=== PATIENT | female | born 1935 | race Caucasian/White ===

== ENCOUNTER 2018-04-02 11:07 | Inpatient (IN) | payer MEDICARE, BC ==
[~2018-04-02] VITALS: Ht 152.4 cm; Wt 45.8 kg
--- OUTSIDE RECORDS SUMMARY | 2018-04-02 11:10 | XMS REPORT | Clinical Summary ---
Author Author [employer] Organization [employer] Address Unknown Phone Unavailable Care Team Providers [facility] Name Role Phone Vipul Dunn MD PCP Allergies Comments Active Allergy Reactions Severity Noted Date Penicillin G Hives, Rash Low 03/23/2016 Sulfa (Sulfonamide Rash Low 03/24/2016 Antibiotics) Medications End Date Status Medication Sig Dispensed Refills Start Date Active clopidogrel (PLAVIX) 75 Take 1 tablet 0 mg tablet by mouth 7 daily. Active COMBIVENT RESPIMAT 20-100 Inhale 1-2 11 mcg/actuation mist puffs every 4 6 inhaler (four) hours as needed for shortness of breath. Active DULERA 200-5 Inhale 2 11 mcg/actuation inhaler puffs 2 (two) 6 times a day. Active fluticasone-vilanterol Inhale 1 0 (BREO ELLIPTA) 100-25 inhalations mcg/dose blister with once daily. device powder for inhalation Active lisinopril Take 20 mg by 0 (PRINIVIL,ZESTRIL) 20 mg mouth daily. tablet Active levothyroxine (SYNTHROID, Take 75 mcg 0 LEVOXYL) 75 mcg tablet by mouth every morning. Active vitamin E 400 UNIT Take 400 0 capsule Units by mouth daily. Active umeclidinium (INCRUSE Inhale 62.5 0 ELLIPTA) 62.5 mcg daily. mcg/actuation blister with device 07/28/2017 Discontinued SPIRIVA WITH HANDIHALER Place 1 puff 3 18 mcg per inhalation into inhaler 6 capsule and inhale daily. Active Problems Problem Noted Date Hematoma of arm, left, initial encounter 07/28/2017 Contusion of arm 07/28/2017 Balance problem 03/24/2016 Encounters Care Team Description Date Type Specialty Jonathan Armstrong RN 07/30/2017 Nurse Only General Internal Medicine Otilio Grace MD Satish, Shiva, MD Joglekar, Swati, MD Cherian, MD Rubin Hematoma of arm, left, initial encounter (Primary Dx); Fall at home, initial encounter; Acute bilateral thoracic back pain 07/28/2017 [facility] General Internal Medicine - Encounter 07/30/2017 after 04/01/2017 Social History Date Tobacco Use Types Packs/Day Years Used Current Every Day Smoker Cigarettes 2 50 Tobacco Cessation: Ready to Quit: No; Counseling Given: No Alcohol Use Drinks/Week oz/Week Comments Yes occassional drinker of liquor Sex Assigned at Date Recorded Not on file Industry Job Start Date Occupation Not on file Not on file Not on file Travel End Travel History Travel Start No recent travel history available. Last Filed Vital Signs Time Taken Vital Sign Reading 07/29/2017 8:24 PM CDT Blood Pressure 110/55 07/29/2017 8:24 PM CDT Pulse 94 07/29/2017 8:24 PM CDT Temperature 35.9 C (96.6 F) 07/29/2017 8:24 PM CDT Respiratory Rate 22 07/29/2017 8:24 PM CDT Oxygen Saturation 96% - Inhaled Oxygen - Concentration - Weight - 07/28/2017 2:47 AM CDT Height 167.6 cm (5' 6") - Body Mass Index - Plan of Treatment Health Maintenance Due Date Last Done Comments SHINGLES VACCINES (1 of 10/05/1983 2) PNEUMOCOCCAL 1998 POLYSACCHARIDE VACCINE AGE 65 AND OVER PNEUMOCOCCAL-13 1998 INFLUENZA VACCINE 09/20/2017 Procedures Comments Procedure Name Priority Date/Time Associated Diagnosis XR HIPS BILATERAL AP Routine 07/29/2017 LATERAL W AP PELVIS 2:48 PM CDT RESPIRATORY PATHOGEN Routine 07/29/2017 PANEL 11:58 AM CDT HC COMPLETE BLD COUNT Routine 07/29/2017 W/AUTO DIFF 4:10 AM CDT SODIUM LEVEL, URINE, Timed 07/29/2017 RANDOM 4:01 AM CDT URINALYSIS SCREEN AND Timed 07/29/2017 MICROSCOPY, WITH REFLEX 4:01 AM CDT TO CULTURE ZZESTIMATED GFR Routine 07/29/2017 4:00 AM CDT COMPREHENSIVE METABOLIC Routine 07/29/2017 PANEL 4:00 AM CDT URINE CULTURE Timed 07/29/2017 4:00 AM CDT TROPONIN Routine 07/28/2017 9:20 PM CDT BLOOD CULTURE, AEROBIC & Routine 07/28/2017 ANAEROBIC 9:20 PM CDT BLOOD CULTURE, AEROBIC & Routine 07/28/2017 ANAEROBIC 9:20 PM CDT B NATRIURETIC PEPTIDE Timed 07/28/2017 2:27 PM CDT HEMOGLOBIN A1C Timed 07/28/2017 2:27 PM CDT VITAMIN B12 LEVEL Timed 07/28/2017 9:03 AM CDT FERRITIN LEVEL Timed 07/28/2017 9:03 AM CDT TOTAL IRON BINDING Timed 07/28/2017 CAPACITY 9:03 AM CDT TROPONIN Timed 07/28/2017 9:03 AM CDT LACTIC ACID LEVEL Timed 07/28/2017 9:03 AM CDT THYROID STIMULATING Timed 07/28/2017 HORMONE 9:03 AM CDT MAGNESIUM LEVEL Timed 07/28/2017 9:03 AM CDT XR CHEST 1 VW STAT 07/28/2017 5:32 AM CDT POTASSIUM LEVEL STAT 07/28/2017 4:01 AM CDT ZZESTIMATED GFR STAT 07/28/2017 3:05 AM CDT BASIC METABOLIC PANEL STAT 07/28/2017 3:05 AM CDT PARTIAL THROMBOPLASTIN STAT 07/28/2017 TIME (PTT) 3:05 AM CDT PROTHROMBIN TIME WITH INR STAT 07/28/2017 3:05 AM CDT HC COMPLETE BLD COUNT STAT 07/28/2017 W/AUTO DIFF 3:[address] HEAD WO CONTRAST STAT 07/28/2017 3:[address] CERVICAL SPINE WO STAT 07/28/2017 CONTRAST 3:03 AM CDT after 04/01/2017 Results * XR Hips Bilateral Ap Lateral W Ap Pelvis (07/29/2017 2:48 PM CDT) Narrative Performed At EXAMINATION:XR HIPS BILATERAL [facility]: [facility] COMPARISON:March 31, 2004 FINDINGS: Bones are demineralized. No acute osseous abnormalities identified. There are pronounced degenerative changes in the lower lumbar spine. There has been endovascular repair of an abdominal aortic aneurysm. IMPRESSION: As above [facility]-[id number] Procedure Note Interface, Radiology Results Incoming - 07/29/2017 3:12 PM CDT EXAMINATION: XR HIPS BILATERAL AP LATERAL W AP PELVIS CLINICAL HISTORY: JOINT PAIN HIP COMPARISON: March 31, 2004 FINDINGS: Bones are demineralized. No acute osseous abnormalities identified. There are pronounced degenerative changes in the lower lumbar spine. There has been endovascular repair of an abdominal aortic aneurysm. IMPRESSION: As above [facility]-[id number] Performing Organization Address City/State/Zipcode Phone Number [facility] [address] [place] [address] * Respiratory pathogen panel (07/29/2017 11:58 AM CDT) Respiratory pathogen Negative for all pathogens [facility] DEPARTMENT OF panel tested: PATHOLOGY AND Negative for Adenovirus GENOMIC MEDICINE Negative for Coronavirus HKU1 Negative for Coronavirus NL63 Negative for Coronavirus 229E Negative for Coronavirus OC43 Negative for Human Metapneumovirus Negative for Rhinovirus/Enterovirus Negative for Influenza A Negative for Influenza A/H1 Negative for Influenza A/H3 Negative for Influenza A/H1-2009 Negative for Influenza B Negative for Parainfluenza Virus 1 Negative for Parainfluenza Virus 2 Negative for Parainfluenza Virus 3 Negative for Parainfluenza Virus 4 Negative for Respiratory Syncytial Virus Negative for Bordetella pertussis Negative for Chlamydophila pneumoniae Negative for Mycoplasma pneumoniae This real-time PCR assay detects the presence of nucleic acids (RNA or DNA) for the respiratory pathogens listed. A result of "Not-detected" does not exclude the possibility of the presence of one or more pathogens at concentrations less than the detectable limits of the assay. Comment: Specimen Information Specimen Source: Nares Specimen Site: Other Specimen Nares - Other- Detailed Description Required Performing Organization Address City/State/Zipcode Phone Number [facility] DEPARTMENT OF [address] [place] [address] PATHOLOGY AND GENOMIC MEDICINE * CBC with platelet and differential (07/29/2017 4:10 AM CDT) Only the most recent of 2 results within the time period is included. WBC 13.53 (H) 4.50 - 11.00 k/uL [facility] DEPARTMENT OF PATHOLOGY AND GENOMIC MEDICINE RBC 3.55 (L) 4.20 - 5.50 m/uL [facility] DEPARTMENT OF PATHOLOGY AND GENOMIC MEDICINE HGB 7.4 (L) 12.0 - 16.0 g/dL [facility] DEPARTMENT OF PATHOLOGY AND GENOMIC MEDICINE HCT 24.7 (L) 37.0 - 47.0 % [facility] DEPARTMENT OF PATHOLOGY AND GENOMIC MEDICINE MCV 69.6 (L) 82.0 - 100.0 fL [facility] DEPARTMENT OF PATHOLOGY AND GENOMIC MEDICINE MCH 20.8 (L) 27.0 - 34.0 pg [facility] DEPARTMENT OF PATHOLOGY AND GENOMIC MEDICINE MCHC 30.0 (L) 31.0 - 37.0 g/dL [facility] DEPARTMENT OF PATHOLOGY AND GENOMIC MEDICINE RDW - SD 45.3 37.0 - 55.0 fL [facility] DEPARTMENT OF PATHOLOGY AND GENOMIC MEDICINE MPV 9.1 8.8 - 13.2 fL [facility] DEPARTMENT OF PATHOLOGY AND GENOMIC MEDICINE Platelet count 308 150 - 400 k/uL [facility] DEPARTMENT OF PATHOLOGY AND GENOMIC MEDICINE Nucleated RBC 0.00 /100 WBC [facility] DEPARTMENT OF PATHOLOGY AND GENOMIC MEDICINE Neutrophils 82.0 (H) 39.0 - 69.0 % [facility] DEPARTMENT OF PATHOLOGY AND GENOMIC MEDICINE Lymphocytes 9.7 (L) 25.0 - 45.0 % [facility] DEPARTMENT OF PATHOLOGY AND GENOMIC MEDICINE Monocytes 6.3 0.0 - 10.0 % [facility] DEPARTMENT OF PATHOLOGY AND GENOMIC MEDICINE Eosinophils 1.1 0.0 - 5.0 % [facility] DEPARTMENT OF PATHOLOGY AND GENOMIC MEDICINE Basophils 0.3 0.0 - 1.0 % [facility] DEPARTMENT OF PATHOLOGY AND GENOMIC MEDICINE Immature granulocytes 0.6Comment: "Immature 0.0 - 1.0 % [facility] DEPARTMENT OF granulocytes" (promyelocytes, PATHOLOGY AND myelocytes, metamyelocytes) GENOMIC MEDICINE Specimen Blood Performing Organization Address [facility] Phone Number [place] [phone] PATHOLOGY AND [facility] * Urinalysis screen and microscopy, with reflex to culture (07/29/2017 4:01 AM CDT) Specimen site Clean catch [facility] DEPARTMENT OF PATHOLOGY AND GENOMIC MEDICINE Color, UA Yellow [facility] DEPARTMENT OF PATHOLOGY AND GENOMIC MEDICINE Appearance, UA Clear [facility] DEPARTMENT OF PATHOLOGY AND GENOMIC MEDICINE Specific gravity, UA 1.014 1.001 - 1.035 [facility] DEPARTMENT OF PATHOLOGY AND GENOMIC MEDICINE pH, UA 5.0 5.0 - 8.5 [facility] DEPARTMENT OF PATHOLOGY AND GENOMIC MEDICINE Protein, UA Negative Negative [facility] DEPARTMENT OF PATHOLOGY AND GENOMIC MEDICINE Glucose, UA Negative Negative [facility] DEPARTMENT OF PATHOLOGY AND GENOMIC MEDICINE Ketones, UA Negative Negative [facility] DEPARTMENT OF PATHOLOGY AND GENOMIC MEDICINE Bilirubin, UA Negative Negative [facility] DEPARTMENT OF PATHOLOGY AND GENOMIC MEDICINE Blood, UA Negative Negative [facility] DEPARTMENT OF PATHOLOGY AND GENOMIC MEDICINE Nitrite, UA Negative Negative [facility] DEPARTMENT OF PATHOLOGY AND GENOMIC MEDICINE Urobilinogen, UA 2.0 (A) <2.0 [facility] DEPARTMENT OF PATHOLOGY AND GENOMIC MEDICINE Leukocyte esterase, UA Negative Negative [facility] DEPARTMENT OF PATHOLOGY AND GENOMIC MEDICINE Epithelial cells, UA 1 /HPF [facility] DEPARTMENT OF PATHOLOGY AND GENOMIC MEDICINE WBC, UA 1 0 - 4 /HPF [facility] DEPARTMENT OF PATHOLOGY AND GENOMIC MEDICINE RBC, UA <1 0 - 5 /HPF [facility] DEPARTMENT OF PATHOLOGY AND GENOMIC MEDICINE Bacteria, UA None seen None seen [facility] DEPARTMENT OF PATHOLOGY AND GENOMIC MEDICINE Yeast, UA None seen [facility] DEPARTMENT OF PATHOLOGY AND GENOMIC MEDICINE Yeast with pseudohyphae, None seen [facility] DEPARTMENT OF UA PATHOLOGY AND GENOMIC MEDICINE Hyaline casts, UA 1 /LPF [facility] DEPARTMENT OF PATHOLOGY AND GENOMIC MEDICINE Specimen Urine Performing Organization Address City/[facility] Phone Number [address] [address] PATHOLOGY AND GENOMIC MEDICINE * Sodium level, urine, random (07/29/2017 4:01 AM CDT) Sodium, urine, random 128 mEq/L [facility] DEPARTMENT OF PATHOLOGY AND GENOMIC MEDICINE Specimen Urine Performing Organization Address City/[facility] [place] [address] PATHOLOGY AND GENOMIC MEDICINE * Estimated GFR (07/29/2017 4:00 AM CDT) Only the most recent of 2 results within the time period is included. GFR Non Af Amer 80 mL/min/1.73 m2 [facility] DEPARTMENT OF PATHOLOGY AND GENOMIC MEDICINE GFR Af Amer >90 mL/min/1.73 m2 [facility] DEPARTMENT OF Comment: PATHOLOGY AND Chronic kidney disease: <60 GENOMIC MEDICINE mL/min/1.73m2 Kidney failure: <15 mL/min/1.73m2 The estimated GFR is calculated from the IDMS-traceable Modification of Diet in Renal Disease Equation. The accuracy of the calculation is poor when the creatinine is normal. Calculated values >90 mL/min/1.73m2 are not reported. This equation has not been validated in children (<18 years), women, the elderly (>70 years), or ethnic groups other than Caucasians and Americans. Specimen Plasma specimen Performing Organization Address City/[facility]/[place]code [place] [address] PATHOLOGY AND [employer] MEDICINE * Urine culture (07/29/2017 4:00 AM CDT) Urine culture SEE COMMENTComment: [facility] DEPARTMENT OF Bacteriuria screen negative. PATHOLOGY AND GENOMIC MEDICINE Performing Organization Address City/[facility]/[place]code [place] [address] PATHOLOGY AND GENOMIC MEDICINE * Comprehensive metabolic panel (07/29/2017 4:00 AM CDT) Sodium 135 135 - 148 mEq/L [facility] DEPARTMENT OF PATHOLOGY AND GENOMIC MEDICINE Potassium 3.9 3.5 - 5.0 mEq/L [facility] DEPARTMENT OF PATHOLOGY AND GENOMIC MEDICINE Chloride 99 98 - 112 mEq/L [facility] DEPARTMENT OF PATHOLOGY AND GENOMIC MEDICINE CO2 22 (L) 24 - 31 mEq/L [facility] DEPARTMENT OF PATHOLOGY AND GENOMIC MEDICINE Anion gap 14@ANIO 7 - 15 mEq/L [facility] DEPARTMENT OF PATHOLOGY AND GENOMIC MEDICINE BUN 14 8 - 23 mg/dL [facility] DEPARTMENT OF PATHOLOGY AND GENOMIC MEDICINE Creatinine 0.7 0.5 - 0.9 mg/dL [facility] DEPARTMENT OF PATHOLOGY AND GENOMIC MEDICINE Glucose 88 65 - 99 mg/dL [facility] DEPARTMENT OF PATHOLOGY AND GENOMIC MEDICINE Calcium 8.6 (L) 8.8 - 10.2 mg/dL [facility] DEPARTMENT OF PATHOLOGY AND GENOMIC MEDICINE Protein 6.4 6.3 - 8.3 g/dL [facility] DEPARTMENT OF Comment: PATHOLOGY AND [place] GENOMIC MEDICINE 4.6-7.0 g/dL 1 week 4.4-7.6 g/dL 7 months-1year 5.1-7.3 g/dL 1-2 years5.6-7 .5 g/dL >3 years6.0-8 .0 g/dL 18-150 6.3-8.3 g/dL Albumin 2.9 (L) 3.5 - 5.0 g/dL [facility] DEPARTMENT OF PATHOLOGY AND GENOMIC MEDICINE A/G ratio 0.8 0.7 - 3.8 [facility] DEPARTMENT OF PATHOLOGY AND GENOMIC MEDICINE Alkaline phosphatase 104 35 - 104 U/L [facility] DEPARTMENT OF PATHOLOGY AND GENOMIC MEDICINE AST 14 10 - 35 U/L [facility] DEPARTMENT OF PATHOLOGY AND GENOMIC MEDICINE ALT 11 5 - 50 U/L [facility] DEPARTMENT OF PATHOLOGY AND GENOMIC MEDICINE Total bilirubin 0.4 0.0 - 1.2 mg/dL [facility] DEPARTMENT OF PATHOLOGY AND GENOMIC MEDICINE Specimen Plasma specimen Performing Organization Address City/State/[facility] Phone Number [place] [phone] PATHOLOGY AND GENOMIC MEDICINE * Troponin (07/28/2017 9:20 PM CDT) Only the most recent of 2 results within the time period is included. Troponin <0.30 0.00 - 0.30 ng/mL [facility] DEPARTMENT OF Comment: PATHOLOGY AND 0.30 - 1.49 GENOMIC MEDICINE ng/mlMay indicate increased risk of acute coronary syndrome. >=1.5 ng/ml Consistent with acute myocardial infarction. The diagnostic value of a single normal or non-diagnostic result is questionable.Serial samples at 2-6 hour intervals are required to rule out acute myocardial injury. Specimen Plasma specimen Performing Organization Address City/[facility] [place] [address] PATHOLOGY AND GENOMIC MEDICINE * Blood culture, aerobic & anaerobic (07/28/2017 9:20 PM CDT) Only the most recent of 2 results within the time period is included. Blood culture isolate No growth after 5 days of [facility] DEPARTMENT OF incubation. PATHOLOGY AND Comment: GENOMIC MEDICINE Specimen Information Specimen Source: Blood Specimen Site: Unspecified Specimen Blood - Wrist, right Performing Organization Address City/[facility] Phone Number [facility] [place] [address] PATHOLOGY AND GENOMIC MEDICINE * B natriuretic peptide (07/28/2017 2:27 PM CDT) BNP 193 (H) 0 - 100 pg/mL [facility] DEPARTMENT OF PATHOLOGY AND GENOMIC MEDICINE Specimen Blood Performing Organization Address [facility] Phone Number [facility] [place] [address] PATHOLOGY AND GENOMIC MEDICINE * Hemoglobin A1c (07/28/2017 2:27 PM CDT) Hemoglobin A1C 5.4 4.0 - 5.6 % [facility] DEPARTMENT OF Comment: PATHOLOGY AND HbA1c cutoffs for diagnosing GENOMIC MEDICINE diabetes: 4.0% - 5.6%=normal 5.7% - 6.4%=increased risk for diabetes (prediabetes) >=6.5%=diabetes Goals for glycemic control (ADA 2016) < 7.0%Target for non adults with diabetes. More or less stringent targets may be appropriate for individual patients. <7.5% Target for Children and adolescents with type 1 diabetes. Specimen Blood Performing Organization Address [facility] Phone Number [facility] [place] [address] PATHOLOGY AND GENOMIC MEDICINE * Total iron binding capacity (07/28/2017 9:03 AM CDT) Iron level 36 (L) 37 - 145 ug/dL [facility] DEPARTMENT OF PATHOLOGY AND GENOMIC MEDICINE Iron binding capacity 315 200 - 400 ug/dL [facility] DEPARTMENT OF PATHOLOGY AND GENOMIC MEDICINE % Saturation 11.4 (L) 15.0 - 38.0 % [facility] DEPARTMENT OF PATHOLOGY AND GENOMIC MEDICINE Specimen Plasma specimen Performing Organization Address City/[facility] Phone Number [facility] [place] [address] PATHOLOGY AND GENOMIC MEDICINE * Thyroid stimulating hormone (07/28/2017 9:03 AM CDT) TSH 1.29 0.27 - 4.20 uIU/mL [facility] DEPARTMENT OF PATHOLOGY AND GENOMIC MEDICINE Specimen Plasma specimen Performing Organization Address City/[facility] Phone Number [facility] [place] [address] PATHOLOGY AND GENOMIC MEDICINE * Magnesium level (07/28/2017 9:03 AM CDT) Magnesium 1.9 1.6 - 2.4 mg/dL [facility] DEPARTMENT OF PATHOLOGY AND GENOMIC MEDICINE Specimen Plasma specimen Performing Organization Address [facility] Phone Number [facility] [place] [address] PATHOLOGY AND GENOMIC MEDICINE * Lactic acid level (07/28/2017 9:03 AM CDT) Lactic acid 1.5 0.5 - 2.2 mmol/L [facility] DEPARTMENT OF PATHOLOGY AND GENOMIC MEDICINE Specimen Plasma specimen Performing Organization Address [facility] [place] [address] PATHOLOGY AND [facility] * Ferritin level (07/28/2017 9:03 AM CDT) Ferritin level 15 13 - 150 ng/mL [facility] DEPARTMENT OF PATHOLOGY AND GENOMIC MEDICINE Specimen Plasma specimen Performing Organization Address [facility] Phone Number [facility] [place] [address] PATHOLOGY AND [facility] MEDICINE * Vitamin B12 level (07/28/2017 9:03 AM CDT) Vitamin B12 526 211 - 946 pg/mL [facility] DEPARTMENT OF Comment: PATHOLOGY AND Significant overlap exists GENOMIC MEDICINE between normal and deficiency states. However, most patients with deficiencies will have Serum B12 <200 pg/mL. Specimen Serum Performing Organization Address [facility] Phone Number [facility] [place] [address] PATHOLOGY AND GENOMIC MEDICINE * XR Chest 1 Vw (07/28/2017 5:32 AM CDT) Narrative Performed At Examination:XR CHEST 1 VW RADIANT Clinical History:Rib pain s p fall Comparison: None. Technique: Single frontal view of the chest is obtained. Findings: The lungs are free of infiltrate. The heart size is in the upper limits of normal. Right apical calcified granuloma and left midlung calcified granuloma are stable. No pleural effusion is seen. Impression: No active cardiopulmonary disease identified. [facility]-[id number] Procedure Note Interface, Radiology Results Incoming - 07/28/2017 5:42 AM CDT Examination: XR CHEST 1 VW Clinical History: Rib pain s p fall Comparison: None. Technique: Single frontal view of the chest is obtained. Findings: The lungs are free of infiltrate. The heart size is in the upper limits of normal. Right apical calcified granuloma and left midlung calcified granuloma are stable. No pleural effusion is seen. Impression: No active cardiopulmonary disease identified. [facility]-[id number] Performing Organization Address [facility] [place] [address] * Potassium level (07/28/2017 4:01 AM CDT) Potassium 4.0 3.5 - 5.0 mEq/L [facility] DEPARTMENT OF PATHOLOGY AND [employer] MEDICINE Specimen Plasma specimen Performing Organization Address [facility] [place] [address] PATHOLOGY AND [employer] MEDICINE * Partial thromboplastin time, activated (07/28/2017 3:05 AM CDT) PTT 25.9 23.0 - 36.0 sec [facility] DEPARTMENT OF Comment: PATHOLOGY AND PTT therapeutic range for [facility] unfractionated heparin is 61.0-112.0 seconds which corresponds to Anti-Xa 0.3-0.7 U/ml. Specimen Blood Performing Organization Address [facility] [place] [address] PATHOLOGY AND [employer] MEDICINE * Prothrombin time with INR (07/28/2017 3:05 AM CDT) Prothrombin time 12.3 12.0 - 15.0 sec [facility] DEPARTMENT OF PATHOLOGY AND GENOMIC MEDICINE INR 0.9 [facility] DEPARTMENT OF Comment: PATHOLOGY AND The International Normalized GENOMIC MEDICINE Ratio (INR) is a therapeutic monitoring tool for patients who are stable on oral anticoagulant therapy. An INR of 2.0-3.0 is suggested for deep vein thrombosis/pulmonary embolism. Specimen Blood Performing Organization Address [facility] [place] [address] PATHOLOGY AND GENOMIC MEDICINE * Basic metabolic panel (07/28/2017 3:05 AM CDT) Sodium 125 (L) 135 - 148 mEq/L [facility] DEPARTMENT OF PATHOLOGY AND GENOMIC MEDICINE Potassium SEE COMMENTComment: 3.5 - 5.0 mEq/L [facility] DEPARTMENT OF Footnote--------- PATHOLOGY AND GENOMIC MEDICINE Chloride 91 (L) 98 - 112 mEq/L [facility] DEPARTMENT OF PATHOLOGY AND GENOMIC MEDICINE CO2 23 (L) 24 - 31 mEq/L [facility] DEPARTMENT OF PATHOLOGY AND GENOMIC MEDICINE Anion gap 11@ANIO 7 - 15 mEq/L [facility] DEPARTMENT OF PATHOLOGY AND GENOMIC MEDICINE BUN 14 8 - 23 mg/dL [facility] DEPARTMENT OF PATHOLOGY AND GENOMIC MEDICINE Creatinine 0.6 0.5 - 0.9 mg/dL [facility] DEPARTMENT OF PATHOLOGY AND GENOMIC MEDICINE Glucose 90 65 - 99 mg/dL [facility] DEPARTMENT OF PATHOLOGY AND GENOMIC MEDICINE Calcium 8.3 (L) 8.8 - 10.2 mg/dL [facility] DEPARTMENT OF PATHOLOGY AND GENOMIC MEDICINE Specimen Plasma specimen Performing Organization Address City/State/Zipcode Phone Number [facility] DEPARTMENT OF [address] [place] [address] PATHOLOGY AND GENOMIC MEDICINE * CT Head Wo Contrast (07/28/2017 3:03 AM CDT) Narrative Performed At CT HEAD WO CONTRAST [facility] CLINICAL INDICATION:fall TECHNIQUE: Routine unenhanced multidetector CT examination of the brain. CT imaging was performed with iterative reconstruction technique and/or automated exposure control to reduce radiation dose. COMPARISON:08/27/2016 FINDINGS: There is generalized volume loss. There is no mass, mass effect or midline shift. There is periventricular white matter hypoattenuation, compatible with chronic microangiopathic changes. There is no acute intracranial hemorrhage or extra-axial fluid collection. Basal cisterns are patent. Aside from cataract surgery, the visualized orbits are unremarkable. The paranasal sinuses and mastoid air cells are clear. The calvarium is intact without depressed fracture. IMPRESSION: No acute intracranial abnormality. [facility]-[id number] Procedure Note Interface, Radiology Results Incoming - 07/28/2017 3:[address] HEAD WO CONTRAST CLINICAL INDICATION: fall TECHNIQUE: Routine unenhanced multidetector CT examination of the brain. CT imaging was performed with iterative reconstruction technique and/or automated exposure control to reduce radiation dose. COMPARISON: 08/27/2016 FINDINGS: There is generalized volume loss. There is no mass, mass effect or midline shift. There is periventricular white matter hypoattenuation, compatible with chronic microangiopathic changes. There is no acute intracranial hemorrhage or extra-axial fluid collection. Basal cisterns are patent. Aside from cataract surgery, the visualized orbits are unremarkable. The paranasal sinuses and mastoid air cells are clear. The calvarium is intact without depressed fracture. IMPRESSION: No acute intracranial abnormality. [facility]-[id number] Performing Organization Address City/[facility]/Zipcode Phone Number [facility] [address] [place] [address] * CT Cervical Spine Wo Contrast (07/28/2017 3:03 AM CDT) Narrative Performed At EXAMINATION: CT CERVICAL SPINE WO CONTRAST [facility] CLINICAL HISTORY: fall COMPARISON:None TECHNIQUE: Noncontrast enhanced imaging through the cervical spine was performed with coronal and sagittal reconstructed images. CT imaging was performed with iterative reconstruction technique and/or automated exposure control to reduce radiation dose. FINDINGS: Vertebral body heights are maintained and no acute fracture is identified. There is no prevertebral soft tissue swelling. No significant listhesis is identified. There is multilevel degenerative disc disease, worst at the C5-C6 and C6-C7 levels where there is resultant moderate spinal canal narrowing. There is severe centrilobular emphysema of the lung apices. IMPRESSION: No acute osseous abnormality of the cervical spine. [facility]-[id number] Procedure Note Hm Interface, Radiology Results Incoming - 07/28/2017 3:14 AM CDT EXAMINATION: CT CERVICAL SPINE WO CONTRAST CLINICAL HISTORY: fall COMPARISON: None TECHNIQUE: Noncontrast enhanced imaging through the cervical spine was performed with coronal and sagittal reconstructed images. CT imaging was performed with iterative reconstruction technique and/or automated exposure control to reduce radiation dose. FINDINGS: Vertebral body heights are maintained and no acute fracture is identified. There is no prevertebral soft tissue swelling. No significant listhesis is identified. There is multilevel degenerative disc disease, worst at the C5-C6 and C6-C7 levels where there is resultant moderate spinal canal narrowing. There is severe centrilobular emphysema of the lung apices. IMPRESSION: No acute osseous abnormality of the cervical spine. [facility]-[id number] Performing Organization Address City/State/Zipcode Phone Number [facility] [address] [place] [address] after 04/01/2017 Insurance Payer Benefit Subscriber ID Type Phone Address Plan / Group MEDICARE MEDICARE xxxxxxxxxx Medicare [place] PART A [place] B BCBS BCBS xxxxxxxxxxxx Indemnity PAR/TRAD PLAN Advance Directives Patient has advance care planning documents on file. For more information, maldonado e contact: Juan Edwards [address] [place] [address]
[2018-04-02] MEDS ORDERED: PLAVIX75 MG PO (11:37)
[2018-04-02] MEDS ORDERED: BREO INHALER IH (11:37)
[2018-04-02] MEDS ORDERED: INCRUSE INHALER IH (11:37)
[2018-04-02] MEDS ORDERED: FERROUS SULFAT325 MG PO (11:37)
[2018-04-02] MEDS ORDERED: LISINOPRIL10 MG PO (11:37)
[2018-04-02 11:53] LABS: BASOPHILS % 0.3 % (0.0-1.0); EOSINOPHILS # (AUTO) 0.1 (0.0-0.4); EOSINOPHILS % 0.8 % (0.0-6.0); HEMATOCRIT 35.1 % (34.2-44.1); HEMOGLOBIN 10.8 g/dL (12.0-16.0); LYMPHOCYTES # (AUTO) 0.7 (1.0-3.2); LYMPHOCYTES % 7.4 % (18.0-39.1); MEAN CORPUSCULAR HEMOGLOBIN 25.7 pg (28-32); MEAN CORPUSCULAR HGB CONC 30.8 g/dL (31-35); MEAN CORPUSCULAR VOLUME 83.4 fL (81-99); MONOCYTES # (AUTO) 0.9 (0.2-0.8); MONOCYTES % 9.5 % (4.4-11.3); NEUTROPHILS # (AUTO) 7.8 (2.1-6.9); NEUTROPHILS % 81.6 % (38.7-80.0); PLATELET COUNT 268 x10e3/uL (140-360); RED BLOOD COUNT 4.21 x10e6/uL (3.6-5.1); RED CELL DISTRIBUTION WIDTH 23.6 % (11.7-14.4)
[2018-04-02 11:58] LABS: INR 0.9
[2018-04-02 12:07] LABS: ALANINE AMINOTRANSFERASE 13 IU/L (0-55); ALBUMIN 2.7 g/dL (3.5-5.0); ALBUMIN/GLOBULIN RATIO 0.8 (0.8-2.0); ALKALINE PHOSPHATASE 93 IU/L (40-150); ANION GAP 14.5 mmol/L (8-16); BLOOD UREA NITROGEN 24 mg/dL (7-26); BUN/CREATININE RATIO 29 (6-25); CARBON DIOXIDE 22 mmol/L (22-29); CHLORIDE 99 mmol/L (98-107); CREATINE KINASE 23 IU/L (29-168); CREATININE, SERUM 0.83 mg/dL (0.57-1.11); EST GLOMERULAR FILTRATION RATE > 60 ML/MIN (60-); GLUCOSE 114 mg/dL (74-118); POTASSIUM 3.5 mmol/L (3.5-5.1); SODIUM 132 mmol/L (136-145)
--- NOTE | 2018-04-02 12:15 | NUR ---
X-RAY AT BEDSIDE FOR CXR AT THIS TIME.
[2018-04-02] MEDS ORDERED: SODIUM CHLORIDE 0.9% 1000ML 1,000 ML IV SCH (12:30)
--- NOTE | 2018-04-02 12:40 | NUR ---
DR. MIDDLETON AT BEDSIDE FOR PATIENT EVAL AT THIS TIME.
--- NOTE | 2018-04-02 12:45 | Diagnostic Imaging Report ---
EXAMINATION: CHEST SINGLE (PORTABLE) INDICATION: Shortness of breath. COMPARISON: None FINDINGS: TUBES and LINES: None. LUNGS: Mild patchy opacities at the right lung base. Central vascular congestion without evidence of pulmonary edema. There is nodular opacity projecting over the right upper lung. Calcified left sided lung nodules. PLEURA: No pleural effusion or pneumothorax. HEART AND MEDIASTINUM: Ovoid opacity projects over the right lower mediastinum. Atherosclerotic calcifications of the aortic arch. No evidence of cardiomegaly. BONES AND SOFT TISSUES: No acute radiographic abnormality. UPPER ABDOMEN: No free air under the diaphragm. IMPRESSION: Ovoid opacity projecting over the right lower mediastinum and right upper lung nodular opacity. Chest CT is recommended for further evaluation. Patchy opacities of the right lung base could reflect atelectasis or pneumonia in the appropriate clinical setting. Signed by: Dr. Isabel Foreman MD on 04/02/2018 12:41 PM
[2018-04-02] MEDS: CEFEPIME 1GM/NS 0.9% 50 ML 50 ML IV SCH ×2 (13:50→22:00)
[2018-04-02] MEDS ORDERED: CEFEPIME HCL 1 GM VIAL IV SCH (14:00)
[2018-04-02] MEDS: AZITHROMYCIN 500MG/NS 250 ML 250 ML IV SCH (14:20)
[2018-04-02] MEDS: ALBUTEROL SULF 0.083% NEB SOLN 3 ML NEB NEB SCH ×2 (14:30→20:10)
--- OUTSIDE RECORDS SUMMARY | 2018-04-02 14:41 | XMS REPORT | Clinical Summary ---
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 No acute osseous abnormalities identified. There are pronounced degenerative changes in the lower lumbar spine. There has been endovascular repair of an abdominal aortic aneurysm. IMPRESSION: As above [facility]-[id number] Procedure Note Interface, Radiology Results Incoming - 07/29/2017 3:12 PM CDT EXAMINATION: XR HIPS BILATERAL AP LATERAL W AP PELVIS CLINICAL HISTORY: JOINT PAIN HIP COMPARISON: March 31, 2004 FINDINGS: Bones are demineralized. No acute osseous abnormalities identified. There are pronounced degenerative changes in the lower lumbar spine. There has been endovascular repair of an abdominal aortic aneurysm. IMPRESSION: As above [facility]-[id number] Performing Organization Address City/State/Zipcode Phone Number [facility] [address] [place] [address] * Respiratory pathogen panel (07/29/2017 11:58 AM CDT) Respiratory pathogen Negative for all pathogens [facility] DEPARTMENT OF panel tested: PATHOLOGY [...] Required Performing Organization Address City/State/Zipcode Phone Number [facility] DEPARTMENT OF [address] [place] [address] PATHOLOGY AND GENOMIC MEDICINE * CBC with platelet and differential (07/29/2017 4:10 AM CDT) Only the most recent of 2 results within the time period is included. WBC 13.53 (H) 4.50 - 11.00 k/uL [facility] DEPARTMENT OF PATHOLOGY AND GENOMIC MEDICINE RBC 3.55 (L) 4.20 - 5.50 m/uL [facility] DEPARTMENT OF PATHOLOGY AND GENOMIC MEDICINE HGB 7.4 (L) 12.0 - 16.0 g/dL [facility] DEPARTMENT OF PATHOLOGY AND GENOMIC MEDICINE HCT 24.7 (L) 37.0 - 47.0 % [facility] DEPARTMENT OF PATHOLOGY AND GENOMIC MEDICINE MCV 69.6 (L) 82.0 - 100.0 fL [facility] DEPARTMENT OF PATHOLOGY AND GENOMIC MEDICINE MCH 20.8 (L) 27.0 - 34.0 pg [facility] DEPARTMENT OF PATHOLOGY AND GENOMIC MEDICINE MCHC 30.0 (L) 31.0 - 37.0 g/dL [facility] DEPARTMENT OF PATHOLOGY AND GENOMIC MEDICINE RDW - SD 45.3 37.0 - 55.0 fL [facility] DEPARTMENT OF PATHOLOGY AND GENOMIC MEDICINE MPV 9.1 8.8 - 13.2 fL [facility] DEPARTMENT OF PATHOLOGY AND GENOMIC MEDICINE Platelet count 308 150 - 400 k/uL [facility] DEPARTMENT OF PATHOLOGY AND GENOMIC MEDICINE Nucleated RBC 0.00 /100 WBC [facility] DEPARTMENT OF PATHOLOGY AND GENOMIC MEDICINE Neutrophils 82.0 (H) 39.0 - 69.0 % [facility] DEPARTMENT OF PATHOLOGY AND GENOMIC MEDICINE Lymphocytes 9.7 (L) 25.0 - 45.0 % [facility] DEPARTMENT OF PATHOLOGY AND GENOMIC MEDICINE Monocytes 6.3 0.0 - 10.0 % [facility] DEPARTMENT OF PATHOLOGY AND GENOMIC MEDICINE Eosinophils 1.1 0.0 - 5.0 % [facility] DEPARTMENT OF PATHOLOGY AND GENOMIC MEDICINE Basophils 0.3 0.0 - 1.0 % [facility] DEPARTMENT OF PATHOLOGY AND GENOMIC MEDICINE Immature granulocytes 0.6Comment: "Immature 0.0 - 1.0 % [facility] DEPARTMENT OF granulocytes" (promyelocytes, PATHOLOGY AND myelocytes, metamyelocytes) GENOMIC MEDICINE Specimen Blood Performing Organization Address [facility] Phone Number [place] [phone] PATHOLOGY AND [facility] * Urinalysis screen and microscopy, with reflex to culture (07/29/2017 4:01 AM CDT) Specimen site Clean catch [facility] DEPARTMENT OF PATHOLOGY AND GENOMIC MEDICINE Color, UA Yellow [facility] DEPARTMENT OF PATHOLOGY AND GENOMIC MEDICINE Appearance, UA Clear [facility] DEPARTMENT OF PATHOLOGY AND GENOMIC MEDICINE Specific gravity, UA 1.014 1.001 - 1.035 [facility] DEPARTMENT OF PATHOLOGY AND GENOMIC MEDICINE pH, UA 5.0 5.0 - 8.5 [facility] DEPARTMENT OF PATHOLOGY AND GENOMIC MEDICINE Protein, UA Negative Negative [facility] DEPARTMENT OF PATHOLOGY AND GENOMIC MEDICINE Glucose, UA Negative Negative [facility] DEPARTMENT OF PATHOLOGY AND GENOMIC MEDICINE Ketones, UA Negative Negative [facility] DEPARTMENT OF PATHOLOGY AND GENOMIC MEDICINE Bilirubin, UA Negative Negative [facility] DEPARTMENT OF PATHOLOGY AND GENOMIC MEDICINE Blood, UA Negative Negative [facility] DEPARTMENT OF PATHOLOGY AND GENOMIC MEDICINE Nitrite, UA Negative Negative [facility] DEPARTMENT OF PATHOLOGY AND GENOMIC MEDICINE Urobilinogen, UA 2.0 (A) <2.0 [facility] DEPARTMENT OF PATHOLOGY AND GENOMIC MEDICINE Leukocyte esterase, UA Negative Negative [facility] DEPARTMENT OF PATHOLOGY AND GENOMIC MEDICINE Epithelial cells, UA 1 /HPF [facility] DEPARTMENT OF PATHOLOGY AND GENOMIC MEDICINE WBC, UA 1 0 - 4 /HPF [facility] DEPARTMENT OF PATHOLOGY AND GENOMIC MEDICINE RBC, UA <1 0 - 5 /HPF [facility] DEPARTMENT OF PATHOLOGY AND GENOMIC MEDICINE Bacteria, UA None seen None seen [facility] DEPARTMENT OF PATHOLOGY AND GENOMIC MEDICINE Yeast, UA None seen [facility] DEPARTMENT OF PATHOLOGY AND GENOMIC MEDICINE Yeast with pseudohyphae, None seen [facility] DEPARTMENT OF UA PATHOLOGY AND GENOMIC MEDICINE Hyaline casts, UA 1 /LPF [facility] DEPARTMENT OF PATHOLOGY AND GENOMIC MEDICINE Specimen Urine Performing Organization Address City/[facility] Phone Number [address] [address] PATHOLOGY AND GENOMIC MEDICINE * Sodium level, urine, random (07/29/2017 4:01 AM CDT) Sodium, urine, random 128 mEq/L [facility] DEPARTMENT OF PATHOLOGY AND GENOMIC MEDICINE Specimen Urine Performing Organization Address City/[facility] [place] [address] PATHOLOGY AND GENOMIC MEDICINE * Estimated GFR (07/29/2017 4:00 AM CDT) Only the most recent of 2 results within the time period is included. GFR Non Af Amer 80 mL/min/1.73 m2 [facility] DEPARTMENT OF PATHOLOGY AND GENOMIC MEDICINE GFR Af Amer >90 mL/min/1.73 m2 [facility] DEPARTMENT OF Comment: PATHOLOGY AND [...] Americans. Specimen Plasma specimen Performing Organization Address City/[facility]/[place] [address] PATHOLOGY AND [place] [facility]IC[facility] * Urine culture (07/29/2017 4:00 AM CDT) Urine culture SEE COMMENTComment: [facility] DEPARTMENT OF Bacteriuria screen negative. PATHOLOGY AND GENOMIC MEDICINE Performing Organization Address City/[facility]/[place] [address] PATHOLOGY AND GENOMIC MEDICINE * Comprehensive metabolic panel (07/29/2017 4:00 AM CDT) Sodium 135 135 - 148 mEq/L [facility] DEPARTMENT OF PATHOLOGY AND GENOMIC MEDICINE Potassium 3.9 3.5 - 5.0 mEq/L [facility] DEPARTMENT OF PATHOLOGY AND GENOMIC MEDICINE Chloride 99 98 - 112 mEq/L [facility] DEPARTMENT OF PATHOLOGY AND GENOMIC MEDICINE CO2 22 (L) 24 - 31 mEq/L [facility] DEPARTMENT OF PATHOLOGY AND GENOMIC MEDICINE Anion gap 14@ANIO 7 - 15 mEq/L [facility] DEPARTMENT OF PATHOLOGY AND GENOMIC MEDICINE BUN 14 8 - 23 mg/dL [facility] DEPARTMENT OF PATHOLOGY AND GENOMIC MEDICINE Creatinine 0.7 0.5 - 0.9 mg/dL [facility] DEPARTMENT OF PATHOLOGY AND GENOMIC MEDICINE Glucose 88 65 - 99 mg/dL [facility] DEPARTMENT OF PATHOLOGY AND GENOMIC MEDICINE Calcium 8.6 (L) 8.8 - 10.2 mg/dL [facility] DEPARTMENT OF PATHOLOGY AND GENOMIC MEDICINE Protein 6.4 6.3 - 8.3 g/dL [facility] DEPARTMENT OF Comment: PATHOLOGY AND [place] GENOMIC MEDICINE 4.6-7.0 g/dL 1 week 4.4-7.6 g/dL 7 months-1year 5.1-7.3 g/dL 1-2 years5.6-7 .5 g/dL >3 years6.0-8 .0 g/dL 18-150 6.3-8.3 g/dL Albumin 2.9 (L) 3.5 - 5.0 g/dL [facility] DEPARTMENT OF PATHOLOGY AND GENOMIC MEDICINE A/G ratio 0.8 0.7 - 3.8 [facility] DEPARTMENT OF PATHOLOGY AND GENOMIC MEDICINE Alkaline phosphatase 104 35 - 104 U/L [facility] DEPARTMENT OF PATHOLOGY AND GENOMIC MEDICINE AST 14 10 - 35 U/L [facility] DEPARTMENT OF PATHOLOGY AND GENOMIC MEDICINE ALT 11 5 - 50 U/L [facility] DEPARTMENT OF PATHOLOGY AND GENOMIC MEDICINE Total bilirubin 0.4 0.0 - 1.2 mg/dL [facility] DEPARTMENT OF PATHOLOGY AND GENOMIC MEDICINE Specimen Plasma specimen Performing Organization Address City/State/[facility] Cent[facility]ode Phone Number [place] [phone] PATHOLOGY AND GENOMIC MEDICINE * Troponin (07/28/2017 9:20 PM CDT) Only the most recent of 2 results within the time period is included. Troponin <0.30 0.00 - 0.30 ng/mL [facility] DEPARTMENT OF Comment: PATHOLOGY AND 0.30 - 1.49 GENOMIC MEDICINE ng/mlMay indicate increased risk of acute coronary syndrome. >=1.5 ng/ml Consistent with acute myocardial infarction. The diagnostic value of a single normal or non-diagnostic result is questionable.Serial samples at 2-6 hour intervals are required to rule out acute myocardial injury. Specimen Plasma specimen Performing Organization Address City/[facility] [place] [address] PATHOLOGY AND GENOMIC MEDICINE * Blood culture, aerobic & anaerobic (07/28/2017 9:20 PM CDT) Only the most recent of 2 results within the time period is included. Blood culture isolate No growth after 5 days of [facility] DEPARTMENT OF incubation. PATHOLOGY AND Comment: GENOMIC MEDICINE Specimen Information Specimen Source: Blood Specimen Site: Unspecified Specimen Blood - Wrist, right Performing Organization Address City/[facility] Cent[facility]ode Phone Number [facility] [place] [address] PATHOLOGY AND GENOMIC MEDICINE * B natriuretic peptide (07/28/2017 2:27 PM CDT) BNP 193 (H) 0 - 100 pg/mL [facility] DEPARTMENT OF PATHOLOGY AND GENOMIC MEDICINE Specimen Blood Performing Organization Address [facility]ode Phone Number [facility] [place] [address] PATHOLOGY AND GENOMIC MEDICINE * Hemoglobin A1c (07/28/2017 2:27 PM CDT) Hemoglobin A1C 5.4 4.0 - 5.6 % [facility] DEPARTMENT OF Comment: PATHOLOGY AND [...] 1 diabetes. Specimen Blood Performing Organization Address [facility] Phone Number [facility] [place] [address] PATHOLOGY AND GENOMIC MEDICINE * Total iron binding capacity (07/28/2017 9:03 AM CDT) Iron level 36 (L) 37 - 145 ug/dL [facility] DEPARTMENT OF PATHOLOGY AND GENOMIC MEDICINE Iron binding capacity 315 200 - 400 ug/dL [facility] DEPARTMENT OF PATHOLOGY AND GENOMIC MEDICINE % Saturation 11.4 (L) 15.0 - 38.0 % [facility] DEPARTMENT OF PATHOLOGY AND GENOMIC MEDICINE Specimen Plasma specimen Performing Organization Address City/[facility]ode Phone Number [facility] [place] [address] PATHOLOGY AND GENOMIC MEDICINE * Thyroid stimulating hormone (07/28/2017 9:03 AM CDT) TSH 1.29 0.27 - 4.20 uIU/mL [facility] DEPARTMENT OF PATHOLOGY AND GENOMIC MEDICINE Specimen Plasma specimen Performing Organization Address City/[facility]ode Phone Number [facility] [place] [address] PATHOLOGY AND GENOMIC MEDICINE * Magnesium level (07/28/2017 9:03 AM CDT) Magnesium 1.9 1.6 - 2.4 mg/dL [facility] DEPARTMENT OF PATHOLOGY AND GENOMIC MEDICINE Specimen Plasma specimen Performing Organization Address [facility]ode Phone Number [facility] [place] [address] PATHOLOGY AND GENOMIC MEDICINE * Lactic acid level (07/28/2017 9:03 AM CDT) Lactic acid 1.5 0.5 - 2.2 mmol/L [facility] DEPARTMENT OF PATHOLOGY AND GENOMIC MEDICINE Specimen Plasma specimen Performing Organization Address [facility] [place] [address] PATHOLOGY AND [facility] * Ferritin level (07/28/2017 9:03 AM CDT) Ferritin level 15 13 - 150 ng/mL [facility] DEPARTMENT OF PATHOLOGY AND GENOMIC MEDICINE Specimen Plasma specimen Performing Organization Address [facility] Centercode Phone Number [facility] [place] [address] PATHOLOGY AND [facility] MEDICINE * Vitamin B12 level (07/28/2017 9:03 AM CDT) Vitamin B12 526 211 - 946 pg/mL [facility] DEPARTMENT OF Comment: PATHOLOGY AND Significant overlap exists GENOMIC MEDICINE between normal and deficiency states. However, most patients with deficiencies will have Serum B12 <200 pg/mL. Specimen Serum Performing Organization Address [facility]ode Phone Number [facility] [place] [address] PATHOLOGY AND GENOMIC MEDICINE * XR Chest [...] seen. Impression: No active cardiopulmonary disease identified. [facility]-[id number] Procedure Note Interface, Radiology Results Incoming - [...] seen. Impression: No active cardiopulmonary disease identified. [facility]-[id number] Performing Organization Address [facility] [place] [address] * Potassium level (07/28/2017 4:01 AM CDT) Potassium 4.0 3.5 - 5.0 mEq/L [facility] DEPARTMENT OF PATHOLOGY AND [place] MEDICINE Specimen Plasma specimen Performing Organization Address [facility] [place] [address] PATHOLOGY AND [place] MEDICINE * Partial thromboplastin time, activated (07/28/2017 3:05 AM CDT) PTT 25.9 23.0 - 36.0 sec [facility] DEPARTMENT OF Comment: PATHOLOGY AND PTT therapeutic range for [facility] unfractionated heparin is 61.0-112.0 seconds which corresponds to Anti-Xa 0.3-0.7 U/ml. Specimen Blood Performing Organization Address [facility] [place] [address] PATHOLOGY AND [place] MEDICINE * Prothrombin time with INR (07/28/2017 3:05 AM CDT) Prothrombin time 12.3 12.0 - 15.0 sec [facility] DEPARTMENT OF PATHOLOGY AND GENOMIC MEDICINE INR 0.9 [facility] DEPARTMENT OF Comment: PATHOLOGY AND The International Normalized GENOMIC MEDICINE Ratio (INR) is a therapeutic monitoring tool for patients who are stable on oral anticoagulant therapy. An INR of 2.0-3.0 is suggested for deep vein thrombosis/pulmonary embolism. Specimen Blood Performing Organization Address [facility] [place] [address] PATHOLOGY AND GENOMIC MEDICINE * Basic metabolic panel (07/28/2017 3:05 AM CDT) Sodium 125 (L) 135 - 148 mEq/L [facility] DEPARTMENT OF PATHOLOGY AND GENOMIC MEDICINE Potassium SEE COMMENTComment: 3.5 - 5.0 mEq/L [facility] DEPARTMENT OF [employer]--------- PATHOLOGY AND GENOMIC MEDICINE Chloride 91 (L) 98 - 112 mEq/L [facility] DEPARTMENT OF PATHOLOGY AND GENOMIC MEDICINE CO2 23 (L) 24 - 31 mEq/L [facility] DEPARTMENT OF PATHOLOGY AND GENOMIC MEDICINE Anion gap 11@ANIO 7 - 15 mEq/L [facility] DEPARTMENT OF PATHOLOGY AND GENOMIC MEDICINE BUN 14 8 - 23 mg/dL [facility] DEPARTMENT OF PATHOLOGY AND GENOMIC MEDICINE Creatinine 0.6 0.5 - 0.9 mg/dL [facility] DEPARTMENT OF PATHOLOGY AND GENOMIC MEDICINE Glucose 90 65 - 99 mg/dL [facility] DEPARTMENT OF PATHOLOGY AND GENOMIC MEDICINE Calcium 8.3 (L) 8.8 - 10.2 mg/dL [facility] DEPARTMENT OF PATHOLOGY AND GENOMIC MEDICINE Specimen Plasma specimen Performing Organization Address City/State/Zipcode Phone Number [facility] DEPARTMENT OF [address] [place] [address] PATHOLOGY AND GENOMIC MEDICINE * CT Head [...] depressed fracture. IMPRESSION: No acute intracranial abnormality. [facility]-[id number] Procedure Note Interface, Radiology Results Incoming - [...] depressed fracture. IMPRESSION: No acute intracranial abnormality. [facility]-[id number] Performing Organization Address City/[facility]/Zipcode Phone Number [facility] [address] [place] [address] * CT Cervical Spine Wo Contrast (07/28/2017 [...] acute osseous abnormality of the cervical spine. [facility]-[id number] Procedure Note Hm Interface, Radiology Results Incoming [...] acute osseous abnormality of the cervical spine. [facility]-[id number] Performing Organization Address City/State/Zipcode Phone Number [facility] [address] [place] [address] after 04/01/2017 Insurance Payer Benefit Subscriber ID Type Phone Address Plan / Group MEDICARE MEDICARE xxxxxxxxxx Medicare [place] PART A [place] B BCBS BCBS xxxxxxxxxxxx Indemnity PAR/TRAD PLAN Advance Directives Patient has advance care planning documents on file. For more information, maldonado e contact: Juan Edwards [address] [place] [address]
[2018-04-02] MEDS: IPRATROPIUM BROMIDE 0.02% 2.5 ML NEB NEB SCH (15:57)
--- NOTE | 2018-04-02 16:02 | Diagnostic Imaging Report ---
EXAM: CT Chest WITH contrast INDICATION: Cough, smoker, pneumonia x1 week. Possible lung mass on chest radiograph. COMPARISON: Chest radiograph 04/02/2018. TECHNIQUE: Chest was scanned utilizing a multidetector helical scanner from the lung apex through the level of the adrenal glands without administration of IV contrast. Coronal and sagittal reformations were obtained. Routine protocol was performed. Dose modulation, iterative reconstruction, and/or weight based adjustment of the mA/kV was utilized to reduce the radiation dose to as low as reasonably achievable. IV CONTRAST: 100 mL of Isovue 370. RADIATION DOSE: Total DLP: 306.5 mGy*cm COMPLICATIONS: None FINDINGS: LINES/ TUBES: None. LUNGS AND AIRWAYS: There is mucoid impaction in the right greater than left lower lobe bronchi as well as middle lobe bronchi. There is diffuse bronchial wall thickening. There are severe centrilobular emphysematous changes of the lungs. There are multifocal consolidative and tree in bud opacities, most confluent in the right lower lobe, but also present within the left lower lobe, middle lobe, lingula, and right upper lobe. There are multiple bilateral calcified lung nodules, for example in the right upper lobe on image 13 and left upper lobe on image 15. There is biapical pleural-parenchymal opacity. There is an 8 mm solid pulmonary nodule in the right upper lobe on series 3, image 20 and an 8 mm right upper lobe pulmonary nodule on image 26. There is a 4 mm solid-appearing nodule in the left upper lobe on image 22. PLEURA: The pleural spaces are clear. HEART AND MEDIASTINUM: Multiple bilateral thyroid nodules. A 1 cm right peritracheal lymph node is nonspecific, but could be reactive. Mild left atrial enlargement. There is no pericardial effusion. The main pulmonary artery is enlarged, measuring up to 3.4 cm. No evidence of central pulmonary embolism. Extensive mitral annular calcifications. Scattered coronary atherosclerosis. Extensive atherosclerotic changes of the thoracic aorta and branch vessels. There is noncalcified mural thrombus within the descending thoracic aorta. No evidence of mass corresponding to the opacity noted in the right lower mediastinum on same day chest radiograph, which likely represented central pulmonary vascular structures. UPPER ABDOMEN: Limited views of the upper abdomen. No definite abnormality within the partially visualized liver, spleen, or left adrenal gland. Subcentimeter hypodensity within the right upper pole kidney likely represents a cyst. Mild thickening of the right adrenal gland without discrete nodule. BONES/SOFT TISSUES: Mild age indeterminant loss of vertebral body height at the T10-T12 levels. No suspicious lytic or blastic lesions. IMPRESSION: Severe emphysematous changes of the lungs with multifocal pneumonia, most confluent within the right lower lobe. Follow-up chest CT is recommended in 3 months to assess for resolution of pneumonia. Bilateral solid pulmonary nodules, measuring up to 8 mm. Differential includes noncalcified granulomas as well as malignancy. Follow-up chest CT in 3 months is recommended. No mass corresponding to the opacity noted in the right lower mediastinum on same day chest radiograph, which likely represented central pulmonary vascular structures. Enlarged main pulmonary artery, suggestive of pulmonary arterial hypertension. Age indeterminate loss of vertebral body height at the T10-T12 levels. Multiple bilateral thyroid nodules which could be further assessed with thyroid ultrasound if clinically indicated. Signed by: Dr. Isabel Foreman MD on 04/02/2018 3:59 PM
[2018-04-02] MEDS: SODIUM CHLORIDE 0.9% 1000ML 1,000 ML IV SCH ×2 (16:18→22:22)
[2018-04-02] MEDS: NICOTINE 21 MG/EA PATCH TOP SCH (16:20)
[2018-04-02] MEDS: METHYLPREDNISOLONE SOD SUCC 40 MG/ML VIAL 1ML IV SCH ×2 (16:22→22:00)
--- NOTE | 2018-04-02 16:58 | NUR ---
ASSISTED PT WITH MEAL TRAY, TOLERATING WELL AT THIS TIME.
--- NOTE | 2018-04-02 18:48 | NUR ---
The pt. arrived to the unit from ER via stretcher and was placed in bed with iv fluids connected to pump. The pt. was made comfortable with call light in reach, side rails up.
--- NOTE | 2018-04-02 19:10 | NUR ---
Bedside rounds completed with morning nurse. Pt lying in bed HOB 30 degrees. Alert to name, place, time, and situation. Denies pain at this time. O2 @3L via NC. No acute distress noted. Call quintero within reach. Bed low and locked. Will continue to monitor.
[2018-04-02 19:30] VITALS: BP_SYST 102; BP_SYST 126; BP_DIAS 53; BP_DIAS 59
--- NOTE | 2018-04-02 19:30 | NUR ---
Admitted to room 209 via stretcher. Alert to name, place, time, and situation. Skin warm and dry, healed and bruises scabs to LE. Denies pain at this time. Coughing, white phlegm. Diminished lung sounds LLL. 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 Ambulatory with walker. Cap refill <3 secs. O2 @2L via NC, denies SOB. No edema noted. No acute distress noted. Oriented to room. Call quintero within reach. Bed low and locked. Will continue to monitor.
[2018-04-02 20:34] LABS: CREATINE KINASE MB 1.3 ng/mL (0-5.0)
[2018-04-02 21:12] VITALS: BP 126/59
[2018-04-02] MEDS ORDERED: METHYLPREDNISOLONE SOD SUCC 40 MG/ML VIAL 1ML IV SCH (22:00)
[2018-04-02] MEDS ORDERED: GUAIFENESIN/DEXTROMETHORPHAN LIQD 5 ML UDC PO PRN (22:30)
[2018-04-03] VITALS (7 sets, daily range): BP systolic 108–155; BP diastolic 54–62
[2018-04-03] MEDS: GUAIFENESIN/DEXTROMETHORPHAN LIQD 5 ML UDC PO PRN (00:15)
[2018-04-03] MEDS: IPRATROPIUM BROMIDE 0.02% 2.5 ML NEB NEB SCH ×6 (00:35→23:30)
[2018-04-03] MEDS: ALBUTEROL SULF 0.083% NEB SOLN 3 ML NEB NEB SCH ×7 (00:35→23:30)
--- NOTE | 2018-04-03 04:50 | History and Physical ---
REASON FOR ADMISSION: Multifocal pneumonia, community-acquired. The patient comes in with . She presented to my office with a 3-day complaint of increasing cough and shortness of breath, low-grade fever and chills. On exam, she sounded like she was having pneumonia. She was then sent over to the emergency room to be further evaluated. , she was then admitted. PAST MEDICAL HISTORY: Significant for COPD, hypertension. SOCIAL HISTORY: Occasional cigarettes. Continues to smoke. Nondrinker. ALLERGIES: SULFA AND PENICILLIN. FAMILY HISTORY: Hypertension. PHYSICAL EXAMINATION VITALS: 96.3, pulse 89, blood pressure 108/54, and sats 93% on nasal cannula at 2 L. GENERAL: She is in no apparent distress. NECK: Supple. No lymphadenopathy. CARDIOVASCULAR: Regular rate and rhythm. LUNGS: Bilateral rhonchi and wheezing noted on the right side. ABDOMEN: Good bowel sounds. Soft and nontender. EXTREMITIES: No clubbing or cyanosis. NEUROLOGICAL: Nonfocal. ASSESSMENT AND PLAN 1. Multifocal pneumonia: Continue with cefepime and azithromycin. 2. Chronic obstructive pulmonary disease: Will continue with the nebulizer treatments. 3. Hypertension: Continue with her home medications. 4. Hyponatremia: Will continue to monitor. 5. Anemia: Will continue to monitor. 6. Pulmonary nodules on computerized tomography scan: Still small to characterize, but will go ahead and consult Dr. Dubois of pulmonary to help assess with these. Please see hospital chart for full details. Job#: [id number] MALIK
[2018-04-03 05:57] LABS: BASOPHILS % 0.1 % (0.0-1.0); HEMATOCRIT 34.8 % (34.2-44.1); HEMOGLOBIN 10.7 g/dL (12.0-16.0); LYMPHOCYTES # (AUTO) 0.3 (1.0-3.2); LYMPHOCYTES % 4.4 % (18.0-39.1); MEAN CORPUSCULAR HGB CONC 30.7 g/dL (31-35); MEAN CORPUSCULAR VOLUME 84.5 fL (81-99); MONOCYTES # (AUTO) 0.1 (0.2-0.8); MONOCYTES % 1.8 % (4.4-11.3); NEUTROPHILS # (AUTO) 6.6 (2.1-6.9); NEUTROPHILS % 93.3 % (38.7-80.0); PLATELET COUNT 265 x10e3/uL (140-360); RED BLOOD COUNT 4.12 x10e6/uL (3.6-5.1); RED CELL DISTRIBUTION WIDTH 23.9 % (11.7-14.4)
[2018-04-03 06:28] LABS: ANION GAP 12.6 mmol/L (8-16); BLOOD UREA NITROGEN 31 mg/dL (7-26); BUN/CREATININE RATIO 38 (6-25); CALCIUM 8.7 mg/dL (8.4-10.2); CARBON DIOXIDE 21 mmol/L (22-29); CHLORIDE 103 mmol/L (98-107); CREATININE, SERUM 0.82 mg/dL (0.57-1.11); EST GLOMERULAR FILTRATION RATE > 60 ML/MIN (60-); GLUCOSE 192 mg/dL (74-118); POTASSIUM 3.6 mmol/L (3.5-5.1); SODIUM 133 mmol/L (136-145)
[2018-04-03] MEDS: METHYLPREDNISOLONE SOD SUCC 40 MG/ML VIAL 1ML IV SCH ×3 (06:36→22:00)
[2018-04-03] MEDS: CEFEPIME 1GM/NS 0.9% 50 ML 50 ML IV SCH ×3 (06:36→22:00)
[2018-04-03] MEDS: SODIUM CHLORIDE 0.9% 1000ML 1,000 ML IV SCH ×2 (06:37→17:27)
[2018-04-03 06:55] LABS: CREATINE KINASE MB 1.4 ng/mL (0-5.0)
--- NOTE | 2018-04-03 07:25 | NUR ---
The pt. is awake,alert and oriented times 3 and is eating a sandwich at this time. She smells of smoke and is in need of a bath. She appears under nourished. O2 is intact and a non productive. cough is noted.
[2018-04-03 07:49] LABS: LYMPHOCYTES % (MANUAL) 3 % (19-48); MONOCYTES % (MANUAL) 1 % (3.4-9.0); NEUTROPHILS % (MANUAL) 96 % (40-74)
[2018-04-03 07:50] LABS: ANISOCYTOSIS MODERATE; BURR CELLS SLIGHT; HYPOCHROMASIA SLIGHT; PLATELET ESTIMATE ADEQUATE; PLATELET MORPHOLOGY COMMENT NORMAL; RBC MORPHOLOGY COMMENT ABNORMAL
[2018-04-03 07:51] LABS: SMUDGE CELLS FEW
[2018-04-03] MEDS ORDERED: LISINOPRIL 10 MG TAB PO SCH (09:00)
[2018-04-03] MEDS: HEPARIN SOD (PORCINE) 5,000 UNIT/ML VIAL SC SCH ×2 (09:00→20:52)
[2018-04-03] MEDS ORDERED: FERROUS SULFATE 325 MG TAB PO SCH (09:00)
[2018-04-03] MEDS: AZITHROMYCIN 500MG/NS 250 ML 250 ML IV SCH (09:13)
[2018-04-03] MEDS: CLOPIDOGREL BISULFATE 75 MG TAB PO SCH (09:14)
[2018-04-03 09:36] LABS: % IRON SATURATION 5 % (15-50); IRON 9 ug/dL (50-170); TOTAL IRON BINDING CAPACITY 179 ug/dL (261-478); TRANSFERRIN 128 mg/dL (180-382)
[2018-04-03] MEDS: FERROUS SULFATE 325 MG TAB PO SCH (09:45)
--- NOTE | 2018-04-03 10:07 | Consultation ---
DATE OF CONSULTATION: PULMONARY CONSULTATION Patient of Dr. Dunn and Dr. Borrero. A charming but unfortunate 82-year-old woman admitted with cough productive of white sputum, progressive shortness of breath. She has not required home oxygen. Does not want it because she wishes to continue smoking. Denies hypertension. Denies coronary disease, but admits to peripheral vascular disease. She denies dysphagia. HOME MEDICATIONS: Have included Plavix, lisinopril, iron, Breo, Incruse. She objects to iron as it upsets her stomach. She has had a hysterectomy in the past, presumably aortic stent placement in the past. Continues to smoke as she has done for 65 years up to 2 packs a day. 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 Born in [place] and grew upon [place], [place]. FAMILY HISTORY: Positive for brain cancer in her brother and dementia in mother. PHYSICAL EXAMINATION GENERAL: She is edentulous. She is in no acute distress. A thin white female in no acute distress. VITALS: Temperature 96.7, pulse 94, respirations 20, blood pressure 155/60. HEENT: Head is normocephalic and atraumatic. LUNGS: Bilateral rhonchi. Rales at right base. HEART: Regular rhythm. ABDOMEN: Nontender. EXTREMITIES: Nonedematous. IMPRESSION 1. Right lower lobe pneumonia. 2. Emphysema. 3. Atherosclerotic cardiovascular disease. 4. Multiple pulmonary nodules. 5. Pulmonary scars. 6. 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 7. Tiny pulmonary nodules bilaterally. Follow up CT is recommended in 3-6 months. Nonspecific subcentimeter thyroid nodules described. Recommend cigarette smoking cessation. Empiric antibiotic therapy. Careful followup. Continue bronchodilators. Antismoking help. Patient agrees to trial of nicotine patch. Patient refuses iron. Consider intravenous iron. Subcutaneous heparin and prophylactic Protonix. Thank you for this kind referral. Job#: [id number] [place]
[2018-04-03] MEDS: NICOTINE 21 MG/EA PATCH TOP SCH (14:30)
--- NOTE | 2018-04-03 14:55 | NUR ---
Visit made by the Spiritual Care Department Pastoral Visitor, Monisha Hall. PV provided pastoral presence, prayer, hospitality, and supportive listening. Pastoral Visitor informed pt/family of the scope of Screening Nurse Services and availability. RODOLFO IBRAHIM Mcat Tutor Spiritual Care Department O: [phone] Pager: [phone] ([phone] calling from)
--- NOTE | 2018-04-03 15:29 | NUR ---
Nutrition Intervention Note RD Recommendation(s) for Physician: -Liberalize diet to regular to promote PO intake -Rec Ensure Clear BID to increase protein-calorie intake -Encourage hydration and PO intake -The patient meets criteria for unspecified SEVERE protein-calorie malnutrition. Plan of Care: RD following, monitoring for tolerance and adequacy, ONS rec Nutrition reason for involvement: Nutrition Risk Trigger MST RD Assessment 04/03 Chart reviewed. 82yo F, who was admitted for SOB. Visited pt in the room. Pt reported good appetite with ~75% recorded meal intake. Pt denied any nausea or vomiting. LBM 04/02. Pt had no teeth and liked her foods to be chopped. Entered texture modification in [facility]. No swallowing difficulty reported. Pt appeared frail with dry/ loose skin. Upon NFPA, pt had severe muscle and fat loss. Pt also reported ~60lbs weight loss within 1 year period due to sickness. Pt didnt like any type of milk based ONS. Offered Ensure Clear; pt was willing to try. Communicated RD rec with Dr. Dunn on the phone; he was agreeable with plan. Will continue to monitor and follow. Principal Problems/Diagnoses: 1. Right lower lobe pneumonia. 2. Emphysema. 3. Atherosclerotic cardiovascular disease. 4. Multiple pulmonary nodules. 5. Pulmonary scars. 6. 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 7. Tiny pulmonary nodules bilaterally. PMH: COPD, hypertension. GI: abdomen soft, non-tender, LBM 04/02 Skin: dry and loose Labs: (04/03) Na 133 L, BUN 31 H, Glucose 192 H Meds: feosol, plavix, abx, heparin, NaCl, abx Ht: 60in Wt: 101lb BMI: 19.7kg/m2 IBW: 100lbs Malnutrition Evaluation (04/03) The patient meets criteria for unspecified SEVERE protein-calorie malnutrition. Energy intake: <50% of estimated energy requirements for >1 month Weight loss: >20% in 1 year (Chronic) Fat loss: Severe orbital with dark ho-chunk, protrusion of clavicle, apparent ribs Muscle loss: Severe protrusion of acromion process and temporal depression Supporting Evidence: Fluid accumulation: unable to evaluate Functional Status: measurably reduced Nutrition Prescription (Diet Order): cardiac diet Estimated Nutritional Needs: Calories: 1138 1590kcal (25-35kcal/kg/d) Weight used: current BW Protein: 46 68g (1-1.5g/kg/d) Weight used: current BW Diet Adequacy: N/A Diet Education Needs Assessment: Diet education not indicated Nutrition Care Level: mod Nutrition Diagnosis: Malnutrition related to chronic illnesses as evidenced by weight loss and loss of fat/ muscle. Goal: Patient will meet 75-100% of estimated needs by follow up Progress: Progressing Interventions: General healthful diet, Commercial beverage Monitoring/Evaluation: Total energy intake, Total protein intake, diet, Liquid supplement, Weight change Signed: Lizabeth De La Torre MS, RD, LD
--- NOTE | 2018-04-03 19:41 | NUR ---
Received change of shift report from AM nurse. Bedside report received.
--- NOTE | 2018-04-03 22:36 | NUR ---
Patient in bed in sitting position. Coughing after receiving a breathing treatment. Coughing up clear sputum. IV to right FA 22G patent. Tele #[id number] Sr 99. Patient asst to BR to void with walker. o2 at 2L n/c. Continue monitor.
[2018-04-04] VITALS (9 sets, daily range): BP systolic 113–176; BP diastolic 65–83
[2018-04-04] MEDS: IPRATROPIUM BROMIDE 0.02% 2.5 ML NEB NEB SCH ×6 (00:15→19:25)
[2018-04-04] MEDS: ALBUTEROL SULF 0.083% NEB SOLN 3 ML NEB NEB SCH ×6 (00:15→19:25)
--- NOTE | 2018-04-04 00:23 | NUR ---
Patient states she need to go outside to smoke. Informed patient and son of policy and procedure. Informed house sup. and charge nurse. called and waiting for return call. Patient s/w V. Glenn and informed patient of rights and wrong. Patient starts crying and talked about dying at 82yrs old. Patient states she do not what to be d/c ed just going out to smoke. Son and patient left floor to go out to car to smoke. Tele informed and patient left with no o2.
--- NOTE | 2018-04-04 00:44 | NUR ---
Patient and son return to floor via wheelchair. Informed tele.
--- NOTE | 2018-04-04 01:57 | NUR ---
Patient in bed resting comfortably at this time. No noted distress or discomfort.
[2018-04-04] MEDS: CEFEPIME 1GM/NS 0.9% 50 ML 50 ML IV SCH ×3 (05:07→21:05)
[2018-04-04] MEDS: METHYLPREDNISOLONE SOD SUCC 40 MG/ML VIAL 1ML IV SCH ×2 (05:07→16:50)
[2018-04-04] MEDS: SODIUM CHLORIDE 0.9% 1000ML 1,000 ML IV SCH ×2 (05:07→20:36)
--- NOTE | 2018-04-04 07:10 | NUR ---
Change of shift report given to incoming nurse.
--- NOTE | 2018-04-04 07:10 | NUR ---
RCD PT AT BED PT IS ALERT AND ORIENTED PT RESTING ON BED NO SIGNS OF ANY DISTRESS NOTED IV PATENT GETTING O2 2L BY NC BED LOW AND LOCKED CALL LIGHT IN REACH
[2018-04-04] MEDS: PANTOPRAZOLE SOD 40 MG TABEC PO SCH (07:30)
[2018-04-04] MEDS: AZITHROMYCIN 500MG/NS 250 ML 250 ML IV SCH (09:00)
[2018-04-04] MEDS: HEPARIN SOD (PORCINE) 5,000 UNIT/ML VIAL SC SCH ×2 (09:00→21:05)
[2018-04-04] MEDS: CLOPIDOGREL BISULFATE 75 MG TAB PO SCH (09:00)
[2018-04-04] MEDS: FERROUS SULFATE 325 MG TAB PO SCH (09:00)
[2018-04-04] MEDS: LISINOPRIL 20 MG TAB PO SCH (09:00)
--- NOTE | 2018-04-04 09:33 | NUR ---
CASE MANAGEMENT ASSESSMENT Gate Clerk to bedside to discuss plan of care with patient/family. CM/SW role and care transitions discussed. Anticipated discharge plan discussed along with duration of care. CM/SW discussed patients right to make decisions in care. CM/SW work hours given. Patient lives: son and [id number] lives with pt Admit/Transfer: thru ED Hospital/ER visits since last admit: pt states last hospitalization was at [facility] last year. 1 ED visit to this facility in February POA/Emergency contact: marylu Vargas [phone] (home), (cell) Current/Previous Home Health: none; states no need for it at this time PCP/Follow-up Care: Dr. Dunn - PCP, Dr. Eric Borrero - pulmonary Current/Previous DME: rollator, bedside commode, nebulizer Medications (referring to index hospitalization or the first time you were in the hospital) a. Were changes made in your medications when you were in the hospital on [date of index hospitalization]? no b. Did you understand the changes? n/a c. Were you able to obtain your new medications right away? n/a d. Were you able to take your medications like the doctor wanted you to? yes e. Did the hospital give you an accurate, easy to understand list of medications when you left? yes Scale of 1-10 how comfortable does patient feel with disease management in outpatient settin Other Services: none Employment Status: retired Areas of Concerns: PNA, COPD Referral Needs: may need home health for close monitoring Education Needs: medical management IMM/CUEVAS given and signed (if applicable): IMM letter delivered and explained. She verbalized understanding. Signed copy placed in chart. Copy to pt. Goal for discharge: home CM/SW left business card at the bedside with contact information. Name and number was also written on the patients whiteboard. Patient verbalized understanding of discussion. CM will follow-up with ongoing discharge and transition of care needs.
[2018-04-04] MEDS: NICOTINE 21 MG/EA PATCH TOP SCH (14:30)
--- NOTE | 2018-04-04 18:54 | NUR ---
PT RESTING ON BED BED SIDE REPORT GIVEN TO ONCOMING NURSE
[2018-04-04] MEDS ORDERED: ACETAMINOPHEN 325 MG TAB PO PRN (20:30)
[2018-04-04] MEDS: GUAIFENESIN/DEXTROMETHORPHAN LIQD 5 ML UDC PO PRN (20:36)
[2018-04-05] VITALS (7 sets, daily range): BP systolic 127–180; BP diastolic 58–83
[2018-04-05] MEDS: ALBUTEROL SULF 0.083% NEB SOLN 3 ML NEB NEB SCH ×6 (03:32→23:10)
[2018-04-05] MEDS: IPRATROPIUM BROMIDE 0.02% 2.5 ML NEB NEB SCH ×6 (03:32→23:10)
[2018-04-05] MEDS: CEFEPIME 1GM/NS 0.9% 50 ML 50 ML IV SCH ×3 (05:33→22:00)
[2018-04-05] MEDS: PANTOPRAZOLE SOD 40 MG TABEC PO SCH (07:30)
[2018-04-05] MEDS: METHYLPREDNISOLONE SOD SUCC 40 MG/ML VIAL 1ML IV SCH ×2 (08:55→17:00)
[2018-04-05] MEDS: AZITHROMYCIN 500MG/NS 250 ML 250 ML IV SCH (08:55)
[2018-04-05] MEDS: FERROUS SULFATE 325 MG TAB PO SCH (08:55)
[2018-04-05] MEDS: CLOPIDOGREL BISULFATE 75 MG TAB PO SCH (08:56)
[2018-04-05] MEDS: LISINOPRIL 20 MG TAB PO SCH (08:56)
[2018-04-05] MEDS: HEPARIN SOD (PORCINE) 5,000 UNIT/ML VIAL SC SCH ×2 (09:00→21:00)
[2018-04-05] MEDS: SODIUM CHLORIDE 0.9% 1000ML 1,000 ML IV SCH ×2 (09:59→23:19)
--- NOTE | 2018-04-05 11:15 | NUR ---
ST NOTE: pt is 82 year old with RLL pneumonia, recommend BSE to assess swallow function, spoke with MELISSA Plummer to request order from
[2018-04-05] MEDS: NICOTINE 21 MG/EA PATCH TOP SCH (14:30)
[2018-04-05] MEDS: GUAIFENESIN/DEXTROMETHORPHAN LIQD 5 ML UDC PO PRN (14:48)
--- NOTE | 2018-04-05 18:58 | NUR ---
PT RESTING ON BED BED SIDE REPORT GIVEN TO ONCOMING NURSE
[2018-04-06] VITALS: BP 167/93
[2018-04-06] MEDS: IPRATROPIUM BROMIDE 0.02% 2.5 ML NEB NEB SCH (03:00)
[2018-04-06] MEDS: ALBUTEROL SULF 0.083% NEB SOLN 3 ML NEB NEB SCH (03:00)
[2018-04-06 04:15] VITALS: BP 170/93
--- NOTE | 2018-04-06 05:52 | Discharge Summary ---
DISCHARGE DIAGNOSIS: Multifocal pneumonia. HISTORY OF PRESENT ILLNESS: Patient is a severe tobacco abuser with a history of COPD and hypertension, who presented with cough, congestion and was found to have multifocal pneumonia with some pulmonary nodules that was subcentimeter. Review of an old CT scan showed the subcentimeter nodules to be present multiple years ago. She was placed on IV antibiotics and O2 and nebulizer therapy where she made significant daily improvements. At the time of discharge, her lung exam was clear. She was really wanting to go home. She was able to ambulate on her own. She was eating well. So, she is being discharged home with p.o. Levaquin for 14 more days. Follow up in 2 weeks with me. She was told to return back to the hospital if she feels any worse. She was also seen by Dr. Dubois from pulmonary. Please see their notes for full details. YOU CUELLO MD Job#: [id number] [place]
[2018-04-06] MEDS: CEFEPIME 1GM/NS 0.9% 50 ML 50 ML IV SCH (06:05)
[2018-04-06] MEDS ORDERED: LEVAQUIN500 MG PO (06:15)
--- NOTE | 2018-04-06 07:55 | NUR ---
Pt received resting in bed. Alert and oriented x4. Pt for discharge home this morning. Discharge instructions given by previous nurse. Emotional support given. Pt taken to son's car in wheelchair with all belongings
== END 2018-04-06 07:52 | disposition home or self-care (01) | DRG 190 ==
LOC: ER 11:07 → ERHOLD 14:22 → MED/SURG2 18:59
PROVIDERS: ADMIT Internal Medicine; ATTEND Internal Medicine
DX: J44.0 Chronic obstructive pulmonary disease with (acute) lower respiratory infection (principal); J18.9 Pneumonia, unspecified organism; M80.88XA Other osteoporosis with current pathological fracture, vertebra(e), initial encounter for fracture; E87.1 Hypo-osmolality and hyponatremia; J44.1 Chronic obstructive pulmonary disease with (acute) exacerbation; I10 Essential (primary) hypertension; I25.10 Atherosclerotic heart disease of native coronary artery without angina pectoris; R91.8 Other nonspecific abnormal finding of lung field; F17.210 Nicotine dependence, cigarettes, uncomplicated; D64.9 Anemia, unspecified; Z88.0 Allergy status to penicillin; Z88.2 Allergy status to sulfonamides; I73.9 Peripheral vascular disease, unspecified
CPT/HCPCS: 36415; 71045; 71260; 80048; 80053; 82550; 82553; 83540; 83880; 84466; 84484; 85025; 85610; 85730; 87040; 87070; 87205; 87400; 93005; 94640; 97139; 99285; J0456; J0692; J1644; J2920; J7030

== ENCOUNTER 2018-04-06 21:46 | Inpatient (IN) | payer MEDICARE, BC ==
[~2018-04-06] VITALS: Ht 154.9 cm; Wt 56.2 kg
[~2018-04-06 21:46] MED LIST: BREO INHALER IH; FERROUS SULFAT325 MG PO; INCRUSE INHALER IH; LEVAQUIN500 MG PO; LISINOPRIL10 MG PO; PLAVIX75 MG PO
--- OUTSIDE RECORDS SUMMARY | 2018-04-06 21:49 | XMS REPORT | Clinical Summary ---
Author Author [facility] Address Unknown Phone Unavailable Care Team Providers Care Irrigation Equipment Remover Name Role Phone Vipul Dunn MD PCP [...] encounter; Acute bilateral thoracic back pain 07/28/2017 [facility] General Internal Medicine - Encounter 07/30/2017 after 04/05/2017 Social History Date Tobacco Use Types Packs/Day [...] STAT 07/28/2017 CONTRAST 3:03 AM CDT after 04/05/2017 Results * XR Hips Bilateral Ap Lateral W Ap Pelvis (07/29/2017 2:48 PM CDT) Narrative Performed At EXAMINATION:XR HIPS BILATERAL [facility]AL [facility]: JOINT PAINHIP COMPARISON:March 31, 2004 FINDINGS: Bones are demineralized. No acute osseous abnormalities identified. There are pronounced degenerative changes in the lower lumbar spine. There has been endovascular repair of an abdominal aortic aneurysm. IMPRESSION: As above [facility]-[id number] Procedure Note Interface, Radiology Results Incoming - 07/29/2017 3:12 PM CDT EXAMINATION: XR HIPS BILATERAL AP LATERAL W AP PELVIS CLINICAL HISTORY: JOINT PAIN HIP COMPARISON: March 31, 2004 FINDINGS: Bones are demineralized. No acute osseous abnormalities identified. There are pronounced degenerative changes in the lower lumbar spine. There has been endovascular repair of an abdominal aortic aneurysm. IMPRESSION: As above [facility]-[id number] Performing Organization Address City/State/Zipcode Phone Number [facility] [address] [place] [address] * Respiratory pathogen panel (07/29/2017 11:58 AM CDT) Respiratory pathogen Negative for all pathogens [facility] DEPARTMENT OF panel tested: PATHOLOGY AND Negative [...] Required Performing Organization Address City/State/Zipcode Phone Number [facility] DEPARTMENT OF [address] [place] [address] PATHOLOGY AND GENOMIC MEDICINE * CBC with platelet and differential (07/29/2017 4:10 AM CDT) Only the most recent of 2 results within the time period is included. WBC 13.53 (H) 4.50 - 11.00 k/uL [facility] DEPARTMENT OF PATHOLOGY AND GENOMIC MEDICINE RBC 3.55 (L) 4.20 - 5.50 m/uL [facility] DEPARTMENT OF PATHOLOGY AND GENOMIC MEDICINE HGB 7.4 (L) 12.0 - 16.0 g/dL [facility] DEPARTMENT OF PATHOLOGY AND GENOMIC MEDICINE HCT 24.7 (L) 37.0 - 47.0 % [facility] DEPARTMENT OF PATHOLOGY AND GENOMIC MEDICINE MCV 69.6 (L) 82.0 - 100.0 fL [facility] DEPARTMENT OF PATHOLOGY AND GENOMIC MEDICINE MCH 20.8 (L) 27.0 - 34.0 pg [facility] DEPARTMENT OF PATHOLOGY AND GENOMIC MEDICINE MCHC 30.0 (L) 31.0 - 37.0 g/dL [facility] DEPARTMENT OF PATHOLOGY AND GENOMIC MEDICINE RDW - SD 45.3 37.0 - 55.0 fL [facility] DEPARTMENT OF PATHOLOGY AND GENOMIC MEDICINE MPV 9.1 8.8 - 13.2 fL [facility] DEPARTMENT OF PATHOLOGY AND GENOMIC MEDICINE Platelet count 308 150 - 400 k/uL [facility] DEPARTMENT OF PATHOLOGY AND GENOMIC MEDICINE Nucleated RBC 0.00 /100 WBC [facility] DEPARTMENT OF PATHOLOGY AND GENOMIC MEDICINE Neutrophils 82.0 (H) 39.0 - 69.0 % [facility] DEPARTMENT OF PATHOLOGY AND GENOMIC MEDICINE Lymphocytes 9.7 (L) 25.0 - 45.0 % [facility] DEPARTMENT OF PATHOLOGY AND GENOMIC MEDICINE Monocytes 6.3 0.0 - 10.0 % [facility] DEPARTMENT OF PATHOLOGY AND GENOMIC MEDICINE Eosinophils 1.1 0.0 - 5.0 % [facility] DEPARTMENT OF PATHOLOGY AND GENOMIC MEDICINE Basophils 0.3 0.0 - 1.0 % [facility] DEPARTMENT OF PATHOLOGY AND GENOMIC MEDICINE Immature granulocytes 0.6Comment: "Immature 0.0 - 1.0 % [facility] DEPARTMENT OF granulocytes" (promyelocytes, PATHOLOGY AND myelocytes, metamyelocytes) GENOMIC MEDICINE Specimen Blood Performing Organization Address [facility] Phone Number [place] [phone] PATHOLOGY AND [facility] * Urinalysis screen and microscopy, with reflex to culture (07/29/2017 4:01 AM CDT) Specimen site Clean catch [facility] DEPARTMENT OF PATHOLOGY AND GENOMIC MEDICINE Color, UA Yellow [facility] DEPARTMENT OF PATHOLOGY AND GENOMIC MEDICINE Appearance, UA Clear [facility] DEPARTMENT OF PATHOLOGY AND GENOMIC MEDICINE Specific gravity, UA 1.014 1.001 - 1.035 [facility] DEPARTMENT OF PATHOLOGY AND GENOMIC MEDICINE pH, UA 5.0 5.0 - 8.5 [facility] DEPARTMENT OF PATHOLOGY AND GENOMIC MEDICINE Protein, UA Negative Negative [facility] DEPARTMENT OF PATHOLOGY AND GENOMIC MEDICINE Glucose, UA Negative Negative [facility] DEPARTMENT OF PATHOLOGY AND GENOMIC MEDICINE Ketones, UA Negative Negative [facility] DEPARTMENT OF PATHOLOGY AND GENOMIC MEDICINE Bilirubin, UA Negative Negative [facility] DEPARTMENT OF PATHOLOGY AND GENOMIC MEDICINE Blood, UA Negative Negative [facility] DEPARTMENT OF PATHOLOGY AND GENOMIC MEDICINE Nitrite, UA Negative Negative [facility] DEPARTMENT OF PATHOLOGY AND GENOMIC MEDICINE Urobilinogen, UA 2.0 (A) <2.0 [facility] DEPARTMENT OF PATHOLOGY AND GENOMIC MEDICINE Leukocyte esterase, UA Negative Negative [facility] DEPARTMENT OF PATHOLOGY AND GENOMIC MEDICINE Epithelial cells, UA 1 /HPF [facility] DEPARTMENT OF PATHOLOGY AND GENOMIC MEDICINE WBC, UA 1 0 - 4 /HPF [facility] DEPARTMENT OF PATHOLOGY AND GENOMIC MEDICINE RBC, UA <1 0 - 5 /HPF [facility] DEPARTMENT OF PATHOLOGY AND GENOMIC MEDICINE Bacteria, UA None seen None seen [facility] DEPARTMENT OF PATHOLOGY AND GENOMIC MEDICINE Yeast, UA None seen [facility] DEPARTMENT OF PATHOLOGY AND GENOMIC MEDICINE Yeast with pseudohyphae, None seen [facility] DEPARTMENT OF UA PATHOLOGY AND GENOMIC MEDICINE Hyaline casts, UA 1 /LPF [facility] DEPARTMENT OF PATHOLOGY AND GENOMIC MEDICINE Specimen Urine Performing Organization Address City/[facility] Phone Number [address] [address] PATHOLOGY AND GENOMIC MEDICINE * Sodium level, urine, random (07/29/2017 4:01 AM CDT) Sodium, urine, random 128 mEq/L [facility] DEPARTMENT OF PATHOLOGY AND GENOMIC MEDICINE Specimen Urine Performing Organization Address City/[facility] [place] [address] PATHOLOGY AND GENOMIC MEDICINE * Estimated GFR (07/29/2017 4:00 AM CDT) Only the most recent of 2 results within the time period is included. GFR Non Af Amer 80 mL/min/1.73 m2 [facility] DEPARTMENT OF PATHOLOGY AND GENOMIC MEDICINE GFR Af Amer >90 mL/min/1.73 m2 [facility] DEPARTMENT OF Comment: PATHOLOGY AND Chronic kidney [...] Americans. Specimen Plasma specimen Performing Organization Address City/[facility]/[place] [address] PATHOLOGY AND [facility] * Urine culture (07/29/2017 4:00 AM CDT) Urine culture SEE COMMENTComment: [facility] DEPARTMENT OF Bacteriuria screen negative. PATHOLOGY AND GENOMIC MEDICINE Performing Organization Address City/[facility]/[place] [address] PATHOLOGY AND GENOMIC MEDICINE * Comprehensive metabolic panel (07/29/2017 4:00 AM CDT) Sodium 135 135 - 148 mEq/L [facility] DEPARTMENT OF PATHOLOGY AND GENOMIC MEDICINE Potassium 3.9 3.5 - 5.0 mEq/L [facility] DEPARTMENT OF PATHOLOGY AND GENOMIC MEDICINE Chloride 99 98 - 112 mEq/L [facility] DEPARTMENT OF PATHOLOGY AND GENOMIC MEDICINE CO2 22 (L) 24 - 31 mEq/L [facility] DEPARTMENT OF PATHOLOGY AND GENOMIC MEDICINE Anion gap 14@ANIO 7 - 15 mEq/L [facility] DEPARTMENT OF PATHOLOGY AND GENOMIC MEDICINE BUN 14 8 - 23 mg/dL [facility] DEPARTMENT OF PATHOLOGY AND GENOMIC MEDICINE Creatinine 0.7 0.5 - 0.9 mg/dL [facility] DEPARTMENT OF PATHOLOGY AND GENOMIC MEDICINE Glucose 88 65 - 99 mg/dL [facility] DEPARTMENT OF PATHOLOGY AND GENOMIC MEDICINE Calcium 8.6 (L) 8.8 - 10.2 mg/dL [facility] DEPARTMENT OF PATHOLOGY AND GENOMIC MEDICINE Protein 6.4 6.3 - 8.3 g/dL [facility] DEPARTMENT OF Comment: PATHOLOGY AND [place] GENOMIC MEDICINE 4.6-7.0 g/dL 1 week 4.4-7.6 g/dL 7 months-1year 5.1-7.3 g/dL 1-2 years5.6-7 .5 g/dL >3 years6.0-8 .0 g/dL 18-150 6.3-8.3 g/dL Albumin 2.9 (L) 3.5 - 5.0 g/dL [facility] DEPARTMENT OF PATHOLOGY AND GENOMIC MEDICINE A/G ratio 0.8 0.7 - 3.8 [facility] DEPARTMENT OF PATHOLOGY AND GENOMIC MEDICINE Alkaline phosphatase 104 35 - 104 U/L [facility] DEPARTMENT OF PATHOLOGY AND GENOMIC MEDICINE AST 14 10 - 35 U/L [facility] DEPARTMENT OF PATHOLOGY AND GENOMIC MEDICINE ALT 11 5 - 50 U/L [facility] DEPARTMENT OF PATHOLOGY AND GENOMIC MEDICINE Total bilirubin 0.4 0.0 - 1.2 mg/dL [facility] DEPARTMENT OF PATHOLOGY AND GENOMIC MEDICINE Specimen Plasma specimen Performing Organization Address City/State/[facility] Phone Number [place] [phone] PATHOLOGY AND GENOMIC MEDICINE * Troponin (07/28/2017 9:20 PM CDT) Only the most recent of 2 results within the time period is included. Troponin <0.30 0.00 - 0.30 ng/mL [facility] DEPARTMENT OF Comment: PATHOLOGY AND 0.30 - 1.49 GENOMIC MEDICINE ng/mlMay indicate increased risk of acute coronary syndrome. >=1.5 ng/ml Consistent with acute myocardial infarction. The diagnostic value of a single normal or non-diagnostic result is questionable.Serial samples at 2-6 hour intervals are required to rule out acute myocardial injury. Specimen Plasma specimen Performing Organization Address City/[facility] [place] [address] PATHOLOGY AND GENOMIC MEDICINE * Blood culture, aerobic & anaerobic (07/28/2017 9:20 PM CDT) Only the most recent of 2 results within the time period is included. Blood culture isolate No growth after 5 days of [facility] DEPARTMENT OF incubation. PATHOLOGY AND Comment: GENOMIC MEDICINE Specimen Information Specimen Source: Blood Specimen Site: Unspecified Specimen Blood - Wrist, right Performing Organization Address City/[facility] Phone Number [facility] [place] [address] PATHOLOGY AND GENOMIC MEDICINE * B natriuretic peptide (07/28/2017 2:27 PM CDT) BNP 193 (H) 0 - 100 pg/mL [facility] DEPARTMENT OF PATHOLOGY AND GENOMIC MEDICINE Specimen Blood Performing Organization Address [facility] Phone Number [facility] [place] [address] PATHOLOGY AND GENOMIC MEDICINE * Hemoglobin A1c (07/28/2017 2:27 PM CDT) Hemoglobin A1C 5.4 4.0 - 5.6 % [facility] DEPARTMENT OF Comment: PATHOLOGY AND HbA1c cutoffs for diagnosing GENOMIC MEDICINE diabetes: 4.0% - 5.6%=normal 5.7% - 6.4%=increased risk for diabetes (prediabetes) >=6.5%=diabetes Goals for glycemic control (ADA 2016) < 7.0%Target for non adults with diabetes. More or less stringent targets may be appropriate for individual patients. <7.5% Target for Children and adolescents with type 1 diabetes. Specimen Blood Performing Organization Address [facility] Phone Number [facility] [place] [address] PATHOLOGY AND GENOMIC MEDICINE * Total iron binding capacity (07/28/2017 9:03 AM CDT) Iron level 36 (L) 37 - 145 ug/dL [facility] DEPARTMENT OF PATHOLOGY AND GENOMIC MEDICINE Iron binding capacity 315 200 - 400 ug/dL [facility] DEPARTMENT OF PATHOLOGY AND GENOMIC MEDICINE % Saturation 11.4 (L) 15.0 - 38.0 % [facility] DEPARTMENT OF PATHOLOGY AND GENOMIC MEDICINE Specimen Plasma specimen Performing Organization Address City/[facility] Phone Number [facility] [place] [address] PATHOLOGY AND GENOMIC MEDICINE * Thyroid stimulating hormone (07/28/2017 9:03 AM CDT) TSH 1.29 0.27 - 4.20 uIU/mL [facility] DEPARTMENT OF PATHOLOGY AND GENOMIC MEDICINE Specimen Plasma specimen Performing Organization Address City/[facility] Phone Number [facility] [place] [address] PATHOLOGY AND GENOMIC MEDICINE * Magnesium level (07/28/2017 9:03 AM CDT) Magnesium 1.9 1.6 - 2.4 mg/dL [facility] DEPARTMENT OF PATHOLOGY AND GENOMIC MEDICINE Specimen Plasma specimen Performing Organization Address [facility] Phone Number [facility] [place] [address] PATHOLOGY AND GENOMIC MEDICINE * Lactic acid level (07/28/2017 9:03 AM CDT) Lactic acid 1.5 0.5 - 2.2 mmol/L [facility] DEPARTMENT OF PATHOLOGY AND GENOMIC MEDICINE Specimen Plasma specimen Performing Organization Address [facility] [place] [place] [address] PATHOLOGY AND [facility] * Ferritin level (07/28/2017 9:03 AM CDT) Ferritin level 15 13 - 150 ng/mL [facility] DEPARTMENT OF PATHOLOGY AND GENOMIC MEDICINE Specimen Plasma specimen Performing Organization Address [facility] Phone [facility] [place] [address] PATHOLOGY AND [facility] MEDICINE * Vitamin B12 level (07/28/2017 9:03 AM CDT) Vitamin B12 526 211 - 946 pg/mL [facility] DEPARTMENT OF Comment: PATHOLOGY AND Significant overlap exists GENOMIC MEDICINE between normal and deficiency states. However, most patients with deficiencies will have Serum B12 <200 pg/mL. Specimen Serum Performing Organization Address [facility] Phone Number [facility] [place] [address] PATHOLOGY AND GENOMIC MEDICINE * XR Chest [...] seen. Impression: No active cardiopulmonary disease identified. [id number] Procedure Note Interface, Radiology Results Incoming - [...] seen. Impression: No active cardiopulmonary disease identified. [id number] Performing Organization Address [facility] [place] [address] * Potassium level (07/28/2017 4:01 AM CDT) Potassium 4.0 3.5 - 5.0 mEq/L [facility] DEPARTMENT OF PATHOLOGY AND [facility] Specimen Plasma specimen Performing Organization Address [facility] [place] [address] PATHOLOGY AND [facility] * Partial thromboplastin time, activated (07/28/2017 3:05 AM CDT) PTT 25.9 23.0 - 36.0 sec [facility] DEPARTMENT OF Comment: PATHOLOGY AND PTT therapeutic range for [facility] unfractionated heparin is 61.0-112.0 seconds which corresponds to Anti-Xa 0.3-0.7 U/ml. Specimen Blood Performing Organization Address [facility] [place] [address] PATHOLOGY AND [facility] * Prothrombin time with INR (07/28/2017 3:05 AM CDT) Prothrombin time 12.3 12.0 - 15.0 sec [facility] DEPARTMENT OF PATHOLOGY AND GENOMIC MEDICINE INR 0.9 [facility] DEPARTMENT OF Comment: PATHOLOGY AND The International Normalized GENOMIC MEDICINE Ratio (INR) is a therapeutic monitoring tool for patients who are stable on oral anticoagulant therapy. An INR of 2.0-3.0 is suggested for deep vein thrombosis/pulmonary embolism. Specimen Blood Performing Organization Address [facility] [place] [address] PATHOLOGY AND GENOMIC MEDICINE * Basic metabolic panel (07/28/2017 3:05 AM CDT) Sodium 125 (L) 135 - 148 mEq/L [facility] DEPARTMENT OF PATHOLOGY AND GENOMIC MEDICINE Potassium SEE COMMENTComment: 3.5 - 5.0 mEq/L [facility] DEPARTMENT OF [place]--------- PATHOLOGY AND GENOMIC MEDICINE Chloride 91 (L) 98 - 112 mEq/L [facility] DEPARTMENT OF PATHOLOGY AND GENOMIC MEDICINE CO2 23 (L) 24 - 31 mEq/L [facility] DEPARTMENT OF PATHOLOGY AND GENOMIC MEDICINE Anion gap 11@ANIO 7 - 15 mEq/L [facility] DEPARTMENT OF PATHOLOGY AND GENOMIC MEDICINE BUN 14 8 - 23 mg/dL [facility] DEPARTMENT OF PATHOLOGY AND GENOMIC MEDICINE Creatinine 0.6 0.5 - 0.9 mg/dL [facility] DEPARTMENT OF PATHOLOGY AND GENOMIC MEDICINE Glucose 90 65 - 99 mg/dL [facility] DEPARTMENT OF PATHOLOGY AND GENOMIC MEDICINE Calcium 8.3 (L) 8.8 - 10.2 mg/dL [facility] DEPARTMENT OF PATHOLOGY AND GENOMIC MEDICINE Specimen Plasma specimen Performing Organization Address City/State/Zipcode Phone Number [facility] DEPARTMENT OF [address] [place] [address] PATHOLOGY AND GENOMIC MEDICINE * CT Head [...] depressed fracture. IMPRESSION: No acute intracranial abnormality. [id number] Procedure Note Interface, Radiology Results Incoming - [...] depressed fracture. IMPRESSION: No acute intracranial abnormality. [facility]-[id number] Performing Organization Address City/[facility]/Zipcode Phone Number [facility] [address] [place] [address] * CT Cervical Spine Wo Contrast (07/28/2017 [...] acute osseous abnormality of the cervical spine. [id number] Procedure Note Hm Interface, Radiology Results Incoming [...] acute osseous abnormality of the cervical spine. [id number] Performing Organization Address City/State/Zipcode Phone Number [facility] [address] [place] [address] after 04/05/2017 Insurance Payer Benefit Subscriber ID Type Phone Address Plan / Group MEDICARE MEDICARE xxxxxxxxxx Medicare [place] PART A [place] B BCBS BCBS xxxxxxxxxxxx Indemnity PAR/TRAD PLAN Advance Directives Patient has advance care planning documents on file. For more information, maldonado e contact: Juan Edwards [address] [place] [address]
--- OUTSIDE RECORDS SUMMARY | 2018-04-06 21:49 | XMS REPORT ---
[facility] Address Unknown Phone Unavailable Care Team Providers Care Mva Still Operator Name Role Phone YOU CUELLO Unavailable Unavailable Problems This patient has no known problems. Allergies, Adverse Reactions, Alerts This patient has no known allergies or adverse reactions. Medications This patient has no known medications. Results Test Description Test Time Test Comments Text Results Atomic Results Result Comments CT CHEST W 2018-04-02 15:42:00 [place] [address] Patient Name: SHELBY PEÑA MR #: [id number] : 1935 Age/Sex: 82/F Req #: [id number] Adm Physician: YOU CUELLO MD Ordered by: JOLENE MIDDLETON MD Report #: [id number] Location: [facility] Room/Bed: [place] [address] Procedure: [id number] CT/CT CHEST W Exam Date: 04/02/18 Exam Time: 1535 REPORT STATUS: Signed EXAM: CT Chest WITH contrast INDICATION: Cough, smoker, pneum onia x1 week. Possible lung mass on chest radiograph. COMPARISON: Chest radiograph 04/02/2018. TECHNIQUE: Chest was scanned utilizing a multidetector helical scanner from the lung apex through the level of the adrenal glands without administration of IV contrast. Coronal and sagittal reformations were obtained. Routine protocol was performed. Dose modulation, iterative reconstruction, and/or weight based adjustment of the mA/kV was utilized to reduce the radiation dose to as low as reasonably achievable. IV CONTRAST: 100 mL of Isovue 370. RADIATION DOSE: Total DLP: 306.5 mGy*cm COMPLICATIONS: None FINDINGS: LINES/ TUBES: None. LUNGS AND AIRWAYS: There is mucoid impaction in the right greater than left lower lobe bronchi as well as middle lobe bronchi. There is diffuse bronchial wall thickening. There are severe centrilobular emphysematous changes of the lungs. There are multifocal consolidative and tree in bud opacities, most confluent in the right lower lobe, but also present within the left lower lobe, middle lobe, lingula, and right upper lobe. There are multiple bilateral calcified lung nodules, for example in the right upper lobe on image 13 and left upper lobe on image 15. There is biapical pleural-parenchymal opacity. There is an 8 mm solid pulmonary nodule in the right upper lobe on series 3, image 20 and an 8 mm right upper lobe pulmonary nodule on image 26. There is a 4 mm solid-appearing nodule in the left upper lobe on image 22. PLEURA: The pleural spaces are clear. HEART AND MEDIASTINUM: Multiple bilateral thyroid nodules. A 1 cm right peritracheal lymph node is nonspecific, but could be reactive. Mild left atrial enlargement. There is no pericardial effusion. The main pulmonary artery is enlarged, measuring up to 3.4 cm. No evidence of central pulmonary embolism. Extensive mitral annular calcifications. Scattered coronary atherosclerosis. Extensive atherosclerotic changes of the thoracic aorta and branch vessels. There is noncalcified mural thrombus within the descending thoracic aorta. No evidence of mass corresponding to the opacity noted in the right lower mediastinum on same day chest radiograph, which likely represented central pulmonary vascular structures. UPPER ABDOMEN: Limited views of the upper abdomen. No definite abnormality within the partially visualized liver, spleen, or left adrenal gland. Subcentimeter hypodensity within the right upper pole kidney likely represents a cyst. Mild thickening of the right a drenal gland without discrete nodule. BONES/SOFT TISSUES: Mild age indeterminant loss of vertebral body height at the T10-T12 levels. No suspicious lytic or blastic lesions. IMPRESSION: Severe emphysematous changes of the lungs with multifocal pneumonia, most confluent within the right lower lobe. Follow-up chest CT is recommended in 3 months to assess for resolution of pneumonia. Bilateral solid pulmonary nodules, measuring up to 8 mm. Differential includes noncalcified granulomas as well as malignancy. Follow-up chest CT in 3 months is recommended. No mass corresponding to the opacity noted in the right lower mediastinum on same day chest radiograph, which likely represented central pulmonary vascular structures. Enlarged main pulmonary artery, suggestive of pulmonary arterial hypertension. Age indeterminate loss of vertebral body height at the T10-T12 levels. Multiple bilateral thyroid nodules which could be further assessed with thyroid ultrasound if clinically indicated. Signed by: Dr. Jacob Rizzo MD on 04/02/2018 3:59 PM Dictated By: JACOB RIZZO MD 58 Transcribed By: BILL on 04/02/181558 COPY TO: JOLENE MIDDLETON MD CHEST SINGLE (PORTABLE) 2018-04-02 12:38:00 [place] [address] Patient Name: SHELBY PEÑA MR #: [id number] : 1935 Age/Sex: 82/F Req #: [id number] Adm Physician: Ordered by: JOLENE MIDDLETON MD Report #: [id number] Location: ER Room/Bed: Procedure: [id number] DX/CHEST SINGLE (PORTABLE) Exam Date: 04/02/18 Exam Time: 1219 REPORT STATUS: Signed EXAMINATION: CHEST SINGLE (PORTABLE) INDICAT ION: Shortness of breath. COMPARISON: None FINDINGS: TUBES and LINES: None. LUNGS: Mild patchy opacities at the right lung base. Central vascular congestion without evidence of pulmonary edema. There is nodular opacity projecting over the right upper lung. Calcified left sided lung nodules. PLEURA: No pleural effusion or pneumothorax. HEART AND MEDIASTINUM: Ovoid opacity projects over the right lower mediastinum. Atherosclerotic calcifications of the aortic arch. No evidence of cardiomegaly. BONES AND SOFT TISSUES: No acute radiographic abnormality. UPPER ABDOMEN: No free air under the diaphragm. IMPRESSION: Ovoid opacity projecting over the right lower mediastinum and right upper lung nodular opacity. Chest CT is recommended for further evaluation. Patchy opacities of the right lung base could reflect atelectasis or pneumonia in the appropriate clinical setting. Signed by: Dr. Jacob Rizzo MD on 04/02/2018 12:41 PM Dictated By: JACOB RIZZO MD 1241 Transcribed By: BILL on 04/02/18 1241 COPY TO: JOLENE MIDDLETON MD
--- NOTE | 2018-04-06 23:29 | Diagnostic Imaging Report ---
EXAMINATION: CHEST SINGLE (PORTABLE) INDICATION: COPD, cough COMPARISON: Chest CT and x-ray 04/02/2018 FINDINGS: AP view TUBES and LINES: None. LUNGS: Emphysema. Increased confluence appearance of the bibasilar opacities representing pneumonia. Rounded opacities in the right upper lung corresponding to nodules on CT. Left upper lobe calcified granuloma. PLEURA: Small bilateral pleural effusions. No pleural effusion or pneumothorax. HEART AND MEDIASTINUM: The cardiomediastinal silhouette is unremarkable. BONES AND SOFT TISSUES: No acute osseous lesion. Soft tissues are unremarkable. UPPER ABDOMEN: No free air under the diaphragm. IMPRESSION: Interval worsening of bilateral lower lobe pneumonia. Signed by: DR. Elmer Koch MD on 04/06/2018 11:25 PM
[2018-04-07] VITALS (7 sets, daily range): BP systolic 145–156; BP diastolic 68–91
[2018-04-07] MEDS ORDERED: ASPIRIN 81 MG CHEW TAB PO ONE
[2018-04-07] MEDS ORDERED: VANCOMYCIN HCL 1GM/NS 250 ML BAG IV SCH
[2018-04-07] MEDS ORDERED: NICOTINE 7 MG PATCH TOP SCH
[2018-04-07] MEDS ORDERED: LEVOFLOXACIN 750MG/D5W 150ML IV SCH
[2018-04-07] MEDS: IPRATROPIUM BROMIDE 0.02% 2.5 ML NEB NEB SCH ×5 (00:45→19:20)
[2018-04-07] MEDS: ALBUTEROL SULF 0.083% NEB SOLN 3 ML NEB NEB SCH ×7 (00:45→23:10)
[2018-04-07] MEDS: CEFTRIAXONE SOD 1 GRAM/0.9% SOD CHL 50ML BAG IV SCH ×2 (01:20→23:56)
[2018-04-07] MEDS: AZITHROMYCIN 500MG/SOD CHL 0.9% 250ML BAG IV SCH (01:38)
[2018-04-07 01:57] LABS: BASOPHILS % 0.1 % (0.0-1.0); EOSINOPHILS % 0.4 % (0.0-6.0); HEMATOCRIT 33.8 % (34.2-44.1); HEMOGLOBIN 10.8 g/dL (12.0-16.0); LYMPHOCYTES # (AUTO) 1.2 (1.0-3.2); LYMPHOCYTES % 11.2 % (18.0-39.1); MEAN CORPUSCULAR HEMOGLOBIN 26.1 pg (28-32); MEAN CORPUSCULAR VOLUME 81.6 fL (81-99); MONOCYTES # (AUTO) 0.8 (0.2-0.8); MONOCYTES % 7.2 % (4.4-11.3); NEUTROPHILS # (AUTO) 8.3 (2.1-6.9); NEUTROPHILS % 78.8 % (38.7-80.0); PLATELET COUNT 319 x10e3/uL (140-360); RED BLOOD COUNT 4.14 x10e6/uL (3.6-5.1)
[2018-04-07 02:00] LABS: CREATINE KINASE MB 2.5 ng/mL (0-5.0)
[2018-04-07 02:11] LABS: ALANINE AMINOTRANSFERASE 17 IU/L (0-55); ALBUMIN 2.6 g/dL (3.5-5.0); ALBUMIN/GLOBULIN RATIO 0.9 (0.8-2.0); ALKALINE PHOSPHATASE 72 IU/L (40-150); ANION GAP 13.9 mmol/L (8-16); BLOOD UREA NITROGEN 17 mg/dL (7-26); BUN/CREATININE RATIO 30 (6-25); CALCIUM 8.9 mg/dL (8.4-10.2); CARBON DIOXIDE 22 mmol/L (22-29); CHLORIDE 107 mmol/L (98-107); CREATININE, SERUM 0.56 mg/dL (0.57-1.11); EST GLOMERULAR FILTRATION RATE > 60 ML/MIN (60-); GLUCOSE 78 mg/dL (74-118); POTASSIUM 3.9 mmol/L (3.5-5.1); SODIUM 139 mmol/L (136-145)
--- OUTSIDE RECORDS SUMMARY | 2018-04-07 02:48 | XMS REPORT | Clinical Summary ---
Author Author [facility] Organization [facility] Address Unknown Phone Unavailable Care Team Providers Care Buyer Assistant Name Role Phone Vipul Dunn MD PCP [...] encounter; Acute bilateral thoracic back pain 07/28/2017 [facility] General Internal Medicine - Encounter 07/30/2017 after 04/06/2017 Social History Date Tobacco Use Types Packs/Day [...] STAT 07/28/2017 CONTRAST 3:03 AM CDT after 04/06/2017 Results * XR Hips Bilateral Ap Lateral W Ap Pelvis (07/29/2017 2:48 PM CDT) Narrative Performed At EXAMINATION:XR HIPS BILATERAL [facility]AL [facility]: JOINT PAINHIP COMPARISON:March 31, 2004 FINDINGS: Bones are demineralized. No acute osseous abnormalities identified. There are pronounced degenerative changes in the lower lumbar spine. There has been endovascular repair of an abdominal aortic aneurysm. IMPRESSION: As above [facility]-[id number] Procedure Note Interface, Radiology Results Incoming - 07/29/2017 3:12 PM CDT EXAMINATION: XR HIPS BILATERAL AP LATERAL W AP PELVIS CLINICAL HISTORY: JOINT PAIN HIP COMPARISON: March 31, 2004 FINDINGS: Bones are demineralized. No acute osseous abnormalities identified. There are pronounced degenerative changes in the lower lumbar spine. There has been endovascular repair of an abdominal aortic aneurysm. IMPRESSION: As above [facility]-[id number] Performing Organization Address City/State/Zipcode Phone Number [facility] [address] [place] [address] * Respiratory pathogen panel (07/29/2017 11:58 AM CDT) Respiratory pathogen Negative for all pathogens [facility] DEPARTMENT OF panel tested: PATHOLOGY [...] Organization Address City/State/Zipcode Phone Number [facility] DEPARTMENT OF [address] [place] [address] PATHOLOGY AND GENOMIC MEDICINE * CBC with platelet and differential (07/29/2017 4:10 AM CDT) Only the most recent of 2 results within the time period is included. WBC 13.53 (H) 4.50 - 11.00 k/uL [facility] DEPARTMENT OF PATHOLOGY AND GENOMIC MEDICINE RBC 3.55 (L) 4.20 - 5.50 m/uL [facility] DEPARTMENT OF PATHOLOGY AND GENOMIC MEDICINE HGB 7.4 (L) 12.0 - 16.0 g/dL [facility] DEPARTMENT OF PATHOLOGY AND GENOMIC MEDICINE HCT 24.7 (L) 37.0 - 47.0 % [facility] DEPARTMENT OF PATHOLOGY AND GENOMIC MEDICINE MCV 69.6 (L) 82.0 - 100.0 fL [facility] DEPARTMENT OF PATHOLOGY AND GENOMIC MEDICINE MCH 20.8 (L) 27.0 - 34.0 pg [facility] DEPARTMENT OF PATHOLOGY AND GENOMIC MEDICINE MCHC 30.0 (L) 31.0 - 37.0 g/dL [facility] DEPARTMENT OF PATHOLOGY AND GENOMIC MEDICINE RDW - SD 45.3 37.0 - 55.0 fL [facility] DEPARTMENT OF PATHOLOGY AND GENOMIC MEDICINE MPV 9.1 8.8 - 13.2 fL [facility] DEPARTMENT OF PATHOLOGY AND GENOMIC MEDICINE Platelet count 308 150 - 400 k/uL [facility] DEPARTMENT OF PATHOLOGY AND GENOMIC MEDICINE Nucleated RBC 0.00 /100 WBC [facility] DEPARTMENT OF PATHOLOGY AND GENOMIC MEDICINE Neutrophils 82.0 (H) 39.0 - 69.0 % [facility] DEPARTMENT OF PATHOLOGY AND GENOMIC MEDICINE Lymphocytes 9.7 (L) 25.0 - 45.0 % [facility] DEPARTMENT OF PATHOLOGY AND GENOMIC MEDICINE Monocytes 6.3 0.0 - 10.0 % [facility] DEPARTMENT OF PATHOLOGY AND GENOMIC MEDICINE Eosinophils 1.1 0.0 - 5.0 % [facility] DEPARTMENT OF PATHOLOGY AND GENOMIC MEDICINE Basophils 0.3 0.0 - 1.0 % [facility] DEPARTMENT OF PATHOLOGY AND GENOMIC MEDICINE Immature granulocytes 0.6Comment: "Immature 0.0 - 1.0 % [facility] DEPARTMENT OF granulocytes" (promyelocytes, PATHOLOGY AND myelocytes, metamyelocytes) GENOMIC MEDICINE Specimen Blood Performing Organization Address [facility] Phone Number [place] [phone] PATHOLOGY AND [facility] * Urinalysis screen and microscopy, with reflex to culture (07/29/2017 4:01 AM CDT) Specimen site Clean catch [facility] DEPARTMENT OF PATHOLOGY AND GENOMIC MEDICINE Color, UA Yellow [facility] DEPARTMENT OF PATHOLOGY AND GENOMIC MEDICINE Appearance, UA Clear [facility] DEPARTMENT OF PATHOLOGY AND GENOMIC MEDICINE Specific gravity, UA 1.014 1.001 - 1.035 [facility] DEPARTMENT OF PATHOLOGY AND GENOMIC MEDICINE pH, UA 5.0 5.0 - 8.5 [facility] DEPARTMENT OF PATHOLOGY AND GENOMIC MEDICINE Protein, UA Negative Negative [facility] DEPARTMENT OF PATHOLOGY AND GENOMIC MEDICINE Glucose, UA Negative Negative [facility] DEPARTMENT OF PATHOLOGY AND GENOMIC MEDICINE Ketones, UA Negative Negative [facility] DEPARTMENT OF PATHOLOGY AND GENOMIC MEDICINE Bilirubin, UA Negative Negative [facility] DEPARTMENT OF PATHOLOGY AND GENOMIC MEDICINE Blood, UA Negative Negative [facility] DEPARTMENT OF PATHOLOGY AND GENOMIC MEDICINE Nitrite, UA Negative Negative [facility] DEPARTMENT OF PATHOLOGY AND GENOMIC MEDICINE Urobilinogen, UA 2.0 (A) <2.0 [facility] DEPARTMENT OF PATHOLOGY AND GENOMIC MEDICINE Leukocyte esterase, UA Negative Negative [facility] DEPARTMENT OF PATHOLOGY AND GENOMIC MEDICINE Epithelial cells, UA 1 /HPF [facility] DEPARTMENT OF PATHOLOGY AND GENOMIC MEDICINE WBC, UA 1 0 - 4 /HPF [facility] DEPARTMENT OF PATHOLOGY AND GENOMIC MEDICINE RBC, UA <1 0 - 5 /HPF [facility] DEPARTMENT OF PATHOLOGY AND GENOMIC MEDICINE Bacteria, UA None seen None seen [facility] DEPARTMENT OF PATHOLOGY AND GENOMIC MEDICINE Yeast, UA None seen [facility] DEPARTMENT OF PATHOLOGY AND GENOMIC MEDICINE Yeast with pseudohyphae, None seen [facility] DEPARTMENT OF UA PATHOLOGY AND GENOMIC MEDICINE Hyaline casts, UA 1 /LPF [facility] DEPARTMENT OF PATHOLOGY AND GENOMIC MEDICINE Specimen Urine Performing Organization Address City/[facility] Phone Number [address] [address] PATHOLOGY AND GENOMIC MEDICINE * Sodium level, urine, random (07/29/2017 4:01 AM CDT) Sodium, urine, random 128 mEq/L [facility] DEPARTMENT OF PATHOLOGY AND GENOMIC MEDICINE Specimen Urine Performing Organization Address City/[facility] [place] [address] PATHOLOGY AND GENOMIC MEDICINE * Estimated GFR (07/29/2017 4:00 AM CDT) Only the most recent of 2 results within the time period is included. GFR Non Af Amer 80 mL/min/1.73 m2 [facility] DEPARTMENT OF PATHOLOGY AND GENOMIC MEDICINE GFR Af Amer >90 mL/min/1.73 m2 [facility] DEPARTMENT OF Comment: PATHOLOGY AND [...] Americans. Specimen Plasma specimen Performing Organization Address City/[facility]/[place] [address] PATHOLOGY AND [employer] MEDICINE * Urine culture (07/29/2017 4:00 AM CDT) Urine culture SEE COMMENTComment: [facility] DEPARTMENT OF Bacteriuria screen negative. PATHOLOGY AND GENOMIC MEDICINE Performing Organization Address City/[facility]/[place] [address] PATHOLOGY AND GENOMIC MEDICINE * Comprehensive metabolic panel (07/29/2017 4:00 AM CDT) Sodium 135 135 - 148 mEq/L [facility] DEPARTMENT OF PATHOLOGY AND GENOMIC MEDICINE Potassium 3.9 3.5 - 5.0 mEq/L [facility] DEPARTMENT OF PATHOLOGY AND GENOMIC MEDICINE Chloride 99 98 - 112 mEq/L [facility] DEPARTMENT OF PATHOLOGY AND GENOMIC MEDICINE CO2 22 (L) 24 - 31 mEq/L [facility] DEPARTMENT OF PATHOLOGY AND GENOMIC MEDICINE Anion gap 14@ANIO 7 - 15 mEq/L [facility] DEPARTMENT OF PATHOLOGY AND GENOMIC MEDICINE BUN 14 8 - 23 mg/dL [facility] DEPARTMENT OF PATHOLOGY AND GENOMIC MEDICINE Creatinine 0.7 0.5 - 0.9 mg/dL [facility] DEPARTMENT OF PATHOLOGY AND GENOMIC MEDICINE Glucose 88 65 - 99 mg/dL [facility] DEPARTMENT OF PATHOLOGY AND GENOMIC MEDICINE Calcium 8.6 (L) 8.8 - 10.2 mg/dL [facility] DEPARTMENT OF PATHOLOGY AND GENOMIC MEDICINE Protein 6.4 6.3 - 8.3 g/dL [facility] DEPARTMENT OF Comment: PATHOLOGY AND [place] GENOMIC MEDICINE 4.6-7.0 g/dL 1 week 4.4-7.6 g/dL 7 months-1year 5.1-7.3 g/dL 1-2 years5.6-7 .5 g/dL >3 years6.0-8 .0 g/dL 18-150 6.3-8.3 g/dL Albumin 2.9 (L) 3.5 - 5.0 g/dL [facility] DEPARTMENT OF PATHOLOGY AND GENOMIC MEDICINE A/G ratio 0.8 0.7 - 3.8 [facility] DEPARTMENT OF PATHOLOGY AND GENOMIC MEDICINE Alkaline phosphatase 104 35 - 104 U/L [facility] DEPARTMENT OF PATHOLOGY AND GENOMIC MEDICINE AST 14 10 - 35 U/L [facility] DEPARTMENT OF PATHOLOGY AND GENOMIC MEDICINE ALT 11 5 - 50 U/L [facility] DEPARTMENT OF PATHOLOGY AND GENOMIC MEDICINE Total bilirubin 0.4 0.0 - 1.2 mg/dL [facility] DEPARTMENT OF PATHOLOGY AND GENOMIC MEDICINE Specimen Plasma specimen Performing Organization Address City/State/[facility] Phone Number [place] [phone] PATHOLOGY AND GENOMIC MEDICINE * Troponin (07/28/2017 9:20 PM CDT) Only the most recent of 2 results within the time period is included. Troponin <0.30 0.00 - 0.30 ng/mL [facility] DEPARTMENT OF Comment: PATHOLOGY AND 0.30 - 1.49 GENOMIC MEDICINE ng/mlMay indicate increased risk of acute coronary syndrome. >=1.5 ng/ml Consistent with acute myocardial infarction. The diagnostic value of a single normal or non-diagnostic result is questionable.Serial samples at 2-6 hour intervals are required to rule out acute myocardial injury. Specimen Plasma specimen Performing Organization Address City/[facility] [place] [address] PATHOLOGY AND GENOMIC MEDICINE * Blood culture, aerobic & anaerobic (07/28/2017 9:20 PM CDT) Only the most recent of 2 results within the time period is included. Blood culture isolate No growth after 5 days of [facility] DEPARTMENT OF incubation. PATHOLOGY AND Comment: GENOMIC MEDICINE Specimen Information Specimen Source: Blood Specimen Site: Unspecified Specimen Blood - Wrist, right Performing Organization Address City/[facility] Phone Number [facility] [place] [address] PATHOLOGY AND GENOMIC MEDICINE * B natriuretic peptide (07/28/2017 2:27 PM CDT) BNP 193 (H) 0 - 100 pg/mL [facility] DEPARTMENT OF PATHOLOGY AND GENOMIC MEDICINE Specimen Blood Performing Organization Address [facility] Phone Number [facility] [place] [address] PATHOLOGY AND GENOMIC MEDICINE * Hemoglobin A1c (07/28/2017 2:27 PM CDT) Hemoglobin A1C 5.4 4.0 - 5.6 % [facility] DEPARTMENT OF Comment: PATHOLOGY AND [...] 1 diabetes. Specimen Blood Performing Organization Address [facility] Phone Number [facility] [place] [address] PATHOLOGY AND GENOMIC MEDICINE * Total iron binding capacity (07/28/2017 9:03 AM CDT) Iron level 36 (L) 37 - 145 ug/dL [facility] DEPARTMENT OF PATHOLOGY AND GENOMIC MEDICINE Iron binding capacity 315 200 - 400 ug/dL [facility] DEPARTMENT OF PATHOLOGY AND GENOMIC MEDICINE % Saturation 11.4 (L) 15.0 - 38.0 % [facility] DEPARTMENT OF PATHOLOGY AND GENOMIC MEDICINE Specimen Plasma specimen Performing Organization Address City/[facility] Phone Number [facility] [place] [address] PATHOLOGY AND GENOMIC MEDICINE * Thyroid stimulating hormone (07/28/2017 9:03 AM CDT) TSH 1.29 0.27 - 4.20 uIU/mL [facility] DEPARTMENT OF PATHOLOGY AND GENOMIC MEDICINE Specimen Plasma specimen Performing Organization Address City/[facility] Phone Number [facility] [place] [address] PATHOLOGY AND GENOMIC MEDICINE * Magnesium level (07/28/2017 9:03 AM CDT) Magnesium 1.9 1.6 - 2.4 mg/dL [facility] DEPARTMENT OF PATHOLOGY AND GENOMIC MEDICINE Specimen Plasma specimen Performing Organization Address [facility] Phone Number [facility] [place] [address] PATHOLOGY AND GENOMIC MEDICINE * Lactic acid level (07/28/2017 9:03 AM CDT) Lactic acid 1.5 0.5 - 2.2 mmol/L [facility] DEPARTMENT OF PATHOLOGY AND GENOMIC MEDICINE Specimen Plasma specimen Performing Organization Address [facility] [place] [address] PATHOLOGY AND [facility] * Ferritin level (07/28/2017 9:03 AM CDT) Ferritin level 15 13 - 150 ng/mL [facility] DEPARTMENT OF PATHOLOGY AND GENOMIC MEDICINE Specimen Plasma specimen Performing Organization Address [facility] Phone Number [facility] [place] [address] PATHOLOGY AND [facility] MEDICINE * Vitamin B12 level (07/28/2017 9:03 AM CDT) Vitamin B12 526 211 - 946 pg/mL [facility] DEPARTMENT OF Comment: PATHOLOGY AND Significant overlap exists GENOMIC MEDICINE between normal and deficiency states. However, most patients with deficiencies will have Serum B12 <200 pg/mL. Specimen Serum Performing Organization Address [facility] Phone Number [facility] [place] [address] PATHOLOGY AND GENOMIC MEDICINE * XR Chest [...] No active cardiopulmonary disease identified. [facility]-[id number] Procedure Note Interface, Radiology Results Incoming - [...] No active cardiopulmonary disease identified. [facility]-[id number] Performing Organization Address [facility] [place] [address] * Potassium level (07/28/2017 4:01 AM CDT) Potassium 4.0 3.5 - 5.0 mEq/L [facility] DEPARTMENT OF PATHOLOGY AND [employer] MEDICINE Specimen Plasma specimen Performing Organization Address [facility] [place] [address] PATHOLOGY AND [employer] MEDICINE * Partial thromboplastin time, activated (07/28/2017 3:05 AM CDT) PTT 25.9 23.0 - 36.0 sec [facility] DEPARTMENT OF Comment: PATHOLOGY AND PTT therapeutic range for [facility] unfractionated heparin is 61.0-112.0 seconds which corresponds to Anti-Xa 0.3-0.7 U/ml. Specimen Blood Performing Organization Address [facility] [place] [address] PATHOLOGY AND [employer] MEDICINE * Prothrombin time with INR (07/28/2017 3:05 AM CDT) Prothrombin time 12.3 12.0 - 15.0 sec [facility] DEPARTMENT OF PATHOLOGY AND GENOMIC MEDICINE INR 0.9 [facility] DEPARTMENT OF Comment: PATHOLOGY AND The International Normalized GENOMIC MEDICINE Ratio (INR) is a therapeutic monitoring tool for patients who are stable on oral anticoagulant therapy. An INR of 2.0-3.0 is suggested for deep vein thrombosis/pulmonary embolism. Specimen Blood Performing Organization Address [facility] [place] [address] PATHOLOGY AND GENOMIC MEDICINE * Basic metabolic panel (07/28/2017 3:05 AM CDT) Sodium 125 (L) 135 - 148 mEq/L [facility] DEPARTMENT OF PATHOLOGY AND GENOMIC MEDICINE Potassium SEE COMMENTComment: 3.5 - 5.0 mEq/L [facility] DEPARTMENT OF Footnote--------- PATHOLOGY AND GENOMIC MEDICINE Chloride 91 (L) 98 - 112 mEq/L [facility] DEPARTMENT OF PATHOLOGY AND GENOMIC MEDICINE CO2 23 (L) 24 - 31 mEq/L [facility] DEPARTMENT OF PATHOLOGY AND GENOMIC MEDICINE Anion gap 11@ANIO 7 - 15 mEq/L [facility] DEPARTMENT OF PATHOLOGY AND GENOMIC MEDICINE BUN 14 8 - 23 mg/dL [facility] DEPARTMENT OF PATHOLOGY AND GENOMIC MEDICINE Creatinine 0.6 0.5 - 0.9 mg/dL [facility] DEPARTMENT OF PATHOLOGY AND GENOMIC MEDICINE Glucose 90 65 - 99 mg/dL [facility] DEPARTMENT OF PATHOLOGY AND GENOMIC MEDICINE Calcium 8.3 (L) 8.8 - 10.2 mg/dL [facility] DEPARTMENT OF PATHOLOGY AND GENOMIC MEDICINE Specimen Plasma specimen Performing Organization Address City/State/Zipcode Phone Number [facility] DEPARTMENT OF [address] [place] [address] PATHOLOGY AND GENOMIC MEDICINE * CT Head [...] IMPRESSION: No acute intracranial abnormality. [facility]-[id number] Procedure Note Interface, Radiology Results Incoming - [...] IMPRESSION: No acute intracranial abnormality. [facility]-[id number] Performing Organization Address City/[facility]/Zipcode Phone Number [facility] [address] [place] [address] * CT Cervical Spine Wo Contrast (07/28/2017 [...] abnormality of the cervical spine. [facility]-[id number] Procedure Note Hm Interface, Radiology Results Incoming [...] abnormality of the cervical spine. [facility]-[id number] Performing Organization Address City/State/Zipcode Phone Number [facility] [address] [place] [address] after 04/06/2017 Insurance Payer Benefit Subscriber ID Type Phone Address Plan / Group MEDICARE MEDICARE xxxxxxxxxx Medicare [place] PART A [place] B BCBS BCBS xxxxxxxxxxxx Indemnity PAR/TRAD PLAN Advance Directives Patient has advance care planning documents on file. For more information, maldonado e contact: Juan Edwards [address] [place] [address]
[2018-04-07 02:54] LABS: ANISOCYTOSIS MODERATE; RBC MORPHOLOGY COMMENT ABNORMAL
[2018-04-07 02:55] LABS: BURR CELLS SLIGHT; ELLIPTOCYTE, RBC SLIGHT; PLATELET ESTIMATE ADEQUATE; PLATELET MORPHOLOGY COMMENT NORMAL
--- NOTE | 2018-04-07 03:00 | NUR ---
patient recieved to room 296 via stretcher from the er. vss. patient sob on /. no c/o pain noted. patients skin thin with bruised areas to upper and lower extremities. scabbed areas noted to bilateral lower extremities. patient states, " My dogs jump on me playfully and this is what happens. " admit assessment and history complete. Telemetry #10 noted and shows NSR 90'S. Small reddened area under right eye. patient states, " The mask with my oxygen treatments causes that. " patient incontinent of urine with diaper noted. bed low, sr up x 3 and call quintero placed within reach. patient instructed to call for assistance when needed.
[2018-04-07] MEDS ORDERED: SODIUM CHLORIDE 0.9% 250ML 250 ML ONE (04:09)
[2018-04-07] MEDS: VANCOMYCIN HCL 1GM/NS 250 ML BAG IV SCH (06:00)
--- NOTE | 2018-04-07 06:30 | NUR ---
Dr. Carcamo here to see patient. new orders noted.
--- NOTE | 2018-04-07 07:30 | NUR ---
PT UP IN BED SOB NOTED ON EXERTION,O2 [address],C/O COUGH
--- NOTE | 2018-04-07 08:24 | History and Physical ---
CHIEF COMPLAINT: The patient comes in with cough, congestion, and unable to breathe. HISTORY OF PRESENTING ILLNESS: This is Ms. Emiliana Vargas who was recently discharged yesterday in fact from the hospital with Levaquin, was in usual state of health until the patient went home, had a couple of cigarettes and the patient noticed that she was desaturating and could not breathe. EMS was activated. The patient went to the ER, was found to have worsening of her pneumonia, and admitted for pneumonia and acute exacerbation of COPD. PAST MEDICAL HISTORY: History of COPD, history of lung nodules, history of hypertension, history of hyperlipidemia. MEDICINES: She takes at home are clopidogrel 75 mg for PAD, ferrous sulfate 325 mg for iron deficiency anemia, was on Levaquin for 14 days, lisinopril 10 mg, Breo inhaler and Incruse inhaler also for COPD. PAST SURGICAL HISTORY: Look into chart. REVIEW OF SYSTEMS: Negative for chest pain. Positive for shortness of breath. No nausea, vomiting, or diarrhea. No constipation, no rectal bleeding, no hematochezia. Positive for wheezing. PHYSICAL EXAMINATION VITAL SIGNS: Temperature is 96.3, pulse of 98, blood pressure is 148/75, pulse oximetry of 93% on 2 liters of oxygen. HEENT: Normocephalic, atraumatic. Pupils are reactive to light and accommodation. CVS: S1, S2. Regular rate and rhythm. LUNGS: Positive for rhonchi on the right side. ABDOMEN: Nontender and nondistended. EXTREMITIES: No clubbing. Positive for cyanosis. No edema. LABORATORY VALUES: Initial white count was 10.55, hemoglobin of 10.8, hematocrit of 33.8, lymphocytes 11.2, and there is a left shift with neutrophil count of 8.3. Chemistries: Sodium 139, potassium of 3.9, BUN 17, creatinine 0.56. CK and CK-MB within normal limits. MICROBIOLOGY: Blood cultures are pending. ASSESSMENT 1. Pneumonia exacerbation. 2. Chronic obstructive pulmonary disease exacerbation. 3. Hypertension. 4. Peripheral artery disease. 5. History of chronic smoking. PLAN: Plan is to put the patient on nicotine patches. Patient has been started on antibiotics, vancomycin, azithromycin, and Rocephin have been given. We will restart her home medications for PAD, iron-deficiency anemia, and also for hypertension. Further recommendations per clinical course. The patient has been advised on smoking situation and also importance of quitting smoking. Discussed with the son the need of stopping smoking in the house and we will continue the patient on albuterol and Atrovent treatments and oxygen support. A consult with Dr. Dubois has been done too. We will continue to monitor the patient along with systems security consultant. Job#: [id number] YENNIFER
[2018-04-07] MEDS: GUAIFENESIN 200 MG/10 ML UDC PO PRN (08:30)
[2018-04-07 08:37] LABS: CREATINE KINASE MB 2.5 ng/mL (0-5.0)
[2018-04-07] MEDS: FERROUS SULFATE 325 MG TAB PO SCH (08:53)
[2018-04-07] MEDS: CLOPIDOGREL BISULFATE 75 MG TAB PO SCH (08:53)
[2018-04-07] MEDS: LISINOPRIL 10 MG TAB PO SCH (08:53)
[2018-04-07] MEDS: NICOTINE 14 MG/EA PATCH TOP SCH (08:54)
--- NOTE | 2018-04-07 11:45 | NUR ---
PT RESP 24-26 ,NEBS GIVEN,REQUESTING TO GET UP TO BSC,SPOKE WITH DR SUAREZ RE INSERTING MESA.MESA CATH INSERTED As REQUESTED
--- NOTE | 2018-04-07 11:55 | NUR ---
Nutrition Intervention Note RD Recommendation(s) for Physician: Continue diet as ordered Plan of Care: RD following, monitoring for tolerance and adequacy Nutrition reason for involvement: Nutrition Risk Trigger- MST RD Assessment Initial encounter with patient. Pt. states that she has lost so much weight that her dentures do not fit well. Pt denies any difficulty chewing or swallowing. Offered texture modification, but pt politely refused a texture modification. Pt confirmed that she has been losing weight, but was unable to remember how much. Offered a commercial beverage and Pt politely refused stating that they taste nasty. Pt with loss of lean body mass, loss of subcutaneous fat, loss of functional mobility, with prominent clavicle and acromion process, hollow orbitals and temporal wasting. Encouraged Po intake. Principal Problems/Diagnoses: Pneumonia PMH: COPD, iron deficiency anemia, tobacco use, HTN, PAD IVF: none GI:NO N,V,D Skin: intact Labs: (04/07/18) lab results reviewed Meds: (04/07/2018) MAR reviewed Malnutrition Evaluation (04/07/2018) The patient meets criteria for unspecified SEVERE protein-calorie malnutrition. Energy intake: <50% of estimated energy requirements for >1 month Weight loss: >20% in 1 year (Chronic) Fat loss: Severe Muscle loss: Severe Supporting Evidence: Fluid accumulation: None Functional Status: measurably reduced Diet Education Needs Assessment: Diet education not indicated; patient on regular diet. Ht:61 Wt:101lbs BMI:19.1kg/m2 IBW:105lbs Estimated Nutritional Needs: 1147 - 1606 kcals at 25-35 kcals/kg/bw 46-92g of protein at 1-2 g of protein/kg/bw Nutrition Prescription (Diet Order):Regular diet Food Allergies: No known food allergies Diet Adequacy: Not meeting calorie needs, Not meeting protein needs Tolerance: Tolerating PO Nutrition Care Level:Low Nutrition Diagnosis: Malnutrition related to chronic illness as evidenced by loss of lean body mass and subcutaneous fat Goal:Patient will meet 75-100% of estimated needs by follow up Progress: Progressing Interventions: General healthful diet Monitoring/Evaluation: Total energy intake, Total protein intake,Weight change. Moose Carlton RD, LD, CNSC
--- NOTE | 2018-04-07 13:12 | Consultation ---
DATE OF CONSULTATION: PULMONARY CONSULTATION REASON FOR THE CONSULT: COPD exacerbation. HPI: Ms. Vargas is an 82-year-old female. She was in the hospital up until 04/06/2017 and went home. She presented with COPD exacerbation. She is a heavy smoker for last 70 plus years. She went home and started smoking cigarette and started having trouble breathing, coughing, wheezing, so she decided to come back to the hospital. She is denying any complaints of chest pain, nausea, vomiting. Chest x-ray showed bilateral lower lobe infiltrate, worse on the right. REVIEW OF SYSTEMS GENERAL: Denies any fever or chills. HEAD: Denies any head trauma. ENT: Denies any earache. CVS: Denies any chest pain. RESPIRATORY: Patient has shortness of breath. GI: Denies any nausea, vomiting. Rest of the review of systems is negative except as in HPI. PAST MEDICAL HISTORY: COPD, hypertension, hyperlipidemia. FAMILY AND SOCIAL HISTORY: She has been a smoker for 70 plus years. She is retired. PHYSICAL EXAMINATION VITAL SIGNS: Temperature 96.7, pulse of 94, blood pressure 156/83, respiratory rate of 18, O2 sat 96%. HEENT: Head atraumatic, normocephalic. NECK: Supple. CHEST: Wheezing and crackles bilaterally. HEART: S1, S2 audible. ABDOMEN: Soft, nontender. EXTREMITIES: No pedal edema. She is awake alert, following commands. LABS: White count of 10,000, hemoglobin 10.8, platelets 319. CT chest which was done on 04/02/2017, I have reviewed the images. Multiple nodules, pneumonia, severe emphysema. There is a recent chest x-ray showing lower lobe infiltrates. ASSESSMENT: Ms. Vargas is an 82-year-old female, presented with worsening shortness of breath, cough, wheezing. Recently was in the hospital for COPD exacerbation, likely has new pneumonia along with COPD exacerbation. PLAN 1. Continue the patient on IV antibiotics. 2. Nebulizer treatment as ordered. I will add IV Solu-Medrol as well. 3. We will continue the patient on Rocephin and Levaquin. Patient is allergic to penicillin. Oxygen as needed. Counseled her against smoking as well. Job#: [id number] LPA
[2018-04-07] MEDS ORDERED: METHYLPREDNISOLONE SOD SUCC 40 MG/ML VIAL 1ML IV SCH (14:00)
[2018-04-07] MEDS: METHYLPREDNISOLONE SOD SUCC 40 MG/ML VIAL 1ML IV SCH ×2 (15:40→21:11)
--- NOTE | 2018-04-07 17:49 | NUR ---
PT UP IN BED RESTING NO DISTRESS NTOED,DENIES PAIN.
--- NOTE | 2018-04-07 19:00 | NUR ---
patient recieved awake, alert, lying quietly in bed. hob elevated 40 degrees. patient sob with labored respirations. 02/2l/nc in use. grajeda catheter patent, draining clear yellow urine to bsd. pm assessment complete. son noted at the bedside. bed low, side rails up x 3, call quintero placed within reach. pt instructed to call for assistance when needed.
--- NOTE | 2018-04-07 21:25 | NUR ---
patient lying quietly in bed. respirations less labored. 02/2l/nc in use. no complaints noted at this time.
[2018-04-08] VITALS: BP 143/71
[2018-04-08] MEDS: AZITHROMYCIN 500MG/SOD CHL 0.9% 250ML BAG IV SCH (00:40)
[2018-04-08] MEDS: GUAIFENESIN 200 MG/10 ML UDC PO PRN (02:00)
--- NOTE | 2018-04-08 02:00 | NUR ---
patient medicated with robitussin 400mg po for c/o cough. will continue to monitor.
[2018-04-08] MEDS: LEVOFLOXACIN 750MG/D5W 150ML IV SCH (03:15)
[2018-04-08] MEDS: ALBUTEROL SULF 0.083% NEB SOLN 3 ML NEB NEB SCH ×4 (04:00→19:42)
[2018-04-08] MEDS: IPRATROPIUM BROMIDE 0.02% 2.5 ML NEB NEB SCH ×4 (04:00→19:42)
[2018-04-08] MEDS: VANCOMYCIN HCL 1GM/NS 250 ML BAG IV SCH (05:00)
[2018-04-08] MEDS ORDERED: VANCOMYCIN HCL 1GM/NS 250 ML BAG IV SCH (05:00)
[2018-04-08] MEDS: METHYLPREDNISOLONE SOD SUCC 40 MG/ML VIAL 1ML IV SCH ×2 (05:15→18:20)
[2018-04-08 06:00] LABS: BASOPHILS % 0.2 % (0.0-1.0); HEMATOCRIT 32.7 % (34.2-44.1); HEMOGLOBIN 10.7 g/dL (12.0-16.0); LYMPHOCYTES # (AUTO) 0.5 (1.0-3.2); LYMPHOCYTES % 8.4 % (18.0-39.1); MEAN CORPUSCULAR HEMOGLOBIN 26.6 pg (28-32); MEAN CORPUSCULAR HGB CONC 32.7 g/dL (31-35); MEAN CORPUSCULAR VOLUME 81.1 fL (81-99); MONOCYTES # (AUTO) 0.2 (0.2-0.8); NEUTROPHILS # (AUTO) 4.5 (2.1-6.9); NEUTROPHILS % 84.7 % (38.7-80.0); PLATELET COUNT 245 x10e3/uL (140-360); RED BLOOD COUNT 4.03 x10e6/uL (3.6-5.1); RED CELL DISTRIBUTION WIDTH 23.5 % (11.7-14.4)
[2018-04-08] MEDS: BREO INH SCH (06:00)
[2018-04-08 06:27] LABS: ALANINE AMINOTRANSFERASE 14 IU/L (0-55); ALBUMIN 2.3 g/dL (3.5-5.0); ALKALINE PHOSPHATASE 61 IU/L (40-150); ANION GAP 13.1 mmol/L (8-16); BLOOD UREA NITROGEN 18 mg/dL (7-26); BUN/CREATININE RATIO 30 (6-25); CALCIUM 8.5 mg/dL (8.4-10.2); CARBON DIOXIDE 24 mmol/L (22-29); CHLORIDE 105 mmol/L (98-107); CREATININE, SERUM 0.61 mg/dL (0.57-1.11); EST GLOMERULAR FILTRATION RATE > 60 ML/MIN (60-); GLUCOSE 152 mg/dL (74-118); MAGNESIUM 1.2 MG/DL (1.3-2.1); POTASSIUM 4.1 mmol/L (3.5-5.1); SODIUM 138 mmol/L (136-145)
--- NOTE | 2018-04-08 07:20 | Progress Note ---
DATE: SUBJECTIVE: Patient came in with acute exacerbation of COPD and recurrence of pneumonia. Currently, the patient is asymptomatic, had a good bath, feels better, and is in good spirits. MEDICATIONS: Azithromycin, Rocephin, Plavix, ferrous sulfate, guaifenesin, ipratropium bromide, Levaquin, lisinopril, methylprednisolone, and nicotine. Patient is also on vancomycin 1 gram. OBJECTIVE VITAL SIGNS: Temperature is 96, pulse of 100, respirations of 20, pulse oximetry of 95-100% on 2 liters of nasal cannula. HEENT: Normocephalic, atraumatic. Pupils are reactive to light and accommodation. CVS: S1 and S2, regular. CHEST: Positive for minimal inspiratory wheezes. EXTREMITIES: No clubbing, no cyanosis, and no edema. Patient's white count today is 5.36, hemoglobin of 10.7, and hematocrit of 32.7. Left shift is absent today. Chemistries are pending. Yesterday's creatinine was 0.56. Troponins have been trended to be negative. ASSESSMENT 1. An 82-year-old lady with acute exacerbation of chronic obstructive pulmonary disease. 2. Worsening pneumonia. 3. Shortness of breath and hypoxia. 4. History of chronic smoking. 5. History of hypertension. PLAN 1. Continue the patient on Rocephin and Zithromax. Patient has an additional vancomycin order done. We will continue with this. Probably, we will take off the Rocephin and Zithromax and continue with the Levaquin. 2. For her O2 status and hypoxia, we will continue with oxygen supplementation. 3. Smoking status. The patient has been counseled on smoking. There are 2 nicotine patches on the patient at this time. 4. History of peripheral artery disease. Continue with the Plavix and continue with albuterol and Atrovent treatments. Further recommendations per clinical course. We will continue to monitor the patient along with the eligibility consultant. Job#: [id number]
[2018-04-08 07:30] VITALS: BP 167/84
--- NOTE | 2018-04-08 07:30 | NUR ---
PT UP IN BED NO SOB NOTED,DENIES PAIN,O2 OFF ,MESA TO BSD CLEAR YELLOW URINE
[2018-04-08 08:00] VITALS: BP 167/84
[2018-04-08 08:08] LABS: BAND NEUTROPHILS % (MANUAL) 1 %; LYMPHOCYTES % (MANUAL) 8 % (19-48); MONOCYTES % (MANUAL) 3 % (3.4-9.0); NEUTROPHILS % (MANUAL) 88 % (40-74)
[2018-04-08 08:09] LABS: PLATELET ESTIMATE ADEQUATE; PLATELET MORPHOLOGY COMMENT NORMAL; RBC MORPHOLOGY COMMENT NORMAL
[2018-04-08] MEDS: FERROUS SULFATE 325 MG TAB PO SCH (08:19)
[2018-04-08] MEDS: CLOPIDOGREL BISULFATE 75 MG TAB PO SCH (08:19)
[2018-04-08] MEDS: NICOTINE 14 MG/EA PATCH TOP SCH (08:20)
[2018-04-08] MEDS: LISINOPRIL 10 MG TAB PO SCH (08:20)
[2018-04-08 12:07] VITALS: BP 123/60
[2018-04-08] MEDS ORDERED: ALBUTEROL SULF 0.083% NEB SOLN 3 ML NEB NEB SCH (15:00)
[2018-04-08 16:00] VITALS: BP 140/61
--- NOTE | 2018-04-08 18:06 | NUR ---
PT UP IN BED ,NO SOB NOTED,DENIES PAIN,O2 2L NC IN PLACE,MESA TO BSD CLEAR YELLOW URINE
--- NOTE | 2018-04-08 19:00 | NUR ---
patient recieved awake, alert, sitting up in bed. no c/o pain or acute distress noted. /nc in use. grajeda catheter draining clear yellow urine to bsd. pm assessment complete. patient instructed to call for assistance when needed.
[2018-04-08 20:00] VITALS: BP 154/70
--- NOTE | 2018-04-08 21:20 | NUR ---
patient oob to bsc with assistance. moderate brown stool noted at this time. skin care provided.
[2018-04-09] VITALS (8 sets, daily range): BP systolic 136–165; BP diastolic 70–85
[2018-04-09] MEDS: IPRATROPIUM BROMIDE 0.02% 2.5 ML NEB NEB SCH ×4 (00:05→19:27)
[2018-04-09] MEDS: ALBUTEROL SULF 0.083% NEB SOLN 3 ML NEB NEB SCH ×7 (00:05→23:11)
[2018-04-09] MEDS: LEVOFLOXACIN 750MG/D5W 150ML IV SCH (04:00)
[2018-04-09] MEDS: VANCOMYCIN HCL 1GM/NS 250 ML BAG IV SCH (05:00)
--- NOTE | 2018-04-09 05:25 | NUR ---
Vancomycin trough level 10.4. am vancomycin given.
[2018-04-09] MEDS: BREO INH SCH (06:00)
--- NOTE | 2018-04-09 07:30 | Progress Note ---
DATE: SUBJECTIVE: Patient is 82-year-old female who comes in with COPD exacerbation and also acute pneumonia. Patient is currently afebrile, asymptomatic, breathing better. No chest pains. Positive for some shortness of breath, and no nausea, vomiting, or diarrhea. PHYSICAL EXAMINATION: VITAL SIGNS: Temperature is 97.3, has been afebrile for the last 48 hours. Pulse of 92, respiration of 18, blood pressure is 140/70, pulse oximetry 95% on 2 liters of oxygen. HEENT: Normocephalic, atraumatic. Pupils are reactive to light and accommodation. CVS: S1 and S2 distant. ABDOMEN: Nontender, nondistended. EXTREMITIES: No clubbing, no cyanosis, and no edema. LUNGS: Positive for few rhonchi on the right side, otherwise normal. Much better air entry today. LABORATORY VALUES: Hemoglobin is 10.7, hematocrit is 32.7 from yesterday. Chemistries, yesterday creatinine was trending at 0.60. Toxicology, vancomycin trough was 10.4. ASSESSMENT: 1. Pneumonia, community-acquired. 2. Acute exacerbation of chronic obstructive pulmonary disease. 3. Hypoxia. 4. History of chronic smoking. 5. History of hypertension. PLAN: 1. To continue the patient on vancomycin and Levaquin. Patient's cultures are pending, has been negative so far. 2. Hypoxia, continue with O2. 3. Smoking status. Continue on nicotine patches. 4. History of peripheral arterial disease. Continue with anticoagulation. 5. Albuterol and Atrovent treatments also given and also patient is on SCD for DVT prophylaxis, and will start on Pepcid for GI prophylaxis. Patient's Corrae catheter will be discontinued today and this has been informed to the patient and she is in agreement with it. Further recommendations per clinical course. Job#: [id number]
--- NOTE | 2018-04-09 07:32 | NUR ---
PATIENT IN BED WITH HEAD OF BED ELEVATED, O2 IN PLACE VIA N/C, NO RESPIRATORY DISTRESS OBSERVED. ALL PERSONAL ITEMS CLOSE TO PATIENT. BED IN LOWER POSITION, CALL LIGHT AT REACH.
--- NOTE | 2018-04-09 07:47 | Diagnostic Imaging Report ---
Examination: Limited thoracic ultrasound. Clinical indication: Right pleural effusion. Comparison examination: Chest radiograph 04/06/2018 Findings: Small bilateral pleural effusions. Impression: Small bilateral pleural effusions. Signed by: Dr. Carlos Elena M.D. on 04/09/2018 7:44 AM
[2018-04-09] MEDS: METHYLPREDNISOLONE SOD SUCC 40 MG/ML VIAL 1ML IV SCH ×2 (08:00→20:44)
[2018-04-09] MEDS: CLOPIDOGREL BISULFATE 75 MG TAB PO SCH (09:46)
[2018-04-09] MEDS: FERROUS SULFATE 325 MG TAB PO SCH (09:46)
[2018-04-09] MEDS: LISINOPRIL 10 MG TAB PO SCH (09:46)
[2018-04-09] MEDS: NICOTINE 14 MG/EA PATCH TOP SCH (09:46)
--- NOTE | 2018-04-09 09:57 | NUR ---
MESA CATHETER DISCONTINUED ORDERED. PATIENT IS DUE TO VOID, PO FLUID ENCOURAGED. REPOSITIONED IN BED. BED IN LOWER POSITION, CALL LIGHT AT REACH.
[2018-04-09] MEDS: GUAIFENESIN 200 MG/10 ML UDC PO PRN (10:48)
--- NOTE | 2018-04-09 11:42 | NUR ---
PATIENT NOTED WITH COUGHING, PRN COUGH MEDICATION ADMINISTERED ORDERED. PATIENT IN BED RESTING WITH HEAD OF BED ELEVATED, NO COUGHING NOTED AT THIS TIME. BED IN LOWER POSITION AND LOCKED. CALL LIGHT AT REACH.
--- NOTE | 2018-04-09 15:15 | NUR ---
WOUND CARE CONSULTATION - INITIAL EVALUATION Patient admitted to ER with SOB, Cough with Congestion and was diagnosed with Pneumonia. - Currently on IV abx. HX: COPD, Lung Nodules, HTN, Hyperlipidemia, PAD, HTN, PNA. Urbano Score 17 Moderate PUP Active. LABS: WBC5.36 HGB10.7 HCT32.7 NEUT%84.7 YNL169 ALB2.3 Wound Care consulted for multiple eschar areas to BLE. Patient Visit: - Patient is a pleasant 82 year old female. - States breathing improving but she becomes short of breath on exertion - States lesions on legs are from her dogs at home that like to jump on her when they get excited to see her. - Skin tears and abrasions noted with multiple bruising to BLE at various healing stages. - Mild edema to BLE noted, Non contributory to skin tears. (HX: PVD) - - BLE feet warm to touch, non-tender, Capillary refill less than 3 seconds. - Top elastic band on socks cut ( Marking/ Indenting Skin) - No Pressure Ulcers Identified. IMPRESSION: BLE Abrasions and Skin Tears at Various Healing Stages. ( Stable) RECOMMENDATION: 1. Bilateral Lower Extremities - Multiple Skin Tears- POA - Cleanse Sites with NS and 4x4 gauze - Apply Bactroban Ointment and Leave Open To Air Daily. 2. Shear Friction Precautions 3. Encourage Patient to Turn and Reposition q2h 4. Alternating Pressure Air Mattress 5. Continue Moderate PUP. Thank you for consulting with Wound Care. Addendum: 04/09/18 at 1526 by Elliott Bourgeois RN Amended: Links added.
--- NOTE | 2018-04-09 15:30 | NUR ---
Patient voided large amount of clear yellow urine to bed side commode. Ambulating in hallway with physical therapy, no respiratory distress observed. will continue to monitor.
--- NOTE | 2018-04-09 19:47 | NUR ---
PT IS RESTING IN BED. NO RESPIRATORY DISTRESS NOTED. BED IN THE LOWEST POSITION, LOCKED, AND CALL LIGHT WITHIN REACH. WILL CONTINUE TO MONITOR.
[2018-04-10] VITALS (8 sets, daily range): BP systolic 127–148; BP diastolic 63–79
[2018-04-10] MEDS: IPRATROPIUM BROMIDE 0.02% 2.5 ML NEB NEB SCH ×4 (00:01→19:00)
[2018-04-10] MEDS: ALBUTEROL SULF 0.083% NEB SOLN 3 ML NEB NEB SCH ×6 (03:39→22:35)
[2018-04-10] MEDS: LEVOFLOXACIN 750MG/D5W 150ML IV SCH (03:52)
[2018-04-10] MEDS: BREO INH SCH (05:25)
[2018-04-10] MEDS: VANCOMYCIN HCL 1GM/NS 250 ML BAG IV SCH (05:25)
--- NOTE | 2018-04-10 06:52 | Progress Note ---
DATE: This is an 82-year-old female that comes in with COPD exacerbation and also for pneumonia. Currently, the patient is better. Shortness of breath is better. She did walk yesterday with physical therapy. Did need oxygen. Continues to improve. Continues to do fairly well. PHYSICAL EXAMINATION VITAL SIGNS: Temperature is 96.5. The patient has been afebrile. Respirations of 19, blood pressure is 148/74, pulse oximetry 94%. HEENT: Normocephalic and atraumatic. Pupils reactive to light and accommodation. Edentulous. CV: S1 and S2 normal. Regular rate and rhythm. ABDOMEN: Nontender and nondistended. LUNGS: Positive for rhonchi on the right side. Otherwise, decreased air entry. EXTREMITIES: No clubbing. No cyanosis. No edema. LABORATORY VALUES: None done today. Chemistry from April 08, 2018, with creatinine of 0.6. Toxicology: Vancomycin from April 09, 2018, was 10.41 and due for today. MEDICATIONS: The patient is takin. Vancomycin. 2. Levaquin. 3. Methylprednisolone 20 mg twice a day and has been decreased. 4. Nicotine patches. 5. Lisinopril 20 mg daily. 6. Ferrous sulfate. ASSESSMENT 1. Pneumonia. 2. Acute chronic obstructive pulmonary disease exacerbation. 3. Hypertension. 4. Hyperlipidemia. Further recommendations per clinical course. The patient will continue on antibiotics as described above. Possible discharge in 1-2 days. The patient has been briefed on SNF, and the patient does not want to go to a nursing facility at this time. Wants to go home with physical therapy and home health. Job#: [id number] NM
[2018-04-10 06:53] LABS: BASOPHILS % 0.1 % (0.0-1.0); HEMATOCRIT 33.9 % (34.2-44.1); HEMOGLOBIN 10.4 g/dL (12.0-16.0); LYMPHOCYTES # (AUTO) 0.9 (1.0-3.2); LYMPHOCYTES % 9.6 % (18.0-39.1); MEAN CORPUSCULAR HEMOGLOBIN 25.6 pg (28-32); MEAN CORPUSCULAR HGB CONC 30.7 g/dL (31-35); MEAN CORPUSCULAR VOLUME 83.3 fL (81-99); MONOCYTES # (AUTO) 0.6 (0.2-0.8); MONOCYTES % 6.4 % (4.4-11.3); NEUTROPHILS # (AUTO) 7.8 (2.1-6.9); PLATELET COUNT 278 x10e3/uL (140-360); RED BLOOD COUNT 4.07 x10e6/uL (3.6-5.1); RED CELL DISTRIBUTION WIDTH 23.9 % (11.7-14.4)
[2018-04-10 07:37] LABS: ANION GAP 13.1 mmol/L (8-16); BLOOD UREA NITROGEN 22 mg/dL (7-26); BUN/CREATININE RATIO 36 (6-25); CALCIUM 8.3 mg/dL (8.4-10.2); CARBON DIOXIDE 25 mmol/L (22-29); CHLORIDE 103 mmol/L (98-107); CREATININE, SERUM 0.61 mg/dL (0.57-1.11); EST GLOMERULAR FILTRATION RATE > 60 ML/MIN (60-); GLUCOSE 154 mg/dL (74-118); POTASSIUM 4.1 mmol/L (3.5-5.1); SODIUM 137 mmol/L (136-145)
[2018-04-10] MEDS: LISINOPRIL 10 MG TAB PO SCH (08:40)
[2018-04-10] MEDS: FERROUS SULFATE 325 MG TAB PO SCH (08:40)
[2018-04-10] MEDS: CLOPIDOGREL BISULFATE 75 MG TAB PO SCH (08:40)
[2018-04-10] MEDS ORDERED: NICOTINE 7 MG PATCH TOP SCH (10:00)
[2018-04-10] MEDS: MUPIROCIN 2% OINT 22 GM TUBE TOP SCH (12:46)
--- NOTE | 2018-04-10 13:00 | NUR ---
ST NOTE: Pt readmitted for RLL pneumonia. Requested BSE upon last admission, pt d/c with no BSE ordered. Re-requesting BSE with MELISSA Hahn.
--- NOTE | 2018-04-10 15:27 | NUR ---
CASE MANAGEMENT INITIAL ASSESSMENT Die Cast Patternmaker to bedside to discuss plan of care with patient/family. CM/SW role and care transitions discussed. Anticipated discharge plan discussed along with duration of care. CM/SW discussed patients right to make decisions in care. CM/SW work hours given. Patient lives: HOME Admit/Transfer: PT SMOKED CIGARETTES ON THE WAY HOME AND BECAME SOB. STATES SHE WAS HOME 1 HOUR AND SAID SHE FELT LIKE SHE WAS TAKING HER LAST BREATH. PT WAS TRANSPORTED VIA AMBULANCE TO THE ER. Hospital/ER visits since last admit: SAME DAY POA/Emergency contact: AVRIL PEÑA / SON @ [phone] Current/Previous Home Health: NONE PCP/Follow-up Care: DR. CUELLO Current/Previous DME: NEBULIZER 4X/DAY, INH, ROLLATOR, ELEVATED TOILET SEAT, RECLINER LIFT CHAIR Medications (referring to index hospitalization or the first time you were in the hospital) a. Were changes made in your medications when you were in the hospital on [date of index hospitalization]? Yes Explain: PT WAS RESTARTED ON PLAVIX AND A STRONG ANTIBIOTIC b. Did you understand the changes? Yes c. Were you able to obtain your new medications right away? Yes d. Were you able to take your medications like the doctor wanted you to? No Explain: RETURNED TO THE HOSPITAL BEFORE MEDS WERE SCHEDULED TO BE TAKEN. e. Did the hospital give you an accurate, easy to understand list of medications when you left? Yes Scale of 1-10 how comfortable does patient feel with disease management in outpatient setting: Other Services: STATES HER SON'S GF HELPS HER OUT W COOKING, CLEANING AND SHOPPING. Employment Status: RETIRED Areas of Concerns: HAS A WATER BED AND IS MORE DIFFICULT TO GET OUT OF. Referral Needs: MAY NEED HOSPITAL BED AND ROLLING WALKER Education Needs: SMOKING CESSATION; 1-800-QUIT NOW AND NICODERM PATCHES X2 NOW IMM/CUEVAS given and signed (if applicable): N/A Goal for discharge: HOME W POSSIBLE DME CM/SW left business card at the bedside with contact information. Name and number was also written on the patients whiteboard. Patient verbalized understanding of discussion. CM will follow-up with ongoing discharge and transition of care needs. Addendum: 04/10/18 at 1537 by Nancy Stanford CM THE ABOVE NOTE WAS A LATE ENTRY: 04/09/2018
--- NOTE | 2018-04-10 18:40 | NUR ---
patient resting in bed, no resp distress, call light in reach, tolerated with dinner
--- NOTE | 2018-04-10 20:21 | NUR ---
PT IS RESTING IN BED. NO RESPIRATORY DISTRESS NOTED. BED IN THE LOWEST POSITION, LOCKED, BED ALARM ON, AND CALL LIGHT WITHIN REACH. WILL CONTINUE TO MONITOR.
[2018-04-11] VITALS: BP 172/78
[2018-04-11] MEDS: IPRATROPIUM BROMIDE 0.02% 2.5 ML NEB NEB SCH ×3 (02:50→11:30)
[2018-04-11] MEDS: ALBUTEROL SULF 0.083% NEB SOLN 3 ML NEB NEB SCH ×4 (02:50→15:10)
[2018-04-11] MEDS: LEVOFLOXACIN 750MG/D5W 150ML IV SCH (03:42)
[2018-04-11] MEDS: VANCOMYCIN HCL 1GM/NS 250 ML BAG IV SCH (05:25)
[2018-04-11] MEDS: BREO INH SCH (05:53)
[2018-04-11 06:13] VITALS: BP 137/66
[2018-04-11] MEDS ORDERED: METHYLPREDNISOLONE SOD SUCC 40 MG/ML VIAL 1ML IV SCH (07:30)
[2018-04-11 07:56] LABS: BASOPHILS % 0.2 % (0.0-1.0); EOSINOPHILS % 0.2 % (0.0-6.0); HEMOGLOBIN 10.3 g/dL (12.0-16.0); LYMPHOCYTES % 10.5 % (18.0-39.1); MEAN CORPUSCULAR HEMOGLOBIN 25.9 pg (28-32); MEAN CORPUSCULAR HGB CONC 30.3 g/dL (31-35); MEAN CORPUSCULAR VOLUME 85.6 fL (81-99); MONOCYTES # (AUTO) 0.7 (0.2-0.8); MONOCYTES % 7.6 % (4.4-11.3); NEUTROPHILS # (AUTO) 7.3 (2.1-6.9); NEUTROPHILS % 80.1 % (38.7-80.0); PLATELET COUNT 237 x10e3/uL (140-360); RED BLOOD COUNT 3.97 x10e6/uL (3.6-5.1); RED CELL DISTRIBUTION WIDTH 23.8 % (11.7-14.4)
[2018-04-11 08:00] VITALS: BP 156/70
[2018-04-11 08:05] LABS: ANION GAP 12.1 mmol/L (8-16); BLOOD UREA NITROGEN 21 mg/dL (7-26); BUN/CREATININE RATIO 35 (6-25); CALCIUM 8.3 mg/dL (8.4-10.2); CARBON DIOXIDE 24 mmol/L (22-29); CHLORIDE 102 mmol/L (98-107); EST GLOMERULAR FILTRATION RATE > 60 ML/MIN (60-); GLUCOSE 106 mg/dL (74-118); POTASSIUM 4.1 mmol/L (3.5-5.1); SODIUM 134 mmol/L (136-145)
[2018-04-11] MEDS: CLOPIDOGREL BISULFATE 75 MG TAB PO SCH (08:54)
[2018-04-11] MEDS: LISINOPRIL 10 MG TAB PO SCH (08:54)
[2018-04-11] MEDS: MUPIROCIN 2% OINT 22 GM TUBE TOP SCH (08:54)
[2018-04-11] MEDS: FERROUS SULFATE 325 MG TAB PO SCH (08:54)
--- NOTE | 2018-04-11 08:55 | NUR ---
Pt received resting in bed. Alert and oriented x4, pt for discharge today pending home oxygen status. Oriented to staff and surroundings, encouraged to press call quintero if help needed. All meds given as ordered. Emotional support given. Fall precautions maintained. Will monitor
[2018-04-11 09:00] VITALS: BP 156/70
[2018-04-11] MEDS ORDERED: NICOTINE 14 MG/EA PATCH TOP SCH (09:00)
[2018-04-11 12:00] VITALS: BP 153/68
[2018-04-11] MEDS: GUAIFENESIN 200 MG/10 ML UDC PO PRN (12:58)
--- NOTE | 2018-04-11 14:33 | Progress Note ---
DATE: SUBJECTIVE: The patient comes in with COPD exacerbation with pneumonia. The patient is afebrile, feeling well. No shortness of breath. No chest pain. Slept well. OBJECTIVE: VITAL SIGNS: Temperature is 97.3, pulse of 88, respirations of 18, blood pressure 133/66, and pulse oximetry is 96%. HEENT: Normocephalic and atraumatic. Pupils are reactive to light and accommodation. CVS: S1 and S2 normal. Regular rate and rhythm. ABDOMEN: Nontender and nondistended. LUNGS: Decreased air entry into all lung pereyra. Positive for some rhonchi and inspiratory wheezes. ABDOMEN: Nontender and nondistended. EXTREMITIES: No clubbing, no cyanosis, and no edema. LABORATORY VALUES: White count is 9.52, hemoglobin is 10.4, and hematocrit 33.9. Neutrophil count slightly elevated at 82, has come down. Toxicology, vancomycin was 10.4. Chemistries; sodium 137, potassium 4.1, BUN of 22, and creatinine of 0.61. ASSESSMENT: 1. Chronic obstructive pulmonary disease exacerbation. 2. Pneumonia. 3. Hypoxia. 4. Hypertension. 5. History of smoking. PLAN: Do an O2 evaluation today. The patient can be discharged with O2. Smoking cessation advice has been given to the patient. The patient will be discharged on a nicotine. Further recommendations on a clinical course, but also depending on Dr. Dubois and Dr. Nathan's approval. We will continue on to the patient until O2 evaluation has been done and the patient needs oxygen at home. MD CANDACE Russ/NIKI /[id number]
--- NOTE | 2018-04-11 15:24 | NUR ---
RECEIVED ORDER FOR HOME O2. MET W THE PT AND SON AT THE BEDSIDE. CHOICE LETTER AND IMM LETTER WERE SIGNED. COPIES TO THE PT AND COPIES TO THE CHART. PT CHOSE [facility]. PT STATES SHE IS READY TO GO HOME NOW. EXPLAINED THE PROCESS. PT VERY ANXIOUS TO LEAVE, BUT IS AGREEABLE TO WAIT. REFERRAL WAS FAXED TO [facility] @ FAX: [phone] [facility] Address: [address], [place] [address] Addendum: 04/11/18 at 1412 by Nancy Stanford CM SPOKE W JW KING. STATES HE WILL NEED A PRESCRIPTION SIGNED BY THE DOCTOR. STATES HE WILL ALSO NEED A PROGRESS NOTE STATING HER PNEUMONIA OR COPD IS RESOLVING OR BETTER. PT AND SON NOTIFIED.
--- NOTE | 2018-04-11 15:24 | NUR ---
[facility] REP ON CAMPUS AND MET W THE PT AT THE BEDSIDE. PT ALLOWED HER SON TO LEAVE AND SHE WILL CALL HIM ONCE THE O2 IS READY.
[2018-04-11 16:00] VITALS: BP 131/60
--- NOTE | 2018-04-11 17:23 | NUR ---
Oxygen tank delivered. Pt & son given discharge instructions regarding meds, diet, activities, smoking cessation, and follow up with PCP. Pt verbalized understanding of teaching. Awaiting Dr. Carcamo for prescription for Nicotine patch
--- NOTE | 2018-04-11 18:10 | NUR ---
Pt left unit in wheelchair
[2018-04-12] MEDS ORDERED: PREDNISONE 10 MG TAB PO SCH (09:00)
== END 2018-04-11 18:10 | disposition home or self-care (01) | DRG 193 ==
LOC: ER 21:46 → ERHOLD 04-07 02:44 → MED/SURG3 04-07 02:56
PROVIDERS: ADMIT Family Medicine; ATTEND Family Medicine
DX: J18.9 Pneumonia, unspecified organism (principal); E43 Unspecified severe protein-calorie malnutrition; J44.0 Chronic obstructive pulmonary disease with (acute) lower respiratory infection; J44.1 Chronic obstructive pulmonary disease with (acute) exacerbation; F17.210 Nicotine dependence, cigarettes, uncomplicated; Z99.81 Dependence on supplemental oxygen; I10 Essential (primary) hypertension; E78.5 Hyperlipidemia, unspecified; D50.9 Iron deficiency anemia, unspecified; R09.02 Hypoxemia; I73.9 Peripheral vascular disease, unspecified
CPT/HCPCS: 36415; 71045; 76604; 80048; 80053; 80202; 82550; 82553; 83735; 84484; 85025; 87040; 87070; 87205; 94640; 99284; J0456; J0696; J2920; J3370; J7050

== ENCOUNTER 2018-05-07 00:02 | Emergency (ER) | payer MEDICARE, BC ==
[~2018-05-07] VITALS: Ht 165.1 cm; Wt 50.8 kg
--- OUTSIDE RECORDS SUMMARY | 2018-05-07 00:05 | XMS REPORT | Clinical Summary ---
Author Author [facility] Address Unknown Phone Unavailable Care Team Providers Care Agriculture Instructor Name Role Phone Vipul Dunn MD PCP [...] Encounters Care Team Description Date Type Specialty Jair Borrero MD Obstructive chronic bronchitis without exacerbation (HCC) 04/25/2018 Hospital Radiology Encounter Jair Borrero MD Obstructive chronic bronchitis without exacerbation (HCC) (Primary Dx) 04/25/2018 Transcribe Access Orders Jonathan Armstrong RN 07/30/2017 Nurse Only General Internal Medicine Otilio Grace MD Satish, Shiva, MD Joglekar, Swati, MD Cherian, MD Rubin Hematoma of arm, left, initial encounter (Primary Dx); Fall at home, initial encounter; Acute bilateral thoracic back pain 07/28/2017 Hospital General Internal Medicine - Encounter 07/30/2017 after 05/06/2017 Social History Date Tobacco Use Types Packs/Day [...] Due Date Last Done Comments SHINGLES VACCINES (#1) 10/05/1983 65+ PNEUMOCOCCAL VACCINE 1998 (1 of 2 - PCV13) PNEUMOCOCCAL 1998 POLYSACCHARIDE VACCINE AGE 65 AND OVER INFLUENZA VACCINE 09/20/2017 Procedures Comments Procedure Name Priority Date/Time Associated Diagnosis XR CHEST 2 VW Routine 04/25/2018 Obstructive chronic 12:40 PM [facility] bronchitis without exacerbation (HCC) XR HIPS BILATERAL AP Routine 07/29/2017 LATERAL [...] STAT 07/28/2017 CONTRAST 3:03 AM CDT after 05/06/2017 Results * XR Chest 2 Vw (04/25/2018 12:40 PM [facility]) Narrative Performed At EXAMINATION:XR CHEST 2 VW [facility] CLINICAL HISTORY:J44.9 Chronic obstructive pulmonary diseaseunspecified, j44.9 IMPRESSION: Aorta is atherosclerotic and tortuous. Heart size is normal. There is some calcified granulomas in both lungs. There are small bilateral effusions and mild bibasilar atelectatic changes. There is no segmental infiltrate. Bones are osteopenic. There is a fracture deformity of the left clavicle. [facility]-[id number] Procedure Note Hm Interface, Radiology Results Incoming - 04/25/2018 12:49 PM [facility] EXAMINATION: XR CHEST 2 VW CLINICAL HISTORY: J44.9 Chronic obstructive pulmonary disease unspecified, j44.9 IMPRESSION: Aorta is atherosclerotic and tortuous. Heart size is normal. There is some calcified granulomas in both lungs. There are small bilateral effusions and mild bibasilar atelectatic changes. There is no segmental infiltrate. Bones are osteopenic. There is a fracture deformity of the left clavicle. [facility]-[id number] Performing Organization Address City/State/Zipcode Phone Number [facility] [address] [place] [address] * XR Hips Bilateral Ap Lateral W Ap Pelvis (07/29/2017 2:48 PM CDT) Narrative Performed At EXAMINATION:XR HIPS BILATERAL AP LATERAL W AP PELVIS [facility] CLINICAL HISTORY: JOINT PAINHIP COMPARISON:March 31, 2004 FINDINGS: Bones are demineralized. No acute osseous abnormalities identified. There are pronounced degenerative changes in the lower lumbar spine. There has been endovascular repair of an abdominal aortic aneurysm. IMPRESSION: As above [facility]-[id number] Procedure Note Interface, Radiology Results Incoming - 07/29/2017 3:12 PM CDT EXAMINATION: XR HIPS BILATERAL AP LATERAL W AP PELVIS CLINICAL HISTORY: JOINT PAIN HIP COMPARISON: March 31, 2004 FINDINGS: Bones are demineralized. No acute osseous abnormalities identified. There are pronounced degenerative changes in the lower lumbar spine. There has been endovascular repair of an abdominal aortic aneurysm. IMPRESSION: As above [facility]-[id number] Performing Organization Address [facility] Phone Number [facility] [address] [place] [address] * Respiratory pathogen panel (07/29/2017 11:58 AM CDT) Respiratory pathogen Negative for all pathogens [facility] DEPARTMENT OF panel tested: PATHOLOGY AND [...] Other- Detailed Description Required Performing Organization Address [facility] Phone Number [facility] DEPARTMENT [address] [address] PATHOLOGY AND GENOMIC MEDICINE * CBC with platelet and differential (07/29/2017 4:10 AM CDT) Only the most recent of 2 results within the time period is included. WBC 13.53 (H) 4.50 - 11.00 k/uL [facility] DEPARTMENT OF PATHOLOGY AND GENOMIC MEDICINE RBC 3.55 (L) 4.20 - 5.50 m/uL [facility] DEPARTMENT OF PATHOLOGY AND GENOMIC MEDICINE HGB 7.4 (L) 12.0 - 16.0 g/dL [facility] DEPARTMENT OF PATHOLOGY AND GENOMIC MEDICINE HCT 24.7 (L) 37.0 - 47.0 % [facility] DEPARTMENT OF PATHOLOGY AND GENOMIC MEDICINE MCV 69.6 (L) 82.0 - 100.0 fL [facility] DEPARTMENT OF PATHOLOGY AND GENOMIC MEDICINE MCH 20.8 (L) 27.0 - 34.0 pg [facility] DEPARTMENT OF PATHOLOGY AND GENOMIC MEDICINE MCHC 30.0 (L) 31.0 - 37.0 g/dL [facility] DEPARTMENT OF PATHOLOGY AND GENOMIC MEDICINE RDW - SD 45.3 37.0 - 55.0 fL [facility] DEPARTMENT OF PATHOLOGY AND GENOMIC MEDICINE MPV 9.1 8.8 - 13.2 fL [facility] DEPARTMENT OF PATHOLOGY AND GENOMIC MEDICINE Platelet count 308 150 - 400 k/uL [facility] DEPARTMENT OF PATHOLOGY AND GENOMIC MEDICINE Nucleated RBC 0.00 /100 WBC [facility] DEPARTMENT OF PATHOLOGY AND GENOMIC MEDICINE Neutrophils 82.0 (H) 39.0 - 69.0 % [facility] DEPARTMENT OF PATHOLOGY AND GENOMIC MEDICINE Lymphocytes 9.7 (L) 25.0 - 45.0 % [facility] DEPARTMENT OF PATHOLOGY AND GENOMIC MEDICINE Monocytes 6.3 0.0 - 10.0 % [facility] DEPARTMENT OF PATHOLOGY AND GENOMIC MEDICINE Eosinophils 1.1 0.0 - 5.0 % [facility] DEPARTMENT OF PATHOLOGY AND GENOMIC MEDICINE Basophils 0.3 0.0 - 1.0 % [facility] DEPARTMENT OF PATHOLOGY AND GENOMIC MEDICINE Immature granulocytes 0.6Comment: "Immature 0.0 - 1.0 % [facility] DEPARTMENT OF granulocytes" (promyelocytes, PATHOLOGY AND myelocytes, metamyelocytes) [facility] MEDICINE Specimen Blood Performing Organization Address City/State/Zipcode Phone Number [facility] DEPARTMENT [address] [address] PATHOLOGY AND GENOMIC MEDICINE * Urinalysis screen and microscopy, with reflex to culture (07/29/2017 4:01 AM CDT) Specimen site Clean catch [facility] DEPARTMENT OF PATHOLOGY AND GENOMIC MEDICINE Color, UA Yellow [facility] DEPARTMENT OF PATHOLOGY AND GENOMIC MEDICINE Appearance, UA Clear [facility] DEPARTMENT OF PATHOLOGY AND GENOMIC MEDICINE Specific gravity, UA 1.014 1.001 - 1.035 [facility] DEPARTMENT OF PATHOLOGY AND GENOMIC MEDICINE pH, UA 5.0 5.0 - 8.5 [facility] DEPARTMENT OF PATHOLOGY AND GENOMIC MEDICINE Protein, UA Negative Negative [facility] DEPARTMENT OF PATHOLOGY AND GENOMIC MEDICINE Glucose, UA Negative Negative [facility] DEPARTMENT OF PATHOLOGY AND GENOMIC MEDICINE Ketones, UA Negative Negative [facility] DEPARTMENT OF PATHOLOGY AND GENOMIC MEDICINE Bilirubin, UA Negative Negative [facility] DEPARTMENT OF PATHOLOGY AND GENOMIC MEDICINE Blood, UA Negative Negative [facility] DEPARTMENT OF PATHOLOGY AND GENOMIC MEDICINE Nitrite, UA Negative Negative [facility] DEPARTMENT OF PATHOLOGY AND GENOMIC MEDICINE Urobilinogen, UA 2.0 (A) <2.0 [facility] DEPARTMENT OF PATHOLOGY AND GENOMIC MEDICINE Leukocyte esterase, UA Negative Negative [facility] DEPARTMENT OF PATHOLOGY AND GENOMIC MEDICINE Epithelial cells, UA 1 /HPF [facility] DEPARTMENT OF PATHOLOGY AND GENOMIC MEDICINE WBC, UA 1 0 - 4 /HPF [facility] DEPARTMENT OF PATHOLOGY AND GENOMIC MEDICINE RBC, UA <1 0 - 5 /HPF [facility] DEPARTMENT OF PATHOLOGY AND GENOMIC MEDICINE Bacteria, UA None seen None seen [facility] DEPARTMENT OF PATHOLOGY AND GENOMIC MEDICINE Yeast, UA None seen [facility] DEPARTMENT OF PATHOLOGY AND GENOMIC MEDICINE Yeast with pseudohyphae, None seen [facility] DEPARTMENT OF UA PATHOLOGY AND GENOMIC MEDICINE Hyaline casts, UA 1 /LPF [facility] DEPARTMENT OF PATHOLOGY AND GENOMIC MEDICINE Specimen Urine Performing Organization Address City/[facility] Hospital[place] [address] PATHOLOGY AND GENOMIC [facility] * Sodium level, urine, random (07/29/2017 4:01 AM CDT) Sodium, urine, random 128 mEq/L [facility] DEPARTMENT OF PATHOLOGY AND GENOMIC MEDICINE Specimen Urine Performing Organization Address City/[facility] [place] [address] PATHOLOGY [facility] GENOMIC MEDICINE * Estimated GFR (07/29/2017 4:00 AM CDT) Only the most recent of 2 results within the time period is included. GFR Non Af Amer 80 mL/min/1.73 m2 [facility] DEPARTMENT OF PATHOLOGY AND GENOMIC MEDICINE GFR Af Amer >90 mL/min/1.73 m2 [facility] DEPARTMENT OF Comment: PATHOLOGY AND Chronic kidney disease: <60 GENOMIC MEDICINE mL/min/1.73m2 Kidney failure: <15 mL/min/1.73m2 The estimated GFR is calculated from the [employer]-traceable Modification of Diet in Renal Disease Equation. The accuracy of the calculation is poor when the creatinine is normal. Calculated values >90 mL/min/1.73m2 are not reported. This equation has not been validated in children (<18 years), women, the elderly (>70 years), or ethnic groups other than Caucasians and Americans. Specimen Plasma specimen Performing Organization Address City/State/Zipcode Phone Number [address] [address] PATHOLOGY AND GENOMIC MEDICINE * Urine culture (07/29/2017 4:00 AM CDT) Urine culture SEE COMMENTComment: [facility] DEPARTMENT OF Bacteriuria screen negative. PATHOLOGY AND GENOMIC MEDICINE Performing Organization Address City/[facility] Phone Number [address] [address] PATHOLOGY AND GENOMIC MEDICINE * Comprehensive metabolic panel (07/29/2017 4:00 AM CDT) Sodium 135 135 - 148 mEq/L [facility] DEPARTMENT OF PATHOLOGY AND GENOMIC MEDICINE Potassium 3.9 3.5 - 5.0 mEq/L [facility] DEPARTMENT OF PATHOLOGY AND GENOMIC MEDICINE Chloride 99 98 - 112 mEq/L [facility] DEPARTMENT OF PATHOLOGY AND GENOMIC MEDICINE CO2 22 (L) 24 - 31 mEq/L [facility] DEPARTMENT OF PATHOLOGY AND GENOMIC MEDICINE Anion gap 14@ANIO 7 - 15 mEq/L [facility] DEPARTMENT OF PATHOLOGY AND GENOMIC MEDICINE BUN 14 8 - 23 mg/dL [facility] DEPARTMENT OF PATHOLOGY AND GENOMIC MEDICINE Creatinine 0.7 0.5 - 0.9 mg/dL [facility] DEPARTMENT OF PATHOLOGY AND GENOMIC MEDICINE Glucose 88 65 - 99 mg/dL [facility] DEPARTMENT OF PATHOLOGY AND GENOMIC MEDICINE Calcium 8.6 (L) 8.8 - 10.2 mg/dL [facility] DEPARTMENT OF PATHOLOGY AND GENOMIC MEDICINE Protein 6.4 6.3 - 8.3 g/dL [facility] DEPARTMENT OF Comment: PATHOLOGY AND GENOMIC MEDICINE 4.6-7.0 g/dL 1 week 4.4-7.6 g/dL 7 months-1year 5.1-7.3 g/dL 1-2 years5.6-7 .5 g/dL >3 years6.0-8 .0 g/dL 18-150 6.3-8.3 g/dL Albumin 2.9 (L) 3.5 - 5.0 g/dL [facility] DEPARTMENT OF PATHOLOGY AND GENOMIC MEDICINE A/G ratio 0.8 0.7 - 3.8 [facility] DEPARTMENT OF PATHOLOGY AND GENOMIC MEDICINE Alkaline phosphatase 104 35 - 104 U/L [facility] DEPARTMENT OF PATHOLOGY AND GENOMIC MEDICINE AST 14 10 - 35 U/L [facility] DEPARTMENT OF PATHOLOGY AND GENOMIC MEDICINE ALT 11 5 - 50 U/L [facility] DEPARTMENT OF PATHOLOGY AND GENOMIC MEDICINE Total bilirubin 0.4 0.0 - 1.2 mg/dL [facility] DEPARTMENT OF PATHOLOGY AND GENOMIC MEDICINE Specimen Plasma specimen Performing Organization Address [facility] Hospital[place] [address] PATHOLOGY AND GENOMIC MEDICINE * Troponin (07/28/2017 9:20 PM CDT) Only the most recent of 2 results within the time period is included. Troponin <0.30 0.00 - 0.30 ng/mL [facility] DEPARTMENT OF Comment: PATHOLOGY AND 0.30 - 1.49 GENOMIC MEDICINE ng/mlMay indicate increased risk of acute coronary syndrome. >=1.5 ng/ml Consistent with acute myocardial infarction. The diagnostic value of a single normal or non-diagnostic result is questionable.Serial samples at 2-6 hour intervals are required to rule out acute myocardial injury. Specimen Plasma specimen Performing Organization Address [facility] [place] [address] PATHOLOGY AND GENOMIC MEDICINE * Blood culture, aerobic & anaerobic (07/28/2017 9:20 PM CDT) Only the most recent of 2 results within the time period is included. Blood culture isolate No growth after 5 days of [facility] DEPARTMENT OF incubation. PATHOLOGY AND Comment: GENOMIC MEDICINE Specimen Information Specimen Source: Blood Specimen Site: Unspecified Specimen Blood - Wrist, right Performing Organization Address [facility] Phone Number [facility] [place] [address] PATHOLOGY AND GENOMIC MEDICINE * B natriuretic peptide (07/28/2017 2:27 PM CDT) BNP 193 (H) 0 - 100 pg/mL [facility] DEPARTMENT OF PATHOLOGY AND GENOMIC MEDICINE Specimen Blood Performing Organization Address [facility] [address] PATHOLOGY AND GENOMIC MEDICINE * Hemoglobin A1c (07/28/2017 2:27 PM CDT) Hemoglobin A1C 5.4 4.0 - 5.6 % [facility] DEPARTMENT OF Comment: PATHOLOGY AND HbA1c cutoffs for diagnosing GENOMIC MEDICINE diabetes: 4.0% - 5.6%=normal 5.7% - 6.4%=increased risk for diabetes (prediabetes) >=6.5%=diabetes Goals for glycemic control (ADA 2016) < 7.0%Target for non adults with diabetes. More or less stringent targets may be appropriate for individual patients. <7.5% Target for Children and adolescents with type 1 diabetes. Specimen Blood Performing Organization Address [facility] [place] [address] PATHOLOGY AND GENOMIC MEDICINE * Total iron binding capacity (07/28/2017 9:03 AM CDT) Iron level 36 (L) 37 - 145 ug/dL [facility] DEPARTMENT OF PATHOLOGY AND GENOMIC MEDICINE Iron binding capacity 315 200 - 400 ug/dL [facility] DEPARTMENT OF PATHOLOGY AND GENOMIC MEDICINE % Saturation 11.4 (L) 15.0 - 38.0 % [facility] DEPARTMENT OF PATHOLOGY AND GENOMIC MEDICINE Specimen Plasma specimen Performing Organization Address [facility] [place] [address] PATHOLOGY AND GENOMIC MEDICINE * Thyroid stimulating hormone (07/28/2017 9:03 AM CDT) TSH 1.29 0.27 - 4.20 uIU/mL [facility] DEPARTMENT OF PATHOLOGY AND GENOMIC MEDICINE Specimen Plasma specimen Performing Organization Address City/[facility] [address] PATHOLOGY AND GENOMIC MEDICINE * Magnesium level (07/28/2017 9:03 AM CDT) Magnesium 1.9 1.6 - 2.4 mg/dL [facility] DEPARTMENT OF PATHOLOGY AND GENOMIC MEDICINE Specimen Plasma specimen Performing Organization Address [facility] [address] PATHOLOGY AND GENOMIC MEDICINE * Lactic acid level (07/28/2017 9:03 AM CDT) Lactic acid 1.5 0.5 - 2.2 mmol/L [facility] DEPARTMENT OF PATHOLOGY AND GENOMIC MEDICINE Specimen Plasma specimen Performing Organization Address City/[facility] Phone Number [facility] [place] [address] PATHOLOGY AND GENOMIC MEDICINE * Ferritin level (07/28/2017 9:03 AM CDT) Ferritin level 15 13 - 150 ng/mL [facility] DEPARTMENT OF PATHOLOGY AND GENOMIC MEDICINE Specimen Plasma specimen Performing Organization Address [facility] Hospital[place] [address] PATHOLOGY AND GENOMIC MEDICINE * Vitamin B12 level (07/28/2017 9:03 AM CDT) Vitamin B12 526 211 - 946 pg/mL [facility] DEPARTMENT OF Comment: PATHOLOGY AND Significant overlap exists GENOMIC MEDICINE between normal and deficiency states. However, most patients with deficiencies will have Serum B12 <200 pg/mL. Specimen Serum Performing Organization Address [facility] Phone Number [facility] [place] [address] PATHOLOGY AND GENOMIC MEDICINE * XR Chest [...] seen. Impression: No active cardiopulmonary disease identified. [facility]-[id number] Procedure Note Interface, Radiology Results Incoming - [...] seen. Impression: No active cardiopulmonary disease identified. [facility]-[id number] Performing Organization Address [facility]/[place] [address] * Potassium level (07/28/2017 4:01 AM CDT) Potassium 4.0 3.5 - 5.0 mEq/L [facility] DEPARTMENT OF PATHOLOGY AND [employer] MEDICINE Specimen Plasma specimen Performing Organization Address [facility] [place] [address] PATHOLOGY AND [employer] MEDICINE * Partial thromboplastin time, activated (07/28/2017 3:05 AM CDT) PTT 25.9 23.0 - 36.0 sec [facility] DEPARTMENT OF Comment: PATHOLOGY AND PTT therapeutic range for GENOMIC MEDICINE unfractionated heparin is 61.0-112.0 seconds which corresponds to Anti-Xa 0.3-0.7 U/ml. Specimen Blood Performing Organization Address [facility] [place] [address] PATHOLOGY AND [employer] MEDICINE * Prothrombin time with INR (07/28/2017 3:05 AM CDT) Prothrombin time 12.3 12.0 - 15.0 sec [facility] DEPARTMENT OF PATHOLOGY AND [employer] MEDICINE INR 0.9 [facility] DEPARTMENT OF Comment: PATHOLOGY AND The International Normalized GENOMIC MEDICINE Ratio (INR) is a therapeutic monitoring tool for patients who are stable on oral anticoagulant therapy. An INR of 2.0-3.0 is suggested for deep vein thrombosis/pulmonary embolism. Specimen Blood Performing Organization Address [facility] [place] [address] PATHOLOGY AND [employer] MEDICINE * Basic metabolic panel (07/28/2017 3:05 AM CDT) Sodium 125 (L) 135 - 148 mEq/L [facility] DEPARTMENT OF PATHOLOGY AND GENOMIC MEDICINE Potassium SEE COMMENTComment: 3.5 - 5.0 mEq/L [facility] DEPARTMENT OF Footnote--------- PATHOLOGY AND GENOMIC MEDICINE Chloride 91 (L) 98 - 112 mEq/L [facility] DEPARTMENT OF PATHOLOGY AND GENOMIC MEDICINE CO2 23 (L) 24 - 31 mEq/L [facility] DEPARTMENT OF PATHOLOGY AND GENOMIC MEDICINE Anion gap 11@ANIO 7 - 15 mEq/L [facility] DEPARTMENT OF PATHOLOGY AND GENOMIC MEDICINE BUN 14 8 - 23 mg/dL [facility] DEPARTMENT OF PATHOLOGY AND GENOMIC MEDICINE Creatinine 0.6 0.5 - 0.9 mg/dL [facility] DEPARTMENT OF PATHOLOGY AND GENOMIC MEDICINE Glucose 90 65 - 99 mg/dL [facility] DEPARTMENT OF PATHOLOGY AND GENOMIC MEDICINE Calcium 8.3 (L) 8.8 - 10.2 mg/dL [facility] DEPARTMENT OF PATHOLOGY AND GENOMIC MEDICINE Specimen Plasma specimen Performing Organization Address City/[facility] Phone Number [facility] DEPARTMENT OF [address] [place] [address] PATHOLOGY AND GENOMIC MEDICINE * CT Head [...] depressed fracture. IMPRESSION: No acute intracranial abnormality. [facility]-[id number] Procedure Note Hm Interface, Radiology Results Incoming - 07/28/2017 3:10 [...] depressed fracture. IMPRESSION: No acute intracranial abnormality. [facility]-[id number] Performing Organization Address [facility] Phone Number [facility] [address] [place] [address] * CT Cervical Spine Wo Contrast (07/28/2017 [...] acute osseous abnormality of the cervical spine. [id number] Procedure Note [facility], Radiology Results Incoming - 07/28/2017 3:14 AM [...] acute osseous abnormality of the cervical spine. [id number] Performing Organization Address City/State/Zipcode Phone Number [facility] [address] [place] [address] after 05/06/2017 Insurance Payer Benefit Subscriber ID Type Phone Address Plan / Group MEDICARE MEDICARE xxxxxxxxxx Medicare [place], [place] PART A AND B BCBS BCBS xxxxxxxxxxxx Indemnity PAR/TRAD PLAN Advance Directives Patient has advance care planning documents on file. For more information, maldonado de guzman contact: Juan Edwards [address] [place] [address]
[2018-05-07] MEDS ORDERED: BACITRACIN ZINC 0.9GM TP ONE (00:25)
[2018-05-07] MEDS ORDERED: HYDROCODONE/APAP 5MG-325MG TAB PO ONE (00:30)
--- NOTE | 2018-05-07 01:03 | Diagnostic Imaging Report ---
WRIST COMPLETE LEFT - 3 views HISTORY: Pain. Fall. COMPARISON: None available. FINDINGS: Bones: No acute displaced fracture. Tiny well corticated ossicles projected adjacent to the ulnar and radial styloid. Generalized osteopenia Mild deformity of the distal radial epiphysis on the lateral view may be related to prior traumatic injury. Joints: The joint spaces are well-maintained. Soft tissues: The soft tissues appear unremarkable. IMPRESSION: No acute displaced fracture. Signed by: Dr. Jerry Post M.D. on 05/07/2018 12:59 AM
[2018-05-07] MEDS ORDERED: ULTRAM50 MG PO (01:26)
[2018-05-07 01:30] VITALS: BP 143/74
== END 2018-05-07 01:30 | disposition home or self-care (01) ==
LOC: ER 00:02
DX: S63.522A Sprain of radiocarpal joint of left wrist, initial encounter (principal); W18.30XA Fall on same level, unspecified, initial encounter; Y92.008 Other place in unspecified non-institutional (private) residence as the place of occurrence of the external cause
CPT/HCPCS: 99283

== ENCOUNTER 2018-12-11 05:29 | Observation (INO) | payer MEDICARE, BC ==
[~2018-12-11] VITALS: Ht 165.1 cm; Wt 49.0 kg
[~2018-12-11 05:29] MED LIST changes: +ULTRAM50 MG PO
[2018-12-11] MEDS ORDERED: ONDANSETRON HCL INJ 2MG/ML 2ML 2 MG/ML VIAL IV STA (05:54)
[2018-12-11] MEDS ORDERED: SODIUM CHLORIDE 0.9% 1000ML 1,000 ML IV ONE ×2 (06:00→10:15)
[2018-12-11 06:53] LABS: BASOPHILS % 0.3 % (0.0-1.0); EOSINOPHILS # (AUTO) 0.1 (0.0-0.4); EOSINOPHILS % 0.7 % (0.0-6.0); HEMATOCRIT 42.1 % (34.2-44.1); HEMOGLOBIN 13.1 g/dL (12.0-16.0); LYMPHOCYTES # (AUTO) 0.4 (1.0-3.2); LYMPHOCYTES % 2.9 % (18.0-39.1); MEAN CORPUSCULAR HEMOGLOBIN 29.1 pg (28-32); MEAN CORPUSCULAR HGB CONC 31.1 g/dL (31-35); MEAN CORPUSCULAR VOLUME 93.6 fL (81-99); MONOCYTES # (AUTO) 0.4 (0.2-0.8); MONOCYTES % 2.6 % (4.4-11.3); NEUTROPHILS # (AUTO) 12.6 (2.1-6.9); NEUTROPHILS % 93.1 % (38.7-80.0); PLATELET COUNT 235 x10e3/uL (140-360); RED CELL DISTRIBUTION WIDTH 14.4 % (11.7-14.4)
[2018-12-11 07:21] LABS: ALANINE AMINOTRANSFERASE 18 IU/L (0-55); ALBUMIN 3.4 g/dL (3.5-5.0); ALBUMIN/GLOBULIN RATIO 1.1 (0.8-2.0); ALKALINE PHOSPHATASE 112 IU/L (40-150); ANION GAP 17.9 mmol/L (8-16); BLOOD UREA NITROGEN 27 mg/dL (7-26); BUN/CREATININE RATIO 36 (6-25); CALCIUM 9.6 mg/dL (8.4-10.2); CARBON DIOXIDE 21 mmol/L (22-29); CHLORIDE 106 mmol/L (98-107); CREATINE KINASE 25 IU/L (29-168); CREATININE, SERUM 0.76 mg/dL (0.57-1.11); EST GLOMERULAR FILTRATION RATE > 60 ML/MIN (60-); GLUCOSE 147 mg/dL (74-118); POTASSIUM 3.9 mmol/L (3.5-5.1); SODIUM 141 mmol/L (136-145)
[2018-12-11 07:22] LABS: AMYLASE 48 U/L (25-125); LIPASE 39 U/L (8-78)
[2018-12-11 07:32] LABS: BILIRUBIN,URINE NEGATIVE (NEGATIVE); CLARITY,URINE CLEAR (CLEAR); COLOR,URINE YELLOW (YELLOW); KETONES,URINE NEGATIVE (NEGATIVE); LEUKOCYTE ESTERASE ,URINE NEGATIVE (NEGATIVE); NITRITE,URINE NEGATIVE (NEGATIVE); PROTEIN,URINE DIPSTICK NEGATIVE (NEGATIVE); URINE UROBILINOGEN 0.2 mg/dL (0.2 - 1)
[2018-12-11 07:43] LABS: BACTERIA,URINE RARE /HPF; EPITHELIAL CELLS,URINE FEW /LPF; RBC,URINE 0-5 /HPF (0-5); WBC,URINE (MAN) 0-5 /HPF (0-5)
--- NOTE | 2018-12-11 09:41 | Diagnostic Imaging Report ---
EXAM: CT Abdomen and Pelvis WITH intravenous contrast INDICATION: Nausea, vomiting, diarrhea COMPARISON: None. TECHNIQUE: Abdomen and pelvis were scanned utilizing a multidetector helical scanner from the lung base to the pubic symphysis after administration of IV contrast. Coronal and sagittal reformations were obtained. Routine protocol was performed. Scan was performed during portal venous phase. IV CONTRAST: 100mL of Isovue 370 ORAL CONTRAST: Water RADIATION DOSE: Total DLP: 196.2 mGy*cm Dose modulation, iterative reconstruction, and/or weight based adjustment of the mA/kV was utilized to reduce the radiation dose to as low as reasonably achievable. FINDINGS: LOWER THORAX: Mild subsegmental atelectasis. Coronary artery atherosclerotic calcifications. HEPATOBILIARY: Diffuse hepatic steatosis. No focal liver lesion. No biliary ductal dilation. Status post cholecystectomy. SPLEEN: No splenomegaly. PANCREAS: No focal masses or ductal dilatation. ADRENALS: No adrenal nodules. KIDNEYS/URETERS: No renal calculi or hydronephrosis. Bilateral subcentimeter renal cysts. PELVIC ORGANS/BLADDER: Status post hysterectomy. PERITONEUM / RETROPERITONEUM: No free air or fluid. LYMPH NODES: No lymphadenopathy. VESSELS: Status post infrarenal abdominal aortic endograft repair. Diffuse atherosclerotic calcifications of the visualized aorta and major branches. GI TRACT: Diverticulosis without CT evidence of diverticulitis. No abnormal bowel wall thickening. No bowel obstruction. BONES AND SOFT TISSUES: No acute osseous injury. Multilevel degenerative changes of the visualized spine. No suspicious lytic or blastic lesions. IMPRESSION: Diverticulosis with no CT evidence of diverticulitis. Diffuse hepatic steatosis. Status post infrarenal abdominal aortic endograft repair. Scattered atherosclerotic calcification including of the coronary arteries. Signed by: Trey Hdz MD on 12/11/2018 9:38 AM
[2018-12-11] MEDS ORDERED: ONDANSETRON HCL INJ 2MG/ML 2ML 2 MG/ML VIAL IV PRN (10:15)
[2018-12-11] MEDS ORDERED: DICYCLOMINE HCL 20 MG/2 ML VIAL IM ONE (10:15)
[2018-12-11] MEDS: D5.45%NS/KCL 20MEQ 1,000 ML IV SCH ×2 (10:35→22:12)
[2018-12-11] MEDS: FAMOTIDINE 20 MG/2 ML VIAL IV SCH ×2 (11:16→22:12)
[2018-12-11 14:30] VITALS: BP 125/53
[2018-12-11 15:20] VITALS: BP 106/58
[2018-12-11] MEDS ORDERED: SODIUM CHLORIDE 0.9% 50ML 50 ML ONE (15:53)
[2018-12-11] MEDS ORDERED: IOPAMIDOL 370 MG/ML 200 ML INFUS..BTL INJ ONE (15:54)
--- NOTE | 2018-12-11 19:48 | NUR ---
Called and talked to Dr. Dunn about patient's son brought in home medication and patient taking all the home medication. Also, if we can resume all her home medication. Day shift nurse told the patient we would resume the medication and to not take the blood pressure medication because her blood pressure was 106/59. patient's son said she takes the medication not for blood pressure. Dr. Dunn said to resume all home medication.
[2018-12-11 20:00] VITALS: BP 118/90
[2018-12-11 20:42] VITALS: BP 118/90
[2018-12-12] VITALS (8 sets, daily range): BP systolic 115–141; BP diastolic 45–72
--- NOTE | 2018-12-12 01:17 | NUR ---
Received report from previous nurse. Call light within reach. Patient in bed. Son at bedside Addendum: 12/12/18 at 0125 by Ira Craven RN Date was suppose to be 12/11/18 and time 190
[2018-12-12 05:22] LABS: BASOPHILS % 0.2 % (0.0-1.0); EOSINOPHILS # (AUTO) 0.1 (0.0-0.4); EOSINOPHILS % 1.4 % (0.0-6.0); HEMATOCRIT 33.7 % (34.2-44.1); HEMOGLOBIN 10.2 g/dL (12.0-16.0); LYMPHOCYTES # (AUTO) 0.6 (1.0-3.2); LYMPHOCYTES % 11.1 % (18.0-39.1); MEAN CORPUSCULAR HEMOGLOBIN 28.9 pg (28-32); MEAN CORPUSCULAR HGB CONC 30.3 g/dL (31-35); MEAN CORPUSCULAR VOLUME 95.5 fL (81-99); MONOCYTES # (AUTO) 0.4 (0.2-0.8); MONOCYTES % 6.8 % (4.4-11.3); NEUTROPHILS # (AUTO) 4.5 (2.1-6.9); NEUTROPHILS % 79.8 % (38.7-80.0); PLATELET COUNT 170 x10e3/uL (140-360); RED BLOOD COUNT 3.53 x10e6/uL (3.6-5.1); RED CELL DISTRIBUTION WIDTH 14.6 % (11.7-14.4)
[2018-12-12 06:03] LABS: ALANINE AMINOTRANSFERASE 13 IU/L (0-55); ALBUMIN 2.5 g/dL (3.5-5.0); ALBUMIN/GLOBULIN RATIO 1.1 (0.8-2.0); ALKALINE PHOSPHATASE 74 IU/L (40-150); BLOOD UREA NITROGEN 15 mg/dL (7-26); BUN/CREATININE RATIO 25 (6-25); CALCIUM 8.5 mg/dL (8.4-10.2); CARBON DIOXIDE 19 mmol/L (22-29); CHLORIDE 106 mmol/L (98-107); CREATININE, SERUM 0.61 mg/dL (0.57-1.11); EST GLOMERULAR FILTRATION RATE > 60 ML/MIN (60-); GLUCOSE 113 mg/dL (74-118); LIPASE 10 U/L (8-78); SODIUM 132 mmol/L (136-145)
[2018-12-12 06:33] LABS: HYPOCHROMASIA SLIGHT; PLATELET ESTIMATE MODERATELY DECREASED; PLATELET MORPHOLOGY COMMENT FEW LARGE; RBC MORPHOLOGY COMMENT ABNORMAL
[2018-12-12] MEDS: D5.45%NS/KCL 20MEQ 1,000 ML IV SCH ×4 (07:03→20:39)
--- NOTE | 2018-12-12 07:51 | NUR ---
Gave report to oncoming nurse. Call light within reach. Patient in bed.
[2018-12-12] MEDS ORDERED: PANTOPRAZOLE 40 MG 10ML VIAL IV SCH (09:00)
[2018-12-12] MEDS: FERROUS SULFATE 325 MG TAB PO SCH (09:19)
[2018-12-12] MEDS: FAMOTIDINE 20 MG/2 ML VIAL IV SCH (09:19)
[2018-12-12] MEDS: CLOPIDOGREL BISULFATE 75 MG TAB PO SCH (09:19)
[2018-12-12] MEDS: LISINOPRIL 20 MG TAB PO SCH (09:19)
[2018-12-12] MEDS: LACTOBACILLUS ACIDOPHILUS CAPSULE PO SCH (09:20)
[2018-12-12] MEDS ORDERED: FAMOTIDINE 20 MG TAB PO SCH (09:30)
[2018-12-12] MEDS ORDERED: ONDANSETRON HCL 4 MG ORAL DISINTEGRATING TAB PO PRN (10:15)
[2018-12-12 11:44] LABS: INR 0.86; PROTHROMBIN TIME 12.2 seconds (11.9-14.5)
[2018-12-12] MEDS: FAMOTIDINE 20 MG TAB PO SCH (20:38)
[2018-12-13] VITALS: BP 134/68
[2018-12-13 04:00] VITALS: BP 148/69
--- NOTE | 2018-12-13 07:10 | NUR ---
Received patient lying in bed with eyes open. Respiration even and unlabored without SOB. PIV to right FA with D5 half NS with KCL 20 Meq at 125 ml/hr. Call light in reach.
[2018-12-13] MEDS ORDERED: PANTOPRAZOLE SOD 40 MG TABEC PO SCH (07:30)
[2018-12-13] MEDS: CLOPIDOGREL BISULFATE 75 MG TAB PO SCH (08:46)
[2018-12-13] MEDS: LACTOBACILLUS ACIDOPHILUS CAPSULE PO SCH (08:46)
[2018-12-13] MEDS: LISINOPRIL 20 MG TAB PO SCH (08:46)
[2018-12-13] MEDS: FERROUS SULFATE 325 MG TAB PO SCH (08:46)
[2018-12-13] MEDS: FAMOTIDINE 20 MG TAB PO SCH (08:46)
[2018-12-13 08:53] VITALS: BP 154/82
[2018-12-13 09:13] VITALS: BP 154/82
[2018-12-13] MEDS: D5.45%NS/KCL 20MEQ 1,000 ML IV SCH (10:08)
[2018-12-13] MEDS ORDERED: PANTOPRAZOLE SO40 MG PO (13:16)
--- NOTE | 2018-12-13 13:17 | Discharge Summary ---
DISCHARGE DIAGNOSES: 1. Gastroenteritis. 2. Dehydration. 3. Hypertension. 4. Peripheral arterial disease. 5. Gastritis. HISTORY OF PRESENT ILLNESS AND HOSPITAL COURSE: See hospital chart for full details. The patient is an 83-year-old lady, who presented with a 2-hour history of nausea, vomiting, where she was unable to keep anything down. She was noticed to have some dehydration and gastroenteritis. CT scan was unremarkable. White count was unremarkable. She was brought in and placed on IV fluids, and home medications as well as antiemetics. The patient's symptoms improved dramatically within hours. She was observed for one more night, continued IV fluids, but at the time of discharge, the patient was back to her baseline. She was ambulating well. She felt great. She wanted to go home. She was eating well without any pain or nausea, vomiting, or diarrhea. She will follow up with me in a couple of weeks. Please see hospital chart for full details. MD FUAD Martinez/NIKI /[id number]
[2018-12-13 13:30] VITALS: BP 151/67
--- NOTE | 2018-12-13 13:35 | NUR ---
PIV to right FA discontinued. Catheter tip intact,no bleeding noted. Patient to be D/C to home today. 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 Luca light in reach.
--- NOTE | 2018-12-13 15:33 | NUR ---
patient is transported via wheelchair with all personal belongings taken by family member. Respiration even and unlabored without SOB.
== END 2018-12-13 15:03 | disposition home or self-care (01) ==
LOC: ER 05:29 → ERHOLD 10:08 → IMCU 14:30
PROVIDERS: ADMIT Internal Medicine; ATTEND Internal Medicine
DX: K52.9 Noninfective gastroenteritis and colitis, unspecified (principal); K57.90 Diverticulosis of intestine, part unspecified, without perforation or abscess without bleeding; E86.0 Dehydration; Z88.0 Allergy status to penicillin; Z88.2 Allergy status to sulfonamides; I10 Essential (primary) hypertension; J44.9 Chronic obstructive pulmonary disease, unspecified; D64.9 Anemia, unspecified; F17.210 Nicotine dependence, cigarettes, uncomplicated; I73.9 Peripheral vascular disease, unspecified; Z95.820 Peripheral vascular angioplasty status with implants and grafts; Z82.49 Family history of ischemic heart disease and other diseases of the circulatory system; Z83.3 Family history of diabetes mellitus; D72.829 Elevated white blood cell count, unspecified; E44.0 Moderate protein-calorie malnutrition; Z68.1 Body mass index [BMI] 19.9 or less, adult; K21.9 Gastro-esophageal reflux disease without esophagitis; K29.70 Gastritis, unspecified, without bleeding
CPT/HCPCS: 36415 ×2; 74177; 80053 ×2; 81001; 82150; 82550; 82553; 83605; 83690 ×2; 83735; 84484; 85025 ×2; 85610; 93005; 96361; 97116 ×2; 97161; 99284; C9113; G0378 ×3; J0500; J2405; J7030; Q9967; S0164; 96360

== ENCOUNTER 2019-02-02 17:59 | Emergency (ER) | payer MEDICARE, BC ==
[~2019-02-02 17:59] MED LIST changes: +PANTOPRAZOLE SO40 MG PO
== END 2019-02-02 18:34 | disposition left against medical advice (07) ==
LOC: ER 17:59
DX: M79.605 Pain in left leg (principal)

== ENCOUNTER 2019-02-04 12:47 | Emergency (ER) | payer MEDICARE, BC ==
[~2019-02-04] VITALS: Ht 165.1 cm; Wt 49.0 kg
[2019-02-04] MEDS ORDERED: KETOROLAC TROMETHAMINE 30 MG/ML VIAL IM STA (13:11)
[2019-02-04] MEDS ORDERED: DEXAMETHASONE SOD PHOS 10 MG/1 ML VIAL IM ONE (13:15)
--- NOTE | 2019-02-04 15:13 | Diagnostic Imaging Report ---
EXAM: Lumbar spine radiographs-4 views; pelvic radiograph-1 view; sacrum/coccyx radiographs-5 views INDICATION: Pain. COMPARISON: CT abdomen/pelvis 12/11/2018. FINDINGS: BONES: Bowel gas partially obscures visualization of the sacrum and bilateral iliac bones, which limits evaluation. Diffuse osteopenia. Mild anterolisthesis of L3 on L4. No evidence of acute fracture or dislocation. There is mild loss of vertebral body height at at L1 and L2, unchanged from CT on 12/11/2018. Limited evaluation of the thoracic spine. There is moderate loss of vertebral body height in the lower thoracic spine; moderate compression deformities at T10 and T11 were present on prior CT from 12/11/2018. DISCS: There are moderate degenerative disc changes, most pronounced at L4-L5. JOINTS: Moderate facet degenerative changes, most pronounced at L4-L5 and L5-S1. SOFT TISSUES: There is a aorto bi-iliac arterial endograft. Status post cholecystectomy. IMPRESSION: No evidence of acute fracture. Unchanged loss of vertebral body heights at T10-T11 and L1-L2. Signed by: Dr. Isabel Foreman MD on 02/04/2019 3:10 PM
[2019-02-14] MEDS ORDERED: MELOXICAM7.5 MG PO (15:45)
== END 2019-02-04 16:40 | disposition home or self-care (01) ==
LOC: ER 12:47
DX: M54.16 Radiculopathy, lumbar region (principal); I10 Essential (primary) hypertension; I73.9 Peripheral vascular disease, unspecified
CPT/HCPCS: 72100; 72170; 72220; 99283; J1100; J1885

== ENCOUNTER 2019-05-05 21:38 | Emergency (ER) | payer MEDICARE, BC ==
[~2019-05-05] VITALS: Ht 165.1 cm; Wt 49.0 kg
[~2019-05-05 21:38] MED LIST changes: +MELOXICAM7.5 MG PO
[2019-05-05] MEDS ORDERED: PANTOPRAZOLE 40 MG 10ML VIAL IV STA (21:50)
--- NOTE | 2019-05-05 22:15 | NUR ---
Patient c/o pain radiaitng to back at this time. MD notified.
[2019-05-05 22:22] LABS: BASOPHILS # (AUTO) 0.1 (0.0-0.1); BASOPHILS % 0.5 % (0.0-1.0); EOSINOPHILS # (AUTO) 0.1 (0.0-0.4); EOSINOPHILS % 0.6 % (0.0-6.0); HEMATOCRIT 39.1 % (34.2-44.1); HEMOGLOBIN 12.3 g/dL (12.0-16.0); LYMPHOCYTES # (AUTO) 1.2 (1.0-3.2); LYMPHOCYTES % 11.9 % (18.0-39.1); MEAN CORPUSCULAR HEMOGLOBIN 28.5 pg (28-32); MEAN CORPUSCULAR HGB CONC 31.5 g/dL (31-35); MEAN CORPUSCULAR VOLUME 90.7 fL (81-99); MONOCYTES # (AUTO) 0.7 (0.2-0.8); MONOCYTES % 6.9 % (4.4-11.3); NEUTROPHILS % 78.8 % (38.7-80.0); PLATELET COUNT 289 x10e3/uL (140-360); RED BLOOD COUNT 4.31 x10e6/uL (3.6-5.1); RED CELL DISTRIBUTION WIDTH 15.7 % (11.7-14.4)
[2019-05-05 22:30] LABS: INR 0.77; PROTHROMBIN TIME 11.2 seconds (11.9-14.5)
[2019-05-05 22:31] LABS: CLARITY,URINE HAZY (CLEAR); COLOR,URINE YELLOW (YELLOW)
[2019-05-05 22:32] LABS: BILIRUBIN,URINE SMALL (NEGATIVE); KETONES,URINE 1+ (NEGATIVE); LEUKOCYTE ESTERASE ,URINE SMALL (NEGATIVE); NITRITE,URINE NEGATIVE (NEGATIVE); PROTEIN,URINE DIPSTICK TRACE (NEGATIVE); URINE UROBILINOGEN 0.2 mg/dL (0.2 - 1)
[2019-05-05 22:39] LABS: ALANINE AMINOTRANSFERASE 14 IU/L (0-55); ALBUMIN 3.7 g/dL (3.5-5.0); ALBUMIN/GLOBULIN RATIO 1.1 (0.8-2.0); ALKALINE PHOSPHATASE 137 IU/L (40-150); AMYLASE 39 U/L (25-125); ANION GAP 11.9 mmol/L (8-16); BLOOD UREA NITROGEN 22 mg/dL (7-26); BUN/CREATININE RATIO 29 (6-25); CALCIUM 9.4 mg/dL (8.4-10.2); CARBON DIOXIDE 23 mmol/L (22-29); CHLORIDE 107 mmol/L (98-107); CREATINE KINASE 29 IU/L (29-168); CREATININE, SERUM 0.76 mg/dL (0.57-1.11); EST GLOMERULAR FILTRATION RATE > 60 ML/MIN (60-); GLUCOSE 153 mg/dL (74-118); LIPASE 44 U/L (8-78); POTASSIUM 3.9 mmol/L (3.5-5.1); SODIUM 138 mmol/L (136-145)
--- NOTE | 2019-05-05 22:39 | Diagnostic Imaging Report ---
EXAMINATION: CHEST SINGLE (PORTABLE) INDICATION: Shortness of breath. COMPARISON: Chest radiograph 02/18/[address] chest 02/19/2019. FINDINGS: TUBES and LINES: None. LUNGS: Emphysematous changes of the lungs. Bilateral pulmonary nodules are better characterized on prior CT from 02/19/2019. Mild patchy bibasilar opacities. No new consolidation. No evidence of pulmonary edema. PLEURA: No pleural effusion or pneumothorax. HEART AND MEDIASTINUM: The cardiomediastinal silhouette is unremarkable. There are atherosclerotic calcifications within the aorta. BONES AND SOFT TISSUES: No acute osseous lesion. Soft tissues are unremarkable. UPPER ABDOMEN: No free air under the diaphragm. IMPRESSION: Emphysematous lungs with mild patchy bibasilar opacities, more likely atelectasis than pneumonia. No new consolidation. Bilateral pulmonary nodules are better characterized on prior CT from 02/19/2019. Signed by: Dr. Isabel Foreman MD on 05/05/2019 10:36 PM
[2019-05-05 22:45] LABS: WBC,URINE (MAN) 21-50 /HPF (0-5)
[2019-05-05 22:46] LABS: BACTERIA,URINE FEW /HPF; EPITHELIAL CELLS,URINE FEW /LPF; RBC,URINE 0-5 /HPF (0-5)
--- NOTE | 2019-05-06 00:30 | Diagnostic Imaging Report ---
TECHNIQUE: CTA of the chest, abdomen and pelvis without and with intravenous contrast INDICATION: Abdominal pain radiating to the back. COMPARISON: CT chest 02/19/[address] abdomen/pelvis 12/11/2018. TECHNIQUE: Chest, Abdomen and pelvis were scanned utilizing a multidetector helical scanner from the thoracic inlet to the pubic symphysis before and after administration of IV contrast. No oral contrast was administered. CT angiogram aortic protocol was performed. 3-D images were reviewed. Coronal and sagittal reformations were obtained. Dose modulation, iterative reconstruction, and/or weight based adjustment of the mA/kV was utilized to reduce the radiation dose to as low as reasonably achievable. COMPLICATIONS: None FINDINGS: VASCULAR FINDINGS: No evidence of intramural hematoma on noncontrast images. No evidence of aortic dissection or aneurysm. There are extensive atherosclerotic changes of the the thoracic and abdominal aorta, and branch vessels. Extensive calcified and noncalcified plaque within the descending thoracic aorta. Status post infrarenal abdominal aortic endograft repair extending into the bilateral common iliac arteries. No evidence of endoleak. Aortic root measures up to approximately 1.5 cm, the sinuses of Valsalva measure up to 3.2 cm, the ascending thoracic aorta measures up to 3.6 cm, the aortic arch measures up to 3.0 cm, the descending thoracic aorta measures up to 3.0 cm proximally and distally, the suprarenal abdominal aorta measures up to 2.0 cm and the infrarenal abdominal aorta measures up to 2.3 cm, the left common iliac artery measures up to 1.6 cm in the right common iliac artery measures up to 1.1 cm. The celiac artery and SMA appear patent. The LOUIE is not visualized. Single bilateral renal arteries which appear patent. NON-VASCULAR FINDINGS: LINES/ TUBES: None. LUNGS AND AIRWAYS: Severe upper lobe predominant centrilobular and paraseptal emphysematous changes. Biapical pleural parenchymal scarring. Mild bibasilar subsegmental atelectasis. Scattered subcentimeter calcified granulomas. There is a new 8 mm groundglass nodule within the dependent right upper lobe on series 4, image 32 and a new 5 mm solid nodule in the right upper lobe on image 42. Mild patchy tree-in-bud nodules in the dependent right middle lobe on series 4, image 72. Mild dependent groundglass nodules in the left lower lobe. Multiple other pulmonary nodules are unchanged, including a 1.2 cm spiculated nodule in the left upper lobe on series 4, image 48 and an 8 mm spiculated left upper lobe nodule on series 4, image 21. PLEURA: No pleural effusion. No pneumothorax. HEART AND MEDIASTINUM: Multiple subcentimeter hypodense thyroid nodules. No evidence of lymphadenopathy. The heart is not enlarged. No pericardial effusion. Coronary atherosclerosis. Mitral annular calcifications. Enlarged main pulmonary artery, measuring up to 3.1 cm, suggestive of pulmonary arterial hypertension. HEPATOBILIARY: Diffuse hepatic steatosis. No focal liver lesion. No biliary ductal dilation. Status post cholecystectomy. SPLEEN: No splenomegaly. PANCREAS: No focal masses or ductal dilatation. ADRENALS: No adrenal nodules. KIDNEYS/URETERS: No renal calculi or hydronephrosis. Bilateral subcentimeter renal cysts. Right renal cortical atrophy. PELVIC ORGANS/BLADDER: Status post hysterectomy. PERITONEUM / RETROPERITONEUM: No free air or fluid. LYMPH NODES: No lymphadenopathy. GI TRACT: Colonic diverticulosis without CT evidence of diverticulitis. No abnormal bowel wall thickening. No bowel obstruction. BONES AND SOFT TISSUES: Diffuse anasarca. Muscular atrophy. Diffuse osteopenia. Multilevel degenerative changes of the visualized spine. Dextroconvex scoliosis, centered in the lower thoracic/upper lumbar spine. No acute osseous abnormality. No suspicious lytic or blastic lesions. Mild loss of vertebral body height at T10, T11, L1, and L2 is unchanged. IMPRESSION: No evidence of acute aortic pathology. Extensive atherosclerotic changes of the thoracic and abdominal aorta. Status post infrarenal aortoiliac endograft placement without evidence of endoleak. Ectatic ascending thoracic aorta measuring 3.6 cm, and infrarenal abdominal aorta, measuring up to 2.3 cm. No evidence of aneurysm. Emphysematous lungs with bilateral pulmonary nodules. New groundglass and solid nodules likely are infectious or inflammatory. Additional pulmonary nodules are unchanged, the most suspicious of which are spiculated 1.2 and 0.8 cm left upper lobe nodules. A follow-up PET/CT, chest CT in 3 months, and/or biopsy may be considered. Signed by: Dr. Isabel Foreman MD on 05/06/2019 12:27 AM
--- NOTE | 2019-05-06 01:35 | NUR ---
Repeat cardiac markers sent to lab at this time.
[2019-05-06 02:34] LABS: CREATINE KINASE MB 2.2 ng/mL (0-5.0)
== END 2019-05-06 02:55 | disposition home or self-care (01) ==
LOC: ER 21:38
DX: R10.13 Epigastric pain (principal); K21.9 Gastro-esophageal reflux disease without esophagitis; R11.0 Nausea; I10 Essential (primary) hypertension; J44.9 Chronic obstructive pulmonary disease, unspecified; J45.909 Unspecified asthma, uncomplicated; F17.210 Nicotine dependence, cigarettes, uncomplicated
CPT/HCPCS: 36415; 71045; 71275; 74174; 80053; 81001; 82150; 82550; 82553; 83690; 84484; 85025; 85610; 85730; 93005; 99284; C9113

== ENCOUNTER 2019-06-30 19:32 | Inpatient (IN) | payer MEDICARE, BC, SELFPAY ==
[~2019-06-30] VITALS: Ht 167.6 cm; Wt 47.6 kg
--- OUTSIDE RECORDS SUMMARY | 2019-06-30 19:36 | XMS REPORT | Clinical Summary ---
Author Author [facility] Address Unknown Phone Unavailable Care Team Providers Care Document Control Associate Name Role Phone Vipul Dunn MD PCP Allergies Comments Active Allergy Reactions Severity Noted Date Penicillin G Hives, Rash Low 03/23/2016 Sulfa (Sulfonamide Rash Low 03/24/2016 Antibiotics) Medications End Date Status Medication Sig Dispensed Refills Start Date Active clopidogrel (PLAVIX) 75 Take 1 tablet 0 02/22/ 201 mg tablet by mouth 7 daily. Active COMBIVENT RESPIMAT 20-100 Inhale 1-2 11 3/201 mcg/actuation mist puffs every 4 6 inhaler (four) hours as needed for shortness of breath. Active DULERA 200-5 Inhale 2 11 01/05/201 mcg/actuation inhaler puffs 2 (two) 6 times [...] 62.5 mcg daily. mcg/actuation blister with device Active traMADoL (ULTRAM) 50 mg Take 50 mg by 0 tabletIndications: acute mouth every 6 pain (six) hours as needed for moderate pain .acute pain. Active pantoprazole (PROTONIX) Take 40 mg by 0 40 MG EC tablet mouth daily. Active Problems Problem Noted Date Hematoma of arm, left, initial encounter 07/28/2017 Contusion of arm 07/28/2017 Balance problem 03/24/2016 Encounters Care Team Description Date Type Specialty Sofía Salmon MD 06/17/2019 Telephone Gastroenterology Sofía Salmon MD Esophageal dysphagia (Primary Dx); Gastroesophageal reflux disease, esophagitis presence not specified 05/16/2019 Telemedicine Gastroenterology 05/14/2019 Travel after 06/29/2018 Social History Date Tobacco Use Types Packs/Day Years Used Never Smoker Cigarettes 2 50 Smokeless Tobacco: Never Used Tobacco Cessation: Ready to Quit: No; Co unseling Given: No Drinks/Week oz/Week Comments Alcohol Use occassional drinker of liquor Yes Sex Assigned at Date Recorded Not on file Industry Job Start Date Occupation Not on file Not on file Not on file Travel End Travel History Travel Start No recent travel history available. Last Filed Vital Signs Reading Time Taken Comments Vital Sign - - Blood Pressure - - Pulse - - Temperature - - Respiratory Rate - - Oxygen Saturation - - Inhaled Oxygen Concentration 65.8 kg (145 lb) 05/16/2019 9:24 AM CDT Weight 167.6 cm (5' 6") 05/16/2019 9:24 AM CDT Height 23.4 05/16/2019 9:24 AM CDT Body Mass Index Plan of Treatment Health Maintenance Due Date Last Done Comments SHINGLES VACCINES (#1) 10/05/1983 65+ PNEUMOCOCCAL VACCINE 1998 (1 of 2 - PCV13) INFLUENZA VACCINE 09/21/2019 Results Not on fileafter 06/29/2018 Insurance Type Payer Benefit Subscriber ID Effective Phone Address Plan / Dates Group Medicare MEDICARE MEDICARE xxxxxxxxxxx 1998-P [place], PART A [place] B Indemnity BCBS BCBS xxxxxxxxxxxx 1999- PAR/TRAD Present PLAN [id number] Advance Directives For more information, please contact: [phone] Patient Privacy Manager Explanation Type Date Recorded Advance Directives, 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
[2019-06-30] MEDS ORDERED: ONDANSETRON HCL INJ 2MG/ML 2ML 2 MG/ML VIAL IV STA ×2 (19:49→22:10)
[2019-06-30] MEDS ORDERED: SODIUM CHLORIDE 0.9% 1000ML 1,000 ML IV STA ×2 (19:49→23:03)
[2019-06-30] MEDS ORDERED: MORPHINE SULFATE INJ 4 MG/ML INJ 1ML IV STA (19:49)
[2019-06-30] MEDS ORDERED: LEVOFLOXACIN 750MG/D5W 150ML 150 ML IV STA (19:58)
[2019-06-30] MEDS ORDERED: FAMOTIDINE 20 MG/2 ML VIAL IV STA (20:00)
[2019-06-30] MEDS ORDERED: FAMOTIDINE 20 MG/2 ML VIAL IV ONE (20:11)
[2019-06-30] MEDS ORDERED: LEVOFLOXACIN 750MG/D5W 150ML 150 ML IV ONE (20:11)
[2019-06-30 20:51] LABS: BASOPHILS # (AUTO) 0.1 (0.0-0.1); BASOPHILS % 0.4 % (0.0-1.0); EOSINOPHILS # (AUTO) 0.1 (0.0-0.4); EOSINOPHILS % 0.9 % (0.0-6.0); HEMATOCRIT 42.3 % (34.2-44.1); LYMPHOCYTES % 7.5 % (18.0-39.1); MEAN CORPUSCULAR HEMOGLOBIN 27.4 pg (28-32); MEAN CORPUSCULAR HGB CONC 30.7 g/dL (31-35); MEAN CORPUSCULAR VOLUME 89.2 fL (81-99); MONOCYTES # (AUTO) 0.9 (0.2-0.8); MONOCYTES % 6.7 % (4.4-11.3); NEUTROPHILS # (AUTO) 11.6 (2.1-6.9); NEUTROPHILS % 83.7 % (38.7-80.0); PLATELET COUNT 272 x10e3/uL (140-360); RED BLOOD COUNT 4.74 x10e6/uL (3.6-5.1); RED CELL DISTRIBUTION WIDTH 15.7 % (11.7-14.4)
[2019-06-30 21:09] LABS: ALANINE AMINOTRANSFERASE 10 IU/L (0-55); ALBUMIN 3.6 g/dL (3.5-5.0); ALBUMIN/GLOBULIN RATIO 1.1 (0.8-2.0); ALKALINE PHOSPHATASE 146 IU/L (40-150); ANION GAP 16.6 mmol/L (8-16); BLOOD UREA NITROGEN 11 mg/dL (7-26); BUN/CREATININE RATIO 14 (6-25); CALCIUM 9.5 mg/dL (8.4-10.2); CARBON DIOXIDE 25 mmol/L (22-29); CHLORIDE 98 mmol/L (98-107); CREATINE KINASE 26 IU/L (29-168); CREATININE, SERUM 0.78 mg/dL (0.57-1.11); EST GLOMERULAR FILTRATION RATE > 60 ML/MIN (60-); GLUCOSE 79 mg/dL (74-118); LIPASE 13 U/L (8-78); POTASSIUM 4.6 mmol/L (3.5-5.1); SODIUM 135 mmol/L (136-145)
[2019-06-30 21:19] LABS: B-TYPE NATRIURETIC PEPTIDE2 298.1 pg/mL (0-100)
--- NOTE | 2019-06-30 21:19 | NUR ---
Note julee in EDM - 06/30/19 at 2326 by DARA ER AND PRIMARY RN NOTIFIED AND AWARE OF CRITICAL LAB VALUE, LACTIC ACID 2.3.
--- NOTE | 2019-06-30 21:19 | NUR ---
ER MD AND PRIMARY RN NOTIFIED AND AWARE OF CRITICAL LAB VALUE, LACTIC ACID 2.6.
[2019-06-30 21:21] LABS: INFLUENZAE A&B ANTIGEN (RAPID) NEGATIVE (NEGATIVE); STREPTOCOCCUS GRP A ANTIGEN NEGATIVE (NEGATIVE)
[2019-06-30] MEDS ORDERED: IOPAMIDOL 370 MG/ML 200 ML INFUS..BTL INJ ONE (21:28)
[2019-06-30] MEDS ORDERED: SODIUM CHLORIDE 0.9% 50ML 50 ML ONE (21:28)
[2019-06-30 22:07] LABS: CLARITY,URINE CLOUDY (CLEAR); COLOR,URINE YELLOW (YELLOW); LEUKOCYTE ESTERASE ,URINE SMALL (NEGATIVE); NITRITE,URINE POSITIVE (NEGATIVE)
[2019-06-30 22:08] LABS: BILIRUBIN,URINE NEGATIVE (NEGATIVE); KETONES,URINE 1+ (NEGATIVE); PROTEIN,URINE DIPSTICK 2+ (NEGATIVE); URINE UROBILINOGEN 0.2 mg/dL (0.2 - 1)
[2019-06-30 22:12] LABS: BACTERIA,URINE MANY /HPF; EPITHELIAL CELLS,URINE FEW /LPF; WBC,URINE (MAN) >50 /HPF (0-5)
[2019-06-30] MEDS ORDERED: ONDANSETRON HCL INJ 2MG/ML 2ML 2 MG/ML VIAL ONE (22:17)
--- NOTE | 2019-06-30 23:01 | Diagnostic Imaging Report ---
EXAM: CT Abdomen chest, and Pelvis WITH contrast INDICATION: Epigastric pain, cough, short of breath, abdominal pain ^epigastric pain ^[id number] ^1951 COMPARISON: Chest abdomen pelvis CT 05/05/2019, chest CT 02/19/2019. TECHNIQUE: Chest, abdomen and pelvis were scanned utilizing a multidetector helical scanner from the neck base to the pubic symphysis after administration of IV contrast. Coronal and sagittal reformations were obtained. Routine protocol was performed. Scan was performed when during portal venous phase. IV CONTRAST: 100 mL of Isovue 370 ORAL CONTRAST: None COMPLICATIONS: None RADIATION DOSE: Total DLP: 486 mGy*cm Estimated effective dose: (DLP x 0.015 x size factor) mSv CTDIvol has been reviewed. It is below the limits set by the Radiation Protocol Committee (RPC). Dose modulation, iterative reconstruction, and/or weight based adjustment of the mA/kV was utilized to reduce the radiation dose to as low as reasonably achievable. FINDINGS: LINES and TUBES: None. LUNGS/AIRWAYS/PLEURA:: Severe emphysema. A 1.2 cm spiculated nodule in the left upper lobe, slightly more prominent compared to 05/05/2019 extensive aortic calcifications.Small bilateral pleural effusions. No pneumothorax. CARDIOMEDIASTINUM: Triple vessel coronary artery calcific atherosclerosis. Mild cardio may, predominant right-sided. Mitral annulus and aortic valve calcifications. Mild main pulmonary artery dilation, measures 3.4 cm in diameter. The ascending thoracic aorta measures 3.1 cm in diameter. Subtle tree-in-bud nodularity and reticulation in the basal lateral right lower lobe HEPATOBILIARY: No focal hepatic lesions. There is intra- and extra- hepatic biliary dilation likely post cholecystectomy reservoir effect. GALLBLADDER: Cholecystectomy clips. SPLEEN: No splenomegaly. PANCREAS: No focal masses or ductal dilatation. ADRENALS: No adrenal nodules KIDNEYS/URETERS: Kidneys enhance symmetrically. No hydronephrosis. Small hypodensity in the left kidney is likely benign. No stones. Mild right renal atrophy. GI TRACT: No abnormal distention, wall thickening, or evidence of bowel obstruction. Small sliding gastric hiatal hernia. Appendix is normal. PELVIC ORGANS/BLADDER: Hysterectomy. No neck masses. Low bone mineral density. Unremarkable. LYMPH NODES: No lymphadenopathy. VESSELS: Patent aortobifemoral stent. 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 PERITONEUM / RETROPERITONEUM: No free air or fluid. BONES: Mild compression deformities of T10, 11, and L1. Moderate compression fracture of T6 vertebral body, new compared to 05/05/2019. Healed left upper rib fractures. Healing nondisplaced right pubic body fracture. Sclerosis within the bilateral sacral ala. SOFT TISSUES: Unremarkable. IMPRESSION: 1. New severe compression fracture of T6 vertebral body, new compared to 05/05/2019. Stable compression deformities of T10, 11, and L1. Osteoporosis. Suspect mild bilateral sacral insufficiency fractures. 2. Basolateral right lower lobe opacities are concerning for pneumonia. 3. Advanced triple vessel coronary artery calcific atherosclerosis, calcific aortic valve and mitral annular disease. Mild cardiopulmonary and pulmonary hypertension. Small pericardial effusions. 4. 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 Patent aortobifemoral stent 5. Severe pulmonary emphysema. A stable 1.2 cm spiculated nodule in the left upper lobe, similar compared to 02/19/2019. Recommend follow-up CT in 6 months. Signed by: Jose A Wong DO on 06/30/2019 10:57 PM
--- NOTE | 2019-06-30 23:50 | NUR ---
Right AC noted to hav infiltrated. IV dc'd with tip intact. New IV started to left forearm. Only 100 ml of second bolus given. MD ordered to stop bolus at this time. Patient recieved 1100 ml's through IV.
[2019-07-01] VITALS (11 sets, daily range): BP systolic 90–149; BP diastolic 49–64
--- NOTE | 2019-07-01 00:20 | NUR ---
Received patient from ER via stretcher. Patient awake and resting in bed, no s/s of distress at this time. 3L O2 NC in place. Bed locked and in low position, side rails up x3, HOB elevated, call light placed within reach. Patient instructed to call for assistance if needed, verbalized understanding. Will continue to monitor.
[2019-07-01] MEDS ORDERED: LISINOPRIL20 MG PO (00:25)
[2019-07-01] MEDS ORDERED: BREO ELLIPTA 11 EACH INH (00:27)
[2019-07-01] MEDS ORDERED: INCRUSE ELLI62.5 MCG INH (00:27)
[2019-07-01] MEDS ORDERED: COMBIVENT RESPIM4 GM INH (00:27)
[2019-07-01] MEDS ORDERED: ULTRAM 50MG50 MG PO (00:28)
[2019-07-01] MEDS: METHYLPREDNISOLONE SOD SUCC 40 MG/ML VIAL 1ML IV SCH ×2 (00:41→05:47)
[2019-07-01] MEDS: SODIUM CHLORIDE 0.9% 1000ML 1,000 ML IV SCH ×4 (00:41→21:45)
[2019-07-01 01:38] LABS: CREATINE KINASE MB 2.6 ng/mL (0-5.0)
[2019-07-01] MEDS ORDERED: TRAMADOL HCL 50 MG TAB PO PRN (05:00)
--- NOTE | 2019-07-01 05:14 | NUR ---
Informed Dr. Dunn that patient is having severe abdominal and back pain unrelieved by tramadol. Received orders for 4 mg morphine IV Q4H PRN and 4 mg Zofran IV Q4H PRN.
[2019-07-01 05:25] LABS: BASOPHILS % 0.3 % (0.0-1.0); HEMATOCRIT 37.8 % (34.2-44.1); HEMOGLOBIN 11.5 g/dL (12.0-16.0); LYMPHOCYTES # (AUTO) 0.3 (1.0-3.2); LYMPHOCYTES % 3.1 % (18.0-39.1); MEAN CORPUSCULAR HEMOGLOBIN 27.5 pg (28-32); MEAN CORPUSCULAR HGB CONC 30.4 g/dL (31-35); MEAN CORPUSCULAR VOLUME 90.4 fL (81-99); MONOCYTES # (AUTO) 0.1 (0.2-0.8); MONOCYTES % 1.5 % (4.4-11.3); NEUTROPHILS # (AUTO) 8.9 (2.1-6.9); NEUTROPHILS % 94.3 % (38.7-80.0); PLATELET COUNT 219 x10e3/uL (140-360); RED BLOOD COUNT 4.18 x10e6/uL (3.6-5.1); RED CELL DISTRIBUTION WIDTH 15.7 % (11.7-14.4)
[2019-07-01 05:38] LABS: CREATINE KINASE MB 3.6 ng/mL (0-5.0)
[2019-07-01] MEDS: ONDANSETRON HCL INJ 2MG/ML 2ML 2 MG/ML VIAL IV PRN (05:47)
[2019-07-01] MEDS: MORPHINE SULFATE INJ 4 MG/ML INJ 1ML IV PRN ×3 (05:48→23:10)
[2019-07-01 06:08] LABS: ALANINE AMINOTRANSFERASE 10 IU/L (0-55); ALBUMIN 3.2 g/dL (3.5-5.0); ALBUMIN/GLOBULIN RATIO 1.1 (0.8-2.0); ALKALINE PHOSPHATASE 122 IU/L (40-150); ANION GAP 16.4 mmol/L (8-16); BLOOD UREA NITROGEN 12 mg/dL (7-26); BUN/CREATININE RATIO 17 (6-25); CALCIUM 8.6 mg/dL (8.4-10.2); CARBON DIOXIDE 19 mmol/L (22-29); CHLORIDE 102 mmol/L (98-107); CREATININE, SERUM 0.71 mg/dL (0.57-1.11); EST GLOMERULAR FILTRATION RATE > 60 ML/MIN (60-); GLUCOSE 86 mg/dL (74-118); POTASSIUM 4.4 mmol/L (3.5-5.1); SODIUM 133 mmol/L (136-145)
--- NOTE | 2019-07-01 06:41 | NUR ---
Placed call to Dr. Dubois's office regarding consult. Left message and details with Eric (answering service).
[2019-07-01] MEDS: CLOPIDOGREL BISULFATE 75 MG TAB PO SCH (08:49)
[2019-07-01] MEDS: PANTOPRAZOLE SOD 40 MG TABEC PO SCH (08:49)
[2019-07-01] MEDS: LISINOPRIL 20 MG TAB PO SCH (08:49)
[2019-07-01] MEDS ORDERED: ALBUTEROL SULFATE HFA 8GM INHALATION AEROSOL INH PRN (09:00)
--- NOTE | 2019-07-01 10:08 | Consultation ---
DATE OF CONSULTATION: Pulmonary Consultation HISTORY OF PRESENT ILLNESS: Patient of Dr. Dunn. The patient is well known to Pulmonary service. A charming, but unfortunate 83-year-old woman, admitted with a history of asthma and emphysema, ex-smoker, quit in September of 2018, continues to use vape, admitted with cough, congestion, cough was productive of thick sputum. She was also complaining of pain in the upper abdomen radiating from the back bilaterally. History of osteoporosis and compression fractures. ALLERGIES: HISTORY OF ALLERGY TO PENICILLIN AND SULFA. MEDICATIONS: 1. Iron. 2. Breo Incruse. 3. Plavix. 4. Lisinopril. 5. Protonix. 6. Tramadol. 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 PAST MEDICAL HISTORY: She has a history of peripheral vascular disease and emphysema. She has peripheral artery stents. FAMILY HISTORY: Positive for cancer and dementia. PHYSICAL EXAMINATION: GENERAL: She is a frail, jovial white female, in no acute distress. Looks her stated age. Minimal complaints. VITAL SIGNS: Temperature 96.6, pulse 94, respirations 18, blood pressure 132/60, O2 saturation 91% on room air. She is not using her oxygen. HEAD: Normocephalic, atraumatic. Some temporal wasting. LUNGS: Diminished breath sounds bilaterally. HEART: Regular rhythm. ABDOMEN: Nontender. EXTREMITIES: Not examined. IMPRESSION AND PLAN: 1. Acute exacerbation of chronic obstructive pulmonary disease. 2. COVID-19 seems somewhat unlikely. 3. We will check sputum studies. 4. Continue oral antibiotic therapy. 5. The patient declines invasive evaluation of the left upper lobe lesion and declines surgery for this. 6. Consider PET scan as an outpatient. 7. We will follow up CT in 3-6 months. 8. Bronchodilators, empiric antibiotic therapy. Thank you for this kind referral. MD FRANCI Simmons/NIKI /[id number]
[2019-07-01] MEDS: AZITHROMYCIN 250 MG TAB PO SCH (10:28)
[2019-07-01] MEDS: NON-FORMULARY MEDICATION (Fluticasone/Vilanterol (Breo Ellipta 100-25 Mcg INH) 1 INH) INH SCH (10:30)
[2019-07-01] MEDS: UMECLIDINIUM BROMIDE INH SCH (11:06)
--- NOTE | 2019-07-01 15:55 | Consultation ---
DATE OF CONSULTATION: 07/01/2019 Cardiology Consultation REASON FOR CONSULTATION: Chest discomfort and shortness of breath. HISTORY OF PRESENT ILLNESS: Pleasant 83-year-old woman with history of tobacco abuse and COPD, presents with complaints of cough, increasing in intensity and frequency associated with slight worsening shortness of breath. She also elicits discomfort in the mid sternal area of lower chest radiating to upper abdomen. This is more pronounced when the patient coughs and does not seem to be affected by changes in position, inspiration, meals, or exertion. Chest discomfort is nonradiating, lasts seconds to minutes at a time. Initial workup includes serial troponins, which have been negative x3 and BNP that is elevated at 298. COVID-19 test has been ordered and is pending. REVIEW OF SYSTEMS: A 12-system review negative except for as noted above. ALLERGIES: TO SULFA AND PENICILLIN. SOCIAL HISTORY: History of tobacco abuse. No alcohol or drugs. FAMILY HISTORY: Noncontributory. PHYSICAL EXAMINATION: VITAL SIGNS: Temperature 97.2, heart rate 94, blood pressure 123/57, respiratory rate 18, and O2 saturation 95%. BMI 16.9. GENERAL: In no acute distress. Alert. NECK: No JVD. CHEST: With scattered rhonchi. CARDIOVASCULAR: Regular rate and rhythm. Normal S1 and S2. No S3 or S4. ABDOMEN: Soft. Bowel sounds positive. EXTREMITIES: No edema. CARDIOVASCULAR MEDICATIONS: Reviewed. Clopidogrel 75 mg daily. STUDIES: Reviewed. Troponin I negative x3. BNP 298, elevated. Sodium 133, potassium 4.4, chloride 102, bicarbonate 19, BUN 12, creatinine 0.7, and glucose 86. White blood cells 9.4, hemoglobin 11.5, platelets 219. AST 12, ALT 10, alkaline phosphatase 212, and total bilirubin is 0.5. ASSESSMENT AND PLAN: An 83-year-old woman presents with chronic obstructive pulmonary disease exacerbation, rule out COVID-19, [id number] diastolic heart failure, metabolic acidosis, anemia, history of peripheral arterial disease with previous remote revascularizations. RECOMMEND: 1. Await COVID-19 test. 2. Standard PT precautions have been taken to evaluate the patient's PUI. 3. Assess response to inhaler therapy and steroids as well as antibiotics. Can attempt diuretic trial if no significant improvement. 4. Continue clopidogrel. 5. We will follow with you. MD GINNA Romero/NIKI /[id number]
[2019-07-01] MEDS: CEFTRIAXONE SOD 1 GM/NS 50 ML 50 ML IV SCH (16:21)
[2019-07-01] MEDS ORDERED: METHYLPREDNISOLONE SOD SUCC 40 MG/ML VIAL 1ML IV SCH (17:00)
--- NOTE | 2019-07-01 18:40 | History and Physical ---
REASON FOR CONSULTATION: Pneumonia. HISTORY OF PRESENT ILLNESS: This patient, who is a very pleasant 83-year-old white female, history of COPD, comes in with abdominal pain, not feeling well. There is no fever, no chills. She has been having coughing. The patient, who does have history of asthma, emphysema, history of smoking, she quit in September 2018, comes in with cough productive yellowish-brown sputum and some nausea. The patient is being admitted. PAST MEDICAL HISTORY: COPD and emphysema. PAST SURGICAL HISTORY: Denies. ALLERGIES: NKA. SOCIAL HISTORY: She just quit smoking as mentioned above. No drug abuse or alcohol abuse. HOME MEDICATIONS: She is on Plavix, lisinopril, Protonix, and tramadol. REVIEW OF SYSTEMS: She is having some diffuse abdominal pain and cough productive yellow sputum and nausea. LABORATORY DATA: When she first came, white count was 13.8 and hemoglobin 13.0. Her sodium 133, potassium 4.0, and creatinine 0.72. COVID-19 is pending. Influenza A and B are negative. Chest CT was done, which showed severe compression fracture of T6 new, bilateral right lower lobe opacities, pneumonia, triple vessel disease, atherosclerosis disease, and severe emphysema. CT of abdomen and pelvis as above. PHYSICAL EXAMINATION: GENERAL: She is currently alert and oriented. Does not seem to be in acute distress. VITAL SIGNS: Stable, currently afebrile. HEENT: She is not icteric. NECK: Supple. CHEST: Few crackles. COR: S1 and S2. No S3, S4, or murmurs. ABDOMEN: Soft. IMPRESSION: 1. Community-acquired pneumonia. 2. Chronic obstructive pulmonary disease exacerbation. 3. Acute thoracic spine fracture. Recommend Rocephin and azithromycin, steroid as ordered, PT, OT. The patient in droplet isolation until we get COVID-19 test. Further recommendations to follow. MD REGIS Hendricks/NIKI /[id number]
--- NOTE | 2019-07-01 19:20 | NUR ---
per charge nurse TIA patient is negarive COVID will be transferred to room 297, patient and family informed of room change
--- NOTE | 2019-07-01 19:30 | NUR ---
report called to MELISSA Segovia, made aware of patient current lab result
--- NOTE | 2019-07-01 20:45 | NUR ---
patient transferred inhouse to room 297, patient awake alert, no pain no SOB noted, skin warm dry, VSS afebrile tachycardia noted, telemetry in place,report given prior to Lici RN
--- NOTE | 2019-07-01 21:30 | NUR ---
PT ID TRANSFERRED FROM [facility] 19 SECTION .PT IS AOX3 AMBULATE WITH ASSISTANCE DENIES PAIN BILATERAL LOWER LEGS WITH BRUISES ,PT IS 02 3N/C .TELE SHOWS SR .CALL LIGHT WITH IN REACH .CONTINUE TO MONITOR
--- NOTE | 2019-07-01 23:00 | NUR ---
REPORT GIVEN TO NEW NURSE WHO IS GOING TO TAKE CARE THE PT TO THE REST OT THE NIGHT .PT IS STABLE .CALL LIGHT WITH IN REACH ,CONTINUE TO MONITOR
[2019-07-02] VITALS (8 sets, daily range): BP systolic 124–159; BP diastolic 60–70
[2019-07-02] MEDS ORDERED: BISACODYL 5 MG TAB EC PO SCH (05:15)
[2019-07-02] MEDS: UMECLIDINIUM BROMIDE INH SCH (06:22)
--- NOTE | 2019-07-02 07:05 | Diagnostic Imaging Report ---
EXAM: Abdomen Radiograph 1 View(s) INDICATION: ^bloating ^[id number] ^[id number] COMPARISON: CT abdomen pelvis 06/30/2019 FINDINGS: Gaseous distention of the colon. Multiple air-filled loops of small bowel. No abnormal soft tissue calcification. Small bilateral pleural effusions with adjacent atelectasis. Aortoiliac stent graft. IMPRESSION: Gaseous distention of the colon is not substantially changed when compared to the previous CT scan of the abdomen and pelvis. Multiple air-filled loops of small bowel without distinct radiographic evidence of bowel obstruction. Signed by: Prakash Medley MD on 07/02/2019 7:02 AM
--- NOTE | 2019-07-02 07:30 | NUR ---
PT UP IN BED PAIN LEVEL 4 TO BACK,O2 2L NC IN PLACE.
[2019-07-02] MEDS: MORPHINE SULFATE INJ 4 MG/ML INJ 1ML IV PRN ×4 (08:15→20:06)
[2019-07-02] MEDS: AZITHROMYCIN 250 MG TAB PO SCH (09:00)
[2019-07-02] MEDS: PANTOPRAZOLE SOD 40 MG TABEC PO SCH (09:11)
[2019-07-02] MEDS: CLOPIDOGREL BISULFATE 75 MG TAB PO SCH (09:11)
[2019-07-02] MEDS: DOCUSATE SODIUM 100 MG CAP PO SCH ×2 (09:11→17:00)
[2019-07-02] MEDS: LISINOPRIL 20 MG TAB PO SCH (09:12)
[2019-07-02] MEDS: NON-FORMULARY MEDICATION (Fluticasone/Vilanterol (Breo Ellipta 100-25 Mcg INH) 1 INH) INH SCH (09:18)
--- NOTE | 2019-07-02 10:00 | NUR ---
IV BLEEDING ,RESTARTED TO LT FA 20 GAUGE,PAIN LEVEL 2
--- NOTE | 2019-07-02 10:30 | NUR ---
ASSESSMENT: Spiritual distress Pt worried about illness. Pt states she was unaware of severity of illness until recently. Pt states she does not want surgery. Pt expressed emotions thru words and tears. Pt states she would feel better if she could "walk in the halls." Intervention: Provided unhurried empathic listening. Facilitated illness review and storytelling. Provided information on how to reach retail account specialist, if needed. Outcome: Pt expressed appreciation for visit. Will follow as able. 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
--- NOTE | 2019-07-02 10:59 | Progress Note ---
DATE: SUBJECTIVE: The patient is seen and evaluated. Available labs and notes reviewed. Discussed with staff. Uneventful night. REVIEW OF SYSTEMS: Complaining of bleeding from her IV access line on the back of her left hand. No nausea, vomiting, fever, chills, headache, rash, or cough. OBJECTIVE: VITAL SIGNS: Temperature 97, pulse 95, respiration 18, and blood pressure 131/60. GENERAL: Alert and oriented. No acute distress. CV: S1 and S2. CHEST: Equal expansion. Decreased breath sounds. No acute distress. ABDOMEN: Soft and nontender. No distention. HEENT: Moist. No pallor. No JVD. EXTREMITIES: Thin, moves all. MEDICATIONS: Medication list reviewed. As far as Infectious Disease point of view, the patient is on Zithromax and Rocephin. LABORATORY STUDIES: No new CBC, BMP, however, white count improved to 9.48 from 13.8 on 07/01/2019, platelet 219 with creatinine level of 0.71. Serology, coronavirus PCR not detected on 06/30/2019. Influenza type A and B antigen and group A strep screen negative on 06/30/2019. Microbiology, blood culture on 06/30/2019 negative. Throat culture on 06/30/2019 showed usual respiratory sulma. Also, the sputum on 07/01/2019 showed gram-positive cocci on a gram stain with the usual respiratory sulma on a culture so far. ASSESSMENT AND PLAN: 1. Community-acquired pneumonia. 2. Chronic obstructive pulmonary disease. 3. with exacerbation. 4. Acute thoracic spine fracture, as it was seen on a CT showing a compression fracture at the level of T6, which is near and also chronic at T10, T11 and L1, old stable compression deformities. 5. Hypertension. 6. Continue with Rocephin and Zithromax, the patient on methylprednisone 20 mg. The patient will get methylprednisone 20 mg IV push before each breakfast, which was changed from b.i.d. Continue to monitor the patient. Clinically follow up with the labs. Clinically feels better. Discussed with Dr. Pate in details. Please refer to chart for more information. Dictated by Magnus Torres PA-C (Al) MD WILBERT Hendricks/NUNUL /[id number]
[2019-07-02] MEDS: TRIAMTERENE/HCTZ 37.5-25 MG TAB PO SCH (12:00)
--- NOTE | 2019-07-02 12:08 | Progress Note ---
DATE: 07/02/2019 Cardiology Progress Note SUBJECTIVE: Continues to complain of cough and shortness of breath. No other complaints. OBJECTIVE: VITAL SIGNS: Temperature 97 degrees, heart rate 95, blood pressure 131/60, respiratory rate 18, O2 saturation 96%. GENERAL: In no acute distress. Alert. NECK: JVD distended to angle of neck at 30-degree head of bed elevation. CHEST: With scattered rhonchi and decreased breath sounds. CARDIOVASCULAR: Regular rate and rhythm. Normal S1, S2. ABDOMEN: Soft. Bowel sounds present. EXTREMITIES: Trace edema. CARDIOVASCULAR MEDICATIONS: Reviewed. Clopidogrel 75 mg daily and methylprednisolone 20 mg. STUDIES: Reviewed. Potassium 4.4, bicarbonate 19, creatinine 0.7. White blood cells 9.4, hemoglobin 11.5, platelets 219. ASSESSMENT AND PLAN: 1. An 83-year-old woman with peripheral arterial disease, acute on chronic heart failure, unspecified. 2. Chronic obstructive pulmonary disease exacerbation. Recommend add triamterene, hydrochlorothiazide 37.5/25 mg tablets daily. 3. Monitor volume status. JVD remains distended on exam today. COVID-19 test has been negative. Proceed with echocardiogram to further delineate type of heart failure. Mega Cortez MD AFAyad/NIKI /[id number]
[2019-07-02] MEDS: SODIUM CHLORIDE 0.9% 1000ML 1,000 ML IV SCH ×2 (12:45→23:19)
[2019-07-02] MEDS: CEFTRIAXONE SOD 1 GM/NS 50 ML 50 ML IV SCH (15:55)
--- NOTE | 2019-07-02 16:00 | NUR ---
AMBULATED PT IN [facility] WITH WALKER TOLERATED WELL
--- NOTE | 2019-07-02 18:16 | NUR ---
PT UP IN BED ,PAIN LEVEL 2 TO BACK
[2019-07-02] MEDS: ONDANSETRON HCL INJ 2MG/ML 2ML 2 MG/ML VIAL IV PRN (20:06)
[2019-07-03] VITALS (8 sets, daily range): BP systolic 101–164; BP diastolic 51–70
[2019-07-03] MEDS: ONDANSETRON HCL INJ 2MG/ML 2ML 2 MG/ML VIAL IV PRN ×3 (00:05→22:46)
[2019-07-03] MEDS: MORPHINE SULFATE INJ 4 MG/ML INJ 1ML IV PRN ×5 (00:05→22:46)
[2019-07-03] MEDS: UMECLIDINIUM BROMIDE INH SCH (06:00)
--- NOTE | 2019-07-03 07:10 | NUR ---
Bedside report and walking rounds completed with on coming nurse. Patient in bed with call light within reach. No issues or concerns noted.
[2019-07-03] MEDS: NON-FORMULARY MEDICATION (Fluticasone/Vilanterol (Breo Ellipta 100-25 Mcg INH) 1 INH) INH SCH (09:00)
[2019-07-03] MEDS ORDERED: METHYLPREDNISOLONE SOD SUCC 40 MG/ML VIAL 1ML IV SCH (09:30)
[2019-07-03] MEDS: CLOPIDOGREL BISULFATE 75 MG TAB PO SCH (09:48)
[2019-07-03] MEDS: AZITHROMYCIN 250 MG TAB PO SCH (09:48)
[2019-07-03] MEDS: LISINOPRIL 20 MG TAB PO SCH (09:49)
[2019-07-03] MEDS: TRIAMTERENE/HCTZ 37.5-25 MG TAB PO SCH (09:49)
[2019-07-03] MEDS: DOCUSATE SODIUM 100 MG CAP PO SCH ×2 (09:49→18:26)
[2019-07-03] MEDS: PANTOPRAZOLE SOD 40 MG TABEC PO SCH (09:49)
[2019-07-03] MEDS: SODIUM CHLORIDE 0.9% 1000ML 1,000 ML IV SCH ×2 (09:55→22:46)
[2019-07-03] MEDS ORDERED: MAGNESIUM HYDROXIDE 30 ML UDC PO PRN (10:00)
[2019-07-03] MEDS ORDERED: CITRATE OF MAGNESIA 300ML BOTTLE PO PRN (10:30)
--- NOTE | 2019-07-03 11:03 | Progress Note ---
DATE: Infectious Disease SUBJECTIVE: The patient is seen and evaluated. Available labs and notes reviewed. Discussed with staff. REVIEW OF SYSTEMS: The patient complained of general pain mostly around the trunk, right under the diaphragm and she believes that this pain comes from this chronic cough that she has. Overall states that she does not feel any worse or any better at all. No significant change. Remains with cough and poor appetite. No nausea, vomiting, fever, chills, headache, or rash. OBJECTIVE: VITAL SIGNS: Temperature is 96.7, pulse 95, respirations 16, blood pressure 150/68. GENERAL: Alert and oriented, seems to be weak. The patient is coughing during my visit. CV: S1 and S2. CHEST: Equal expansion. Decreased breath sounds. ABDOMEN: Soft, nontender. HEENT: Moist. No pallor. No JVD. EXTREMITIES: Weak and thin. MEDICATIONS: Medication list is reviewed. As far as Infectious Disease point of view, patient is on Rocephin and Zithromax. LABORATORY STUDIES: White count of 9.48 with creatinine level of 0.71. No new CBC or BMP from today. Lipase was 13 on 06/30/2019. SEROLOGY: Coronavirus PCR 06/30/2019 and influenza type A and B antigen and group A strep screen all negative on 06/30/2019. MICROBIOLOGY: Blood culture 06/30/2019 negative. Throat culture 06/30/2019 usual respiratory sulma and sputum grew gram-negative rods with final culture showing usual respiratory sulma. RADIOLOGY STUDIES: She had a KUB done yesterday showing gaseous distention of the colon with multiple air-filled loops of small bowel without distinct radiographic evidence of bowel obstruction. ASSESSMENT AND PLAN: 1. Community-acquired pneumonia. 2. Chronic obstructive pulmonary disease with exacerbation. 3. Active thoracic spine fracture. 4. Peripheral arterial disease. 5. Continue with IV antibiotics at this point and monitor patient clinically and follow with the labs. Discussed with Dr. Pate in details. Dictated by Magnus Torres PA-C (Al) Nohemy Pate MD /MODL /[id number]
[2019-07-03] MEDS: IPRATROPIUM/ALBUTEROL SULFATE 4 GM INH INH PRN (15:30)
[2019-07-03] MEDS: CEFTRIAXONE SOD 1 GM/NS 50 ML 50 ML IV SCH (18:26)
--- NOTE | 2019-07-03 18:34 | NUR ---
Patient up in chair , not in any SOB, No distress noted
--- NOTE | 2019-07-03 19:55 | NUR ---
Received bedside report from day nurse. Patient awake and sitting up in bed, no s/s of distress at this time. Bed locked and in low position, call light placed within reach. Instructed to call for assistance if needed, verbalized understanding. All safety measures in place. Will continue to monitor.
--- NOTE | 2019-07-03 23:52 | NUR ---
Report given to oncoming nurse. Patient in stable condition, no s/s of distress at this time.
[2019-07-04] VITALS (9 sets, daily range): BP systolic 130–184; BP diastolic 62–107
--- NOTE | 2019-07-04 | NUR ---
pt received. no ss of distress noted. no co pain at time. tele and 02 nc noted. will cont to follow poc. call quintero within reach.
[2019-07-04] MEDS: MORPHINE SULFATE INJ 4 MG/ML INJ 1ML IV PRN ×3 (03:00→22:42)
--- NOTE | 2019-07-04 04:11 | NUR ---
pt resting. no ss of distress noted. call quintero within reach.
[2019-07-04] MEDS: SODIUM CHLORIDE 0.9% 1000ML 1,000 ML IV SCH (04:45)
[2019-07-04] MEDS: UMECLIDINIUM BROMIDE INH SCH (05:36)
--- NOTE | 2019-07-04 08:12 | Progress Note ---
DATE: Cardiology Progress Note SUBJECTIVE: Denies any chest pain or shortness of breath. OBJECTIVE: VITAL SIGNS: Temperature 96.7, heart rate 95, blood pressure 150/68, respiratory rate 16, and O2 saturation 99%. GENERAL: In no acute distress, alert. NECK: No JVD. CHEST: Clear to auscultation. CARDIOVASCULAR: Regular rate and rhythm. Normal S1 and S2. No S3 or S4. ABDOMEN: Soft. Bowel sounds positive. Ext: No edema Triamterene/hydrochlorothiazide, clopidogrel, prednisone, magnesium replacement. LABORATORY DATA: Studies reviewed. Potassium 4.4, bicarbonate 19, creatinine 0.7. White blood cells 9.4, hemoglobin 11.5. ASSESSMENT: An 83-year-old woman, presents with [id number] diastolic heart failure, chronic obstructive pulmonary disease exacerbation, hypertension, peripheral arterial disease. RECOMMENDATION: 1. Volume status is observed to be improving. Continue diuretic therapy as well as antiplatelet therapy for history of PAD, statin therapy advised. 2. Blood pressure at goal. Continue current antihypertensives. MD GINNA Romero/MODL /[id number] MTDD
[2019-07-04] MEDS: PANTOPRAZOLE SOD 40 MG TABEC PO SCH (10:45)
[2019-07-04] MEDS: PREDNISONE 10 MG TAB PO SCH (10:45)
[2019-07-04] MEDS: TRIAMTERENE/HCTZ 37.5-25 MG TAB PO SCH (10:45)
[2019-07-04] MEDS: NON-FORMULARY MEDICATION (Fluticasone/Vilanterol (Breo Ellipta 100-25 Mcg INH) 1 INH) INH SCH (10:45)
[2019-07-04] MEDS: CLOPIDOGREL BISULFATE 75 MG TAB PO SCH (10:45)
[2019-07-04] MEDS: DOCUSATE SODIUM 100 MG CAP PO SCH ×2 (10:45→16:17)
[2019-07-04] MEDS: LISINOPRIL 20 MG TAB PO SCH (10:46)
[2019-07-04] MEDS: AZITHROMYCIN 250 MG TAB PO SCH (10:46)
--- NOTE | 2019-07-04 10:59 | Progress Note ---
DATE: SUBJECTIVE: The patient is seen and evaluated. Available labs and notes reviewed. Discussed with the patient and discussed with Dr. Pate in details. REVIEW OF SYSTEMS: Complains of back pain, which is not new. Has poor appetite, but no nausea, vomiting, fever, chills, chest pain, or shortness of breath. PHYSICAL EXAMINATION: VITAL SIGNS: Temperature 97.8, pulse is 99, respiration 22, and blood pressure 141/71. GENERAL: Alert and oriented, no acute distress. CV: S1 and S2. CHEST: Equal expansion. Clear to auscultation. No acute distress. ABDOMEN: Soft and nontender. No distention. HEENT: Moist. No pallor. No JVD. EXTREMITIES: No acute finding. Weak, moves all. MEDICATIONS: Medication list reviewed and as far as Infectious Disease point of view, the patient is on Rocephin and Zithromax. LABORATORY STUDIES: No new CBC or BMP available. No new serology available. MICROBIOLOGY STUDIES: No new microbiology studies available. IMAGING: No new imaging. ASSESSMENT AND PLAN: 1. Community-acquired pneumonia. 2. Chronic obstructive pulmonary disease. 3. Peripheral arterial disease. 4. Acute thoracic spine fracture. 5. Pain. 6. Peripheral arterial disease. 7. Electrolyte abnormalities. 8. Continue with Rocephin and Zithromax. Continue with the pain management, currently on morphine sulfate. Continue PT/OT. Monitor the patient clinically and follow with the labs. Pending IR evaluation per Internal Medicine notes to evaluate the patient. Discussed with Dr. Pate. Dictated by Magnus Torres PA-C (Al) Nohemy Pate MD /MODL /[id number]
[2019-07-04] MEDS: IPRATROPIUM/ALBUTEROL SULFATE 4 GM INH INH PRN (15:55)
[2019-07-04] MEDS: CEFTRIAXONE SOD 1 GM/NS 50 ML 50 ML IV SCH (16:16)
--- NOTE | 2019-07-04 17:56 | NUR ---
Patient's son was in room when this underwriter discussed the kyphoplasty with patient. Patient's son stated his mother would absolutely refuse due to having to be put under general anesthesia. This underwriter discussed that with Dr. Dunn. Dr. Dunn stated that patient would have pain medication to manage her pain once she discharges. This was discussed with the patient and son. After about 30 minutes the patient's son came to the nurses station very aggressively stating that his mother had not been showered since she had been here and it was explained to him that she had been asked every time and refused. Upon him leaving this underwriter went into the patient's room to check on her and noted she was crying. This underwriter asked patient how she could help. The patient said she was "just frustrated that her son kept being loud and yelling at her" and she was "overwhelmed by all the discussions." This underwriter calmed this patient down.
--- NOTE | 2019-07-04 19:34 | NUR ---
RECEIVED REPORT FROM PREVIOUS NURSE. CALL LIGHT WITHIN REACH. PATIENT IN BED. ROUNDING DONE
--- NOTE | 2019-07-04 20:46 | Progress Note ---
DATE: 07/04/2019 Cardiology Progress Note SUBJECTIVE: Ms. Vargas denies any chest pain or shortness of breath. OBJECTIVE: VITAL SIGNS: Temperature 97.8, heart rate 99, blood pressure 130/62, respiratory rate 22, and O2 saturation 98%. GENERAL: In no acute distress, alert. NECK: No JVD. CHEST: Clear to auscultation. CARDIOVASCULAR: Regular rate and rhythm. Normal S1, S2. No S3. No S4. ABDOMEN: Soft. Bowel sounds positive. EXTREMITIES: No edema. CARDIOVASCULAR MEDICATIONS: Reviewed: 1. Clopidogrel 75 mg daily. 2. Lisinopril 20 mg. 3. Triamterene/hydrochlorothiazide, 37.5/25 mg one tablet daily. LABORATORY STUDIES: Reviewed. Potassium 4.4, bicarbonate 19, creatinine 0.71, and glucose 86. White blood cells 9.4, hemoglobin 11.5, and platelets 219. AST 12, ALT 10, and alkaline phosphatase 122. ASSESSMENT AND PLAN: An 83-year-old woman presents with: 1. Anemia. 2. Metabolic acidosis. 3. Chronic obstructive pulmonary disease exacerbation. 4. Peripheral arterial disease. 5. Ljggm-wf-cmbglhd diastolic heart failure. RECOMMENDATIONS: Volume status, now euvolemic. Blood pressure adequately controlled. Continue current cardiovascular medications. Anemia workup encouraged. Outpatient followup advised from a Cardiovascular standpoint upon discharge in 4-6 weeks. MD GINNA Romero/NUNUL /[id number]
[2019-07-04] MEDS: ONDANSETRON HCL INJ 2MG/ML 2ML 2 MG/ML VIAL IV PRN (22:42)
[2019-07-05] MEDS: MORPHINE SULFATE INJ 4 MG/ML INJ 1ML IV PRN (03:01)
[2019-07-05] MEDS: ONDANSETRON HCL INJ 2MG/ML 2ML 2 MG/ML VIAL IV PRN (03:02)
[2019-07-05 03:55] VITALS: BP 166/77
[2019-07-05] MEDS: UMECLIDINIUM BROMIDE INH SCH (05:45)
--- NOTE | 2019-07-05 07:12 | Discharge Summary ---
DISCHARGE DIAGNOSES: 1. Pneumonia. 2. Chronic obstructive pulmonary disease. 3. Compression fracture of the thoracic spine. 4. Ileus. HISTORY OF PRESENT ILLNESS AND HOSPITAL COURSE: The patient is a lady, who presented with some mid lower back pain with constipation as well as some cough, where she was noticed to have pneumonia, ileus secondary to compression fracture of her thoracic spine. She was brought into the COVID unit, where until she was ruled out. She did rule out for coronavirus, so she was then moved outside. She was placed on IV antibiotics, where she did very well from that. She was able to ultimately start having bowel movements. She did have a CT scan done showing an unchanged spiculated mass in upper lobe, where she was seen by her tracer powder blender again, where the patient once again reiterates as well as that they want no further workup regarding the pulmonary mass. Discussion with her about the compression fracture, which seem to be the predominant complaint of the patient, she was set up for kyphoplasty, but the patient's son once again refused having a kyphoplasty done for fear of anesthesia causing complications, which I tried to explain to them that it is the only way we can try to help solve her pain, which is causing her ileus, but once again the patient reiterates she does not want to do anything with regard to anesthesia. So, I told her that she would have to endure the pain for another 4 to 6 weeks before it is better and she stated that she will just endure the pain. So since the patient had resolved her other issues, she was able to be discharged home with continuation of her home pain medications as well as she was discharged with Ceftin 250 mg one p.o. b.i.d. for 7 more days for continuation of the pneumonia and she will follow up with me in 1 to 2 weeks. Please see hospital chart for full details. MD FUAD Martinez/NIKI /[id number]
--- NOTE | 2019-07-05 07:32 | NUR ---
GAVE BEDSIDE SHIFT REPORT TO ONCOMING NURSE. CALL LIGHT WITHIN REACH. PATIENT IN BED.
[2019-07-05] MEDS: PREDNISONE 10 MG TAB PO SCH (07:42)
[2019-07-05] MEDS: PANTOPRAZOLE SOD 40 MG TABEC PO SCH (07:42)
[2019-07-05] MEDS: CLOPIDOGREL BISULFATE 75 MG TAB PO SCH (07:42)
[2019-07-05] MEDS: DOCUSATE SODIUM 100 MG CAP PO SCH (07:42)
[2019-07-05] MEDS: AZITHROMYCIN 250 MG TAB PO SCH (07:42)
[2019-07-05] MEDS: NON-FORMULARY MEDICATION (Fluticasone/Vilanterol (Breo Ellipta 100-25 Mcg INH) 1 INH) INH SCH (07:42)
[2019-07-05 08:03] VITALS: BP 191/86
--- NOTE | 2019-07-05 08:36 | NUR ---
Patient received discharge order from Dr. Dunn, patient and son were given discharge instructions, prescriptions, and answered all questions. Patient's IV was removed at 0800 and covered with a clean dry dressing. Patient had no other questions at this time. Patient brought to son's car via wheelchair.
== END 2019-07-05 08:22 | disposition home or self-care (01) | DRG 193 ==
LOC: ER 19:32 → ERHOLD 23:45 → IMCU 07-01 00:30 → MED/SURG3 07-01 20:38
PROVIDERS: ADMIT Internal Medicine; ATTEND Internal Medicine
DX: J18.9 Pneumonia, unspecified organism (principal); I50.33 Acute on chronic diastolic (congestive) heart failure; E87.2 Acidosis; E44.0 Moderate protein-calorie malnutrition; Z68.1 Body mass index [BMI] 19.9 or less, adult; M80.88XA Other osteoporosis with current pathological fracture, vertebra(e), initial encounter for fracture; K56.7 Ileus, unspecified; I11.0 Hypertensive heart disease with heart failure; D64.9 Anemia, unspecified; F17.290 Nicotine dependence, other tobacco product, uncomplicated; Z03.818 Encounter for observation for suspected exposure to other biological agents ruled out; I73.9 Peripheral vascular disease, unspecified; Z53.29 Procedure and treatment not carried out because of patient's decision for other reasons; J43.9 Emphysema, unspecified; R91.8 Other nonspecific abnormal finding of lung field
CPT/HCPCS: 36415; 71260; 74018; 74177; 80053; 81001; 82306; 82378; 82550; 82553; 83518; 83605; 83690; 83880; 84484; 85025; 87040; 87070; 87205; 87400; 87635; 93005; 93306; 94664; 96360; 96361; 96376; 97139; 99285; J0696; J2270; J2405; J2920; J7030; J7512; Q9967

== ENCOUNTER 2019-07-19 20:08 | Inpatient (IN) | payer MEDICARE, BC, OTHER ==
[~2019-07-19] VITALS: Ht 167.6 cm; Wt 47.6 kg
[~2019-07-19 20:08] MED LIST changes: +BREO ELLIPTA 11 EACH INH; +COMBIVENT RESPIM4 GM INH; +INCRUSE ELLI62.5 MCG INH; +LISINOPRIL20 MG PO; +ULTRAM 50MG50 MG PO
--- NOTE | 2019-07-19 20:56 | Emergency Department Note ---
History of Present Illnes History of Present Illness History of Present Illness This is a 83 year old female arrived to the ED with complaints of generalized malaise and weakness. Patient spoke to PCP Dr. Dunn who recommended evaluation ED for further workup and management. Patient states she was recently admitted to the hospital and discharged last week for left sided rib fractures. Historian: Patient Onset (how long ago): day(s) Radiation: non-radiation Severity: moderate Progression: worsening Context: recent illness Relieving factors: none Exacerbating factors: movement Past Medical/Family History Physician Review I have reviewed the patient's past medical and family history. Any updates have been documented here. Past Medical History Past Medical History: Hypertension, COPD, Asthma, CAD, GERD, Chronic Back Pain Other Medical History: PAD, former smoker Past Surgical History: Hysterectomy Other Surgery: Stents in legs Other Last Tetanus: <10 YRS Review of Systems Review of Systems Constitutional: weakness EENTM: no symptoms Cardiovascular: chest pain Respiratory: no symptoms Gastrointestinal: no symptoms Genitourinary: no symptoms Musculoskeletal: no symptoms Neurological: no symptoms Psychological: no symptoms Endocrine: no symptoms Hematological/Lymphatic: no symptoms Review of other systems All other systems reviewed and negative. Physical Exam Related Data Allergies: Coded Allergies: Sulfa (Sulfonamide Antibiotics) (Verified Allergy, Intermediate, "MAKES ME SICK", 02/04/19) Penicillins (Verified Allergy, Unknown, 02/04/19) Vital signs reviewed: Yes Physical Exam CONSTITUTIONAL Constitutional: well-developed, cachectic, ill appearing HENT HENT: normocephalic, atraumatic, oropharynx clear/moist, mucosae dry, nose normal HENT L/R: left ext ear normal, right ext ear normal EYES Eyes: PERRL, conjunctivae normal NECK Neck: ROM normal PULMONARY Pulmonary: effort normal, breath sounds normal CARDIOVASCULAR Cardiovascular: regular rhythm, heart sounds normal, capillary refill normal, normal rate GASTROINTESTINAL Abdominal: soft, nontender, bowel sounds normal GENITOURINARY Genitourinary: exam deferred SKIN Skin: warm, dry MUSCULOSKELETAL Musculoskeletal: ROM normal NEUROLOGICAL Neurological: alert, oriented x 3, no gross motor or sensory deficits PSYCHOLOGICAL Psychological: mood/affect normal, judgement normal Results Laboratory Lab results reviewed: Yes Laboratory comments Laboratory Tests Test 07/19/19 21:30 White Blood Count 13.08 x10e3/uL (4.8-10.8) Red Blood Count 5.01 x10e6/uL (3.6-5.1) Hemoglobin 13.9 g/dL (12.0-16.0) Hematocrit 44.4 % (34.2-44.1) Mean Corpuscular Volume 88.6 fL (81-99) Mean Corpuscular Hemoglobin 27.7 pg (28-32) Mean Corpuscular Hemoglobin Concent 31.3 g/dL (31-35) Red Cell Distribution Width 15.6 % (11.7-14.4) Platelet Count 257 x10e3/uL (140-360) Neutrophils (%) (Auto) 78.9 % (38.7-80.0) Lymphocytes (%) (Auto) 12.0 % (18.0-39.1) Monocytes (%) (Auto) 6.8 % (4.4-11.3) Eosinophils (%) (Auto) 1.4 % (0.0-6.0) Basophils (%) (Auto) 0.4 % (0.0-1.0) Neutrophils # (Auto) 10.3 (2.1-6.9) Lymphocytes # (Auto) 1.6 (1.0-3.2) Monocytes # (Auto) 0.9 (0.2-0.8) Eosinophils # (Auto) 0.2 (0.0-0.4) Basophils # (Auto) 0.1 (0.0-0.1) Absolute Immature Granulocyte (auto 0.07 x10e3/uL (0-0.1) Sodium Level 131 mmol/L (136-145) Potassium Level 5.0 mmol/L (3.5-5.1) Chloride Level 94 mmol/L (98-107) Carbon Dioxide Level 21 mmol/L (22-29) Anion Gap 21.0 mmol/L (8-16) Blood Urea Nitrogen 36 mg/dL (7-26) Creatinine 1.59 mg/dL (0.57-1.11) Estimat Glomerular Filtration Rate 31 ML/MIN (60-) BUN/Creatinine Ratio 23 (6-25) Glucose Level 83 mg/dL (74-118) Calcium Level 9.6 mg/dL (8.4-10.2) Total Bilirubin 0.7 mg/dL (0.2-1.2) Aspartate Amino Transf (AST/SGOT) 33 IU/L (5-34) Alanine Aminotransferase (ALT/SGPT) 20 IU/L (0-55) Alkaline Phosphatase 166 IU/L (40-150) Creatine Kinase 17 IU/L (29-168) Creatine Kinase MB 2.60 ng/mL (0-5.0) Troponin I < 0.001 ng/mL (0-0.300) Total Protein 7.4 g/dL (6.5-8.1) Albumin 3.6 g/dL (3.5-5.0) Globulin 3.8 g/dL (2.3-3.5) Albumin/Globulin Ratio 0.9 (0.8-2.0) Imaging Imaging results reviewed: Yes Impressions IMPRESSION: New mild widening of the mediastinum compared to chest x-ray on could be due to acute aortic pathology, patient had ulcerative atherosclerotic plaque in the thoracic aorta seen on chest CT 06/30/2019. Recommend CTA chest. Stable 1.2 cm left upper lobe nodule. Findings of pulmonary emphysema and bronchitis. Subtle bibasilar/infrahilar haziness can be due to atelectasis or pneumonia. Mild cardiomegaly and pulmonary vascular congestion. Stable 1.2 cm left upper lobe nodule. A follow-up chest CT in December 2019 is recommended. Imaging Comments IMPRESSION: 1. No acute intrathoracic CT abnormality. 2. Advanced triple vessel coronary artery and aortic calcific atherosclerosis, calcific aortic valve and mitral annular disease. Mild cardiomegaly and pulmonary hypertension. Small pericardial effusions. 3. Pulmonary emphysema. 4. Stable compression deformities of T6, T10, 11, and L1. Osteoporosis. 5. A stable 1.2 cm spiculated nodule in the left upper lobe. A follow-up chest CT in December 2019 is recommended. Signed by: Jose A Wong DO on 07/20/2019 2:52 AM Critical Care Time Subsequent provider I assumed direction of critical care for this patient from another provider of my specialty. Assessment & Plan Assessment & Plan Final Impression: (1) Weakness (2) Dehydration Assessment & Plan 83-year-old female ARRIVED to the ED with complaints generalized malaise and weakness. Patient states she was recently diagnosed with left-sided rib fractures felt okay when she was discharged a few days ago, however, pain is now worse. Patient complaining of reduced oral intake, denies any abdominal pain, states she feels nauseous since this morning is unable to eat. Patient denies any fever or chills. Patient noted to have mild leukocytosis in the emergency department, however, otherwise admitted in stable with no fever. Case discussed with Dr. Dunn admitted for observation and further monitoring. No source of infection present at time of admission Depart Disposition: ADMITTED Home Meds Reported Medications Tramadol Hcl* (ULTRAM 50MG*) 50 Mg Tab, 50 MG PO Q6H PRN for MODERATE PAIN (4- 6), TAB 07/01/19 Ipratropium/Albuterol Sulfate (COMBIVENT RESPIMAT INHAL SPRAY) 4 Gm Aer.w.adap, 1 INH INH Q4HR PRN for WHEEZING 07/01/19 Umeclidinium [place] (Incruse Ellipta) 62.5 Mcg Blst.w.dev, 1 INH INH DAILY 07/01/19 Fluticasone/Vilanterol (Breo Ellipta 100-25 Mcg INH) 1 Each Blst.w.dev, 1 INH INH DAILY 07/01/19 Lisinopril (PRINAVIL / ZESTRIL) 20 Mg Tablet, 20 MG PO DAILY, #30 TAB 07/01/19 Pantoprazole Sodium* (PROTONIX) 40 Mg Tablet.dr, 40 MG PO DAILY, TAB 12/13/18 Ferrous Sulfate (FERROUS SULFATE) 325 Mg Tablet, 0.5 TAB PO DAILY 04/02/18 Clopidogrel Bisulfate* (PLAVIX) 75 Mg Tablet, 75 MG PO DAILY, #30 TAB 04/02/18 SARAH SHEETS, July 19, 2019 20:40
[2019-07-19] MEDS ORDERED: ONDANSETRON HCL INJ 2MG/ML 2ML 2 MG/ML VIAL IV STA (21:34)
[2019-07-19] MEDS ORDERED: LIDOCAINE 4% PATCH TP SCH (21:45)
[2019-07-19] MEDS ORDERED: MORPHINE SULFATE INJ 4 MG/ML INJ 1ML IV PRN (21:45)
[2019-07-19 22:43] LABS: BASOPHILS # (AUTO) 0.1 (0.0-0.1); BASOPHILS % 0.4 % (0.0-1.0); EOSINOPHILS # (AUTO) 0.2 (0.0-0.4); EOSINOPHILS % 1.4 % (0.0-6.0); HEMATOCRIT 44.4 % (34.2-44.1); HEMOGLOBIN 13.9 g/dL (12.0-16.0); LYMPHOCYTES # (AUTO) 1.6 (1.0-3.2); MEAN CORPUSCULAR HEMOGLOBIN 27.7 pg (28-32); MEAN CORPUSCULAR HGB CONC 31.3 g/dL (31-35); MEAN CORPUSCULAR VOLUME 88.6 fL (81-99); MONOCYTES # (AUTO) 0.9 (0.2-0.8); MONOCYTES % 6.8 % (4.4-11.3); NEUTROPHILS # (AUTO) 10.3 (2.1-6.9); NEUTROPHILS % 78.9 % (38.7-80.0); PLATELET COUNT 257 x10e3/uL (140-360); RED BLOOD COUNT 5.01 x10e6/uL (3.6-5.1); RED CELL DISTRIBUTION WIDTH 15.6 % (11.7-14.4)
[2019-07-19 22:58] LABS: ALANINE AMINOTRANSFERASE 20 IU/L (0-55); ALBUMIN 3.6 g/dL (3.5-5.0); ALBUMIN/GLOBULIN RATIO 0.9 (0.8-2.0); ALKALINE PHOSPHATASE 166 IU/L (40-150); CALCIUM 9.6 mg/dL (8.4-10.2); CARBON DIOXIDE 21 mmol/L (22-29); CHLORIDE 94 mmol/L (98-107); CREATINE KINASE 17 IU/L (29-168); CREATININE, SERUM 1.59 mg/dL (0.57-1.11); EST GLOMERULAR FILTRATION RATE 31 ML/MIN (60-); GLUCOSE 83 mg/dL (74-118); SODIUM 131 mmol/L (136-145)
[2019-07-19 23:16] LABS: BLOOD UREA NITROGEN 36 mg/dL (7-26)
[2019-07-19 23:20] LABS: BUN/CREATININE RATIO 23 (6-25)
[2019-07-20] VITALS (8 sets, daily range): BP systolic 89–113; BP diastolic 43–57
[2019-07-20] MEDS ORDERED: SODIUM CHLORIDE 0.9% 1000ML 1,000 ML IV SCH
--- NOTE | 2019-07-20 00:27 | Diagnostic Imaging Report ---
ADDENDUM #1 Given acute kidney injury, recommend a chest CT noncontrast for further evaluation. This was discussed with ER provider Dr. Springer at 2:10 AM on 07/20/2019. Signed by: Jose A Wong DO on 07/20/2019 2:17 AM ORIGINAL REPORT EXAMINATION: CHEST SINGLE (PORTABLE) INDICATION: Chest pain COMPARISON: Chest CT 06/30/2019, chest x-ray 05/05/2019 FINDINGS: TUBES and LINES: Partially visualized abdominal aortic stent.. LUNGS: Hyperinflated lungs. Subtle bibasilar/infrahilar haziness No consolidations. Scattered calcified granulomas. Stable 1.2 cm left upper lobe nodule. PLEURA: No pleural effusion or pneumothorax. HEART AND MEDIASTINUM: Mild widening of the mid/upper mediastinum possibly due to the aorta. Cardiac size is mildly enlarged. Tortuous ectatic atherosclerotic thoracic aorta. BONES AND SOFT TISSUES: Degenerative changes. No acute osseous lesion. Soft tissues are unremarkable. UPPER ABDOMEN: No free air under the diaphragm. Cholecystectomy clips. IMPRESSION: New mild widening of the mediastinum compared to chest x-ray on could be due to acute aortic pathology, patient had ulcerative atherosclerotic plaque in the thoracic aorta seen on chest CT 06/30/2019. Recommend CTA chest. Stable 1.2 cm left upper lobe nodule. Findings of pulmonary emphysema and bronchitis. Subtle bibasilar/infrahilar haziness can be due to atelectasis or pneumonia. Mild cardiomegaly and pulmonary vascular congestion. Stable 1.2 cm left upper lobe nodule. A follow-up chest CT in December 2019 is recommended. Signed by: Jose A Wong DO on 07/20/2019 12:24 AM
--- OUTSIDE RECORDS SUMMARY | 2019-07-20 00:28 | XMS REPORT | Clinical Summary ---
Author Author [facility] Organization [facility] Address Unknown Phone Unavailable Care Team Providers Care Shop Manager Name Role Phone Vipul Dunn MD PCP Allergies Comments Active Allergy Reactions Severity Noted Date 07/07/19: patient cannot recall reaction Penicillin G Hives, Rash, Low 03/23/2016 Unknown Reaction Sulfa (Sulfonamide GI Low 03/24/2016 Antibiotics) Intolerance Medications End Date Status Medication Sig Dispensed Refills Start Date Active clopidogrel (PLAVIX) 75 Take 1 tablet 0 201 mg tablet by mouth 7 daily. Active fluticasone-vilanterol Inhale 1 0 (BREO ELLIPTA) 100-25 inhalations mcg/dose blister with once daily. device powder for inhalation Active lisinopril Take 20 mg by 0 (PRINIVIL,ZESTRIL) 20 mg mouth daily. tablet Active umeclidinium (INCRUSE Inhale 62.5 0 ELLIPTA) 62.5 mcg daily. mcg/actuation blister with device Active traMADoL (ULTRAM) 50 mg Take 50 mg by 0 tabletIndications: acute mouth every 6 pain (six) hours as needed for moderate pain .acute pain. Active pantoprazole (PROTONIX) Take 40 mg by 0 40 MG EC tablet mouth daily. Active calcium carbonate/vitamin Take 1 tablet 0 D3 (CALCIUM 600 + D,3, by mouth ORAL) daily. Active ferrous sulfate 325 (65 Take 325 mg 0 FE) MG tablet by mouth daily with breakfast. Active therapeutic multivitamin Take 1 tablet 0 (THERAGRAN) tablet by mouth daily. 08/13/2019 Active Combivent Respimat 20-100 Inhale 1-2 4 g 11 mcg/actuation mist puffs every 4 0 inhaler (four) hours as needed for shortness of breath for up to 30 days. 08/14/2019 Active levothyroxine (SYNTHROID) Take 1 tablet 30 tablet 0 50 mcg tablet (50 mcg 0 total) by mouth every morning for 30 days. 08/14/2019 Active furosemide (LASIX) 20 mg Take 0.5 15 tablet 0 0 tablet tablets (10 0 mg total) by mouth daily for 30 days. 08/14/2019 Active lidocaine (LIDODERM) 5 % Place 1 patch 30 patch 0 on the skin 0 daily for 30 days. Remove & Discard patch within 12 hours or as directed by 08/13/2019 Active metoprolol succinate XL Take 1 tablet 30 tablet 0 (TOPROL-XL) 25 mg 24 hr (25 mg total) 0 tablet by mouth daily for 30 days. 08/14/2019 Active polyethylene glycol Take 17 g by 30 packet 0 07/14 (MIRALAX) 17 gram packet mouth daily 0 for 30 days. 07/07/2019 Discontinued (Med List Clean up) COMBIVENT RESPIMAT 20-100 Inhale 1-2 11 3/201 mcg/actuation mist puffs every 4 6 inhaler (four) hours as needed for shortness of breath. 07/07/2019 Discontinued (Med List Clean up) DULERA 200-5 Inhale 2 11 16/201 mcg/actuation inhaler puffs 2 (two) 6 times a day. 07/08/2019 Discontinued (Error) levothyroxine (SYNTHROID, Take 75 mcg 0 LEVOXYL) 75 mcg tablet by mouth every morning. 07/07/2019 Discontinued (Med List Clean up) vitamin E 400 UNIT Take 400 0 capsule Units by mouth daily. 07/14/2019 Discontinued (Stop Taking at Discharge) cefuroxime (CEFTIN) 250 Take 250 mg 0 MG tablet by mouth 2 (two) times a day. X 7 days, started on 07/05/19 07/14/2019 Discontinued (Stop Taking at Discharge) levothyroxine (SYNTHROID) Take 75 mcg 0 75 mcg tablet by mouth daily. 07/17/2019 acetaminophen-codeine Take 1 tablet 12 tablet 0 (TYLENOL WITH CODEINE #3) by mouth 0 300-30 mg per every 6 (six) tabletIndications: acute hours as pain needed for moderate pain for up to 3 days .acute pain. Active Problems Problem Noted Date Closed wedge compression fracture of T10 vertebra Hematoma of arm, left, initial encounter 07/28/2017 Contusion of arm 07/28/2017 Balance problem 03/24/2016 Encounters Care Team Description Date Type Specialty Aniket Verma MD 07/12/2019 Anesthesia Radiology Event Olivier Benitez, Gricel Corona MD Cherian, Cecil, MD Closed wedge compression fracture of ten th thoracic vertebra, initial encounter (HCC) (Primary Dx); Closed wedge compression fracture of sixth thoracic vertebra, initial encounter (HCC); Constipation, unspecified constipation type 07/07/2019 Hospital Neurosurgery - Encounter 07/14/2019 07/07/2019 Travel Sofía Salmon MD 06/17/2019 Telephone Gastroenterology Sofía Salmon MD Esophageal dysphagia (Primary Dx); Gastroesophageal reflux disease, esophagitis presence not specified 05/16/2019 Telemedicine Gastroenterology 05/14/2019 Travel after 07/19/2018 Social History Date Tobacco Use Types Packs/Day [...] Signs Reading Time Taken Comments Vital Sign 124/65 07/14/2019 7:28 AM CDT Blood Pressure 83 07/14/2019 8:25 AM CDT Pulse 36.2 C (97.1 F) 07/14/2019 7:28 AM CDT Temperature 16 07/14/2019 8:25 AM CDT Respiratory Rate 96% 07/14/2019 8:14 AM CDT Oxygen Saturation - - Inhaled Oxygen Concentration 65.8 kg (145 lb) 05/16/2019 9:24 AM CDT Weight 167.6 cm (5' 6") 05/16/2019 9:24 AM CDT Height 23.4 05/16/2019 9:24 AM CDT Body Mass Index Plan of Treatment Health Maintenance Due Date Last Done Comments SHINGLES VACCINES (#1) 10/05/1983 65+ PNEUMOCOCCAL VACCINE 1998 (1 of 2 - PCV13) INFLUENZA VACCINE 09/21/2019 Implants Device Identifier Shelf Expiration Date Model / Serial / L ot Implanted Type Area Manufactur er 12/20/2021 [id number] / / [id number] 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 [employer] Surgical N/A: N/A [employer] Hv-R - [id number] Implants; SOFAMOR Implanted: 07/12/2019 at [facility] Expanders; [facility] (Quantity not on file) Extenders; Surgical Wires Procedures Comments Procedure Name Priority Date/Time Associated Diag nosis ESTIMATED GFR Routine 07/14/2019 3:45 AM CDT BASIC METABOLIC PANEL Routine 07/14/2019 3:45 AM CDT HC COMPLETE BLD COUNT Routine 07/13/2019 W/AUTO DIFF 8:52 AM CDT SURGICAL PATHOLOGY Routine 07/12/2019 REQUEST 3:45 PM CDT IR KYPHOPLASTY FST VERT Routine 07/12/2019 BODY THORA 3:22 PM CDT HC COMPLETE BLD COUNT Routine 07/11/2019 W/AUTO DIFF 4:44 AM CDT TTE COMPLETE, WO Routine 07/10/2019 CONTRAST, W DOPPLER 2:00 PM CDT (28280) ESTIMATED GFR Routine 07/10/2019 4:13 AM CDT COMPREHENSIVE METABOLIC Routine 07/10/2019 PANEL 4:13 AM CDT CBC WITH PLATELET AND Routine 07/10/2019 DIFFERENTIAL 4:13 AM CDT CARCINOEMBRYONIC ANTIGEN Routine 07/10/2019 (CEA) 4:13 AM CDT NM BONE SCAN 3 PHASE Routine 07/09/2019 12:36 PM CDT ESTIMATED GFR Routine 07/09/2019 4:12 AM CDT T4, FREE Routine 07/09/2019 4:12 AM CDT THYROID STIMULATING Routine 07/09/2019 HORMONE 4:12 AM CDT COMPREHENSIVE METABOLIC Routine 07/09/2019 PANEL 4:12 AM CDT CBC WITH PLATELET AND Routine 07/09/2019 DIFFERENTIAL 4:12 AM CDT URINALYSIS SCREEN AND Routine 07/08/2019 MICROSCOPY, WITH REFLEX 12:03 PM CDT TO CULTURE URINE CULTURE Routine 07/08/2019 12:[address] ABDOMEN PELVIS WO STAT 07/07/2019 CONTRAST 3:[address] THORACIC SPINE WO STAT 07/07/2019 CONTRAST 3:28 AM CDT PROTHROMBIN TIME WITH INR STAT 07/07/2019 2:40 AM CDT PARTIAL THROMBOPLASTIN STAT 07/07/2019 TIME (PTT) 2:40 AM CDT B NATRIURETIC PEPTIDE STAT 07/07/2019 2:40 AM CDT TROPONIN STAT 07/07/2019 2:40 AM CDT HC COMPLETE BLD COUNT STAT 07/07/2019 W/AUTO DIFF 2:25 AM CDT ESTIMATED GFR STAT 07/07/2019 1:46 AM CDT LACTIC ACID LEVEL STAT 07/07/2019 1:46 AM CDT COMPREHENSIVE METABOLIC STAT 07/07/2019 PANEL 1:46 AM CDT ECG 12-LEAD STAT 07/07/2019 1:01 AM CDT after 07/19/2018 Results * Estimated GFR (07/14/2019 3:45 AM CDT) Only the most recent of 4 results within the time period is included. Estimated GFR 76 mL/min/1.73 m2 [place] Comment: [facility] Interpretation G1 >=90 Normal or high G2 60-89 Mildly decreased G3a 45-59 Mildly to moderately decreased G3b 30-44 Moderately to severely decreased G4 15-29 Severely decreased G5 <15 Kidney failure The eGFR was calculated using the Chronic Kidney Disease Epidemiology Collaboration (CKD-EPI) equation. Interpretation is based on recommendations of the National Kidney Foundation-Kidney Disease Outcomes Quality Initiative (NKF-KDOQI) published in 2014. Specimen Performing Organization Address City/[facility] Ph one Number [facility] DEPARTMENT OF [address] [place] [address] PATHOLOGY AND GENOMIC MEDICINE [address] * Basic metabolic panel (07/14/2019 3:45 AM CDT) [facility] Sodium 137 135 - 148 mEq/L [facility] Potassium 3.5 3.5 - 5.0 mEq/L [facility] Chloride 100 98 - 112 mEq/L [facility] CO2 25 24 - 31 mEq/L [facility] Anion gap 12@ANIO 7 - 15 mEq/L [facility] BUN 14 8 - 23 mg/dL [facility] Creatinine 0.72 0.50 - 0.90 mg/dL [facility] Glucose 125 (H) 65 - 99 mg/dL [facility] Calcium 8.7 (L) 8.8 - 10.2 mg/dL [facility] Specimen Blood Performing Organization Address City/[facility] Ph one Number [facility] DEPARTMENT OF [address] [place] [address] PATHOLOGY AND GENOMIC MEDICINE [address] * CBC with platelet and differential (07/13/2019 8:52 AM CDT) Only the most recent of 5 results within the time period is included. [facility] WBC 6.22 4.50 - 11.00 k/uL [facility] RBC 4.12 (L) 4.20 - 5.50 m/uL [facility] HGB 11.5 (L) 12.0 - 16.0 g/dL [facility] HCT 36.2 (L) 37.0 - 47.0 % [facility] MCV 87.9 82.0 - 100.0 fL [facility] MCH 27.9 27.0 - 34.0 pg [facility] MCHC 31.8 31.0 - 37.0 g/dL [facility] RDW - SD 51.0 37.0 - 55.0 fL [facility] MPV 10.0 8.8 - 13.2 fL [facility] Platelet count 232 150 - 400 k/uL [facility] Nucleated RBC 0.00 /100 WBC [facility] Neutrophils 68.0 39.0 - 69.0 % [facility] Lymphocytes 19.6 (L) 25.0 - 45.0 % [facility] Monocytes 9.6 0.0 - 10.0 % [facility] Eosinophils 1.8 0.0 - 5.0 % [facility] Basophils 0.5 0.0 - 1.0 % [facility] Immature 0.5Comment: "Immature 0.0 - 1.0 % [place] granulocytes granulocytes" (promyelocytes, METHOD IST myelocytes, metamyelocytes) HOSPITAL Specimen Performing Organization Address [facility] Ph one Number [facility] DEPARTMENT OF [address] [place] [address] PATHOLOGY AND GENOMIC MEDICINE [address] * Surgical pathology request (07/12/2019 3:45 PM CDT) [facility] DEPARTMENT OF PATHOLOGY AND GENOMIC MEDICINE Surgical See link below for PDF Lab [facility] pathology Report OF PATHOLOGY report AND GENOMIC MEDICINE Result status This is Final Report for [facility] DEPARTME NT [id number] OF PATHOLOGY AND GENOMIC MEDICINE Specimen Performing Organization Address City/[facility] Ph one Number [facility] [place] [address] PATHOLOGY AND GENOMIC MEDICINE * IR Kyphoplasty Thoracic (07/12/2019 3:22 PM CDT) Specimen Narrative Performed At EXAMINATION IR KYPHOPLASTY FST VERT BODY THORA RA [facility]ANT Fluoroscopic-guided vertebroplasty of T 7 compression fracture. COMPARISON: CT scan of the thoracic s pine CLINICAL HISTORY:83-year-old female pat ient with acute compression fracture of T7 vertebral body with at least 20% hei ght loss. 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 POSTOPERATIVE DIAGNOSIS: Same. BLOOD LOSS: Minimal COMPLICATIONS: None After discussion of the radiographic fi ndings and the compression fracture of T7 with the patient the T7 vertebral bod y, we have decided to treat T7 compression fracture with ceferinoneou s vertebroplasty with fracture reduction and internal fixation. The patient understood the risks and be nefits of the procedure. Informed consent was obtained. DESCRIPTION: The patient was brought to the Fluorosc opy Suite and placed on the fluoroscopy table in prone position. The thoracic r egion was prepped and draped in standard sterile fashion. The imaging intensifie rs were placed in both AP and lateral fluoroscopic planes. Transpedicular approach was uti lized to access the T7 vertebral compression fracture bilaterally. The p rocedure was performed under Monitored Anesthesia Care, which was conducted wi an anesthesiologist. The skin over the pedicles of T7 level were infiltrated with 2% buffered lidoc zac. Deep infiltration into the periosteum was achieved. An 13 gauge en try needle was placed into the posterior aspect of the body of T7 level bilate rally via transpedicular approach. Positioning was confirmed in both AP and lateral planes simultaneous ly. Following satisfactory placement of the needles, Under fluoroscopic imaging , following balloon inflation, internal fixation was achieved through a low-pre ssure injection of a bone void filler, namely polymethylmethacrylate (PMMA). The barbie ulas were then removed and hemostasis was achieved with adequate pressure. POST-PROCEDURE: All incisions were closed with Steri-St rips and pressure dressing. The patient was kept in the prone position for appr oximately 30 minutes. The patient was then turned supine, monitored briefly a nd returned to the post-procedure monitoring unit. The patient was awake and moving all extrem ities and at this time showed no neurologic deficit. No complications we re encountered. Blood loss was noted to be minimal. Total fluoroscopic time was 14.5 juliet john. KA R 231 mGy IMPRESSION: 1 Successful uncomplicated fluoroscop ic-guided vertebroplasty of T7 vertebral body. There was adequate cement distrib ution in the fracture body and no evidence of complications. [facility]-[id number] Procedure Note Interface, Radiology Results Incoming - 07/12/2019 4:27 PM CDT EXAMINATION IR KYPHOPLASTY FST VERT BODY THORA Fluoroscopic-guided vertebroplasty of T7 compression fracture. COMPARISON: CT scan of the thoracic spine CLINICAL HISTORY:83-year-old female patient with acute compression fracture of T7 vertebral body with at least 20% height loss. PREOPERATIVE DIAGNOSIS: Osteoporotic compression fracture of T7. POSTOPERATIVE DIAGNOSIS: Same. BLOOD LOSS: Minimal COMPLICATIONS: None After discussion of the radiographic findings and the compression fracture of T7 with the patient the T7 vertebral body, we have decided to treat T7 compression fracture with percutaneous vertebroplasty with fracture reduction and internal fixation. The patient understood the risks and benefits of the procedure. Informed consent was obtained. DESCRIPTION: The patient was brought to the Fluoroscopy Suite and placed on the fluoroscopy table in prone position. The thoracic region was prepped and draped in standard sterile fashion. The imaging intensifiers were placed in both AP and lateral fluoroscopic planes. Transpedicular approach was utilized to access the T7 vertebral compression fracture bilaterally. The procedure was performed under Monitored Anesthesia Care, which was conducted with an anesthesiologist. The skin over the pedicles of T7 level were infiltrated with 2% buffered lidocaine. Deep infiltration into the periosteum was achieved. An 13 gauge entry needle was placed into the posterior aspect of the body of T7 level bilaterally via transpedicular approach. Positioning was confirmed in both AP and lateral planes simultaneously. Following satisfactory placement of the needles, Under fluoroscopic imaging, following balloon inflation, internal fixation was achieved through a low-pressure injection of a bone void filler, namely polymethylmethacrylate (PMMA). The cannulas were then removed and hemostasis was achieved with adequate pressure. POST-PROCEDURE: All incisions were closed with Steri-Strips and pressure dressing. The patient was kept in the prone position for approximately 30 minutes. The patient was then turned supine, monitored briefly and returned to the post-procedure monitoring unit. The patient was awake and moving all extremities and at this time showed no neurologic deficit. No complications were encountered. Blood loss was noted to be minimal. Total fluoroscopic time was 14.5 minutes. KA R 231 mGy IMPRESSION: 1 Successful uncomplicated fluoroscopic -guided vertebroplasty of T7 vertebral body. There was adequate cement distribution in the fracture body and no evidence of complications. [facility]-[id number] Performing Organization Address City/State/Zipcode Ph one Number [facility] [address] [place] [address] * Transthoracic Echocardiogram Complete, (w Contrast, Strain and 3D if needed) (07/10/2019 2:00 PM CDT) Specimen Narrative Performed At [facility] Echo cardiography Report [id number] [facility], [facility] [address], [place] [address] Pat.Name: SHELBY PEÑA Pat.ID: [id number] .Date: 07/10/2019 Refer.MD: KEVIN MARQUEZ MD Exam Time: 1:32:00 PM Study Type:Routine Echo Height: 66in Weight: 144.7lb BSA: 1.74 m2 Age: 8 1935,83Y Sex: FEMALE BP: 114/57 HR: 92 bpm Sonogrphr: MYRTLE Gallego Pat. Stat.:Inpatient Room: [id number] Study Status:Final Echo Event ID:[id number] Order ID: [id number] Reason for Study:HTN, preop clearance History / Clinical:COPD, Coronary Arter y Disease, Hypertension Procedures: 2D Echo, Colorflow Doppler, Portable Race: C SUMMARY: Hyperdynamic LV function, normal RV sys tolic function is normal. Severe calcific mitral stenosis. Estimated PA systolic pressure is 36 mm Hg + RAP. FINDINGS: LV: LV size is normal. Concent lenin left ventricular remodeling. LV EF is hyperdynamic. Ov erall wall motion is hyperdynamic. Estimated EF is >70%. RV: RV size is normal. RV syst olic function is normal. LA: LA volume is moderately en larged. RA: RA size is normal. AO: Aortic root diameter is no rmal. MATTIE: Trace anterior pericardial effusion. AV: Mild thickening and calcif ication of AV leaflets. MV: Moderate thickening of hugh ral leaflets. Severe mitral annular calcification. Se joão mitral stenosis. Estimated mean mitral valve gradien t 10 mmHg at a heart rate of 98 b/min with a mitral valve area of 0.9 cm PV: Pulmonic valve not well se en. TV: No structural TV abnormali ties noted. Oquendo: Unable to assess diastolic function due to mitral valve pathology. . Other: Estimated PA systolic press ure is 36 mmHg + RAP. MEASUREMENTS: 2D Parasternal [place] Ao An 1.8 cm LVPWd 0.96 cm Ao Rtd 2.1 cm Index 1.2 cm/m2 LA Ds 4.1 cm IVSd 0.91 cm RWT 0.46 LVIDd 4.2 cm Index 2.4 cm/m2 LV Mass 125 g (87-12 9) LVIDs 2.7 cm LVM Index 72 g/m LV%fs 36 % LVOT 1.8 cm LA Sng Plane LA Area 22 cm (8.8-2 3.4) LA Vol 76 ml Index 44 ml/m2 LA LngAx 5.4 cm RA Sng Plane RA Vol 38 ml Index 22 ml/m2 RA LngAx 5.4 cm RA Area 16 cm (8.3-1 9.5) LVOT LVOT Area 2.5 cm DOPPLER LVOT Stroke Vol LVOT TVI 20 cm HR 97 bpm LVOT LVOT SV 51 ml LVOT CO 4.9 l/min SVi 29 ml/m LVOT CI 2.8 l/m/m MV Forward Flow MV pkVel 225 cm/s MV Mean G 9.8 mmHg MV pkPG 20 mmHg MV TVI 54 cm TV Pressure Gradient TV PkVel 300 cm/s TV PG 36 mmHg Signed 07/10/2019 06:36 PM Jonn Miller M.D. Procedure Note Interface, Radiology Results In - 07/10/2019 6:36 PM CDT Echocardiography Report [id number] [address] Pat.Name: SHELBY PEÑA Kaylin.ID: [id number] .Date: 07/10/2019 Refer.MD: KEVIN MARQUEZ MD Exam Time: 1:32:00 PM Study Type:Routine Echo Height: 66in Weight: 144.7lb BSA: 1.74 m2 Age: 8 1935,83Y Sex: FEMALE BP: 114/57 HR: 92 bpm Sonogrphr: MYRTLE Gallego. Stat.:Inpatient Room: [id number] Study Status:Final Echo Event ID:[id number] Order ID: [id number] Reason for Study:HTN, preop clearance History / Clinical:COPD, Coronary Artery Disease, Hypertension Procedures: 2D Echo, Colorflow Doppler, Portable Race: C SUMMARY: Hyperdynamic LV function, normal RV systolic function is normal. Severe calcific mitral stenosis. Estimated PA systolic pressure is 36 mmHg + RAP. FINDINGS: LV: LV size is normal. Concentric left ventricular remodeling. LV EF is hyperdynamic. Overall wall motion is hyperdynamic. Estimated EF is >70%. RV: RV size is normal. RV systolic function is normal. LA: LA volume is moderately enlarged. RA: RA size is normal. AO: Aortic root diameter is normal. MATTIE: Trace anterior pericardial effusion. AV: Mild thickening and calcification of AV leaflets. MV: Moderate thickening of mitral leaflets. Severe mitral annular calcification. Severe mitral stenosis. Estimated mean mitral valve gradient 10 mmHg at a heart rate of 98 b/min with a mitral valve area of 0.9 cm PV: Pulmonic valve not well seen. TV: No structural TV abnormalities noted. Oquendo: Unable to assess diastolic function due to mitral valve pathology. . Other: Estimated PA systolic pressure is 36 mmHg + RAP. MEASUREMENTS: 2D Parasternal [place] Ao An 1.8 cm LVPWd 0.96 cm Ao Rtd 2.1 cm Index 1.2 cm/m2 LA Ds 4.1 cm IVSd 0.91 cm RWT 0.46 LVIDd 4.2 cm Index 2.4 cm/m2 LV Mass 125 g (87-129) LVIDs 2.7 cm LVM Index 72 g/m LV%fs 36 % LVOT 1.8 cm LA Sng Plane LA Area 22 cm (8.8-23.4) LA Vol 76 ml Index 44 ml/m2 LA LngAx 5.4 cm RA Sng Plane RA Vol 38 ml Index 22 ml/m2 RA LngAx 5.4 cm RA Area 16 cm (8.3-19.5) LVOT LVOT Area 2.5 cm DOPPLER LVOT Stroke Vol LVOT TVI 20 cm HR 97 bpm LVOT LVOT SV 51 ml LVOT CO 4.9 l/min SVi 29 ml/m LVOT CI 2.8 l/m/m MV Forward Flow MV pkVel 225 cm/s MV Mean G 9.8 mmHg MV pkPG 20 mmHg MV TVI 54 cm TV Pressure Gradient TV PkVel 300 cm/s TV PG 36 mmHg Signed 07/10/2019 06:36 PM Jonn Miller M.D. Performing Organization Address [facility] Ph one Number [facility] [address] [place] [address] * Carcinoembryonic antigen (CEA) (07/10/2019 4:13 AM CDT) CEA 9.2 (H) 0.0 - 3.8 ng/mL [place] Comment: [facility] Reference range for heavy HOSPITAL smokers: 0.0 - 5.5 ng/mL The JOSE L Carole 8000 CEA immunoassay was used. Results obtained with different assay methods or kits should not be used interchangeably and may be different. Specimen Serum Performing Organization Address [facility] Ph one Number [facility] DEPARTMENT OF [address] [place] [address] PATHOLOGY AND GENOMIC MEDICINE [place] [facility] [address] * Comprehensive metabolic panel (07/10/2019 4:13 AM CDT) Only the most recent of 3 results within the time period is included. Sodium 138 135 - 148 mEq/L [facility] Potassium 4.4 3.5 - 5.0 mEq/L [facility] Chloride 102 98 - 112 mEq/L [facility] CO2 26 24 - 31 mEq/L [facility] Anion gap 10@ANIO 7 - 15 mEq/L [facility] BUN 12 8 - 23 mg/dL [facility] Creatinine 0.72 0.50 - 0.90 mg/dL [facility] Glucose 100 (H) 65 - 99 mg/dL [facility] Calcium 8.5 (L) 8.8 - 10.2 mg/dL [facility] Protein 5.4 (L) 6.3 - 8.3 g/dL [place] Comment: [facility] [place] 4.6-7.0 g/dL 1 week 4.4-7.6 g/dL 7 months-1year 5.1-7.3 g/dL 1-2 years 5.6-7.5 g/dL >3 years 6.0-8.0 g/dL 18-150 6.3-8.3 g/dL Albumin 2.7 (L) 3.5 - 5.0 g/dL [facility] A/G ratio 1.0 0.7 - 3.8 [facility] Alkaline 96 35 - 104 U/L [place] phosphatase [facility] AST 13 10 - 35 U/L [facility] ALT 11 5 - 50 U/L [facility] Total bilirubin <0.2 0.0 - 1.2 mg/dL [facility] Specimen Blood Performing Organization Address City/State/Zipcode Ph one Number [facility] DEPARTMENT OF [address] [place] [address] PATHOLOGY AND GENOMIC MEDICINE [address] * NM Bone Scan 3 Phase (07/09/2019 12:36 PM CDT) Specimen Narrative Performed At PROCEDURE: NM BONE SCAN 3 PHASE [facility] CLINICAL HISTORY: PLEASE EVAL FOR COM PRESSION FRACTURES THORACIC AND LUMBAR COMPARISON: Bone scan 04/12/2007; CT t horacic spine 07/07/2019, CT abdomen and pelvis 07/07/2019 TECHNIQUE: 25 millicuries of [id number] we re administered IV, followed by blood flow and blood pool imaging of the thor acolumbar spine. 3-5 hours later, delayed imaging was performed. FINDINGS: Moderately increased blood pool activit y in a linear, horizontal fashion in the mid thoracic spine. Delayed imaging dem onstrates marked uptake in similar fashion in this region in T7, with mild uptake in T6. The vertebral numbering assumes Mild degenerative uptake in the upper t horacic and lower lumbar spine. Physiological renal excretion. IMPRESSION: 1.Acute compression fracture of what I believe is T7. This is the markedly compressed, sclerotic vertebra on recen t thoracic spine CT. 2.Milder uptake just superior to this i s most likely degenerative, though a compression fracture is not excluded. [id number] Procedure Note Interface, Radiology Results Incoming - 07/09/2019 2:42 PM CDT PROCEDURE: NM BONE SCAN 3 PHASE CLINICAL HISTORY: PLEASE EVAL FOR COMPRESSION FRACTURES THORACIC AND LUMBAR COMPARISON: Bone scan 04/12/2007; CT thoracic spine 07/07/2019, CT abdomen and pelvis 07/07/2019 TECHNIQUE: 25 millicuries of [id number] wer e administered IV, followed by blood flow and blood pool imaging of the thoracolumbar spine. 3-5 hours later, delayed imaging was performed. FINDINGS: Moderately increased blood pool activity in a linear, horizontal fashion in the mid thoracic spine. Delayed imaging demonstrates marked uptake in similar fashion in this region in T7, with mild uptake in T6. The vertebral numbering assumes Mild degenerative uptake in the upper thoracic and lower lumbar spine. Physiological renal excretion. IMPRESSION: 1.Acute compression fracture of what I b elieve is T7. This is the markedly compressed, sclerotic vertebra on recent thoracic spine CT. 2.Milder uptake just superior to this is most likely degenerative, though a compression fracture is not excluded. [id number] Performing Organization Address City/State/[facility] Ph one Number [facility] [address] [place] [address] * Thyroid stimulating hormone (07/09/2019 4:12 AM CDT) TSH 1.73 0.27 - 4.20 uIU/mL [facility] Specimen Blood Performing Organization Address City/State/Zipcode Ph one Number [facility] DEPARTMENT OF [address] [place] [address] PATHOLOGY AND GENOMIC MEDICINE [address] * T4, free (07/09/2019 4:12 AM CDT) T4, free 2.0 (H) 0.9 - 1.7 ng/dL [facility] Specimen Blood Performing Organization Address City/[facility] Ph one Number [facility] DEPARTMENT OF [address] [place] [address] PATHOLOGY AND GENOMIC MEDICINE [address] * Urinalysis screen and microscopy, with reflex to culture (07/08/2019 12:03 PM CDT) Specimen site Clean catch [facility] Color, UA Yellow [facility] Appearance, UA Clear [facility] Specific 1.010 1.001 - 1.035 [place] gravity, [facility] pH, UA 7.0 5.0 - 8.5 [facility] Protein, UA Negative Negative [facility] Glucose, UA Negative Negative [facility] Ketones, UA Trace (A) Negative [facility] Bilirubin, UA Negative Negative [facility] Blood, UA Negative Negative [facility] Nitrite, UA Negative Negative [facility] Urobilinogen, <2.0 <2.0 [facility] Leukocyte Negative Negative [place] esterase, [facility] Epithelial <1 /HPF [place] cells, [facility] Round <1 0 - 1 /HPF [place] epithelial [place] cells, [facility] WBC, UA <1 0 - 4 /HPF [facility] RBC, UA <1 0 - 5 /HPF [facility] Bacteria, UA Few None seen [facility] Yeast, UA None seen [facility] Yeast with None seen [place] [facility] Hyaline casts, 6 /LPF [facility] Specimen Urine Performing Organization Address [facility] one Number [facility] DEPARTMENT OF [address] [place] [id number] PATHOLOGY AND GENOMIC MEDICINE [address] * Urine culture (07/08/2019 12:03 PM CDT) Pathologist [facility] [place] Urine culture SEE COMMENTComment: [place] Bacteriuria screen negative. [facility] Specimen Performing Organization Address City/State/Zipcode Ph one Number [facility] DEPARTMENT OF [address] [place] [address] PATHOLOGY AND GENOMIC MEDICINE [facility] [address] [place] [address] HOSPITAL * CT Abdomen Pelvis Wo Contrast (07/07/2019 3:29 AM CDT) Specimen Narrative Performed At EXAMINATION: CT ABDOMEN PELVIS WO CONTRAST HM RAD[facility] ANT CLINICAL HISTORY:83 years Female Abd pa in unspecified TECHNIQUE: Multiple axial images of t he abdomen and pelvis were obtained without intravenous administration of i odinated contrast. Sagittal and coronal computerized reformatted images were al so obtained. The lack of intravenous contrast reduces the sensitivity of detecting solid organ di sease. CT imaging was performed with iterative reconstruction techniques and /or automated exposure control to reduce radiation dose. COMPARISON: CT chest 08/28/2016, CT abd omen/pelvis 08/27/2016. FINDINGS: LUNG BASES: Small bilateral pleural effusions with adjacent passive atelectasis. Centrilobular emphysema of the lungs bilaterally. Scattered calcified granulomas. No cardiomegaly. Dense mitr al annular calcifications are noted. Multivessel coronary artery calcifications are noted. Atherosclerot ic, tortuous thoracic aorta without aneurysm. ABDOMEN: Liver: The liver is normal. No focal ma ss. Gallbladder/Biliary: The gallbladder is surgically absent. Dilation of the common bile duct is likely due to reser voir phenomenon. Spleen: The spleen is not enlarged. Pancreas: The pancreas is unremarkable. Adrenal Glands: The adrenal glands are unremarkable. Kidneys: Stable renal cortical scarring at the inferior pole the right kidney. Multiple subcentimeter hypodensities of the right kidney are too small to accurately characterize but likely repr esent benign renal cortical cysts. No hydronephrosis or nephrolithiasis. Vascular: An aortobiiliac stent graft i s seen. Intraluminal evaluation is limited given the lack of IV contrast. Scattered atherosclerotic calcifications are noted. Nodes: No enlarged retroperitoneal or m esenteric lymphadenopathy. Bowel: No bowel obstruction or inflamma tory changes. The appendix is unremarkable. Scattered colonic diverti cula without evidence of acute diverticulitis. Moderate amount of stoo l within the right colon. Ascites/fluid collections: No ascites o r fluid collections. PELVIS: No mass, fluid collection or significan t adenopathy. The uterus is absent. The urinary bladder appears normal. MUSCULOSKELETAL: No suspicious osseous lesions. Mild sof t tissue anasarca. Stable small fat-containing supraumbilical ventral h ernia. 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 The bones are demineralized. Moderate degenerative changes of the lumbar spine with mild dextrocurvature. IMPRESSION: 1.Moderate stool burden in the right co tomas, suggesting a component of constipation. No evidence of bowel obst ruction. 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 3.Small bilateral pleural effusions wit h adjacent bibasilar passive atelectasis. 4.Additional findings as described abov e. [facility]-[id number] Dictated and approved by radiology resi dent/fellow: Collins Chou M.D. I, Karan Soto M.D., personally review ed the images and resident's/fellow's findings and agree with the final repor t. Procedure Note Hm Interface, Radiology Results Incoming - 07/07/2019 4:52 AM CDT EXAMINATION: CT ABDOMEN PELVIS WO CONTRAST CLINICAL HISTORY:83 years Female Abd pain unspecified TECHNIQUE: Multiple axial images of the abdomen and pelvis were obtained without intravenous administration of iodinated contrast. Sagittal and coronal computerized reformatted images were also obtained. The lack of intravenous contrast reduces the sensitivity of detecting solid organ disease. CT imaging was performed with iterative reconstruction techniques and/or automated exposure control to reduce radiation dose. COMPARISON: CT chest 08/28/2016, CT abdomen/pelvis 08/27/2016. FINDINGS: LUNG BASES: Small bilateral pleural effusions with adjacent passive atelectasis. Centrilobular emphysema of the lungs bilaterally. Scattered calcified granulomas. No cardiomegaly. Dense mitral annular calcifications are noted. Multivessel coronary artery calcifications are noted. Atherosclerotic, tortuous thoracic aorta without aneurysm. ABDOMEN: Liver: The liver is normal. No focal mass. Gallbladder/Biliary: The gallbladder is surgically absent. Dilation of the common bile duct is likely due to reservoir phenomenon. Spleen: The spleen is not enlarged. Pancreas: The pancreas is unremarkable. Adrenal Glands: The adrenal glands are unremarkable. Kidneys: Stable renal cortical scarring at the inferior pole the right kidney. Multiple subcentimeter hypodensities of the right kidney are too small to accurately characterize but likely represent benign renal cortical cysts. No hydronephrosis or nephrolithiasis. Vascular: An aortobiiliac stent graft is seen. Intraluminal evaluation is limited given the lack of IV contrast. Scattered atherosclerotic calcifications are noted. Nodes: No enlarged retroperitoneal or mesenteric lymphadenopathy. Bowel: No bowel obstruction or inflammatory changes. The appendix is unremarkable. Scattered colonic diverticula without evidence of acute diverticulitis. Moderate amount of stool within the right colon. Ascites/fluid collections: No ascites or fluid collections. PELVIS: No mass, fluid collection or significant adenopathy. The uterus is absent. The urinary bladder appears normal. MUSCULOSKELETAL: No suspicious osseous lesions. Mild soft tissue anasarca. Stable small fat- containing supraumbilical ventral hernia. 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 The bones are demineralized. Moderate degenerative changes of the lumbar spine with mild dextrocurvature. IMPRESSION: 1.Moderate stool burden in the right col on, suggesting a component of constipation. No evidence of bowel obstruction. 2.Chronic appearing fracture of the righ t pubic tubercle with nonunion. 3.Small bilateral pleural effusions with adjacent bibasilar passive atelectasis. 4.Additional findings as described above . [id number] Dictated and approved by president + publisher/fellow: Collins Chou M.D. I, Karan Soto M.D., personally reviewed the images and resident's/fellow's findings and agree with the final report. Performing Organization Address City/State/[facility] Ph one Number [facility] [address] [place] [address] * CT Thoracic Spine Wo Contrast (07/07/2019 3:28 AM CDT) Specimen Narrative Performed At EXAMINATION: CT THORACIC SPINE WO CONTRAST HM RADIAN T CLINICAL HISTORY: Vertebral body fx ceasar pected thoracic osteoporosis suspected initial exam COMPARISON: None TECHNIQUE: Noncontrast enhanced imaging through the thoracic spine was performed with coronal and sagittal reconstructed images. CT scans are performed using radiation dose reduction techniques (iterative reconstruction and/or automated exposur e control). Technical factors are evaluated and adjusted to ensure approp riate moderation of exposure. Automated dose management technology is applied to adjust radiation exposure while achieving a diagnostic quality image. IMPRESSION: Thoracic kyphosis is maintained. Age-indeterminate compression deformity of T6 vertebral body is seen with loss of 75% height. Sclerotic appearance of the vertebral body is seen, and underlying pathologic lesion cannot be excluded. This would be better assessed with dedicated MRI of the thoracic spine, with and without contra st. Age-indeterminate compression deformity of T10 vertebral body is seen. Mild to moderate degenerative change of the thoracic spine is identified. No significant spinal canal stenosis. Ther e is severe right neural foraminal stenosis at T3-T4. There is severe bila teral neural foraminal stenosis at T7-T8. Moderate to severe bilateral neural foraminal stenosis is seen at T9-T10. There is severe left neural foraminal stenosis at T10-T11. Mild colonic diverticulosis is seen. Pa ankita is status post cholecystectomy. Small bilateral pleural effusions. Diff use emphysematous changes are seen of the pulmonary parenchyma. Some atelectasis is seen of the lower lobes. There is a spiculated nodule in the lef t upper lobe measuring 1.4 x 1.2 cm. A spiculated nodule is seen in the left u pper lobe measuring 0.9 x 0.9 cm. There is a 0.5 x 0.3 cm nodule in the right u pper lobe. Calcified granulomata are seen of the right lung. Aortic stent graft is seen of the abdom inal aorta, extending out of view caudally. Moderate atherosclerotic vasc ular calcifications. Simple cysts are seen of the left kidney. Some diverticu la are seen of the large bowel. Extensive coronary artery calcification s are identified. Thick mitral valve calcifications and some aortic valve ca lcifications are seen. Main pulmonary artery is dilated to 3.4 cm, compatible with pulmonary arterial hypertension. Some nodules are seen of the right lobe of the thyroid gland, the largest measuring 1.2 cm. These would better as sessed with dedicated thyroid ultrasound. Summary: Age-indeterminate compression deformity of T6 with loss of 75% height. Sclerotic appearance is seen, and underlying path ologic lesion cannot be excluded. Age-indeterminate compression deformity of T10 vertebral body, with loss of 25% height. Correlation for point tenderness at the areas of fracture is recommended. If indicated, further evaluation with MRI could be performed. A spiculated nodule is seen in the left upper lobe measuring 1.4 x 1.2 cm. Additional spiculated nodule is seen in the left upper lobe measuring 0.9 x 0.9 cm. Further evaluation of these finding s with PET/CT and/or tissue diagnosis would be of benefit. Additional incidental findings above. 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 CT scans are performed using radiation dose reduction techniques (iterative reconstruction and/or automated exposure control). Technical factors are evaluated and adjusted to ensure appropriate moderation of exposure. Automated dose management technology is applied to adjust radiation exposure while achieving a diagnostic quality image. IMPRESSION: Thoracic kyphosis is maintained. Age-indeterminate compression deformity of T6 vertebral body is seen with loss of 75% height. Sclerotic appearance of the vertebral body is seen, and underlying pathologic lesion cannot be excluded. This would be better assessed with dedicated MRI of the thoracic spine, with and without contrast. Age-indeterminate compression deformity of T10 vertebral body is seen. Mild to moderate degenerative change of the thoracic spine is identified. No significant spinal canal stenosis. There is severe right neural foraminal stenosis at T3-T4. There is severe bilateral neural foraminal stenosis at T7-T8. Moderate to severe bilateral neural foraminal stenosis is seen at T9-T10. There is severe left neural foraminal stenosis at T10-T11. Mild colonic diverticulosis is seen. Patient is status post cholecystectomy. Small bilateral pleural effusions. Diffuse emphysematous changes are seen of the pulmonary parenchyma. Some atelectasis is seen of the lower lobes. There is a spiculated nodule in the left upper lobe measuring 1.4 x 1.2 cm. A spiculated nodule is seen in the left upper lobe measuring 0.9 x 0.9 cm. There is a 0.5 x 0.3 cm nodule in the right upper lobe. Calcified granulomata are seen of the right lung. Aortic stent graft is seen of the abdominal aorta, extending out of view caudally. Moderate atherosclerotic vascular calcifications. Simple cysts are seen of the left kidney. Some diverticula are seen of the large bowel. Extensive coronary artery calcifications are identified. Thick mitral valve calcifications and some aortic valve calcifications are seen. Main pulmonary artery is dilated to 3.4 cm, compatible with pulmonary arterial hypertension. Some nodules are seen of the right lobe of the thyroid gland, the largest measuring 1.2 cm. These would better assessed with dedicated thyroid ultrasound. Summary: Age-indeterminate compression deformity of T6 with loss of 75% height. Sclerotic appearance is seen, and underlying pathologic lesion cannot be excluded. Age-indeterminate compression deformity of T10 vertebral body, with loss of 25% height. Correlation for point tenderness at the areas of fracture is recommended. If indicated, further evaluation with MRI could be performed. A spiculated nodule is seen in the left upper lobe measuring 1.4 x 1.2 cm. Additional spiculated nodule is seen in the left upper lobe measuring 0.9 x 0.9 cm. Further evaluation of these findings with PET/CT and/or tissue diagnosis would be of benefit. Additional incidental findings above. [facility]-[id number] Performing Organization Address City/State/Zipcode Ph one Number [facility] [address] [place] [address] * Troponin (07/07/2019 2:40 AM CDT) Troponin 0.022 0.000 - 0.040 ng/mL [place] Comment: [place] In patients suspected of HOSPITAL having a myocardial infarction, along with all other appropriate clinical measures and actions including ECG and other diagnostics as appropriate, measure Ultra TnI at 0 hrs and at 3 hrs. Myocardial infarction VERY LIKELY The 0 hr TnI level is > 0.10 ng/mL Myocardial infarction LIKELY The 0 hr TnI level is > 0.04 ng/mL and 3 hr level is increased or decreased by at least 0.020 ng/mL Myocardial infarction VERY UNLIKELY Both the 0 hr and 3 hr TnI levels <= 0.04 ng/mL(within normal limits) OR 0 hr is > 0.04 ng/mL and 3 hr is increased OR decreased by less than 0.020 ng/mL Specimen Performing Organization Address [facility] one Number [facility] DEPARTMENT OF [address] [place] [address] PATHOLOGY AND [facility] MEDICINE [address] * Partial thromboplastin time, activated (07/07/2019 2:40 AM CDT) PTT 25.5 23.0 - 36.0 sec [place] Comment: [place] PTT therapeutic range for HOSPITAL unfractionated heparin is 61.0-112.0 seconds which corresponds to Anti-Xa 0.3-0.7 U/ml. Specimen Blood Performing Organization Address [facility] one Number [facility] DEPARTMENT OF [address] [place] [address] PATHOLOGY AND [facility] MEDICINE [address] * Prothrombin time with INR (07/07/2019 2:40 AM CDT) Pathologist [facility] [place] Prothrombin 12.8 11.5 - 14.5 sec [facility] INR 1.0 [place] Comment: [place] The International Normalized HOSPITAL Ratio (INR) is a therapeutic monitoring tool for patients who are stable on oral anticoagulant therapy. An INR of 2.0-3.0 is suggested for deep vein thrombosis/pulmonary embolism. Specimen Blood Performing Organization Address [facility] one Number [facility] DEPARTMENT OF [address] [place] [address] PATHOLOGY AND GENOMIC MEDICINE [address] * B natriuretic peptide (07/07/2019 2:40 AM CDT) BNP 283 (H) 0 - 100 pg/mL [facility] Specimen Performing Organization Address [facility] one Number [facility] DEPARTMENT OF [address] [place] [address] PATHOLOGY AND GENOMIC MEDICINE [address] * Lactic acid level (07/07/2019 1:46 AM CDT) Lactic acid 1.2 0.5 - 2.2 mmol/L [facility] Specimen Blood Performing Organization Address [facility] one Number [facility] DEPARTMENT OF [address] [place] [address] PATHOLOGY AND [facility]OMIC [facility] [address] [place] [address] HOSPITAL * ECG 12 lead (07/07/2019 1:01 AM CDT) Ventricular 90 [facility] rate Atrial rate 90 [facility] NE interval 152 [facility] QRSD interval 84 [facility] QT interval 352 [facility] QTC interval 430 [facility] P axis 1 77 [facility] QRS axis 1 83 [facility] T wave axis 71 [facility] EKG impression Sinus rhythm with premature [facility] atrial complexes-Otherwise normal ECG-In automated comparison with ECG of 27-AUG-2016 02:24,-premature atrial complexes are now present-NE interval has decreased-T wave amplitude has increased in Inferior leads- Specimen Narrative Performed At This result has an attachment that is n ot available. Performing Organization Address City/State/Zipcode Ph one Number [facility] MUSE [address] [facility] [place] 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
--- OUTSIDE RECORDS SUMMARY | 2019-07-20 00:29 | XMS REPORT | Clinical Summary ---
Author Author [facility] Address Unknown Phone Unavailable Care Team Providers Care Converting Operator Name Role Phone PCP Unavailable Allergies Not on File Medications Not on file Active Problems Not on file Social History Date Tobacco Use Types Packs/Day Years Used Never Assessed Sex Assigned at Date Recorded Not on file Industry Job Start Date Occupation Not on file Not on file Not on file Travel End Travel History Travel Start No recent travel history available. Last Filed Vital Signs Not on file Plan of Treatment Not on file Results Not on fileafter 07/19/2018
--- OUTSIDE RECORDS SUMMARY | 2019-07-20 00:31 | XMS REPORT ---
Author Author [facility] t Organization [facility] t Address [address] [place] [address] Phone Unavailable Care Team Providers Care Paramedic Name Role Phone MD YOU CUELLO MD PCP YOU CUELLO Attphys Unavailable Ricardo Benitez DO Attphys Trina LARRY, Alonso Monsalve Attphys Kirsten LARRY, Kevin Attphys Luci LARRY, Evelyn Marcial Attphys Luis Antonio LARRY, Lupe Gore Attphys [phone] Abbey TAPIA Attphys Unavailable Arvin ESCALANTE Attphys Unavailable Juan R ESPINOZA Attphys Unavailable Juan R MACKENZIE Attphys Unavailable YOU CUELLO Admphys Unavailable SENDY GAGE Admphys Unavailable Juan R MACKENZIE Admphys Unavailable Payers Payer Name Policy Type Policy Number Effective Date Expiration Date Juan R aram MEDICAREMEDICARE PART A AND Bxxxxxxxxxxx1998-PresentHOUS ANNALSIE TXMedicare xxxxxxxxxxx 1998 00:00:00 Juan Edwards BCBSBCBS PAR/TRAD INMTryyiwnzdeasd59-PresentIndemnity xxxxxxxxxxxx 1999 00:00:00 Juan Edwards [facility] NA 1999 00:00:00 [facility] Medicare A & B NA 1998 00:00:00 [facility] Problems Condition Name Condition Details Condition Category Status Onset Date Resolution Date Last Treatment Date Treating Clinician Comments Source Closed wedge compression fracture of T10 vertebra Clos ed wedge compression fracture of T10 vertebra Disease Active 2019-07-07 00:00:00 Juan Edwards Contusion of arm Contusion of arm Disease Active 2017-07-28 00:00:00 Juan Edwards Balance problem Balance problem Disease Active 2016-03-24 00:00:00 Juan Edwards Pneumonia Pneumonia Problem Active [facility] Moderate dehydration Dehydration, moderate Problem Active [facility] Viral gastroenteritis Gastroenteritis and colitis, viral Problem Active [facility] Dehydration Dehydration Problem Active [facility] Skin tear of left upper arm without complication Skin tear of left upper arm without complication Problem Active [facility] Weakness Weakness Problem Active [facility] Allergies, Adverse Reactions, Alerts Allergy Name Allergy Type Status Severity Reaction(s) Onset Date Inacti ve Date Treating Clinician Comments Source No Known Allergies DA Active U 2019-05-07 00:00:00 [facility] Sulfa (Sulfonamide Antibiotics) Allergy to substance Active M oderate "MAKES ME SICK" 2019-02-04 00:00:00 [facility] Penicillin Allergy to substance Active 2019-02-04 00:00:00 [facility] Sulfa (Sulfonamide Antibiotics) Propensity to adverse reactions to drug Active GI Intolerance 2016-03-24 00:00:00 H surya Edwards Penicillin G Propensity to adverse reactions to drug Active Hives, Rash, Unknown Reaction 2016-03-23 00:00:00 07/07/19: p atient cannot recall reaction Juan Edwards Social History Social Habit Start Date Stop Date Quantity Comments Source History of tobacco use Cigarette Smoker Juan Edwards Sex Assigned At Brian joseamadou Edwards Cigarettes smoked current (pack per day) - Reported 00:00:00 2019-07-07 00:00:00 Juan Edwards Cigarette pack-years 2019-07-07 00:00:00 2019-07-07 00:00:00 Juan Edwards Alcohol intake 2019-07-07 00:00:00 2019-07-07 00:00:00 Current drinker of alcohol (finding) Juan Edwards Alcohol Comment 2016-08-27 00:00:00 2016-08-27 00:00:00 occassio nal drinker of liquor Juan Edwards Smoking Status Start Date Stop Date Source Never smoker Juan Martinez t Medications Ordered Medication Name Filled Medication Name Start Date Stop Da te Current Medication? Ordering Clinician Indication Dosage Frequency Signature (SIG) Comments Components Source levothyroxine (SYNTHROID) 50 mcg tablet 00:00:00 2019-08-14 23:59:00 Yes 50ug QD Take 1 tablet (50 mcg total) by mouth every morning for 30 days. Juan Edwards furosemide (LASIX) 20 mg tablet 2019-07-15 00:00:00 23:59:00 Yes 10mg QD Take 0.5 tablets (10 mg total) by mouth daily f or 30 days. Juan Edwards lidocaine (LIDODERM) 5 % 2019-07-15 00:00:00 2019-08-14 23:59:00 Yes 1{patch} Q24H Place 1 patch on the skin da graham for 30 days. Remove & Discard patch within 12 hours or as directed by MD Juan Edwards polyethylene glycol (MIRALAX) 17 gram packet 202 00:00:00 2019-08-14 23:59:00 Yes 17g QD Take 17 g by mouth daily for 30 days. Juan Edwards cefuroxime (CEFTIN) 250 MG tablet 2019-07-14 11:46:32 2019 00:00:00 No 250mg Q.5D Take 250 mg by m outh 2 (two) times a day. X 7 days, started on 07/05/19 Juan Edwards levothyroxine (SYNTHROID) 75 mcg tablet 11:46:32 2019-07-14 00:00:00 No 75ug QD Take 75 mcg by mouth daily. Juan Edwards fluticasone-vilanterol (BREO ELLIPTA) 10 0-25 mcg/dose blister with device powder for inhalation 2019-07-14 11:46:27 Yes QD Inhale 1 inhalations once daily. Juan Edwards lisinopril (PRINIVIL,ZESTRIL) 20 mg tablet 2019-07-14 11:46:27 Yes 20mg QD Take 20 mg by mouth daily. Roxana on [facility] umeclidinium (INCRUSE ELLIPTA) 62.5 mcg/actuation blister wi th device 2019-07-14 11:46:27 Yes 62.5ug QD Inhale 62.5 mcg da graham. Juan Edwards traMADoL (ULTRAM) 50 mg tablet 2019-07-14 11:46:27 Yes acute pain 50mg Q6H Take 50 mg by mouth every 6 (six) hours as needed for moderate pain .acute pain. Juan Edwards pantoprazole (PROTONIX) 40 MG EC tablet 2019-07-14 11:46:27 Yes 40mg QD Take 40 mg by mouth daily. Juan dorado calcium carbonate/vitamin D3 (CALCIUM 600 + D,3, ORAL) 2019-07-14 11:46:27 Yes 1{tbl} QD Take 1 tablet by mouth daily. Juan Edwards ferrous sulfate 325 (65 FE) MG tablet 2019-07-14 11:46:27 Y es 325mg QD Take 325 mg by mouth daily with breakfast. Juan Edwards therapeutic multivitamin (THERAGRAN) tablet 2019-07-14 11:46:27 Yes 1{tbl} QD Take 1 tablet by mouth daily. Juan Edwards Combivent Respimat 20-100 mcg/actuation mist inhaler 2019-07-14 00:00:00 2019-08-13 23:59:00 Yes 1{puff} Q4H Inhal e 1-2 puffs every 4 (four) hours as needed for shortness of breath for up to 30 days. Juan Edwards metoprolol succinate XL (TOPROL-XL) 25 mg 24 hr tablet 2019-07-14 00:00:00 2019-08-13 23:59:00 Yes 25mg QD Take 1 tablet (25 mg total) by mouth daily for 30 days. Juan Edwards acetaminophen-codeine (TYLENOL WITH CODEINE #3) 300-30 mg pe r tablet 2019-07-14 00:00:00 2019-07-17 23:59:00 No acute pain 1{tbl} Q6H Take 1 tablet by mouth every 6 (six) hours as needed for moderate pain for up to 3 days .acute pain. Juan Edwards levothyroxine (SYNTHROID, LEVOXYL) 75 mcg tablet 2019-07-08 09:25:18 2019-07-08 00:00:00 No 75ug QD Take 75 mcg by mouth every morning. Juan Edwards vitamin E 400 UNIT capsule 2019-07-07 17:08:31 2019-07-07 00:00: 00 No 400U QD Take 400 Units by mouth daily. Juan Edwards Meloxicam Meloxicam 2019-02-14 14:45:00 2019-07-01 00:00:00 No 7.5 Daily [facility] Tramadol Hcl (Ultram) 50 Mg TABLET Tramadol Hcl (Ultram) 50 Mg TABLET 2018-05-07 01:26:00 2018-12-11 00:00:00 No 50 Every 6 Hours as needed for Pain [facility] clopidogrel (PLAVIX) 75 mg tablet 2016-02-23 00:00:00 Yes 1{tbl} QD Take 1 tablet by mouth daily. Juan Nicholson st DULERA 200-5 mcg/actuation inhaler 2016-01-06 00:00:00 202 00:00:00 No 2{puff} Q.5D Inhale 2 puffs 2 (two) times a day. Juan Edwards COMBIVENT RESPIMAT 20-100 mcg/actuation mist inhaler 2015-12-24 00:00:00 2019-07-07 00:00:00 No 1{puff} Q4H Inhal e 1-2 puffs every 4 (four) hours as needed for shortness of breath. Anil Edwards Clopidogrel Bisulfate (Plavix) 75 Mg TABLET Clopidogre l Bisulfate (Plavix) 75 Mg TABLET Yes 75 Daily [facility] Ferrous Sulfate Ferrous Sulfate Yes .5 Daily [facility] Fluticasone/Vilanterol (Breo Ellipta 100-25 Mcg Inh) 1 Each BLST.W.DEV Fluticasone/Vilanterol (Breo Ellipta 100-25 Mcg Inh) 1 Each BLST.W.DEV Yes 1 Daily [facility] Ipratropium/Albuterol Sulfate (Combivent Respimat Inha l Thoreau) 4 Gm AER.W.ADAP Ipratropium/Albuterol Sulfate (Combivent Respimat Inhal Thoreau) 4 Gm AER.W.ADAP Yes 1 Every 4 Hours as needed for Whe ezing [facility] Lisinopril (Prinavil / Zestril) 20 Mg TABLET Lisinopri l (Prinavil / Zestril) 20 Mg TABLET Yes 20 Daily [facility] Pantoprazole Sodium (Protonix) 40 Mg TABLET. Pantopr azole Sodium (Protonix) 40 Mg TABLET. Yes 40 Daily [facility] Tramadol Hcl (Ultram 50MG*) 50 Mg TAB Tramadol Hcl (Ultram 50MG*) 5 0 Mg TAB Yes 50 Every 6 Hours as needed for Moderate Kimberly n (4-6) [facility] Umeclidinium [place] (Incruse Ellipta) 62.5 Mcg BLST.W .DEV Umeclidinium [place] (Incruse Ellipta) 62.5 Mcg BLST.W.DEV Yes 1 Daily [facility] Breo Inhaler Breo Inhaler 2019-07-01 00:00:00 No 1 Daily [facility] Incruse Inhaler Incruse Inhaler 2019-07-01 00:00:00 No 1 Daily [facility] Lisinopril Lisinopril 2019-07-01 00:00:00 No 20 Antionette ly [facility] Levofloxacin (Levaquin) 500 Mg TABLET Levofloxacin (Levaquin) 50 0 Mg TABLET 2018-12-11 00:00:00 No 500 Daily [facility] Vital Signs Vital Name Observation Time Observation Value Comments Source Heart rate 2019-07-14 08:25:00 83 /min Juan Edwards Respiratory rate 2019-07-14 08:25:00 16 /min Umair Edwards Oxygen saturation in Arterial blood by Pulse oximetry 07-13 08:14:00 96 /min Juan Edwards Systolic blood pressure 2019-07-14 07:28:00 124 mm[Hg] Juan Edwards Diastolic blood pressure 2019-07-14 07:28:00 65 mm[Hg] [facility] Body temperature 2019-07-14 07:28:00 36.17 Alyssa Hous annalise Alev[facility] Body Temperature 2019-07-05 08:03:00 96.1 [degF] [facility] Weight 2019-07-04 00:36:00 105 [lb_av] [facility] BMI (Body Mass Index) 2019-07-04 00:36:00 16.9 kg/m2 [facility] Body height 2019-05-16 09:24:00 167.6 cm [facility] Body weight 2019-05-16 09:24:00 [facility] 2019-05-16 09:24:00 23.40 kg/m2 [facility] Procedures Procedure Date / Time Performed Performing Clinician Sour e BASIC METABOLIC PANEL 2019-07-14 03:45:00 Kevin Marquez ESTIMATED GFR 2019-07-14 03:45:00 Kevin Marquez HC COMPLETE BLD COUNT W/AUTO DIFF 2019-07-13 08:52:00 Bradley Marquez SURGICAL PATHOLOGY REQUEST 2019-07-12 15:45:00 Kevin Marquez IR KYPHOPLASTY FST VERT BODY THORA 2019-07-12 15:22:01 Toña Gage HC COMPLETE BLD COUNT W/AUTO DIFF 2019-07-11 04:44:00 Bradley Marquez TTE COMPLETE, WO CONTRAST, W DOPPLER ([id number]) 2019-07-10 14:0 0:00 Shmuel Ford Alex-Annalee Juan Edwards CARCINOEMBRYONIC ANTIGEN (CEA) 2019-07-10 04:13:00 Keely Borrero CBC WITH PLATELET AND DIFFERENTIAL 2019-07-10 04:13:00 Kevin Marquez COMPREHENSIVE METABOLIC PANEL 2019-07-10 04:13:00 Kevin Marquez ESTIMATED GFR 2019-07-10 04:13:00 Kevin Marquez Meth odkathleen NM BONE SCAN 3 PHASE 2019-07-09 12:36:03 Kevin Marquez CBC WITH PLATELET AND DIFFERENTIAL 2019-07-09 04:12:00 Kevin Marquez COMPREHENSIVE METABOLIC PANEL 2019-07-09 04:12:00 Kevin Marquez THYROID STIMULATING HORMONE 2019-07-09 04:12:00 Kevin Marquez T4, FREE 2019-07-09 04:12:00 Kevin Marquez ESTIMATED GFR 2019-07-09 04:12:00 Kevin Marquez URINE CULTURE 2019-07-08 12:03:00 Kevin Marquez URINALYSIS SCREEN AND MICROSCOPY, WITH REFLEX TO CULTURE 202 12:03:[address] ABDOMEN PELVIS WO CONTRAST 2019-07-07 03:29:[address] THORACIC SPINE WO CONTRAST 2019-07-07 03:28:55 Olivier Benitez TROPONIN 2019-07-07 02:40:00 Olivier Benitez B NATRIURETIC PEPTIDE 2019-07-07 02:40:00 Olivier Benitez PARTIAL THROMBOPLASTIN TIME (PTT) 2019-07-07 02:40:00 Brando Benitez PROTHROMBIN TIME WITH INR 2019-07-07 02:40:00 Olivier Benitez HC COMPLETE BLD COUNT W/AUTO DIFF 2019-07-07 02:25:00 Brando Benitez COMPREHENSIVE METABOLIC PANEL 2019-07-07 01:46:00 Olivier Benitez LACTIC ACID LEVEL 2019-07-07 01:46:00 Olivier Benitez Me thodist ESTIMATED GFR 2019-07-07 01:46:00 Olivier Benitez ECG 12-LEAD 2019-07-07 01:01:42 Olivier Benitez Computed tomography of abdomen and pelvis with contrast 00:00:00 [facility] Computed tomography of chest with contrast 2019-06-30 00:00:[address] [facility] [address] angiography of chest 2019-05-05 00:00:00 TAPIA LEIGHA Potter [facility] Computed tomography angiography of abdom en and pelvis without then with contrast 2019-05-05 00:00:00 STARBUCKLEIGHA [facility] Computed tomography of chest without contrast 2019-02-19 00:00:0 0 CUATE [facility] Computed tomography of lumbar spine without contrast 2019-01 00:00:00 CUATEYOU [facility] Computed tomography of abdomen and pelvis with contrast 2018 00:00:00 STARBUCK LEIGHA Potter [facility] Plan of Care Planned Activity Planned Date Details Comments Source Future Scheduled Test 2019-09-21 00:00:00 INFLUENZA VACCINE [code = INFLUENZA VACCINE] [facility] Future Scheduled Test 1998 00:00:00 65+ PNEUMOCOCCAL V ACCINE (1 of 2 - PCV13) [code = 65+ PNEUMOCOCCAL VACCINE (1 of 2 - PCV13)] [facility] Future Scheduled Test 1983-10-05 00:00:00 SHINGLES VACCINES (#1) [code = SHINGLES VACCINES (#1)] [facility] Instructions Chest Pain - Noncardiac [facility] Encounters Start Date/Time End Date/Time Encounter Type Admission Type Attendi [facility] Care Department Encounter ID Source 2019-07-07 00:00:00 2019-07-14 00:00:00 Inpatient KEVIN MARQUEZ [facility] [id number] [facility] 2019-06-30 23:45:00 2019-07-05 08:22:00 Discharged Inpatient 1 YOU CUELLO [facility] [id number] [facility] 2019-05-05 21:38:00 2019-05-06 02:55:00 Departed Emergency Room 1 TAPIA [facility] [id number] [facility] 2019-02-18 17:24:00 2019-02-20 12:23:00 Discharged Inpatient (obs) 1 CUATEYOU [facility] [id number] [facility] 2019-02-14 13:45:00 2019-02-14 15:02:00 Departed Emergency Room [facility] [id number] [facility] 2019-02-04 11:47:00 2019-02-04 15:40:00 Departed Emergency Room 1 BRITTNI ESCALANTE [facility] [id number] [facility] 2019-02-02 16:59:00 2019-02-02 17:34:00 Departed Emergency Room [facility] [id number] [facility] 2018-12-11 10:08:00 2018-12-13 15:03:00 Discharged Inpatient (obs) 1 LEIGHA TAPIA [facility] [id number] [facility] 2018-05-07 00:02:00 2018-05-07 01:30:00 Departed Emergency Room 1 SARAH ESPINOZA [facility] [id number] [facility] 2018-04-07 02:44:00 2018-04-11 18:10:00 Discharged Inpatient 1 MICHELLE MACKENZIE [facility] [id number] [facility] 2018-04-02 14:22:00 2018-04-06 07:52:00 Discharged Inpatient 1 YOU CUELLO [facility] [id number] [facility] 2018-02-23 09:57:00 2018-02-23 12:55:00 Departed Emergency Room [facility] [id number] [facility] Results Test Description Test Time Test Comments Results Result Comments Source CHEST SINGLE (PORTABLE) 2019-07-20 00:17:[address] [address] Patient Name: SHELBY PEÑA MR #: [id number] : 1935 Age/Sex: 83/F Req #: [id number] Adm Physician: YOU CUELLO MD Ordered by: SARAH SHEETS DO Report #: [id number] Location: [facility] Room/Bed: [facility]-3 Procedure: [id number] DX/CHEST SINGLE (PORTABLE) Exam Date: 07/19/19 Exam Time: 2252 REPORT STATUS: Signed EXAMINATION: CHEST SINGLE (PORTABLE) INDICATION: Chest pain COMPARISON: Chest CT 06/30/2019, chest x-ray 05/05/2019 FINDINGS: TUBES and LINES: Partially visualized abdominal aortic stent.. LUNGS: Hyperinflated lungs. Subtle bibasilar/infrahilar haziness No consolidations. Scattered calcified granulomas. Stable 1.2 cm left upper lobe nodule. PLEURA: No pleural effusion or pneumothorax. HEART AND MEDIASTINUM: Mild widening of the mid/upper mediastinum possibly due to the aorta. Cardiac size is mildly enlarged. Tortuous ectatic atherosclerotic thoracic aorta. BONES AND SOFT TISSUES: Degenerative changes. No acute osseous lesion. Soft tissues are unremarkable. UPPER ABDOMEN: No free air under the diaphragm. Cholecystectomy clips. IMPRESSION: New mild widening of the medi astinum compared to chest x-ray on could be due to acute aortic pathology, patient had ulcerative atherosclerotic plaque in the thoracic aorta seen on chest CT 06/30/2019. Recommend CTA chest. Stable 1.2 cm left upper lobe nodule. Findings of pulmonary emphysema and bronchitis. Subtle bibasilar/infrahilar haziness can be due to atelectasis or pneumonia. Mild cardiomegaly and pulmonary vascular congestion. Stable 1.2 cm left upper lobe nodule. A follow-up chest CT in December 2019 is recommended. Signed by: Jose A Franks DO on 07/20/2019 12:24 AM Dictated By: JOSE A FRANKS DO Transcribed By: BILL on 07/20/1923 COPY TO: SARAH SHEETS DO Surgical pathology request 2019-07-15 16:35:43 Test Item Case number (test code = [id number]) [id number] Surgical pathology report (test code = 2255) See link below for PDF Lab Report Result status (test code = 2031866) This is Final Report for [id number] [facility] metabolic [id number] 05:53:17* Test Item Value Reference Range Interpretation Comments Sodium (test code = 2951-2) 137 135- 148 mEq/L Potassium (test code = 2823-3) 3.5 3.5- 5.0 mEq/L Chloride (test code = 5-0) 100 98- 112 mEq/L CO2 (test code = 2027-9) 25 24- 31 mEq/L Anion gap (test code = 02773-2) 12@ANIO 7- 15 mEq/L BUN (test code = 3094-0) 14 mg/dL 8-23 Creatinine (test code = 2160-0) 0.72 mg/dL 0.5-0.9 Glucose (test code = 2345-7) 125 mg/dL 65-99 H Calcium (test code = 48587-5) 8.7 mg/dL 8.8-10.2 L Lab Interpretation (test code = 98899-9) [facility]normal [facility] [id number] 05:53:17* Test Item Value Reference Range Interpretation Comments Estimated GFR (test code = 5488) 76 mL/min/1.73 m2 Catergory Units InterpretationG1 >=90 Normal or highG2 60-89 Mildly qfxmwwhyzR5c 45-59 Mildly to moderately nauvrbnxaE5j 30-44 Moderately to severely decreasedG4 15-29 Severely decreasedG5 <15 Kidney failureThe eGFR was calculated using the Chronic Kidney Disease Epidemiology Collaboration (CKD-EPI) equation. Interpretation is based on recommendations of the National Kidney Foundation-Kidney Disease Outcomes Quality Initiative (NKF-KDOQI) published in 2014. [facility] with platelet and [id number] 09:52:52* Test Item Value Reference Range Interpretation Comments WBC (test code = 80092-7) 6.22 4.50- 11.00 k/uL RBC (test code = 70114-8) 4.12 m/uL 4.2-5.5 L HGB (test code = 718-7) 11.5 g/dL 12-16 L HCT (test code = 4544-3) 36.2 % 37-47 L MCV (test code = 787-2) 87.9 fL 82-100 MCH (test code = 785-6) 27.9 pg 27-34 MCHC (test code = 786-4) 31.8 g/dL 31-37 RDW - SD (test code = 08294-1) 51.0 fL 37-55 MPV (test code = 44575-6) 10.0 fL 8.8-13.2 Platelet count (test code = 31044-1) 232 150- 400 k/uL Nucleated RBC (test code = 62951-9) 0.00 /100 WBC Neutrophils (test code = 15477-7) 68.0 % 39-69 Lymphocytes (test code = 69424-9) 19.6 % 25-45 L Monocytes (test code = 19021-5) 9.6 % 0-10 Eosinophils (test code = 31999-6) 1.8 % 0-5 Basophils (test code = 03840-3) 0.5 % 0-1 Immature granulocytes (test code = 99325-4) 0.5 % 0-1 "Immature granulocytes" (promyelocytes, myelocytes, metamyelocytes) Lab Interpretation (test code = 19750-0) Abnormal [facility] Kyphoplasty [id number] 16:24:48Hm Interface, Radiology Results 07/12/2019 4:27 PM CDTEXAMINATION IR KYPHOPLASTY FST VERT BODY THORAFluoroscopic-guided vertebroplasty of T7 compression fracture. COMPARISON: CT scan of the thoracic spineCLINICAL HISTORY:83-year-old female patient with acute compression fracture of T7 vertebral body with at least 20% height loss. PREOPERATIVE DIAGNOSIS:Osteoporotic compression fracture of T7. POSTOPERATIVE DIAGNOSIS:Same. BLOOD LOSS: MinimalCOMPLICATIONS: NoneAfter discussion of the radiographic findings and the compression fracture of T7 with the patient the T7 vertebral body, we have decided to treat T7 compression fracture with percutaneous vertebroplasty with fracture reduction and internal fixation. The patient understood the risks and benefits of the procedure. Inform ed consent was obtained.DESCRIPTION:The patient was brought to the Fluoroscopy S uite and placed on the fluoroscopy table in prone position. The thoracic region was prepped and draped in standard sterile fashion. The imaging intensifiers wer e placed in both AP and lateral fluoroscopic planes. Transpedicular approach was utilized to access the T7 vertebral compression fracture bilaterally. The proc edure was performed under Monitored Anesthesia Care, which [...] planes simultaneously. Following satisfactory placement of the need les, Under fluoroscopic imaging, following balloon inflation, internal fixation was achieved through a low-pressure injection of a bone void filler, namely poly methylmethacrylate (PMMA). The cannulas were then removed and hemostasis was ach ieved with adequate pressure. POST-PROCEDURE:All incisions were closed with Ster i-Strips and pressure dressing. The patient was kept in the prone position for a pproximately 30 minutes. The patient was then turned supine, monitored briefly and returned to the post-procedure monitoring unit. The patient was awake and mo ving all extremities and at this time showed no neurologic deficit. No complicat ions were encountered. Blood loss was noted to be minimal. Total fluoroscopic ti me was 14.5 minutes.KA R 231 mGyIMPRESSION:1 Successful uncomplicated fluorosc opic-guided vertebroplasty of T7 vertebral body. There was adequate cement distr ibution in the fracture body and no evidence of complications.[facility]-[id number] [facility], (w Contrast, Strain and 3D if needed)2019-07-10 18:36:00Interface, Radiology Results In - 07/10/2019 6:36 PM CDT Echocardiography Report [id number] [address], [place], [place] [address].Name: SHELBY PEÑA.ID: [id number] .Date: 07/10/2019 Refer.MD: KEVIN MARQUEZ MD Exam Time: 1:32:00 PM Study Type:Routine Echo Height: 66in Weight: 144.7lb BSA: 1.74 m2 Age: 8 1935,83Y Sex: FEMALE BP: 114/57 HR: 92 bpm Sonogrphr: MYRTLE Gallego Pat. Stat.:Inpatient Room: YY8736G Study Status:Final Echo Event ID:[id number] Order ID: [id number] Reason for Study:HTN, preop clearanceHistory / Clinical:COPD, Coronary Artery Disease, HypertensionProcedures: 2D Echo, Colorflow Doppler, PortableRace: C SUMM BRITTANY: Hyperdynamic LV function, normal RV syst olic function is normal.Severe calcific mitral stenosis. Estimated PA systolic p ressure is 36 mmHg + RAP. FINDINGS: LV: LV size is normal. Concentric left ventricul ar remodeling. LV EF is hyperdynamic. Overall wall motion is hyperdynam ic. Estimated EF is >70%.RV: RV size is normal. RV systolic function is normal.LA: LA volume is moderately enlarged.RA: RA size is normal.AO: Aortic root diameter is normal.MATTIE: Trace anterior pericardial effusion.AV: Mild thickening and calcification of AV leaflets.MV: Moderate thickening of mitral leaflets. Severe mitral annular calcification. Severe mitral stenosis. Estimated mean mitral valve gradient 10 mmHg at a heart rate of 98 b/min with a mitral valve area of 0.9 cmPV: Pulmonic valve not well seen.TV: No structural TV abnormalities noted.Oquendo: Unable to assess diastolic function due to mitral valve pathology. .Other: Estimated PA systolic pressure is 36 mmHg + RAP. MEASURE MENTS: 2DPa rasternal Long Stanley Ao An 1.8 cm LVPWd 0.96 cm Ao Rtd 2.1 cm Index 1.2 cm/m2 LA Ds 4.1 cm IVSd 0.91 cm RWT 0.46 LV IDd 4.2 cm Index 2.4 cm/m2 LV Mass 125 g (87-129) LVIDs 2.7 cm LVM Index 72 g /m2 LV%fs 36 % LVOT 1.8 cm LA Sng Plane LA Area 22 cm2 (8.8-23.4) LA Vol 76 ml Index 44 ml/m 2 LA LngAx 5.4 cm RA Sng Plane RA Vol 38 ml Index 22 ml/m2 RA LngAx 5.4 cm RA Area 16 cm2 (8.3-19.5)LVOT LVOT Area 2.5 cm2 DOPPLERLVOT Stroke Vol LVOT TVI 20 cm HR 97 bpm LVOT LVOT SV 51 ml LVOT CO 4.9 l/min SVi 29 ml/m2 LVOT CI 2.8 l/m/m2MV Forward Flow MV pkVel 225 cm/s MV Mean G 9.8 mmHg MV pkPG 20 mmHg MV TVI 54 cm TV Pressure Gradient TV PkVel 300 cm/s TV PG 36 mmHg Signed 07/10/2019 06:36 Quynh Miller M.D.[place] MethodistCarcinoembryonic antigen (CEA)2019-07-10 05:30:39* Test Item Value Reference Range Interpretation Comments CEA (test code = 2039-6) 9.2 ng/mL 0-3.8 H Ref erence range for heavy smokers: 0.0 - 5.5 ng/mLThe JOSE L Carole 8000 CEA immunoassay was used. Results obtained with different assay methods or kits should not be used interchangeably and may be different. Lab Interpretation (test code = 64524-4) Abnormal [place] MethodistComprehensive metabolic [id number] 05:24:43* Test Item Value Reference Range Interpretation Comments Sodium (test code = 2951-2) 138 135- 148 mEq/L Potassium (test code = 2823-3) 4.4 3.5- 5.0 mEq/L Chloride (test code = 5-0) 102 98- 112 mEq/L CO2 (test code = 2027-9) 26 24- 31 mEq/L Anion gap (test code = 54708-9) 10@ANIO 7- 15 mEq/L BUN (test code = 3094-0) 12 mg/dL 8-23 Creatinine (test code = 2160-0) 0.72 mg/dL 0.5-0.9 Glucose (test code = 2345-7) 100 mg/dL 65-99 H Calcium (test code = 50529-6) 8.5 mg/dL 8.8-10.2 L Protein (test code = 2885-2) 5.4 g/dL 6.3-8.3 L - 4.6- 7.0 g/dL1 week 4.4-7.6 g/dL7 months-1year 5.1-7.3 g/dL1-2 years 5.6-7.5 g/dL>3 years 6.0-8.0 g/eV81-684 6.3-8.3 g/dL Albumin (test code = 1751-7) 2.7 g/dL 3.5-5 L A/G ratio (test code = 1759-0) 1.0 0.7-3.8 Alkaline phosphatase (test code = 6768-6) 96 U/L 35-104 AST (test code = 1920-8) 13 U/L 10-35 ALT (test code = 1742-6) 11 U/L 5-50 Total bilirubin (test code = 1974-2) <0.2 0-1.2 Lab Interpretation (test code = 72838-1) Abnormal [facility] Bone Scan 3 [id number] 14:38:58Hm Interface, Radiology Results - 07/09/2019 2:42 PM CDTPROCEDURE: NM BONE SCAN 3 PHASECLINICAL HISTORY: PLEASE EVAL FOR COMPRESSION FRACTURES THORACIC AND LUMBARCOMPARISON: Bone scan 04/12/2007; CT thoracic spine 07/07/2019, CT abdomen and pelvis 07/07/2019TECHNIQUE: 25 millicuries of bcevwunrdi-79c-MGL were administered IV, followed by blood flow and blood pool imaging of the thoracolu mbar spine. 3-5 hours later, delayed imaging was performed.FINDINGS:Moderately i ncreased blood pool activity in a linear, horizontal fashion in the mid thoracic spine. Delayed imaging demonstrates marked uptake in similar fashion in this re gion in T7, with mild uptake in T6. The vertebral numbering assumes Mild degener ative uptake in the upper thoracic and lower lumbar spine. Physiological renal e xcretion.IMPRESSION:1.Acute compression fracture of what I believe is T7. This i s the markedly compressed, sclerotic vertebra on recent thoracic spine CT.2.Mild er uptake just superior to this is most likely degenerative, though a compressio n fracture is not excluded.[facility]-[id number] MethodistT4, [id number] 05:31:28* Test Item Value Reference Range Interpretation Comments T4, free (test code = 3024-7) 2.0 ng/dL 0.9-1.7 H Lab Interpretation (test code = 68987-1) Abnormal [place] MethodistThyroid stimulating qqfrerl2174-89-62 05:31:28* Test Item Value Reference Range Interpretation Comments TSH (test code = 3016-3) 1.73 0.27- 4.20 uIU/mL [place] MethodistUrine xgnmnop6182-36-08 17:09:43* Test Item Value Reference Range Interpretation Comments Urine culture (test code = 1879705) SEE COMMENT Bacteriuria screen negative. [place] MethodistUrinalysis screen and microscopy, with reflex to culture 2019-07-08 17:09:40* Test Item Value Reference Range Interpretation Comments Specimen site (test code = 7708436) Clean catch Color, UA (test code = 5778-6) Yellow Appearance, UA (test code = 5767-9) Clear Specific gravity, UA (test code = 5811-5) 1.010 1.001-1.035 pH, UA (test code = 5803-2) 7.0 5.0-8.5 Protein, UA (test code = 96454-4) Negative Negative Glucose, UA (test code = 11354-3) Negative Negative Ketones, UA (test code = 2514-8) Trace Negative A Bilirubin, UA (test code = 5770-3) Negative Negative Blood, UA (test code = 5794-3) Negative Negative Nitrite, UA (test code = 5802-4) Negative Negative Urobilinogen, UA (test code = 56323-3) <2.0 <2.0 Leukocyte esterase, UA (test code = 5799-2) Negative Negative Epithelial cells, UA (test code = 5787-7) <1 /HPF Round epithelial cells, UA (test code = 29439-9) <1 0- 1 /HPF WBC, UA (test code = 5821-4) <1 0- 4 /HPF RBC, UA (test code = 05748-1) <1 0- 5 /HPF Bacteria, UA (test code = 56553-0) Few None seen Yeast, UA (test code = 17831-6) None seen Yeast with pseudohyphae, UA (test code = 75584-0) None seen Hyaline casts, UA (test code = 5796-8) 6 /LPF Lab Interpretation (test code = 97911-2) Abnormal [place] MethodistECG 12 [id number] 21:30:24* Test Item Value Reference Range Interpretation Comments Ventricular rate (test code = 253) 90 Atrial rate (test code = 255) 90 MA interval (test code = 266) 152 QRSD interval (test code = 260) 84 QT interval (test code = 264) 352 QTC interval (test code = 265) 430 P axis 1 (test code = 267) 77 QRS axis 1 (test code = 268) 83 T wave axis (test code = 270) 71 EKG impression (test code = 273) Sinus rhythm with pre mature atrial complexes- Otherwise normal ECG-In automated comparison with ECG of 27-AUG-2016 02:24,- premature atrial complexes are now present-MA interval has decreased-T wave am plitude has increased in Inferior leads- [place] MethodistCT Thoracic Spine Wo Oexpciqx2528-06-38 05:07:09Hm Interface, Radiology Results - 07/07/2019 5:10 AM CDTEXAMINATION: CT THORACIC SPINE WO CONTRASTCLINICAL HISTORY: Vertebral body fx suspected thoracic osteoporosis suspected initial examCOMPARISON: NoneTECHNIQUE: Noncontrast enhanced imaging through the thoracic spine was performed with coronal and sagi ttal reconstructed images.CT scans are performed using radiation dose reduction techniques (iterative reconstruction and/or automated exposure control). Technic al factors are evaluated and adjusted to ensure appropriate moderation of exposu re. 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 Sclerotic appearance of the vertebral body is seen, and und erlying pathologic lesion cannot be excluded. This would be better assessed with dedicated MRI of the thoracic spine, with and without contrast.Age-indeterminate compression deformity of T10 vertebral body is seen.Mild to moderate degenerat barby change of the thoracic spine is identified. No significant spinal canal sten osis. There is severe right neural foraminal stenosis at T3-T4. There is severe bilateral neural foraminal stenosis at T7-T8. Moderate to severe bilateral neura l foraminal stenosis is seen at T9-T10. There is severe left neural foraminal st enosis at T10-T11.Mild colonic diverticulosis is seen. Patient is status post ch olecystectomy.Small bilateral pleural effusions. Diffuse emphysematous changes a re seen of the pulmonary parenchyma. Some atelectasis is seen of the lower lobes .There is a spiculated nodule in the left upper lobe measuring 1.4 x 1.2 cm. A s piculated nodule is seen in the left upper [...] Some diverticula are seen of the large bowel.Ex tensive coronary artery calcifications are identified. Thick mitral valve calcif ications and some aortic valve calcifications are seen. Main pulmonary artery is dilated to 3.4 cm, compatible with pulmonary arterial hypertension.Some nodules are seen of the right lobe of the thyroid gland, the largest measuring 1.2 cm. These would better assessed with dedicated thyroid ultrasound.Summary:Age-indete rminate compression deformity of T6 with loss of 75% height. Sclerotic appearanc e is seen, and underlying pathologic lesion cannot be excluded.Age-indeterminate compression deformity of T10 vertebral body, with loss of 25% height.Correlation for point tenderness at the areas of fracture is recommended. If indicated, fu rther evaluation with MRI could be performed.A spiculated nodule is seen in the left upper lobe measuring 1.4 x 1.2 cm. Additional spiculated nodule is seen in the left upper lobe measuring 0.9 x 0.9 cm. Further evaluation of these findings with PET/CT and/or tissue diagnosis would be of benefit.Additional incidental f indings above.[facility]-[id number] MethodistCT Abdomen Pelvis Wo Contrast 2019-07-07 04:48:56Hm Interface, Radiology Results 07/07/2019 4:52 AM CDTEXAMINATION: CT ABDOMEN PELVIS WO CONTRASTCLINICAL HISTORY:83 years Female Abd pain unspecifiedTECHNIQUE: Multiple axial images of the abdomen and pelvis were obtained without intravenous administration of iodinated contrast. Sagittal and coronal computerized reformatted images were also obtained. The lack of intravenous contrast reduces the sensitivity of detecting solid organ disease. CT imaging was performed with iterative reconstruction techniques and/or automated exposure control to reduce radiation dose. COMPARISON: CT chest 08/28/2016, CT abdomen/pelvis 08/27/2016.FINDINGS:LUNG BASES:Small bilateral pleural effusions with adjacent passive atelectasis. Centrilobular emphysema of the lungs bilaterally. Scattered calcified granulomas. No cardiomegaly. Dense mitral annular calcifications are noted. Multivessel coronary artery calcifications are noted. Atherosclerotic, tortuous thoracic aorta without aneurysm.ABDOMEN:Liver: The liver is normal. No focal mass.Gallbladder/Biliary: The gallbladder is surgically absent. Dilation of the common bile duct is likely due to reservoir phenomenon. Spleen: The spleen is not enlarged.Pancreas: The pancreas is unremarkable.Adrenal Glands: The adrenal glands are unremarkable.Kidneys: Stable renal cortical scarring at the inferior pole the right kidney. Multiple subcentimeter hypodensities of the right kidney are too small to accurately characterize but likely represent benign renal cortical c ysts. No hydronephrosis or nephrolithiasis.Vascular: An aortobiiliac stent graft is seen. Intraluminal evaluation is limited given the lack of IV contrast. Scat tered atherosclerotic calcifications are noted.Nodes: No enlarged retroperitonea l or mesenteric lymphadenopathy.Bowel: No bowel obstruction or inflammatory hi ges. The appendix is unremarkable. Scattered colonic diverticula without evidenc e of acute diverticulitis. Moderate amount of stool within the right colon.Ascit es/fluid collections: No ascites or fluid collections.PELVIS:No mass, fluid tom ection or significant adenopathy. The uterus is absent. The urinary bladder appe ars normal.MUSCULOSKELETAL: No suspicious osseous lesions. Mild soft tissue anas arca. Stable small fat-containing supraumbilical ventral hernia. 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 The bones are demineraliz ed. Moderate degenerative changes of the lumbar spine with mild dextrocurvature. IMPRESSION:1.Moderate stool burden in the right colon, suggesting a component of constipation. 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 [facility]-[id number] and approved by vice president corporate communications/fellow: Collins Chou M.D.I, Karan Soto M.D., personally reviewed the images and resident's/fellow's findings and agree with the final report.[facility]istB natriuretic peptide 2019-07-07 03:25:50* Test Item Value Reference Range Interpretation Comments BNP (test code = 96407-3) 283 pg/mL 0-100 H Lab Interpretation (test code = 13975-1) [facility]normal [facility] PasoIssmejktgMsgxphvx9025-60-71 03:25:36* Test Item Value Reference Range Interpretation Comments Troponin (test code = 95069-8) 0.022 ng/mL 0-0.04 In patients suspected of having a myocardial infarction, along with all other appropriate clinical measures and actions including ECG and other diagnostics as appropriate, measure Ultra TnI at 0 hrs and at 3 hrs.Myocardial infarction VERY LIKELYThe 0 hr TnI level is > 0.10 ng/mL Surjit cardial infarction LIKELYThe 0 hr TnI level is > 0.04 ng/mL and 3 hr level is increased or decreased by at least 0.020 ng/mL Myocardi al infarction VERY UNLIKELYBoth the 0 hr and 3 hr TnI levels <= 0.04 ng/mL(within normal limits) OR 0 hr is > 0.04 ng/mL and 3 hr is increased OR decreased by less than 0.020 ng/mL [facility] MethodistPartial thromboplastin time, uckmcwxjv5932-17-78 03:09:33* Test Item Value Reference Range Interpretation Comments PTT (test code = 73384-0) 25.5 23.0- 36.0 sec PTT therapeutic range for unfractionated heparin is61.0-112.0 seconds which corresponds to Anti-Xa0.3-0.7 U/ml. [place] MethodistProthrombin time with JSN4511-50-97 03:09:28* Test Item Value Reference Range Interpretation Comments Prothrombin time (test code = 5902-2) 12.8 11.5- 14.5 sec INR (test code = 71051-7) 1.0 Th e International Normalized Ratio (INR) is a therapeutic monitoring tool for patients who are stable on oral anticoagulant therapy. An INR of 2.0-3.0 is suggested for deep vein thrombosis/pulmonary embolism. [place] MethodistLactic acid ujfvd8067-72-13 03:01:49* Test Item Value Reference Range Interpretation Comments Lactic acid (test code = 65967-0) 1.2 mmol/L 0.5-2.2 [place] MethodistABDOMEN-1VIEW (KUB)2019-07-02 07:00:00 [place] [address] Patient Name: SHELBY PEÑA MR #: [id number] : 1935 Age/Sex: 83/F Req #: [id number] Adm Physician: YOU CUELLO MD Ordered by: YOU CUELLO MD Report #: [id number] Location: MED/SURG3 Room/Bed: [facility] Procedure: [id number] DX/ABDOMEN-1VIEW (K UB) Exam Date: 07/02/19 Exam Time: 639 REPORT STATUS: Signed EXAM: Abdomen Radiogra ph 1 View(s) INDICATION: bloating [id number] COMPARISON: C T abdomen pelvis 06/30/2019 FINDINGS: Gaseous distention of the colon. Multiple air-filled loops of small bowel. No abnormal soft tissue calcifica tion. Small bilateral pleural effusions with adjacent atelectasis. Aor toiliac stent graft. IMPRESSION: Gaseous distention of the colon is no t substantially changed when compared to the previous CT scan of the abdomen a nd pelvis. Multiple air-filled loops of small bowel without distinct radiograp hic evidence of bowel obstruction. Signed by: Prakash Zhang MD on 07/02/19 7:02 AM Dictated By: PRAKASH ZHANG MD 1 Transcribed By: BILL on 07/02/19701 C OPY TO: YOU CUELLO MD Serum or plasma 25-hydroxyvitamin D measurement (mass/volume)2019-07-01 10:40:00* Test Item Value Reference Range Interpretation Comments 25-Hydroxy Vitamin D Total (test code = 49607-1) 9.4 . Reference Range:All Ages: Target levels 30 - 100CH[facility] Medical Centererum or plasma 25-hydroxycalciferol measurement (mass/volume)2019-07-01 10:40:00* Test Item Value Reference Range Interpretation Comments 25-Hydroxy Vitamin D3 (test code = 67326-9) 9.4 . This test was developed and its performance characteristicsdetermined by [employer] . It has not been cleared or approvedby the Food and Drug Administration.Perform ed at: [employer] [id number] [place], [place] [id number] Director: Marcus Simons MD, Phone: [phone] [facility] Medical Centererum or plasma calcidiol measurement (mass/volume)2019-07-01 10:40:00* Test Item Value Reference Range Interpretation Comments 25-Hydroxy Vitamin D2 (test code = 1989-3) <1.0 . This test was developed and its performance characteristicsdetermined by [facility] . It has not been cleared or approvedby the Food and Drug Administration.[facility] Centererum or plasma carcinoembryonic antigen measurement (mass/volume)2019-07-01 10:40:00* Test Item Value Reference Range Interpretation Comments Carcinoembryonic Antigen (test code = 2039-6) 9.1 0.0-4.7 Nonsmokers <3.9 Smokers <5.6[employer] Electrochemiluminescence Immunoassay(ECLIA)Values obtained with different assay methods or kitscannot be used interchangeably. Results cannot beinterpreted as absolute evidence of the presence orabsence of malignant disease.Performed at: [address] [id number] Director: Frantz Encarnacion MD, Phone: [phone] Mansfield Medical CenterBlood leukocytes automated count (number/volume)2019-07-01 05:05:00* Test Item Value Reference Range Interpretation Comments White Blood Count (test code = 6690-2) 9.48 4.8-10.8 [facility] CenterBlood erythrocytes automated count (number/volume)2019-07-01 05:05:00* Test Item Value Reference Range Interpretation Comments Red Blood Count (test code = 789-8) 4.18 3.6-5.1 [facility] CenterBlood hemoglobin measurement (moles/volume)2019-07-01 05:05:00* Test Item Value Reference Range Interpretation Comments Hemoglobin (test code = 67627-2) 11.5 12.0-16.0 [facility] Medical CenterAutomated blood hematocrit (volume fraction)2019-07-01 05:05:00* Test Item Value Reference Range Interpretation Comments Hematocrit (test code = 4544-3) 37.8 34.2-44.1 [facility] CenterAutomated erythrocyte mean corpuscular jastga8981-17-12 05:05:00* Test Item Value Reference Range Interpretation Comments Mean Corpuscular Volume (test code = 787-2) 90.4 81-99 [facility] CenterAutomated erythrocyte mean corpuscular hemoglobin (mass per erythrocyte)2019-07-01 05:05:00* Test Item Value Reference Range Interpretation Comments Mean Corpuscular Hemoglobin (test code = 785-6) 27.5 28-32 [facility] CenterAutomated erythrocyte mean corpuscular hemoglobin concentration measurement (mass/volume)2019-07-01 05:05:00* Test Item Value Reference Range Interpretation Comments Mean Corpuscular Hemoglobin Concent (test code = 786-4) 30.4 31-35 [facility] Medical CenterRDW YfuGz-Cza9414-16-11 05:05:00* Test Item Value Reference Range Interpretation Comments Red Cell Distribution Width (test code = 83813-6) 15.7 11.7 -14.4 [facility] CenterAutomated blood platelet count (count/volume)2019-07-01 05:05:00* Test Item Value Reference Range Interpretation Comments Platelet Count (test code = 777-3) 219 140-360 [facility] CenterAutwilson medical centered blood segmented neutrophil count as percentage of total pkdgbumrse4669-35-72 05:05:00* Test Item Value Reference Range Interpretation Comments Neutrophils (%) (Auto) (test code = 70977-2) 94.3 38.7-80.0 [facility] CenterAutomated blood lymphocyte count as percentage ot total qwnlkkorju6432-98-44 05:05:00* Test Item Value Reference Range Interpretation Comments Lymphocytes (%) (Auto) (test code = 736-9) 3.1 18.0-39.1 [facility] CenterAutomated blood monocyte count as percentage of total rsmlhcvrpw8457-87-17 05:05:00* Test Item Value Reference Range Interpretation Comments Monocytes (%) (Auto) (test code = 5905-5) 1.5 4.4-11.3 [facility] CenterAutomated blood eosinophil count as percentage of total xhxsuyqrsu1342-50-13 05:05:00* Test Item Value Reference Range Interpretation Comments Eosinophils (%) (Auto) (test code = 713-8) 0.0 0.0-6.0 [facility] CenterAutomated blood basophil count as percentage of total zklpcycxwa0029-19-81 05:05:00* Test Item Value Reference Range Interpretation Comments Basophils (%) (Auto) (test code = 706-2) 0.3 0.0-1.0 [facility] CenterFluoroscopic procedure less than one hour cendlmll6137-11-02 05:05:00* Test Item Value Reference Range Interpretation Comments IM GRANULOCYTES % (test code = IM GRANULOCYTES %) 0.8 0.0- 1.0 [facility] CenterAutomated blood neutrophil count 2019-07-01 05:05:00* Test Item Value Reference Range Interpretation Comments Neutrophils # (Auto) (test code = 751-8) 8.9 2.1-6.9 [facility] CenterBlood lymphocytes count (number/volume) 2019-07-01 05:05:00* Test Item Value Reference Range Interpretation Comments Lymphocytes # (Auto) (test code = 52153-3) 0.3 1.0-3.2 [facility] CenterBlood monocytes automated count (number/volume)2019-07-01 05:05:00* Test Item Value Reference Range Interpretation Comments Monocytes # (Auto) (test code = 742-7) 0.1 0.2-0.8 [facility] CenterAutomated blood eosinophil count 2019-07-01 05:05:00* Test Item Value Reference Range Interpretation Comments Eosinophils # (Auto) (test code = 711-2) 0.0 0.0-0.4 [facility] CenterAutomated blood basophil count (count/volume)2019-07-01 05:05:00* Test Item Value Reference Range Interpretation Comments Basophils # (Auto) (test code = 704-7) 0.0 0.0-0.1 [facility] CenterFluoroscopic procedure less than one hour wqhjrflq4660-81-75 05:05:00* Test Item Value Reference Range Interpretation Comments Absolute Immature Granulocyte (auto (john t code = Absolute Immature Granulocyte (auto) 0.08 0-0.1 [facility] Centererum or plasma sodium measurement (moles/volume)2019-07-01 05:05:00* Test Item Value Reference Range Interpretation Comments Sodium Level (test code = 2951-2) 133 136-145 [facility] Centererum or plasma potassium measurement (moles/volume)2019-07-01 05:05:00* Test Item Value Reference Range Interpretation Comments Potassium Level (test code = 2823-3) 4.4 3.5-5.1 [facility] Centererum or plasma chloride measurement (moles/volume)2019-07-01 05:05:00* Test Item Value Reference Range Interpretation Comments Chloride Level (test code = 2075-0) 102 98-107 [facility] Centererum or plasma carbon dioxide, total measurement (moles/volume)2019-07-01 05:05:00* Test Item Value Reference Range Interpretation Comments Carbon Dioxide Level (test code = 2028-9) 19 22-29 [facility] Centererum or plasma anion crh8742-16-11 05:05:00* Test Item Value Reference Range Interpretation Comments Anion Gap (test code = 04739-3) 16.4 8-16 [facility] Centererum or plasma urea nitrogen measurement (mass/volume)2019-07-01 05:05:00* Test Item Value Reference Range Interpretation Comments Blood Urea Nitrogen (test code = 3094-0) 12 7-26 [facility] Centererum or plasma creatinine measurement (mass/volume)2019-07-01 05:05:00* Test Item Value Reference Range Interpretation Comments Creatinine (test code = 2160-0) 0.71 0.57-1.11 [facility] Centererum or plasma urea nitrogen/creatinine mass uapzp6745-38-23 05:05:00* Test Item Value Reference Range Interpretation Comments BUN/Creatinine Ratio (test code = 3097-3) 17 6-[address] [facility] CenterEstimated glomerular filtration rate (GFR) kdjsaqanlbfje0630-10-55 05:05:00* Test Item Value Reference Range Interpretation Comments Estimat Glomerular Filtration Rate (test code = 416097061) > 60 >60 Ranges were taken from the National Kidney Disease Education Program and the formerly [facility] Kidney Foundation literature.Reference ranges:60 or greater: Yfaopf81-87 ( for 3 consecutive months): Chronic kidney disease 15 or less: Kidney failureMethodist Mansfield Medical CenterGlucose evkfauanupr8435-02-13 05:05:00* Test Item Value Reference Range Interpretation Comments Glucose Level (test code = NYD2767) 86 74-118 [facility] Centererum or plasma calcium measurement (mass/volume)2019-07-01 05:05:00* Test Item Value Reference Range Interpretation Comments Calcium Level (test code = 80226-8) 8.6 8.4-10.2 [facility] CenterFluoroscopic procedure less than one hour vvibrhfz7830-83-36 05:05:00* Test Item Value Reference Range Interpretation Comments Lactic Acid Level (test code = Lactic Acid Level) 0.9 0.5- 2.0 [facility] Centererum or plasma total bilirubin measurement (mass/volume)2019-07-01 05:05:00* Test Item Value Reference Range Interpretation Comments Total Bilirubin (test code = 1975-2) 0.5 0.2-1.2 [facility] CenterFluoroscopic procedure less than one hour [id number] 05:05:00* Test Item Value Reference Range Interpretation Comments Aspartate Amino Transf (AST/SGOT) (test code = Aspartate Amino Transf (AST/SGOT)) 12 5-34 [facility] alanine aminotransferase measurement (enzymatic activity/volume)2019-07-01 05:05:00* Test Item Value Reference Range Interpretation Comments Alanine Aminotransferase (ALT/SGPT) (test code = 1742-6) 10 0-55 [facility] plasma protein measurement (mass/volume)2019-07-01 05:05:00* Test Item Value Reference Range Interpretation Comments Total Protein (test code = 2885-2) 6.1 6.5-8.1 [facility] plasma albumin measurement (mass/volume)2019-07-01 05:05:00* Test Item Value Reference Range Interpretation Comments Albumin (test code = 1751-7) 3.2 3.5-5.0 [facility] CenterPlasma globulin measurement (mass/volume) 2019-07-01 05:05:00* Test Item Value Reference Range Interpretation Comments Globulin (test code = 80939-8) 2.9 2.3-3.5 [facility] or plasma albumin/globulin mass [id number] 05:05:00* Test Item Value Reference Range Interpretation Comments Albumin/Globulin Ratio (test code = 1759-0) 1.1 0.8-2.0 [facility] plasma alkaline phosphatase measurement (enzymatic activity/volume)2019-07-01 05:05:00* Test Item Value Reference Range Interpretation Comments Alkaline Phosphatase (test code = 6768-6) 122 40-150 [facility] or plasma creatine kinase measurement (enzymatic activity/volume)2019-07-01 05:05:00* Test Item Value Reference Range Interpretation Comments Creatine Kinase (test code = 2157-6) 39 29-168 [facility] or plasma creatine kinase MB measurement (mass/volume)2019-07-01 05:05:00* Test Item Value Reference Range Interpretation Comments Creatine Kinase MB (test code = 24438-8) 3.60 0-5.0 [facility] CenterTroponin I measurement by highly sensitive enzyme cgqsivxuhce6164-66-56 05:05:00* Test Item Value Reference Range Interpretation Comments Troponin I (test code = 81835-0) 0.020 0-0.300 [facility] CenterCT CHEST [id number] 22:37:00 [place] [address] Patient Name: SHELBY PEÑA MR #: [id number] : 1935 Age/Sex: 83/F Req #: [id number] Adm Physician: Ordered by: DHRUV WOLFE DO Report #: [id number] Location: ER Room/Bed: Procedure: [id number] CT/CT CHEST W Exam Date: 06/30/19 Exam Time: 1948 REPORT STATUS: Signed EXAM: CT Abdomen chest, and Pel vis WITH contrast INDICATION: Epigastric pain, cough, short of breath, abdom inal pain epigastric pain [id number] COMPARISON: Chest abdomen pelvis CT 05/05/2019, chest CT 02/19/2019. TECHNIQUE: Chest, abdomen and pelvis were scanned utilizing a multidetector helical scanner from the neck base to the pubic symphysis after administration of IV contrast. Coronal and sagittal reformations were obtained. Routine protocol was performed. Scan was performed when during portal venous phase. IV CONTRAST: 100 mL of Isovue 370 ORAL CONTRAST: None COMPLICATIONS: None RADIATION DO SE: Total DLP: 486 mGy*cm Estimated effective dose: (DLP x 0.015 x size factor) mSv CTDIvol has been reviewed. It is below the limits set by the Radiation Protocol Committee (RPC). Dose modulation, iterative re construction, and/or weight based adjustment of the mA/kV was utilized to redu ce the radiation dose to as low as reasonably achievable. FINDINGS: LINES and TUBES: None. LUNGS/AIRWAYS/PLEURA:: Severe emphysema. A 1.2 cm spiculated nodule in the left upper lobe, slightly more prominent compared to 05/05/2019 extensive aortic calcifications.Small bilateral pleural effusions. N o pneumothorax. CARDIOMEDIASTINUM: Triple vessel coronary artery calcific a therosclerosis. Mild cardio may, predominant right-sided. Mitral annulus and a ortic valve calcifications. Mild main pulmonary artery dilation, measures 3.4 cm in diameter. The ascending thoracic aorta measures 3.1 cm in diameter. Subt le tree-in-bud nodularity and reticulation in the basal lateral right lower lo be HEPATOBILIARY: No focal hepatic lesions. There is intra- and extra- hepatic biliary dilation likely post cholecystectomy reservoir effect. GALLBLADDER: Cholecystectomy clips. SPLEEN: No splenomegaly. PANCREAS: No focal masses or ductal dilatation. ADRENALS: No adrenal no dules KIDNEYS/URETERS: Kidneys enhance symmetrically. No hydronephrosi s. Small hypodensity in the left kidney is likely benign. No stones. Mild right renal atrophy. GI TRACT: No abnormal distention, wall thickening, or evidence of bowel obstruction. Small sliding gastric hiatal hernia. Appen long is normal. PELVIC ORGANS/BLADDER: Hysterectomy. No neck masses. Low bon e mineral density. Unremarkable. LYMPH NODES: No lymphadenopathy. VE SSELS: Patent aortobifemoral stent. 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 PERITONEU M / RETROPERITONEUM: No free air or fluid. BONES: Mild compression deformit ies of T10, 11, and L1. Moderate compression fracture of T6 vertebral body, ne w compared to 05/05/2019. Healed left upper rib fractures. Healing nondisplaced right pubic body fracture. Sclerosis within the bilateral sacral ala. SO FT TISSUES: Unremarkable. IMPRESSION: 1. New severe comp ression fracture of T6 vertebral body, new compared to 05/05/2019. Stable compr ession deformities of T10, 11, and L1. Osteoporosis. Suspect mild bilateral sa cral insufficiency fractures. 2. Basolateral right lower lobe opacities ar e concerning for pneumonia. 3. Advanced triple vessel coronary artery belkis cific atherosclerosis, calcific aortic valve and mitral annular disease. Mild cardiopulmonary and pulmonary hypertension. Small pericardial effusions. 4. Extensive calcific atherosclerosis in the abdomen, with probable flow-limi ting stenosis of the superior mesenteric artery. Patent aortobifemoral stent 5. Severe pulmonary emphysema. A stable 1.2 cm spiculated nodule in the left upper lobe, similar compared to 02/19/2019. Recommend follow-up CT in 6 tyron hs. Signed by: Jose A Franks DO on 06/30/2019 10:57 PM Dictated By: JOSE A FRANKS DO 56 Transcribed By: BILL on 06/30/192256 COPY TO: DHRUV WOLFE DO CT ABDOMEN/PELVIS [id number] 22:37:00 [facility] [address] [address] Patient Name: SHELBY PEÑA MR #: [id number] : 1935 Age/Sex: 83/F Req #: [id number] Adm Physician: Ordered by: DHRUV WOLFE DO Report #: [id number] Location: ER Room/Bed: Procedure: [id number] CT/CT ABDOMEN/PELVI S W Exam Date: 06/30/19 Exam Time: 1948 REPORT STATUS: Signed EXAM: CT Abdomen chest, and Pelvis WITH contrast INDICATION: Epigastric pain, cough, short of migue th, abdominal pain epigastric pain [id number] COMPARISON: Chest abdomen pelvis CT 05/05/2019, chest CT 02/19/2019. TECHNIQUE: Chest, abdomen a nd pelvis were scanned utilizing a multidetector helical scanner from the neck base to the pubic symphysis after administration of IV contrast. Coronal and sagittal reformations were obtained. Routine protocol was performed. Scan was performed when during portal venous phase. IV CONTRAST: 100 mL of Iso yobany 370 ORAL CONTRAST: None COMPLICATIONS: None RAD IATION DOSE: Total DLP: 486 mGy*cm Estimated effective dose: (DLP x 0.015 x size factor) mSv CTDIvol has been reviewed. It is below the pedro its set by the Radiation Protocol Committee (RPC). Dose modulation, ite rative reconstruction, and/or weight based adjustment of the mA/kV was utilize d to reduce the radiation dose to as low as reasonably achievable. FINDI NGS: LINES and TUBES: None. LUNGS/AIRWAYS/PLEURA:: Severe emphysema. A 1.2 cm spiculated nodule in the left upper lobe, slightly more prominent com pared to 05/05/2019 extensive aortic calcifications.Small bilateral pleural eff usions. No pneumothorax. CARDIOMEDIASTINUM: Triple vessel coronary artery c alcific atherosclerosis. Mild cardio may, predominant right-sided. Mitral servando sharifa and aortic valve calcifications. Mild main pulmonary artery dilation, dom ures 3.4 cm in diameter. The ascending thoracic aorta measures 3.[address] Subtle tree-in-bud nodularity and reticulation in the basal lateral right lower lobe HEPATOBILIARY: No focal hepatic lesions. There is intra- a nd extra- hepatic biliary dilation likely post cholecystectomy reservoir effec t. GALLBLADDER: Cholecystectomy clips. SPLEEN: No splenomeg lamont. PANCREAS: No focal masses or ductal dilatation. ADRENALS: No a drenal nodules KIDNEYS/URETERS: Kidneys enhance symmetrically. No hydr onephrosis. Small hypodensity in the left kidney is likely benign. No sto deisy. Mild right renal atrophy. GI TRACT: No abnormal distention, wall thi ckening, or evidence of bowel obstruction. Small sliding gastric hiatal herni a. Appendix is normal. PELVIC ORGANS/BLADDER: Hysterectomy. No neck masses . Low bone mineral density. Unremarkable. LYMPH NODES: No lymphadenopathy . VESSELS: Patent aortobifemoral stent. 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 PERITONEUM / RETROPERITONEUM: No free air or fluid. BONES: Mild compression deformities of T10, 11, and L1. Moderate compression fracture of T6 vertebral body, new compared to 05/05/2019. Healed left upper rib fractures. Healing non displaced right pubic body fracture. Sclerosis within the bilateral sacral ala . SOFT TISSUES: Unremarkable. IMPRESSION: 1. New se joão compression fracture of T6 vertebral body, new compared to 05/05/2019. Sta ble compression deformities of T10, 11, and L1. Osteoporosis. Suspect mild williams ateral sacral insufficiency fractures. 2. Basolateral right lower lobe opa cities are concerning for pneumonia. 3. Advanced triple vessel coronary a rtery calcific atherosclerosis, calcific aortic valve and mitral annular disea se. Mild cardiopulmonary and pulmonary hypertension. Small pericardial effusio ns. 4. 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 Patent aortobifemoral stent 5. Severe pulmonary emphysema. A stable 1.2 cm spiculated nodule in the left upper lobe, similar compared to 02/19/2019. Recommend follow-up CT in 6 months. Signed by: Jose A Franks DO on 06/30/2019 10:57 PM Dic tated By: JOSE A FRANKS DO 56 Transcribed By: BILL on 06/30/192256 COPY TO: LÓPEZ WOLFE DO Urine color [id number] 21:12:00* Test Item Value Reference Range Interpretation Comments Urine Color (test code = 5778-6) YELLOW YELLOW [facility] CenterUrine [id number] 21:12:00* Test Item Value Reference Range Interpretation Comments Urine Clarity (test code = 85239-9) CLOUDY CLEAR [facility] gravity of Urine by Test strip 2019-06-30 21:12:00* Test Item Value Reference Range Interpretation Comments Urine Specific [place] (test code = 5811-5) 1.030 1.010-1.02 5 [facility] CenterU[facility] pH measurement by automated test gxirz7312-65-30 21:12:00* Test Item Value Reference Range Interpretation Comments Urine pH (test code = 66566-7) 6 5-7 [facility] CenterUrine leukocyte esterase detection by vxadcqpv4993-80-78 21:12:00* Test Item Value Reference Range Interpretation Comments Urine Leukocyte Esterase (test code = 5799-2) SMALL NEGATIVE [facility] CenterUrine nitrite ruckwypyz5181-55-54 21:12:00* Test Item Value Reference Range Interpretation Comments Urine Nitrite (test code = 76683-7) POSITIVE NEGATIVE [facility] CenterUrine protein measurement by test strip (mass/volume)2019-06-30 21:12:00* Test Item Value Reference Range Interpretation Comments Urine Protein (test code = 5804-0) 2+ NEGATIVE [facility] CenterUrine glucose ouxxiadkf9699-76-98 21:12:00* Test Item Value Reference Range Interpretation Comments Urine Glucose (UA) (test code = 2349-9) NEGATIVE NEGATIVE [facility] CenterUrine ketones detection by automated test htkat9861-00-44 21:12:00* Test Item Value Reference Range Interpretation Comments Urine Ketones (test code = 70971-6) 1+ NEGATIVE [facility] CenterUrine urobilinogen measurement by test strip (mass/volume)2019-06-30 21:12:00* Test Item Value Reference Range Interpretation Comments Urine Urobilinogen (test code = 70121-8) 0.2 0.2-1 [facility] CenterUrine total bilirubin measurement (mass/volume)2019-06-30 21:12:00* Test Item Value Reference Range Interpretation Comments Urine Bilirubin (test code = 1978-6) NEGATIVE NEGATIVE [facility] CenterUrine erythrocytes uuthaylvr4603-61-46 21:12:00* Test Item Value Reference Range Interpretation Comments Urine Blood (test code = 53516-7) TRACE NEGATIVE [facility] CenterAutomated urine sediment leukocyte count by microscopy (number/high power field)2019-06-30 21:12:00* Test Item Value Reference Range Interpretation Comments Urine WBC (test code = 5821-4) >50 0-5 [facility] CenterErythrocytes detection in urine sediment by light oldjwlthri2826-25-69 21:12:00* Test Item Value Reference Range Interpretation Comments Urine RBC (test code = 59951-4) 6-10 0-5 [facility] CenterBacteria detection in urine sediment by light wgeivlhffe9573-07-25 21:12:00* Test Item Value Reference Range Interpretation Comments Urine Bacteria (test code = 46204-5) MANY NONE [facility] CenterEpithelial cells detection in urine sediment by light bicjvxblto1103-69-94 21:12:00* Test Item Value Reference Range Interpretation Comments Urine Epithelial Cells (test code = 94338-4) FEW NONE [facility] CenterInfluenza virus A and B antigen identification by xkrwtrldzscqykdzrn8730-48-12 20:15:00* Test Item Value Reference Range Interpretation Comments Influenza Virus Types A,B Antigen (test code = 65506-3) NEGATIVE NEGATIVE [facility] CenterBNP Eku-tFor9988-52-10 20:15:00* Test Item Value Reference Range Interpretation Comments B-Type Natriuretic Peptide (test code = 26778-7) 298.1 0-100 [facility] or plasma lipase measurement (enzymatic activity/volume)2019-06-30 20:15:00* Test Item Value Reference Range Interpretation Comments Lipase (test code = 3040-3) 13 8-78 [facility] CenterFluoroscopic procedure less than one hour pcgeoaid6827-13-72 20:15:00* Test Item Value Reference Range Interpretation Comments Coronavirus (PCR) (test code = Coronavirus (PCR)) NOT DETECTED NOTD ETECTED SARS-COV2/RT-PCRNegative results do not preclude SARS-CoV-2 infection and should not be used as the sole basis for patient management decisions. Negative results must be combined with clinical observations, patient history, and epidemiologi belkis information. A false negative result may occur if a specimen is improperly c ollected, transported or handled.The limit of detection for this assay is 250 co pies/mLThe SARS-CoV-2 test is a rapid, real-time RT-PCR test intended for the qu alitative detection of nucleic acid from SARS-CoV-2 in nasopharyngeal swab speci men collected from individuals suspected of COVID-19 by their healthcare provide r. This test has not been Food and Drug Administration (FDA) cleared or approved and has been authorized by FDA under an Emergency Use Authorization (EUA). This EUA will be effective until the declaration that circumstances exist justifying the authorization of the emergency use of in vitro diagnostic test for detection and or diagnosis of COVID-19 is terminated under section 564(b) of the Act, or the the EUA is revoked under 564(g) of the ACT.Testing performed by [facility] [place] [id number] Medical Centertreptococcus pyogenes antigen detection in throat 2019-06-30 20:15:00* Test Item Value Reference Range Interpretation Comments Group A Streptococcus Screen (test code = 83138-8) NEGATIVE NEG ATIVE [facility] CenterBlood vuevxce9957-12-04 20:15:00* Test Item Value Reference Range Interpretation Comments Blood Culture (test code = 50110769) NO GROWTH AFTER 72 HOURS [facility]- XR CHEST 2 [id number] 20:05:00 FAX: Keegan Ahmadi MD [phone] [place]: St: REG Name: SHELBY CARPENTER [facility] : [birth year] Age/S: 83/F [address] [place] [address] Blvd Unit #: [id number] Loc: [place] [address] Phys: Keegan Ahmadi MD Acct: [id number] Dis Date: Status: REG ER PHONE #: [phone] Exam Date: 05/07/20191952 FAX #: [phone] Reason: chest pain radiating to back EXAMS: CPT CODE: [id number] XR CHEST 2 V 22765 Two-view chest INDIC ATION: Chest pain radiating to back for 4 days. FINDINGS: No prior for comparison. The cardiomediastinal silhouette is normal in size with partially calcified tortuous descending aorta. Calcified granulomata are seen bilaterally. Mild bibasilar atelectasis present. No pleural effusio ns are seen. The bones appear demineralized. Vascular stent is partially visualized in the upper abdomen. IMPRESSION: Mild bibasil ar atelectasis. SL: SG-H Elect ronically Signed by Aubrey Yeung on 05/07/19 20 at 2004 Reported and signed by: Fco jaquez M.D. CC: Keegan Ahmadi MD Technologist: RT Haley(R) Trnscrd Date/Time/By: 05/07/2019 (2004) : By: [email or web address] Orig Print D/T: S: 05/07/2019 (2007) PAGE 1 Signed Report COMPREHENSIVE METABOLIC PANEL 2019-05-07 19:54:00* Test Item Value Reference Range Interpretation Comments SODIUM (test code = NA) 136 mEq/L 134-147 N POTASSIUM (test code = K) 4.7 mEq/L 3.4-5.0 N CHLORIDE (test code = CL) 100 mEq/L 100-108 N CARBON DIOXIDE (test code = CO2) 28 mEq/L 21-33 N ANION GAP (test code = GAP) 13 0-20 N GLUCOSE (test code = GLU) 82 mg/dL 70-110 N BLOOD UREA NITROGEN (test code = BUN) 14 mg/dL 7-18 N GLOMERULAR FILTRATION RATE (test code = GFR) 68.2 70-80 L Units of measure = ml/min/1.73 m2 CREATININE (test code = CREAT) 0.8 mg/dL 0.6-1.3 N TOTAL PROTEIN (test code = PROT) 7.4 g/dL 6.4-8.2 N ALBUMIN (test code = ALB) 3.50 g/dL 3.4-5.0 N CALCIUM (test code = CA) 9.4 mg/dL 8.0-10.5 N BILIRUBIN TOTAL (test code = BILT) 0.7 MG/DL <1.5 N SGOT/AST (test code = AST) 15 IUnit/L 15-37 N SGPT/ALT (test code = ALT) 19 IUnit/L 15-65 N ALKALINE PHOSPHATASE TOTAL (test code = ALKP) 146 IUnit/L 20-125 H [id number] 19:54:00* Test Item Value Reference Range Interpretation Comments LIPASE (test code = LIP) 98 IUnit/L 73-393 N [id number]-[id number] 19:54:00* Test Item Value Reference Range Interpretation Comments TROPONIN-I (test code = TROPI) < 0.015 ng/mL 0.000-0.045 N Negative: <= 0.045 Positive: >= 0.046 Correlation with serial results, other cardiac markers andclinical findings is necessary to determine the clinicalsignificance of this result. Results using different methodologies should not be comparedto one another as quantitative results may vary by method. COMPREHENSIVE METABOLIC [id number] 19:53:00* Test Item Value Reference Range Interpretation Comments SODIUM (test code = NA) mEq/L 134-147 POTASSIUM (test code = K) mEq/L 3.4-5.0 CHLORIDE (test code = CL) mEq/L 100-108 CARBON DIOXIDE (test code = CO2) mEq/L 21-33 ANION GAP (test code = GAP) 0-20 GLUCOSE (test code = GLU) mg/dL 70-110 BLOOD UREA NITROGEN (test code = BUN) mg/dL 7-18 GLOMERULAR FILTRATION RATE (test code = GFR) 70-80 CREATININE (test code = CREAT) mg/dL 0.6-1.3 TOTAL PROTEIN (test code = PROT) g/dL 6.4-8.2 ALBUMIN (test code = ALB) g/dL 3.4-5.0 CALCIUM (test code = CA) mg/dL 8.0-10.5 BILIRUBIN TOTAL (test code = BILT) MG/DL <1.5 SGOT/AST (test code = AST) IUnit/L 15-37 SGPT/ALT (test code = ALT) IUnit/L 15-65 ALKALINE PHOSPHATASE TOTAL (test code = ALKP) IUnit/L 20-125 [id number] 19:53:00* Test Item Value Reference Range Interpretation Comments LIPASE (test code = LIP) IUnit/L 73-393 [id number] 19:53:00* Test Item Value Reference Range Interpretation Comments TROPONIN-I (test code = TROPI) < 0.015 ng/mL 0.000-0.045 N Negative: <= 0.045 Positive: >= 0.046 Correlation with serial results, other cardiac markers andclinical findings is necessary to determine the clinicalsignificance of this result. Results using different methodologies should not be comparedto one another as quantitative results may vary by method. CBC W/AUTO [id number] 19:36:00* Test Item Value Reference Range Interpretation Comments WHITE BLOOD CELL (test code = WBC) 9.81 x10 3/uL 4.5-11.0 N RED BLOOD CELL (test code = RBC) 4.58 x10 6/uL 3.54-5.02 N HEMOGLOBIN (test code = HGB) 13.2 g/dL 11.0-15.0 N HEMATOCRIT (test code = HCT) 42.2 % 33.0-45.0 N MEAN CELL VOLUME (test code = MCV) 92.1 fL 81.0-99.0 N MEAN CELL HGB (test code = MCH) 28.8 pg 27.0-33.0 N MEAN CELL HGB CONCETRATION (test code = MCHC) 31.3 g/dL 33.0-37. 0 L RED CELL DISTRIBUTION WIDTH CV (test code = RDW) 15.4 % 11.5- 14.5 H RED CELL DISTRIBUTION WIDTH SD (test code = RDW-SD) 52.3 fL 37 .0-54.0 N PLATELET COUNT (test code = PLT) 270 x10 3/uL 150-400 N MEAN PLATELET VOLUME (test code = MPV) 9.6 fL 7.0-9.0 H NEUTROPHIL % (test code = NT%) 79.3 % 56.0-77.0 H IMMATURE GRANULOCYTE % (test code = IG%) 0.5 % 0.0-2.0 N LYMPHOCYTE % (test code = LY%) 10.9 % 14.0-32.0 L MONOCYTE % (test code = MO%) 7.4 % 4.8-9.0 N EOSINOPHIL % (test code = EO%) 1.2 % 0.3-3.7 N BASOPHIL % (test code = BA%) 0.7 % 0.0-2.0 N NUCLEATED RBC % (test code = NRBC%) 0.0 % 0-0 N NEUTROPHIL # (test code = NT#) 7.77 x10 3/uL 2.0-7.6 H IMMATURE GRANULOCYTE # (test code = IG#) 0.05 x10 3/uL 0.00-0.03 H LYMPHOCYTE # (test code = LY#) 1.07 x10 3/uL 1.0-3.8 N MONOCYTE # (test code = MO#) 0.73 x10 3/uL 0.1-0.8 N EOSINOPHIL # (test code = EO#) 0.12 x10 3/uL 0.0-0.2 N BASOPHIL # (test code = BA#) 0.07 x10 3/uL 0.0-0.2 N NUCLEATED RBC # (test code = NRBC#) 0.00 x10 3/uL 0.0-0.1 N MANUAL DIFF REQUIRED (test code = MDIFF) NO Creatine Kinase [id number] 02:37:00* Test Item Value Reference Range Interpretation Comments Creatine Kinase MB (test code = 72447-2) 2.20 0-5.0 [facility] [id number] 02:37:00* Test Item Value Reference Range Interpretation Comments Troponin I (test code = USM6440) 0.008 0-0.300 [facility] CenterCreatine Xbijji6370-26-89 02:31:00* Test Item Value Reference Range Interpretation Comments Creatine Kinase (test code = 2157-6) 24 29-168 L [facility] CenterCTA [id number] 00:00:00 [facility] [address] [address] Patient Name: SHELBY PEÑA MR #: [id number] : 1935 Age/Sex: 83/F Req #: [id number] Adm Physician: Ordered by: LEIGHA TAPIA MD Report #: [id number] Location: ER Room/Bed: Procedure: [id number] CT/CTA CHEST Exam Date: Exam Time: REPORT STATUS: Signed TECHNIQUE: CTA of the chest, abdomen and pelvis without and with intravenous contrast INDICATION : Abdominal pain radiating to the back. COMPARISON: CT chest 02/19/[address] abdomen/pelvis 12/11/2018. TECHNIQUE: Chest, Abdomen and pelvis were sc anned utilizing a multidetector helical scanner from the thoracic inlet to the pubic symphysis before and after administration of IV contrast. No oral contr ast was administered. CT angiogram aortic protocol was performed. 3-D images w ere reviewed. Coronal and sagittal reformations were obtained. Dose modu lation, iterative reconstruction, and/or weight based adjustment of the mA/kV was utilized to reduce the radiation dose to as low as reasonably achievable. COMPLICATIONS: None FINDINGS: VASCULAR FINDINGS: No evidence of i ntramural hematoma on noncontrast images. No evidence of aortic dissection or aneurysm. There are extensive atherosclerotic changes of the the thoracic and abdominal aorta, and branch vessels. Extensive calcified and noncalcified plaq ue within the descending thoracic aorta. Status post infrarenal abdominal a ortic endograft repair extending into the bilateral common iliac arteries. No evidence of endoleak. Aortic root measures up to approximately 1.5 cm, the sinuses of Valsalva measure up to 3.2 cm, the ascending thoracic aorta measure s up to 3.6 cm, the aortic arch measures up to 3.0 cm, the descending thoracic aorta measures up to 3.0 cm proximally and distally, the suprarenal abdominal aorta measures up to 2.0 cm and the infrarenal abdominal aorta measures up to 2.3 cm, the left common iliac artery measures up to 1.6 cm in the right common iliac artery measures up to 1.1 cm. The celiac artery and SMA appear pa tent. The LOUIE is not visualized. Single bilateral renal arteries which appear patent. NON-VASCULAR FINDINGS: LINES/ TUBES: None. LUNGS AND AIRWAYS : Severe upper lobe predominant centrilobular and paraseptal emphysematous fracisco nges. Biapical pleural parenchymal scarring. Mild bibasilar subsegmental atele ctasis. Scattered subcentimeter calcified granulomas. There is a new 8 mm groundglass nodule within the dependent right upper lobe on series 4, image 32 and a new 5 mm solid nodule in the right upper lobe on image 42. Mild patchy tree-in-bud nodules in the dependent right middle lobe on series 4, image 72. Mild dependent groundglass nodules in the left lower lobe. Multiple other pulm onary nodules are unchanged, including a 1.2 cm spiculated nodule in the left upper lobe on series 4, image 48 and an 8 mm spiculated left upper lobe nodule on series 4, image 21. PLEURA: No pleural effusion. No pneumothorax. HEART AND MEDIASTINUM: Multiple subcentimeter hypodense thyroid nodules. No e vidence of lymphadenopathy. The heart is not enlarged. No pericardial effusion . Coronary atherosclerosis. Mitral annular calcifications. Enlarged main pulmo nary artery, measuring up to 3.1 cm, suggestive of pulmonary arterial hyperten jake. HEPATOBILIARY: Diffuse hepatic steatosis. No focal liver lesion. No b iliary ductal dilation. Status post cholecystectomy. SPLEEN: No splenomeg lamont. PANCREAS: No focal masses or ductal dilatation. ADRENALS: No adre nal nodules. KIDNEYS/URETERS: No renal calculi or hydronephrosis. Bilateral castro bcentimeter renal cysts. Right renal cortical atrophy. PELVIC ORGANS/BLADDE R: Status post hysterectomy. PERITONEUM / RETROPERITONEUM: No free air or f luid. LYMPH NODES: No lymphadenopathy. GI TRACT: Colonic diverticulosis w ithout CT evidence of diverticulitis. No abnormal bowel wall thickening. No shweta wel obstruction. BONES AND SOFT TISSUES: Diffuse anasarca. Muscular atrophy . Diffuse osteopenia. Multilevel degenerative changes of the visualized spine. Dextroconvex scoliosis, centered in the lower thoracic/upper lumbar spine. No acute osseous abnormality. No suspicious lytic or blastic lesions. Mild loss of vertebral body height at T10, T11, L1, and L2 is unchanged. IMPRESSIO N: No evidence of acute aortic pathology. Extensive atherosclerotic changes o f the thoracic and abdominal aorta. Status post infrarenal aortoiliac endograf t placement without evidence of endoleak. Ectatic ascending thoracic aorta m easuring 3.6 cm, and infrarenal abdominal aorta, measuring up to 2.3 cm. No ev idence of aneurysm. Emphysematous lungs with bilateral pulmonary nodules. N ew groundglass and solid nodules likely are infectious or inflammatory. Additi onal pulmonary nodules are unchanged, the most suspicious of which are spicula lolis 1.2 and 0.8 cm left upper lobe nodules. A follow-up PET/CT, chest CT in 3 months, and/or biopsy may be considered. Signed by: Dr. Jacob Rizzo MD o n 05/06/2019 12:27 AM Dictated By: JACOB RIZZO MD Transcribed By: BILL on 05/06/1926 COPY TO: LEIGHA TAPIA MD CTA ABD/[id number] 00:00:00 [place] [address] Patient Name: SHELBY PEÑA MR #: [id number] : 1935 Age/Sex: 83/F Req #: [id number] Adm Physician: Ordered by: LEIGHA TAPIA MD Report #: [id number] Location: ER Room/Bed: Procedure: [id number] CT/CTA ABD/PELVIS Exam Date: Exam Time: REPORT STATUS: Signed TECHNIQUE: CTA of the chest, abdomen and pelvis without and with intravenous contrast INDIC ATION: Abdominal pain radiating to the back. COMPARISON: CT chest and CT abdomen/pelvis 12/11/2018. TECHNIQUE: Chest, Abdomen and pelvis we re scanned utilizing a multidetector helical scanner from the thoracic inlet t o the pubic symphysis before and after administration of IV contrast. No oral contrast was administered. CT angiogram aortic protocol was performed. 3-D louie ges were reviewed. Coronal and sagittal reformations were obtained. Dose modulation, iterative reconstruction, and/or weight based adjustment of the m A/kV was utilized to reduce the radiation dose to as low as reasonably achieva ble. COMPLICATIONS: None FINDINGS: VASCULAR FINDINGS: No evidence of intramural hematoma on noncontrast images. No evidence of aortic dissection or aneurysm. There are extensive atherosclerotic changes of the the thoracic and abdominal aorta, and branch vessels. Extensive calcified and noncalcified plaque within the descending thoracic aorta. Status post infrarenal abdomi nal aortic endograft repair extending into the bilateral common iliac arteries . No evidence of endoleak. Aortic root measures up to approximately 1.5 cm, the sinuses of Valsalva measure up to 3.2 cm, the ascending thoracic aorta me asures up to 3.6 cm, the aortic arch measures up to 3.0 cm, the descending tho racic aorta measures up to 3.0 cm proximally and distally, the suprarenal abdo sherley aorta measures up to 2.0 cm and the infrarenal abdominal aorta measures up to 2.3 cm, the left common iliac artery measures up to 1.6 cm in the right common iliac artery measures up to 1.1 cm. The celiac artery and SMA appe ar patent. The LOUIE is not visualized. Single bilateral renal arteries which ap pear patent. NON-VASCULAR FINDINGS: LINES/ TUBES: None. LUNGS AND AI RWAYS: Severe upper lobe predominant centrilobular and paraseptal emphysematou s changes. Biapical pleural parenchymal scarring. Mild bibasilar subsegmental atelectasis. Scattered subcentimeter calcified granulomas. There is a new 8 mm groundglass nodule within the dependent right upper lobe on series 4, louie ge 32 and a new 5 mm solid nodule in the right upper lobe on image 42. Mild pa tchy tree-in-bud nodules in the dependent right middle lobe on series 4, image 72. Mild dependent groundglass nodules in the left lower lobe. Multiple other pulmonary nodules are unchanged, including a 1.2 cm spiculated nodule in the left upper lobe on series 4, image 48 and an 8 mm spiculated left upper lobe n odule on series 4, image 21. PLEURA: No pleural effusion. No pneumothorax. HEART AND MEDIASTINUM: Multiple subcentimeter hypodense thyroid nodules. No evidence of lymphadenopathy. The heart is not enlarged. No pericardial eff usion. Coronary atherosclerosis. Mitral annular calcifications. Enlarged main pulmonary artery, measuring up to 3.1 cm, suggestive of pulmonary arterial hyp ertension. HEPATOBILIARY: Diffuse hepatic steatosis. No focal liver lesion. No biliary ductal dilation. Status post cholecystectomy. SPLEEN: No sple nomegaly. PANCREAS: No focal masses or ductal dilatation. ADRENALS: No adrenal nodules. KIDNEYS/URETERS: No renal calculi or hydronephrosis. Bilater al subcentimeter renal cysts. Right renal cortical atrophy. PELVIC ORGANS/B LADDER: Status post hysterectomy. PERITONEUM / RETROPERITONEUM: No free air or fluid. LYMPH NODES: No lymphadenopathy. GI TRACT: Colonic diverticulo sis without CT evidence of diverticulitis. No abnormal bowel wall thickening. No bowel obstruction. BONES AND SOFT TISSUES: Diffuse anasarca. Muscular at rophy. Diffuse osteopenia. Multilevel degenerative changes of the visualized s pine. Dextroconvex scoliosis, centered in the lower thoracic/upper lumbar spin e. No acute osseous abnormality. No suspicious lytic or blastic lesions. Mild loss of vertebral body height at T10, T11, L1, and L2 is unchanged. IMPR ESSION: No evidence of acute aortic pathology. Extensive atherosclerotic hi ges of the thoracic and abdominal aorta. Status post infrarenal aortoiliac end ograft placement without evidence of endoleak. Ectatic ascending thoracic aort a measuring 3.6 cm, and infrarenal abdominal aorta, measuring up to 2.3 cm. No evidence of aneurysm. Emphysematous lungs with bilateral pulmonary nodul es. New groundglass and solid nodules likely are infectious or inflammatory. A dditional pulmonary nodules are unchanged, the most suspicious of which are sp iculated 1.2 and 0.8 cm left upper lobe nodules. A follow-up PET/CT, chest CT in 3 months, and/or biopsy may be considered. Signed by: Dr. Jacob Rizzo MD on 05/06/2019 12:27 AM Dictated By: JACOB RIZZO MD Electronically Sign ed By: JACOB RIZZO MD on 05/06/1926 Transcribed By: BILL on 05/06/1926 COPY TO: LEIGHA TAPIA MD Urine [id number] 22:46:00* Test Item Value Reference Range Interpretation Comments Urine WBC (test code = 5821-4) 21-50 0-5 [facility] [id number] 22:46:00* Test Item Value Reference Range Interpretation Comments Urine RBC (test code = 98360-2) 0-5 0-5 [facility] Msyrziso2222-03-45 22:46:00* Test Item Value Reference Range Interpretation Comments Urine Bacteria (test code = 52048-8) FEW NONE [facility] CenterU[facility] Epithelial [id number] 22:46:00 * Test Item Value Reference Range Interpretation Comments Urine Epithelial Cells (test code = 15413-4) FEW NONE [facility] CenterProthrombin [id number] 22:44:00* Test Item Value Reference Range Interpretation Comments Prothrombin Time (test code = 5902-2) 11.2 11.9-14.5 L [facility] CenterProthromb Time International Ratio 2019-05-05 22:44:00* Test Item Value Reference Range Interpretation Comments Prothromb Time International Ratio (test code = 6301-6) 0.77 Oral Anticoagulant Therapy INR Values:1. Low Intensity Therapy 1.5 - 2.02 . Moderate Intensity Therapy 2.0 - 3.03. High Intensity Therapy(1) 2.5 - 3. 54. High Intensity Therapy(2) 3.0 - 4.05. Panic Value INR > 5.0 [facility] CenterActivated Partial Thromboplast Time 2019-05-05 22:44:00* Test Item Value Reference Range Interpretation Comments Activated Partial Thromboplast Time (test code = 22029-7) 25.0 23.8-35.5 [facility] [id number] 22:44:00* Test Item Value Reference Range Interpretation Comments Sodium Level (test code = 2951-2) 138 136-145 [facility] CenterPotassium Irnxc4800-01-45 22:44:00* Test Item Value Reference Range Interpretation Comments Potassium Level (test code = 2823-3) 3.9 3.5-5.1 [facility] CenterChloride Gubkp9990-60-21 22:44:00* Test Item Value Reference Range Interpretation Comments Chloride Level (test code = 2075-0) 107 98-107 [facility] CenterCarbon Dioxide Ormlk9719-46-33 22:44:00* Test Item Value Reference Range Interpretation Comments Carbon Dioxide Level (test code = 2028-9) 23 22-29 [facility] CenterAnion [id number] 22:44:00* Test Item Value Reference Range Interpretation Comments Anion Gap (test code = 21351-3) 11.9 8-16 [facility] CenterBlood Urea Sbzgdbek0768-76-39 22:44:00* Test Item Value Reference Range Interpretation Comments Blood Urea Nitrogen (test code = 3094-0) 22 7-26 [facility] CenterCreatinine2020-03-15 22:44:00* Test Item Value Reference Range Interpretation Comments Creatinine (test code = 2160-0) 0.76 0.57-1.11 [facility] CenterBUN/Creatinine Hvqmn2512-51-76 22:44:00* Test Item Value Reference Range Interpretation Comments BUN/Creatinine Ratio (test code = 3097-3) 29 6-25 H [facility] CenterEstimat Glomerular Filtration Rate 2019-05-05 22:44:00* Test Item Value Reference Range Interpretation Comments Estimat Glomerular Filtration Rate (test code = 220099951) > 60 >60 Ranges were taken from the National Kidney Disease Education Program and the formerly [facility] Kidney Foundation literature.Reference ranges:60 or greater: Vqcaee06-11 ( for 3 consecutive months): Chronic kidney disease 15 or less: Kidney failureMethodist Mansfield Medical CenterGlucose Izhms1659-94-48 22:44:00* Test Item Value Reference Range Interpretation Comments Glucose Level (test code = EGM7526) 153 74-118 H [facility] CenterCalcium Lhlae4926-56-66 22:44:00* Test Item Value Reference Range Interpretation Comments Calcium Level (test code = 91995-3) 9.4 8.4-10.2 [facility] CenterTotal Ihiurelwn6933-20-51 22:44:00* Test Item Value Reference Range Interpretation Comments Total Bilirubin (test code = 1975-2) 0.3 0.2-1.2 [facility] CenterAspartate Amino Transf (AST/SGOT) 2019-05-05 22:44:00* Test Item Value Reference Range Interpretation Comments Aspartate Amino Transf (AST/SGOT) (test code = Aspartate Amino Transf (AST/SGOT)) 19 5-34 [facility] CenterAlanine Aminotransferase (ALT/SGPT) 2019-05-05 22:44:00* Test Item Value Reference Range Interpretation Comments Alanine Aminotransferase (ALT/SGPT) (test code = 1742-6) 14 0-55 [facility] CenterTotal Kxkbpjq0009-11-46 22:44:00* Test Item Value Reference Range Interpretation Comments Total Protein (test code = 2885-2) 7.0 6.5-8.1 [facility] CenterAlbumin2020-03-15 22:44:00* Test Item Value Reference Range Interpretation Comments Albumin (test code = 1751-7) 3.7 3.5-5.0 [facility] CenterGlobulin2020-03-15 22:44:00* Test Item Value Reference Range Interpretation Comments Globulin (test code = 08988-5) 3.3 2.3-3.5 [facility] CenterAlbumin/Globulin Frxfe6284-17-62 22:44:00 * Test Item Value Reference Range Interpretation Comments Albumin/Globulin Ratio (test code = 1759-0) 1.1 0.8-2.0 [facility] CenterAlkaline Moqydmmzpyw8494-23-29 22:44:00* Test Item Value Reference Range Interpretation Comments Alkaline Phosphatase (test code = 6768-6) 137 40-150 [facility] CenterAmylase Bpcuq4131-56-44 22:44:00* Test Item Value Reference Range Interpretation Comments Amylase Level (test code = 1798-8) 39 25-125 [facility] CenterLipase2020-03-15 22:44:00* Test Item Value Reference Range Interpretation Comments Lipase (test code = 3040-3) 44 8-78 [facility] CenterUrine Yflpj8063-10-65 22:33:00* Test Item Value Reference Range Interpretation Comments Urine Color (test code = 5778-6) YELLOW YELLOW [facility] CenterUrine Bppzhxy5988-47-80 22:33:00* Test Item Value Reference Range Interpretation Comments Urine Clarity (test code = 37865-8) HAZY CLEAR [facility] CenterUrine Specific Krqpxlf6318-11-44 22:33:00 * Test Item Value Reference Range Interpretation Comments Urine Specific Baskin (test code = 5811-5) 1.025 1.010-1.02 5 [facility] CenterUrine [id number] 22:33:00* Test Item Value Reference Range Interpretation Comments Urine pH (test code = 11893-7) 5.5 5-7 [facility] CenterU[facility] Leukocyte Khesbmto9480-99-29 22:33:00* Test Item Value Reference Range Interpretation Comments Urine Leukocyte Esterase (test code = 5799-2) SMALL NEGATIVE [facility] CenterUrine Inqrwvp8414-36-79 22:33:00* Test Item Value Reference Range Interpretation Comments Urine Nitrite (test code = 63441-5) NEGATIVE NEGATIVE [facility] CenterUrine Glgtsyk7649-57-13 22:33:00* Test Item Value Reference Range Interpretation Comments Urine Protein (test code = 5804-0) TRACE NEGATIVE H [facility] CenterUrine Glucose (UA)2019-05-05 22:33:00* Test Item Value Reference Range Interpretation Comments Urine Glucose (UA) (test code = 2349-9) NEGATIVE NEGATIVE [facility] CenterUrine Hztjhuj4685-80-31 22:33:00* Test Item Value Reference Range Interpretation Comments Urine Ketones (test code = 14546-8) 1+ NEGATIVE H [facility] CenterUrine Fhcvixyhokxi9469-52-25 22:33:00* Test Item Value Reference Range Interpretation Comments Urine Urobilinogen (test code = 42606-4) 0.2 0.2-1 [facility] CenterUrine Qowebtxse5169-54-48 22:33:00* Test Item Value Reference Range Interpretation Comments Urine Bilirubin (test code = 1978-6) SMALL NEGATIVE [facility] CenterUrine Zpawg7050-40-43 22:33:00* Test Item Value Reference Range Interpretation Comments Urine Blood (test code = 49706-7) NEGATIVE NEGATIVE [facility] CenterCHEST SINGLE (PORTABLE)2019-05-05 22:33:00 [facility] [address] [place] [address] Patient Name: SHELBY PEÑA MR #: [id number] : 1935 Age/Sex: 83/F Req #: [id number] Adm Physician: Ordered by: LEIGHA TAPIA MD Report #: [id number] Location: ER Room/Bed: Procedure: [id number] DX/CHEST SINGLE (PORTABLE) Exam Date: Exam Time: REPORT STATUS: Signed EXAMINATION: CHEST SINGLE (PORTABLE) INDICATION: Shortness of breath. COMPAR VILMA: Chest radiograph 02/18/[address] chest 02/19/2019. FINDINGS: TUBES and LINES: None. LUNGS: Emphysematous changes of the lungs. Bilate ral pulmonary nodules are better characterized on prior CT from 02/19/2019. Mi ld patchy bibasilar opacities. No new consolidation. No evidence of pulmonary edema. PLEURA: No pleural effusion or pneumothorax. HEART AND MEDIAS TINUM: The cardiomediastinal silhouette is unremarkable. There are atheroscle rotic calcifications within the aorta. BONES AND SOFT TISSUES: No acute os seous lesion. Soft tissues are unremarkable. UPPER ABDOMEN: No free air under the diaphragm. IMPRESSION: Emphysematous lungs with mild patch y bibasilar opacities, more likely atelectasis than pneumonia. No new consolid ation. Bilateral pulmonary nodules are better characterized on prior CT fro 02/19/2019. Signed by: Dr. Jacob Rizzo MD on 05/05/2019 10:36 PM Dictated By: JACOB RIZZO MD 35 Transcribed By: BILL on 05/05/192235 COPY TO: MARILUZ TAPIA MD White Blood Cebpa6699-87-69 22:27:00* Test Item Value Reference Range Interpretation Comments White Blood Count (test code = 6690-2) 10.14 4.8-10.8 [facility] CenterRed Blood Kqfxe9763-93-93 22:27:00* Test Item Value Reference Range Interpretation Comments Red Blood Count (test code = 789-8) 4.31 3.6-5.1 [facility] CenterHemoglobin2020-03-15 22:27:00* Test Item Value Reference Range Interpretation Comments Hemoglobin (test code = 61269-2) 12.3 12.0-16.0 [facility] CenterHematocrit2020-03-15 22:27:00* Test Item Value Reference Range Interpretation Comments Hematocrit (test code = 4544-3) 39.1 34.2-44.1 [facility] CenterMean Corpuscular Olqcha6517-18-58 22:27:00* Test Item Value Reference Range Interpretation Comments Mean Corpuscular Volume (test code = 787-2) 90.7 81-99 [facility] CenterMean Corpuscular Nomkhtcyab9788-83-42 22:27:00* Test Item Value Reference Range Interpretation Comments Mean Corpuscular Hemoglobin (test code = 785-6) 28.5 28-32 [facility] CenterMean Corpuscular Hemoglobin Concent 2019-05-05 22:27:00* Test Item Value Reference Range Interpretation Comments Mean Corpuscular Hemoglobin Concent (test code = 786-4) 31.5 31-35 [facility] CenterRed Cell Distribution Zyuvc6813-70-60 22:27:00* Test Item Value Reference Range Interpretation Comments Red Cell Distribution Width (test code = 95086-8) 15.7 11.7 -14.4 H [facility] CenterPlatelet Refvh3468-57-12 22:27:00* Test Item Value Reference Range Interpretation Comments Platelet Count (test code = 777-3) 289 140-360 [facility] CenterNeutrophils (%) (Auto)2019-05-05 22:27:00 * Test Item Value Reference Range Interpretation Comments Neutrophils (%) (Auto) (test code = 04295-3) 78.8 38.7-80.0 [facility] CenterLymphocytes (%) (Auto)2019-05-05 22:27:00 * Test Item Value Reference Range Interpretation Comments Lymphocytes (%) (Auto) (test code = 736-9) 11.9 18.0-39.1 L [facility] CenterMonocytes (%) (Auto)2019-05-05 22:27:00* Test Item Value Reference Range Interpretation Comments Monocytes (%) (Auto) (test code = 5905-5) 6.9 4.4-11.3 [facility] CenterEosinophils (%) (Auto)2019-05-05 22:27:00 * Test Item Value Reference Range Interpretation Comments Eosinophils (%) (Auto) (test code = 713-8) 0.6 0.0-6.0 [facility] CenterBasophils (%) (Auto)2019-05-05 22:27:00* Test Item Value Reference Range Interpretation Comments Basophils (%) (Auto) (test code = 706-2) 0.5 0.0-1.0 [facility] CenterIM GRANULOCYTES %2019-05-05 22:27:00* Test Item Value Reference Range Interpretation Comments IM GRANULOCYTES % (test code = IM GRANULOCYTES %) 1.3 0.0- 1.0 H [facility] CenterNeutrophils # (Auto)2019-05-05 22:27:00* Test Item Value Reference Range Interpretation Comments Neutrophils # (Auto) (test code = 751-8) 8.0 2.1-6.9 H [facility] CenterLymphocytes # (Auto)2019-05-05 22:27:00* Test Item Value Reference Range Interpretation Comments Lymphocytes # (Auto) (test code = 03308-9) 1.2 1.0-3.2 [facility] CenterMonocytes # (Auto)2019-05-05 22:27:00* Test Item Value Reference Range Interpretation Comments Monocytes # (Auto) (test code = 742-7) 0.7 0.2-0.8 [facility] CenterEosinophils # (Auto)2019-05-05 22:27:00* Test Item Value Reference Range Interpretation Comments Eosinophils # (Auto) (test code = 711-2) 0.1 0.0-0.4 [facility] CenterBasophils # (Auto)2019-05-05 22:27:00* Test Item Value Reference Range Interpretation Comments Basophils # (Auto) (test code = 704-7) 0.1 0.0-0.1 [facility] CenterAbsolute Immature Granulocyte (auto 2019-05-05 22:27:00* Test Item Value Reference Range Interpretation Comments Absolute Immature Granulocyte (auto (john t code = Absolute Immature Granulocyte (auto) 0.13 0-0.1 H [facility] CenterProthrombin time (PT) in platelet poor plasma by coagulation ysvqf1060-52-59 21:48:00* Test Item Value Reference Range Interpretation Comments Prothrombin Time (test code = 5902-2) 11.2 11.9-14.5 [facility] CenterINR in Platelet poor plasma by Coagulation cmsqo1492-08-49 21:48:00* Test Item Value Reference Range Interpretation Comments Prothromb Time International Ratio (test code = 6301-6) 0.77 Oral Anticoagulant Therapy INR Values:1. Low Intensity Therapy 1.5 - 2.02 . Moderate Intensity Therapy 2.0 - 3.03. High Intensity Therapy(1) 2.5 - 3. 54. High Intensity Therapy(2) 3.0 - 4.05. Panic Value INR > 5.0 [facility] CenterActivated partial thromboplastin time (aPTT) in platelet poor plasma by coagulation dawoe0087-72-65 21:48:00* Test Item Value Reference Range Interpretation Comments Activated Partial Thromboplast Time (test code = 02141-3) 25.0 23.8-35.5 [facility] Centererum or plasma amylase measurement (enzymatic activity/volume)2019-05-05 21:48:00* Test Item Value Reference Range Interpretation Comments Amylase Level (test code = 1798-8) 39 25-125 [facility] CenterCreatine Meifte1030-89-66 19:09:00* Test Item Value Reference Range Interpretation Comments Creatine Kinase (test code = 2157-6) 22 29-168 L [facility] CenterCreatine Kinase [id number] 19:09:00* Test Item Value Reference Range Interpretation Comments Creatine Kinase MB (test code = 33532-0) 1.80 0-5.0 [facility] CenterTroponin [id number] 19:09:00* Test Item Value Reference Range Interpretation Comments Troponin I (test code = UHR0363) 0.019 0-0.300 [facility] CenterCT CHEST GA9425-03-84 09:13:00 [place] [address] Patient Name: SHELBY PEÑA MR #: [id number] : 1935 Age/Sex: 83/F Req #: [id number] Adm Physician: YOU CUELLO MD Ordered by: YOU CUELLO MD Report #: [id number] Location: [facility] Room/Bed: [place] [address] Procedure: [id number] CT/CT CH EST WO Exam Date: 02/19/19 Exam Time: 604 REPORT STATUS: Signed EXAM: CT Chest WITH OUT intravenous contrast 02/19/2019 5:42 AM INDICATION: Pulmonary nodules C OMPARISON: Chest radiograph 02/18/2019 TECHNIQUE: Chest was scanned Converser g a multidetector helical scanner from the lung apex through the level of the adrenal glands without administration of IV contrast. Coronal and sagittal ref ormations were obtained. Routine protocol was performed. IV CONTRAST: Non e RADIATION DOSE: Total DLP: 668.6 mGy*cm. Dose modulation, iterative recons truction, and/or weight based adjustment of the mA/kV was utilized to reduce t he radiation dose to as low as reasonably achievable. COMPLICATIONS: None FINDINGS: LINES/ TUBES: None. LUNGS AND AIRWAYS: The lungs are hype rinflated. There is severe diffuse upper lobe predominant centrilobular and pa raseptal emphysema. There is biapical pleural parenchymal thickening/scarring. 12 mm spiculated left upper lobe nodule (series 2 image 45). Additional 8 mm spiculated left upper lobe nodule (series 2 image 19). Multiple smaller bilate ral pulmonary nodules, for example in the left upper lobe measuring 4 mm (seri es 2 image 54), right upper lobe measuring 5 mm (series 2 image 14 and 17), ri ght upper lobe measuring 5 mm (series 2 image 45), and right lower lobe measur ing up to 5 mm (series 2 image 66 and 39). Mild bibasilar subsegmental atelect asis. Scattered subcentimeter calcified granulomas. PLEURA: No pleural ef fusion. No pneumothorax. HEART AND MEDIASTINUM: Multiple subcentimeter hypo dense nodules in the right thyroid gland, likely clinically insignificant. No supraclavicular, mediastinal, or hilar lymphadenopathy. No axillary, subpector al, or internal mammary lymphadenopathy. The heart is not enlarged. No pericar dial effusion. Diffuse atherosclerotic calcifications involve the aorta, coron brittany arteries, and proximal great vessels. UPPER ABDOMEN: Limited noncon trast images of the upper abdomen demonstrate no focal abnormality of the part ially visualized liver, spleen, pancreas, or adrenals. The upper most left kid ruperto appears normal. The right kidney is not visualized. BONES: Diffuse os teopenia. No acute osseous injury. Multilevel degenerative changes. SOFT TISSUES: Diffuse skeletal muscle atrophy. IMPRESSION: Severe emphysema. Multiple bilateral suspicious pulmonary nodules, the most concerning of which are 12 mm and 8 mm spiculated left upper lobe nodules. In this high risk patie nt, recommend follow-up chest CT at 3-6 months then additional chest CT at 18- 24 months. Heavy diffuse atherosclerotic arterial calcifications including of the coronary arteries. Signed by: Tawana Matos MD on 02/19/2019 9:31 AM Dictated By: TAWANA MATOS MD 0 Transcribed By: BILL on 02/19/19930 COPY TO: YOU HARO MD SHOULDER RIGHT XKSLAJWK3339-23-88 09:07:00 [place] [address] Patient Name: SHELBY PEÑA MR #: [id number] : 1935 Age/Sex: 83/F Req #: [id number] Adm Physician: YOU CUELLO MD Ordered by: YOU CUELLO MD Report #: [id number] Location: [facility] Room/Bed: [place] [address] Procedure: [id number] DX/SHOUL HUSEYIN RIGHT COMPLETE Exam Date: 02/19/19 Exam Time: 08 14 REPORT STATUS: Signed EXAMINA TION: SHOULDER RIGHT COMPLETE INDICATION: Right shoulder pain COM PARISON: None FINDINGS: No acute fracture or dislocation. Alignme nt appears anatomic. Mild acromioclavicular and glenohumeral degenerative hi ges. Mild diffuse osteopenia. No focal consolidation of the partially visualiz ed right lung. IMPRESSION: No acute osseous injury. Signed by: Zuly Matos MD on 02/19/2019 9:09 AM Dictated By: TAWANA MATOS MD Electronical ly Signed By: TAWANA MATOS MD on 02/19/19908 Transcribed By: BILL on 0909 COPY TO: YOU CUELLO MD Sodium Bphug2840-28-86 08:53:00 * Test Item Value Reference Range Interpretation Comments Sodium Level (test code = 2951-2) 132 136-145 L [facility] CenterPotassium Rohrp2628-14-08 08:53:00* Test Item Value Reference Range Interpretation Comments Potassium Level (test code = 2823-3) 3.8 3.5-5.1 [facility] CenterChloride Fwvng6820-13-43 08:53:00* Test Item Value Reference Range Interpretation Comments Chloride Level (test code = 2075-0) 100 98-107 [facility] CenterCarbon Dioxide Ydhqm3639-83-96 08:53:00* Test Item Value Reference Range Interpretation Comments Carbon Dioxide Level (test code = 2028-9) 20 22-29 L [facility] CenterAnion Yik2351-40-65 08:53:00* Test Item Value Reference Range Interpretation Comments Anion Gap (test code = 80241-4) 15.8 8-16 [facility] CenterBlood Urea Beqobopx5781-87-41 08:53:00* Test Item Value Reference Range Interpretation Comments Blood Urea Nitrogen (test code = 3094-0) 15 7-26 [facility] CenterCreatinine2019-12-31 08:53:00* Test Item Value Reference Range Interpretation Comments Creatinine (test code = 2160-0) 0.62 0.57-1.11 [facility] CenterBUN/Creatinine Uiefv4258-03-91 08:53:00* Test Item Value Reference Range Interpretation Comments BUN/Creatinine Ratio (test code = 3097-3) 24 6-25 [facility] CenterEstimat Glomerular Filtration Rate 2019-02-19 08:53:00* Test Item Value Reference Range Interpretation Comments Estimat Glomerular Filtration Rate (test code = 401127052) > 60 >60 Ranges were taken from the National Kidney Disease Education Program and the [facility] literature.Reference ranges:60 or greater: Plcuzd98-18 ( for 3 consecutive months): Chronic kidney disease 15 or less: Kidney failureMethodist Mansfield Medical CenterGlucose Nbtlh7505-18-83 08:53:00* Test Item Value Reference Range Interpretation Comments Glucose Level (test code = JSZ3153) 115 74-118 [facility] CenterCalcium Hxjpp7283-87-10 08:53:00* Test Item Value Reference Range Interpretation Comments Calcium Level (test code = 10912-6) 8.7 8.4-10.2 [facility] CenterTotal Idqyfyppc2136-29-99 08:53:00* Test Item Value Reference Range Interpretation Comments Total Bilirubin (test code = 1975-2) 0.4 0.2-1.2 [facility] CenterAspartate Amino Transf (AST/SGOT) 2019-02-19 08:53:00* Test Item Value Reference Range Interpretation Comments Aspartate Amino Transf (AST/SGOT) (test code = Aspartate Amino Transf (AST/SGOT)) 17 5-34 [facility] CenterAlanine Aminotransferase (ALT/SGPT) 2019-02-19 08:53:00* Test Item Value Reference Range Interpretation Comments Alanine Aminotransferase (ALT/SGPT) (test code = 1742-6) 13 0-55 [facility] CenterTotal Wyryjvy9048-91-08 08:53:00* Test Item Value Reference Range Interpretation Comments Total Protein (test code = 2885-2) 5.6 6.5-8.1 L [facility] CenterAlbumin2019-12-31 08:53:00* Test Item Value Reference Range Interpretation Comments Albumin (test code = 1751-7) 2.7 3.5-5.0 L [facility] CenterGlobulin2019-12-31 08:53:00* Test Item Value Reference Range Interpretation Comments Globulin (test code = 71262-3) 2.9 2.3-3.5 [facility] CenterAlbumin/Globulin Zuqju2686-63-63 08:53:00 * Test Item Value Reference Range Interpretation Comments Albumin/Globulin Ratio (test code = 1759-0) 0.9 0.8-2.0 [facility] CenterAlkaline Chpwaqxbimt1499-41-28 08:53:00* Test Item Value Reference Range Interpretation Comments Alkaline Phosphatase (test code = 6768-6) 252 40-150 H [facility] CenterCT LUMBAR SPINE ZB1820-09-12 06:33:00 [facility] [address] [place] [address] Patient Name: SHELBY PEÑA MR #: [id number] : 1935 Age/Sex: 83/F Req #: [id number] Adm Physician: YOU CUELLO MD Ordered by: YOU CUELLO MD Report #: [id number] Location: [facility] Room/Bed: [place] [address] Procedure: [id number] CT/CT JENNY MBAR SPINE WO Exam Date: 02/19/19 Exam Time: 0605 REPORT STATUS: Signed History: Low back pain. Comparison studies: X-ray lumbar spine from 02/04/[address] a bdomen and pelvis from 12/11/2018.. Technique: Axial images were obtai josé through the lumbar spine from L1-S1. Coronal and sagittal images reconstru cted from the axial data. Dose modulation, iterative reconstruction, and/or we ight based adjustment of the mA/kV was utilized to reduce the radiation dose t o as low as reasonably achievable. Intravenous contrast: None Findings: The usual 5 non-rib bearing lumbar vertebral bodies are present. Alignme nt: Loss of normal lumbar lordosis may be positional or due to muscle spasm. S shaped curvature of the lumbar spine with levoscoliosis of lower lumbar spine. 2 mm grade 1 retrolisthesis at L4-L5. Soft tissues: Vascular stent in the ab dominal aorta that extends into the iliac arteries. Paraspinal muscles: Fatt y atrophy of posterior paraspinal muscles at level L5 and S1. Sacroiliac suni nts: Mild bilateral (left worse than right) degenerative changes in the sacroi liac joints. Vertebrae: Diffuse osseous demineralization. Chronic inf erior endplate compression deformity and approximately 20% loss of vertebral b haja height at level L1 and L2, unchanged since CT abdomen and pelvis from 11/21. No retropulsion into spinal canal. No fractures, infection or neoplasm . Degenerative changes: L1-L2: No abnormalities. L2-L3: No a bnormalities. L3-L4: Mild degenerative disc disease. Disc bulge effaces anterior thecal sac without significant canal stenosis. Mild left foraminal s tenosis. L4-L5: Moderate to severe degenerative disc disease. 2 mm grade 1 retrolisthesis. Disc bulge in combination with thickened ligamentum flavum a nd facet arthrosis results in mild canal stenosis. Moderate bilateral facet arthrosis. Severe right and mild left foraminal stenosis. L5-S1: Modera te bilateral facet arthrosis. Mild bilateral foraminal stenosis. No canal st enosis. IMPRESSION: 1. Chronic inferior endplate compression defor mity resulting in approximately 20% loss of vertebral body height remains unch anged since CT abdomen and pelvis from 12/11/2018. 2. Diffuse osseous de mineralization. 3. Grade 1 retrolisthesis at L4-L5. 4. Multilevel jenny mbar spondylosis, particularly mild canal stenosis at L4-L5. Mild left foramin al stenosis at L3-L4, severe right and mild left at L4-L5 and mild bilateral a t L5-S1. 5. Ligament, spinal cord and or vascular abnormalities cannot be e xcluded on the basis of this examination. Signed by: Dr. Yvan Cohen M.D. on 02/19/2019 6:43 AM Dictated By: YVAN COHEN MD Electronical ly Signed By: YVAN COHEN MD on 02/19/19642 Transcribed By: BILL on 642 COPY TO: YOU CUELLO MD White Blood Mepbd3145-74-32 06:10:00* Test Item Value Reference Range Interpretation Comments White Blood Count (test code = 6690-2) 12.15 4.8-10.8 H [facility] CenterRed Blood Megxc3499-56-15 06:10:00* Test Item Value Reference Range Interpretation Comments Red Blood Count (test code = 789-8) 3.97 3.6-5.1 [facility] CenterHemoglobin2019-12-31 06:10:00* Test Item Value Reference Range Interpretation Comments Hemoglobin (test code = 54525-2) 11.4 12.0-16.0 L [facility] CenterHematocrit2019-12-31 06:10:00* Test Item Value Reference Range Interpretation Comments Hematocrit (test code = 4544-3) 35.4 34.2-44.1 [facility] CenterMean Corpuscular Vlgeii5525-26-87 06:10:00* Test Item Value Reference Range Interpretation Comments Mean Corpuscular Volume (test code = 787-2) 89.2 81-99 [facility] CenterMean Corpuscular Jbsshziyow5132-82-63 06:10:00* Test Item Value Reference Range Interpretation Comments Mean Corpuscular Hemoglobin (test code = 785-6) 28.7 28-32 [facility] Corpuscular Hemoglobin Concent 2019-02-19 06:10:00* Test Item Value Reference Range Interpretation Comments Mean Corpuscular Hemoglobin Concent (test code = 786-4) 32.2 31-35 [facility] CenterRed Cell Distribution Lowpq4525-03-06 06:10:00* Test Item Value Reference Range Interpretation Comments Red Cell Distribution Width (test code = 91662-8) 13.9 11.7 -14.4 [facility] CenterPlatelet Anltx9123-11-23 06:10:00* Test Item Value Reference Range Interpretation Comments Platelet Count (test code = 777-3) 298 140-360 [facility] CenterNeutrophils (%) (Auto)2019-02-19 06:10:00 * Test Item Value Reference Range Interpretation Comments Neutrophils (%) (Auto) (test code = 29450-0) 81.1 38.7-80.0 H [facility] CenterLymphocytes (%) (Auto)2019-02-19 06:10:00 * Test Item Value Reference Range Interpretation Comments Lymphocytes (%) (Auto) (test code = 736-9) 9.4 18.0-39.1 L [facility] CenterMonocytes (%) (Auto)2019-02-19 06:10:00* Test Item Value Reference Range Interpretation Comments Monocytes (%) (Auto) (test code = 5905-5) 7.2 4.4-11.3 [facility] CenterEosinophils (%) (Auto)2019-02-19 06:10:00 * Test Item Value Reference Range Interpretation Comments Eosinophils (%) (Auto) (test code = 713-8) 1.1 0.0-6.0 [facility] CenterBasophils (%) (Auto)2019-02-19 06:10:00* Test Item Value Reference Range Interpretation Comments Basophils (%) (Auto) (test code = 706-2) 0.4 0.0-1.0 [facility] CenterIM GRANULOCYTES %2019-02-19 06:10:00* Test Item Value Reference Range Interpretation Comments IM GRANULOCYTES % (test code = IM GRANULOCYTES %) 0.8 0.0- 1.0 [facility] CenterNeutrophils # (Auto)2019-02-19 06:10:00* Test Item Value Reference Range Interpretation Comments Neutrophils # (Auto) (test code = 751-8) 9.9 2.1-6.9 H [facility] CenterLymphocytes # (Auto)2019-02-19 06:10:00* Test Item Value Reference Range Interpretation Comments Lymphocytes # (Auto) (test code = 00408-0) 1.1 1.0-3.2 [facility] CenterMonocytes # (Auto)2019-02-19 06:10:00* Test Item Value Reference Range Interpretation Comments Monocytes # (Auto) (test code = 742-7) 0.9 0.2-0.8 H [facility] CenterEosinophils # (Auto)2019-02-19 06:10:00* Test Item Value Reference Range Interpretation Comments Eosinophils # (Auto) (test code = 711-2) 0.1 0.0-0.4 [facility] CenterBasophils # (Auto)2019-02-19 06:10:00* Test Item Value Reference Range Interpretation Comments Basophils # (Auto) (test code = 704-7) 0.1 0.0-0.1 [facility] CenterAbsolute Immature Granulocyte (auto 2019-02-19 06:10:00* Test Item Value Reference Range Interpretation Comments Absolute Immature Granulocyte (auto (ojhn t code = Absolute Immature Granulocyte (auto) 0.10 0-0.1 [facility] Zximahu2159-15-46 02:42:00* Test Item Value Reference Range Interpretation Comments Bedside Glucose (test code = 90605-6) 158 70-120 H Meter ID: [id number] Mansfield Medical CenterBedside Glucose 2019-02-19 02:42:00* Test Item Value Reference Range Interpretation Comments Bedside Glucose (test code = 83613-3) 158 70-120 H Meter ID: [id number] Mansfield Medical CenterCapillary blood glucose measurement by glucometer (mass/volume)2019-02-19 00:04:00* Test Item Value Reference Range Interpretation Comments Bedside Glucose (test code = 04119-3) 158 70-120 Meter ID: [id number] Mansfield Medical CenterUrine MQW7429-41-39 17:57:00* Test Item Value Reference Range Interpretation Comments Urine WBC (test code = 5821-4) NONE 0-5 [facility] CenterUrine JNK5733-92-33 17:57:00* Test Item Value Reference Range Interpretation Comments Urine RBC (test code = 35500-2) NONE 0-5 [facility] CenterUrine Cyzwgzvn5765-78-54 17:57:00* Test Item Value Reference Range Interpretation Comments Urine Bacteria (test code = 32348-5) FEW NONE [facility] CenterUrine Epithelial Pmxme5491-27-75 17:57:00 * Test Item Value Reference Range Interpretation Comments Urine Epithelial Cells (test code = 82095-1) FEW NONE [facility] CenterUrine Coarse Granular Dudcw8881-10-09 17:57:00* Test Item Value Reference Range Interpretation Comments Urine Coarse Granular Casts (test code = 47220-3) 1-5 >0 H [facility] CenterUrine Coarse Granular Bvjmp1470-45-14 17:57:00* Test Item Value Reference Range Interpretation Comments Urine Coarse Granular Casts (test code = 84268-4) 1-5 >0 H [facility] CenterUrine Gltzi0473-32-29 17:49:00* Test Item Value Reference Range Interpretation Comments Urine Color (test code = 5778-6) YELLOW YELLOW [facility] CenterUrine Vroocfp6260-66-27 17:49:00* Test Item Value Reference Range Interpretation Comments Urine Clarity (test code = 85293-1) SL CLOUDY CLEAR [facility] CenterUrine Specific Jjplzic6254-94-89 17:49:00 * Test Item Value Reference Range Interpretation Comments Urine Specific [place]in (test code = 5811-5) 1.020 1.010-1.02 5 [facility] CenterUrine wA1665-41-34 17:49:00* Test Item Value Reference Range Interpretation Comments Urine pH (test code = 89329-1) 6.5 5-7 [facility] CenterUrine Leukocyte Cqnrarpp6599-18-66 17:49:00* Test Item Value Reference Range Interpretation Comments Urine Leukocyte Esterase (test code = 00612-0) NEGATIVE NEGATIV E [facility] CenterUrine Otiyvhi3110-87-97 17:49:00* Test Item Value Reference Range Interpretation Comments Urine Nitrite (test code = 09099-9) NEGATIVE NEGATIVE [facility] CenterUrine Xcrlwdd2441-21-07 17:49:00* Test Item Value Reference Range Interpretation Comments Urine Protein (test code = 06692-6) TRACE NEGATIVE H [facility] CenterUrine Glucose (UA)2019-02-18 17:49:00* Test Item Value Reference Range Interpretation Comments Urine Glucose (UA) (test code = 26314-6) NEGATIVE NEGATIVE [facility] CenterUrine Gidifqa3686-63-93 17:49:00* Test Item Value Reference Range Interpretation Comments Urine Ketones (test code = 57247-1) 1+ NEGATIVE H [facility] CenterUrine Isobphbpghbq2142-92-61 17:49:00* Test Item Value Reference Range Interpretation Comments Urine Urobilinogen (test code = 24688-0) 0.2 0.2-1 [facility] CenterUrine Vmtfnhujp8261-47-64 17:49:00* Test Item Value Reference Range Interpretation Comments Urine Bilirubin (test code = 1977-8) SMALL NEGATIVE [facility] CenterUrine Oobjq3611-95-10 17:49:00* Test Item Value Reference Range Interpretation Comments Urine Blood (test code = 86998-1) NEGATIVE NEGATIVE [facility] CenterCHEST SINGLE (PORTABLE)2019-02-18 16:35:00 [place] [address] Patient Name: SHELBY PEÑA MR #: [id number] : 1935 Age/Sex: 83/F Req #: [id number] Adm Physician: Ordered by: IVANIA MARCELINO MD Report #: [id number] Location: ER Room/Bed: Procedure: [id number] DX/CHES T SINGLE (PORTABLE) Exam Date: 02/18/19 Exam Time: 1 618 REPORT STATUS: Signed EXAMIN ATION: CHEST SINGLE (PORTABLE) INDICATION: Weakness COMPARISON: C hest radiograph 04/06/2018 FINDINGS: LINES/TUBES:EKG leads overlie the chest. LUNGS:The lungs are well-inflated. Mild biapical pleural parenc hymal thickening/scarring. There is perihilar fullness and indistinctness of t he pulmonary vasculature. 5-mm nodular opacities at the right lung apex and le ft midlung. PLEURA:No pleural effusion or pneumothorax. MEDIASTINUM: The cardiomediastinal silhouette appears normal in size and shape. Atheroscler otic calcifications of the thoracic aorta. BONES/SOFT TISSUES:No acute osse ous injury. Old healed left clavicle fracture deformity ABDOMEN:No free a ir under the diaphragm. IMPRESSION: Mild pulmonary interstitial edema . Nodular opacities at the right lung apex and left midlung. Consider nonur gent chest CT for further evaluation. Signed by: Tawana Matos MD on 2018 4:38 PM Dictated By: TAWANA MATOS MD 37 Transcribed By: BILL on 02/18/198 COPY TO : IVANIA MARCELINO MD B-Type Natriuretic Bnyrspd9507-09-65 16:32:00* Test Item Value Reference Range Interpretation Comments B-Type Natriuretic Peptide (test code = 11239-0) 90.5 0-100 [facility] CenterB-Type Natriuretic Jbqckff9818-08-48 16:32:00* Test Item Value Reference Range Interpretation Comments B-Type Natriuretic Peptide (test code = 19688-1) 90.5 0-[address] [facility] [place], [place] Aqvkt7276-27-97 16:31:00* Test Item Value Reference Range Interpretation Comments Magnesium Level (test code = 79105-0) 1.6 1.3-2.[address] [facility] [place] [place] Fpiky4962-48-05 16:31:00* Test Item Value Reference Range Interpretation Comments Magnesium Level (test code = 53077-4) 1.6 1.3-2.1 [facility] CenterProthrombin Ahrg0333-94-00 16:16:00* Test Item Value Reference Range Interpretation Comments Prothrombin Time (test code = 5902-2) 11.9 11.9-14.5 [facility] CenterProthromb Time International Ratio 2019-02-18 16:16:00* Test Item Value Reference Range Interpretation Comments Prothromb Time International Ratio (test code = 6301-6) 0.83 Oral Anticoagulant Therapy INR Values:1. Low Intensity Therapy 1.5 - 2.02 . Moderate Intensity Therapy 2.0 - 3.03. High Intensity Therapy(1) 2.5 - 3. 54. High Intensity Therapy(2) 3.0 - 4.05. Panic Value INR > 5.0 [facility] CenterActivated Partial Thromboplast Time 2019-02-18 16:16:00* Test Item Value Reference Range Interpretation Comments Activated Partial Thromboplast Time (test code = 76159-6) 26.5 23.8-35.5 [facility] CenterCoarse granular casts detection in urine sediment by light emvnnrmolv9171-16-35 16:00:00* Test Item Value Reference Range Interpretation Comments Urine Coarse Granular Casts (test code = 99153-9) 1-5 >0 [facility]ererum or plasma magnesium measurement (mass/volume)2019-02-18 14:00:00* Test Item Value Reference Range Interpretation Comments Magnesium Level (test code = 84011-7) 1.6 1.3-2.1 [facility] CenterACRUM BWVIVZ2152-55-46 14:58:00 [facility] [address] [place] [address] Patient Name: SHELBY PEÑA MR #: [id number] : 1935 Age/Sex: 83/F Req #: [id number] Adm Physician: Ordered by: BRITTNI ESCALANTE MD Report #: [id number] Location: Room/Bed: Procedure: [id number] DX/ SACRUM COCCYX Exam Date: Exam Time: REPORT STATUS: Signed EXAM: Lumbar spine rad iographs-4 views; pelvic radiograph-1 view; sacrum/coccyx radiographs-5 views INDICATION: Pain. COMPARISON: CT abdomen/pelvis 12/11/2018. FINDI NGS: BONES: Bowel gas partially obscures visualization of the sacrum and williams ateral iliac bones, which limits evaluation. Diffuse osteopenia. Mild ante rolisthesis of L3 on L4. No evidence of acute fracture or dislocation. There is mild loss of vertebral body height at at L1 and L2, unchanged from CT on 1 . Limited evaluation of the thoracic spine. There is moderate loss of vertebral body height in the lower thoracic spine; moderate compression de formities at T10 and T11 were present on prior CT from 12/11/2018. DISCS: There are moderate degenerative disc changes, most pronounced at L4-L5. JOINTS: Moderate facet degenerative changes, most pronounced at L4-L5 and L5-S 1. SOFT TISSUES: There is a aorto bi-iliac arterial endograft. Status po st cholecystectomy. IMPRESSION: No evidence of acute fracture. Uncha nged loss of vertebral body heights at T10-T11 and L1-L2. Signed by: Dr. Juan R Rizzo MD on 02/04/2019 3:10 PM Dictated By: JACOB carpenter Signed By: JACOB RIZZO MD on 02/04/191509 Transcribed By: BILL on 01/20 COPY TO: BRITTNI ESCALANTE MD PELVIS AP 1-2 VIEWS 2019-02-04 14:58:00 [place] [address] Patient Name: SHELBY PEÑA MR #: [id number] : 1935 Age/Sex: 83/F Req #: [id number] Adm Physician: Ordered by: BRITTNI ESCALANTE MD Report #: [id number] Location: ER Room/Bed: Procedure: [id number] DX/ PELVIS AP 1-2 VIEWS Exam Date: Exam Time: REPORT STATUS: Signed EXAM: Lumbar spine radiographs-4 views; pelvic radiograph-1 view; sacrum/coccyx radiographs-5 vi ews INDICATION: Pain. COMPARISON: CT abdomen/pelvis 12/11/2018. F INDINGS: BONES: Bowel gas partially obscures visualization of the sacrum and bilateral iliac bones, which limits evaluation. Diffuse osteopenia. Mild anterolisthesis of L3 on L4. No evidence of acute fracture or dislocation. T here is mild loss of vertebral body height at at L1 and L2, unchanged from CT on 12/11/2018. Limited evaluation of the thoracic spine. There is moderate loss of vertebral body height in the lower thoracic spine; moderate compressio n deformities at T10 and T11 were present on prior CT from 12/11/2018. DI SCS: There are moderate degenerative disc changes, most pronounced at L4-L5. JOINTS: Moderate facet degenerative changes, most pronounced at L4-L5 and L5-S1. SOFT TISSUES: There is a aorto bi-iliac arterial endograft. Statu s post cholecystectomy. IMPRESSION: No evidence of acute fracture. U nchanged loss of vertebral body heights at T10-T11 and L1-L2. Signed by: Kervin Rizzo MD on 02/04/2019 3:10 PM Dictated By: JACOB RIZZO MD Elect ronically Signed By: JACOB RIZZO MD on 02/04/19 537 Transcribed By: BILL on 02/04/191509 COPY TO: BRITTNI ESCALANTE MD SP LUMBAR AP LATERAL [id number] 14:58:00 [place] [address] Patient Name: SHELBY PEÑA MR #: [id number] : 1935 Age/Sex: 83/F Req #: [id number] Adm Physician: Ordered by: BRITTNI ESCALANTE MD Report #: [id number] Location: ER Room/Bed: Procedure: [id number] DX/ SP LUMBAR AP LATERAL 2-3VWS Exam Date: Exam Time: REPORT STATUS: Signed EXAM: Jenny mbar spine radiographs-4 views; pelvic radiograph-1 view; sacrum/coccyx radiog raphs-5 views INDICATION: Pain. COMPARISON: CT abdomen/pelvis 12/12/19 19. FINDINGS: BONES: Bowel gas partially obscures visualization of the sacrum and bilateral iliac bones, which limits evaluation. Diffuse osteopeni a. Mild anterolisthesis of L3 on L4. No evidence of acute fracture or disloc ation. There is mild loss of vertebral body height at at L1 and L2, unchanged from CT on 12/11/2018. Limited evaluation of the thoracic spine. There is moderate loss of vertebral body height in the lower thoracic spine; moderate compression deformities at T10 and T11 were present on prior CT from 9. DISCS: There are moderate degenerative disc changes, most pronounced a t L4-L5. JOINTS: Moderate facet degenerative changes, most pronounced at L4-L5 and L5-S1. SOFT TISSUES: There is a aorto bi-iliac arterial endogr aft. Status post cholecystectomy. IMPRESSION: No evidence of acute fractu re. Unchanged loss of vertebral body heights at T10-T11 and L1-L2. Si gned by: Dr. Jacob Rizzo MD on 02/04/2019 3:10 PM Dictated By: JACOB RIZZO MD 09 Transcribed By: Bradley FIGUEROA on 02/04/191509 COPY TO: BRITTNI ESCALANTE MD Prothrombin [id number] 11:45:00* Test Item Value Reference Range Interpretation Comments Prothrombin Time (test code = 5902-2) 12.2 11.9-14.5 [facility] CenterProthromb Time International Ratio 2018-12-12 11:45:00* Test Item Value Reference Range Interpretation Comments Prothromb Time International Ratio (test code = 6301-6) 0.86 Oral Anticoagulant Therapy INR Values:1. Low Intensity Therapy 1.5 - 2.02 . Moderate Intensity Therapy 2.0 - 3.03. High Intensity Therapy(1) 2.5 - 3. 54. High Intensity Therapy(2) 3.0 - 4.05. Panic Value INR > 5.0 [facility] CenterProthrombin Xzyz9640-22-95 11:45:00* Test Item Value Reference Range Interpretation Comments Prothrombin Time (test code = 5902-2) 12.2 11.9-14.5 [facility] CenterProthromb Time International Ratio 2018-12-12 11:45:00* Test Item Value Reference Range Interpretation Comments Prothromb Time International Ratio (test code = 6301-6) 0.86 Oral Anticoagulant Therapy INR Values:1. Low Intensity Therapy 1.5 - 2.02 . Moderate Intensity Therapy 2.0 - 3.03. High Intensity Therapy(1) 2.5 - 3. 54. High Intensity Therapy(2) 3.0 - 4.05. Panic Value INR > 5.0 [facility] CenterProthrombin Xlmo9182-93-55 11:45:00* Test Item Value Reference Range Interpretation Comments Prothrombin Time (test code = 5902-2) 12.2 11.9-14.5 [facility] CenterProthromb Time International Ratio 2018-12-12 11:45:00* Test Item Value Reference Range Interpretation Comments Prothromb Time International Ratio (test code = 6301-6) 0.86 Oral Anticoagulant Therapy INR Values:1. Low Intensity Therapy 1.5 - 2.02 . Moderate Intensity Therapy 2.0 - 3.03. High Intensity Therapy(1) 2.5 - 3. 54. High Intensity Therapy(2) 3.0 - 4.05. Panic Value INR > 5.0 [facility] CenterProthrombin Fkzt2558-86-90 11:45:00* Test Item Value Reference Range Interpretation Comments Prothrombin Time (test code = 5902-2) 12.2 11.9-14.5 [facility] CenterProthromb Time International Ratio 2018-12-12 11:45:00* Test Item Value Reference Range Interpretation Comments Prothromb Time International Ratio (test code = 6301-6) 0.86 Oral Anticoagulant Therapy INR Values:1. Low Intensity Therapy 1.5 - 2.02 . Moderate Intensity Therapy 2.0 - 3.03. High Intensity Therapy(1) 2.5 - 3. 54. High Intensity Therapy(2) 3.0 - 4.05. Panic Value INR > 5.0 [facility] CenterPlatelet Ddfqutht0331-76-99 06:33:00* Test Item Value Reference Range Interpretation Comments Platelet Estimate (test code = 26886-6) MODERATELY DECREASED [facility] CenterPlatelet Morphology Yovzjgv0006-38-14 06:33:00* Test Item Value Reference Range Interpretation Comments Platelet Morphology Comment (test code = 05207-7) FEW LARGE [facility] CenterHypochromasia2019-10-23 06:33:00* Test Item Value Reference Range Interpretation Comments Hypochromasia (test code = 728-6) SLIGHT [facility] CenterRed Cell Morphology Rexjamz6810-56-77 06:33:00* Test Item Value Reference Range Interpretation Comments Red Cell Morphology Comment (test code = 6742-1) ABNORMAL [facility] CenterPlatelet Rdodlbaj4473-62-28 06:33:00* Test Item Value Reference Range Interpretation Comments Platelet Estimate (test code = 48762-0) MODERATELY DECREASED [facility] CenterPlatelet Morphology Fpsyopf3142-83-72 06:33:00* Test Item Value Reference Range Interpretation Comments Platelet Morphology Comment (test code = 51398-6) FEW LARGE [facility] CenterHypochromasia2019-10-23 06:33:00* Test Item Value Reference Range Interpretation Comments Hypochromasia (test code = 728-6) SLIGHT [facility] CenterRed Cell Morphology Zabqhao0571-10-79 06:33:00* Test Item Value Reference Range Interpretation Comments Red Cell Morphology Comment (test code = 6742-1) ABNORMAL [facility] CenterPlatelet Ddvcixsd2480-68-19 06:33:00* Test Item Value Reference Range Interpretation Comments Platelet Estimate (test code = 48478-5) MODERATELY DECREASED [facility] CenterPlatelet Morphology Rbgkqxu3481-30-53 06:33:00* Test Item Value Reference Range Interpretation Comments Platelet Morphology Comment (test code = 04840-3) [facility]W L[facility]GE [facility]-23 06:33:00* Test Item Value Reference Range Interpretation Comments Hypochromasia (test code = 728-6) SLIGHT [facility] CenterRed Cell Morphology Tlvsqhp5870-23-11 06:33:00* Test Item Value Reference Range Interpretation Comments Red Cell Morphology Comment (test code = 6742-1) ABNORMAL [facility] CenterPlatelet Wqgoqtoz3592-28-22 06:33:00* Test Item Value Reference Range Interpretation Comments Platelet Estimate (test code = 76125-2) MODERATELY DECREASED [facility] CenterPlatelet Morphology Eiwphtg7342-94-73 06:33:00* Test Item Value Reference Range Interpretation Comments Platelet Morphology Comment (test code = 22574-4) FEW LARGE [facility] CenterHypochromasia2019-10-23 06:33:00* Test Item Value Reference Range Interpretation Comments Hypochromasia (test code = 728-6) SLIGHT [facility] CenterRed Cell Morphology Xkhgmbu0437-80-60 06:33:00* Test Item Value Reference Range Interpretation Comments Red Cell Morphology Comment (test code = 6742-1) ABNORMAL [facility] CenterPlatelet Cgemifba8141-70-89 06:33:00* Test Item Value Reference Range Interpretation Comments Platelet Estimate (test code = 62860-1) MODERATELY DECREASED [facility] CenterPlatelet Morphology Urtmopv8380-93-21 06:33:00* Test Item Value Reference Range Interpretation Comments Platelet Morphology Comment (test code = 85367-6) FEW LARGE [facility] CenterHypochromasia2019-10-23 06:33:00* Test Item Value Reference Range Interpretation Comments Hypochromasia (test code = 728-6) SLIGHT [facility] CenterRed Cell Morphology Mjyoneu9978-47-63 06:33:00* Test Item Value Reference Range Interpretation Comments Red Cell Morphology Comment (test code = 6742-1) ABNORMAL [facility] CenterPlatelet Lmbcrwxt0886-19-64 06:33:00* Test Item Value Reference Range Interpretation Comments Platelet Estimate (test code = 85125-3) MODERATELY DECREASED [facility] CenterPlatelet Morphology Xslghhm1718-82-92 06:33:00* Test Item Value Reference Range Interpretation Comments Platelet Morphology Comment (test code = 88003-0) FEW LARGE [facility] CenterHypochromasia2019-10-23 06:33:00* Test Item Value Reference Range Interpretation Comments Hypochromasia (test code = 728-6) SLIGHT [facility] CenterRed Cell Morphology Nebaznn0239-82-52 06:33:00* Test Item Value Reference Range Interpretation Comments Red Cell Morphology Comment (test code = 6742-1) ABNORMAL [facility]odium Xpzux6792-45-44 06:03:00* Test Item Value Reference Range Interpretation Comments Sodium Level (test code = 2951-2) 132 136-145 L [facility] CenterPotassium Wdivd8814-09-98 06:03:00* Test Item Value Reference Range Interpretation Comments Potassium Level (test code = 2823-3) 4.0 3.5-5.1 [facility] CenterChloride Lejci9042-82-82 06:03:00* Test Item Value Reference Range Interpretation Comments Chloride Level (test code = 2075-0) 106 98-107 [facility] CenterCarbon Dioxide Fkqdf3176-14-18 06:03:00* Test Item Value Reference Range Interpretation Comments Carbon Dioxide Level (test code = 2028-9) 19 22-29 L [facility] CenterAnion Nyl6751-21-65 06:03:00* Test Item Value Reference Range Interpretation Comments Anion Gap (test code = 03761-4) 11.0 8-16 [facility] CenterBlood Urea Ntytovuc4399-40-06 06:03:00* Test Item Value Reference Range Interpretation Comments Blood Urea Nitrogen (test code = 3094-0) 15 7-26 [facility] CenterCreatinine2019-10-23 06:03:00* Test Item Value Reference Range Interpretation Comments Creatinine (test code = 2160-0) 0.61 0.57-1.11 [facility] CenterBUN/Creatinine Ujrsn4026-52-56 06:03:00* Test Item Value Reference Range Interpretation Comments BUN/Creatinine Ratio (test code = 3097-3) 25 6-25 [facility] CenterEstimat Glomerular Filtration Rate 2018-12-12 06:03:00* Test Item Value Reference Range Interpretation Comments Estimat Glomerular Filtration Rate (test code = 099928366) > 60 >60 Ranges were taken from the National Kidney Disease Education Program and the [facility] Kid[employer] Foundation literature.Reference ranges:60 or greater: Qdgugv41-38 ( for 3 consecutive months): Chronic kidney disease 15 or less: Kidney failureMethodist Mansfield Medical CenterGlucose Zvotv8802-83-34 06:03:00* Test Item Value Reference Range Interpretation Comments Glucose Level (test code = LSH9272) 113 74-118 [facility] CenterCalcium Gcosl0803-91-43 06:03:00* Test Item Value Reference Range Interpretation Comments Calcium Level (test code = 43999-2) 8.5 8.4-10.2 [facility] CenterTotal Vsltryahx5104-87-84 06:03:00* Test Item Value Reference Range Interpretation Comments Total Bilirubin (test code = 1975-2) 0.3 0.2-1.2 [facility] CenterAspartate Amino Transf (AST/SGOT) 2018-12-12 06:03:00* Test Item Value Reference Range Interpretation Comments Aspartate Amino Transf (AST/SGOT) (test code = Aspartate Amino Transf (AST/SGOT)) 14 5-34 [facility] CenterAlanine Aminotransferase (ALT/SGPT) 2018-12-12 06:03:00* Test Item Value Reference Range Interpretation Comments Alanine Aminotransferase (ALT/SGPT) (test code = 1742-6) 13 0-55 [facility] CenterTotal Gxxydod5540-12-28 06:03:00* Test Item Value Reference Range Interpretation Comments Total Protein (test code = 2885-2) 4.8 6.5-8.1 L [facility] CenterAlbumin2019-10-23 06:03:00* Test Item Value Reference Range Interpretation Comments Albumin (test code = 1751-7) 2.5 3.5-5.0 L [facility] CenterGlobulin2019-10-23 06:03:00* Test Item Value Reference Range Interpretation Comments Globulin (test code = 35338-0) 2.3 2.3-3.5 [facility] CenterAlbumin/Globulin Iqcee8530-73-47 06:03:00 * Test Item Value Reference Range Interpretation Comments Albumin/Globulin Ratio (test code = 1759-0) 1.1 0.8-2.0 [facility] CenterAlkaline Xcaniqhmwuc7642-62-98 06:03:00* Test Item Value Reference Range Interpretation Comments Alkaline Phosphatase (test code = 6768-6) 74 40-150 [facility] CenterLipase2019-10-23 06:03:00* Test Item Value Reference Range Interpretation Comments Lipase (test code = 3040-3) 10 8-78 [facility]odium Rutkn9044-29-20 06:03:00* Test Item Value Reference Range Interpretation Comments Sodium Level (test code = 2951-2) 132 136-145 L [facility] CenterPotassium Chfab5403-13-07 06:03:00* Test Item Value Reference Range Interpretation Comments Potassium Level (test code = 2823-3) 4.0 3.5-5.1 [facility] CenterChloride Fhnjf7667-11-39 06:03:00* Test Item Value Reference Range Interpretation Comments Chloride Level (test code = 2075-0) 106 98-107 [facility] CenterCarbon Dioxide Ktycd1904-75-95 06:03:00* Test Item Value Reference Range Interpretation Comments Carbon Dioxide Level (test code = 2028-9) 19 22-29 L [facility] CenterAnion Qsq3967-79-85 06:03:00* Test Item Value Reference Range Interpretation Comments Anion Gap (test code = 89049-6) 11.0 8-16 [facility] CenterBlood Urea Exzbyxnq0922-02-58 06:03:00* Test Item Value Reference Range Interpretation Comments Blood Urea Nitrogen (test code = 3094-0) 15 7-26 [facility] CenterCreatinine2019-10-23 06:03:00* Test Item Value Reference Range Interpretation Comments Creatinine (test code = 2160-0) 0.61 0.57-1.11 [facility] CenterBUN/Creatinine Ezpcy2134-97-37 06:03:00* Test Item Value Reference Range Interpretation Comments BUN/Creatinine Ratio (test code = 3097-3) 25 6-25 [facility] CenterEstimat Glomerular Filtration Rate 2018-12-12 06:03:00* Test Item Value Reference Range Interpretation Comments Estimat Glomerular Filtration Rate (test code = 892426749) > 60 >60 Ranges were taken from the National Kidney Disease Education Program and the [facility] Kid[employer] Foundation literature.Reference ranges:60 or greater: Lucsil55-63 ( for 3 consecutive months): Chronic kidney disease 15 or less: Kidney failureMethodist Mansfield Medical CenterGlucose Gzyyp5771-03-88 06:03:00* Test Item Value Reference Range Interpretation Comments Glucose Level (test code = DNQ5438) 113 74-118 [facility] CenterCalcium Derfc9157-72-56 06:03:00* Test Item Value Reference Range Interpretation Comments Calcium Level (test code = 96039-7) 8.5 8.4-10.2 [facility] CenterTotal Xepbvfqed1861-52-27 06:03:00* Test Item Value Reference Range Interpretation Comments Total Bilirubin (test code = 1975-2) 0.3 0.2-1.2 [facility] CenterAspartate Amino Transf (AST/SGOT) 2018-12-12 06:03:00* Test Item Value Reference Range Interpretation Comments Aspartate Amino Transf (AST/SGOT) (test code = Aspartate Amino Transf (AST/SGOT)) 14 5-34 [facility] CenterAlanine Aminotransferase (ALT/SGPT) 2018-12-12 06:03:00* Test Item Value Reference Range Interpretation Comments Alanine Aminotransferase (ALT/SGPT) (test code = 1742-6) 13 0-55 [facility] CenterTotal Fmferom1711-62-03 06:03:00* Test Item Value Reference Range Interpretation Comments Total Protein (test code = 2885-2) 4.8 6.5-8.1 L [facility] CenterAlbumin2019-10-23 06:03:00* Test Item Value Reference Range Interpretation Comments Albumin (test code = 1751-7) 2.5 3.5-5.0 L [facility] CenterGlobulin2019-10-23 06:03:00* Test Item Value Reference Range Interpretation Comments Globulin (test code = 85382-2) 2.3 2.3-3.5 [facility] CenterAlbumin/Globulin Vakhl5439-74-32 06:03:00 * Test Item Value Reference Range Interpretation Comments Albumin/Globulin Ratio (test code = 1759-0) 1.1 0.8-2.0 [facility] CenterAlkaline Xoctzfdlhrg1038-71-25 06:03:00* Test Item Value Reference Range Interpretation Comments Alkaline Phosphatase (test code = 6768-6) 74 40-150 [facility] CenterLipase2019-10-23 06:03:00* Test Item Value Reference Range Interpretation Comments Lipase (test code = 3040-3) 10 8-78 [facility]odium Tafxx5417-62-53 06:03:00* Test Item Value Reference Range Interpretation Comments Sodium Level (test code = 2951-2) 132 136-145 L [facility] CenterPotassium Icfhz2741-57-25 06:03:00* Test Item Value Reference Range Interpretation Comments Potassium Level (test code = 2823-3) 4.0 3.5-5.1 [facility] CenterChloride Xogzh5518-39-07 06:03:00* Test Item Value Reference Range Interpretation Comments Chloride Level (test code = 2075-0) 106 98-107 [facility] CenterCarbon Dioxide Osvry3726-99-96 06:03:00* Test Item Value Reference Range Interpretation Comments Carbon Dioxide Level (test code = 2028-9) 19 22-29 L [facility] CenterAnion Tln1777-44-31 06:03:00* Test Item Value Reference Range Interpretation Comments Anion Gap (test code = 94732-2) 11.0 8-16 [facility] CenterBlood Urea Bzrajicd6465-67-82 06:03:00* Test Item Value Reference Range Interpretation Comments Blood Urea Nitrogen (test code = 3094-0) 15 7-26 [facility] CenterCreatinine2019-10-23 06:03:00* Test Item Value Reference Range Interpretation Comments Creatinine (test code = 2160-0) 0.61 0.57-1.11 [facility] CenterBUN/Creatinine Sasjr2446-56-64 06:03:00* Test Item Value Reference Range Interpretation Comments BUN/Creatinine Ratio (test code = 3097-3) 25 6-25 [facility] CenterEstimat Glomerular Filtration Rate 2018-12-12 06:03:00* Test Item Value Reference Range Interpretation Comments Estimat Glomerular Filtration Rate (test code = 749102757) > 60 >60 Ranges were taken from the National Kidney Disease Education Program and the [facility] Kidney Foundation literature.Reference ranges:60 or greater: Yffbad03-63 ( for 3 consecutive months): Chronic kidney disease 15 or less: Kidney failureMethodist Mansfield Medical CenterGlucose Fvmcf6681-12-76 06:03:00* Test Item Value Reference Range Interpretation Comments Glucose Level (test code = QOP9863) 113 74-118 [facility] CenterCalcium Xomjs7782-49-91 06:03:00* Test Item Value Reference Range Interpretation Comments Calcium Level (test code = 83873-0) 8.5 8.4-10.2 [facility] CenterTotal Zvxjnoxgj7898-51-79 06:03:00* Test Item Value Reference Range Interpretation Comments Total Bilirubin (test code = 1975-2) 0.3 0.2-1.2 [facility] CenterAspartate Amino Transf (AST/SGOT) 2018-12-12 06:03:00* Test Item Value Reference Range Interpretation Comments Aspartate Amino Transf (AST/SGOT) (test code = Aspartate Amino Transf (AST/SGOT)) 14 5-34 [facility] CenterAlanine Aminotransferase (ALT/SGPT) 2018-12-12 06:03:00* Test Item Value Reference Range Interpretation Comments Alanine Aminotransferase (ALT/SGPT) (test code = 1742-6) 13 0-55 [facility] CenterTotal Vyifwjh6318-45-89 06:03:00* Test Item Value Reference Range Interpretation Comments Total Protein (test code = 2885-2) 4.8 6.5-8.1 L [facility] CenterAlbumin2019-10-23 06:03:00* Test Item Value Reference Range Interpretation Comments Albumin (test code = 1751-7) 2.5 3.5-5.0 L [facility] CenterGlobulin2019-10-23 06:03:00* Test Item Value Reference Range Interpretation Comments Globulin (test code = 25578-3) 2.3 2.3-3.5 [facility] CenterAlbumin/Globulin Juzqp8997-58-56 06:03:00 * Test Item Value Reference Range Interpretation Comments Albumin/Globulin Ratio (test code = 1759-0) 1.1 0.8-2.0 [facility] CenterAlkaline Cdmqxcgakdd4007-60-65 06:03:00* Test Item Value Reference Range Interpretation Comments Alkaline Phosphatase (test code = 6768-6) 74 40-150 [facility] CenterLipase2019-10-23 06:03:00* Test Item Value Reference Range Interpretation Comments Lipase (test code = 3040-3) 10 8-78 [facility]odium Ircgh2973-53-24 06:03:00* Test Item Value Reference Range Interpretation Comments Sodium Level (test code = 2951-2) 132 136-145 L [facility] CenterPotassium Arhfh6752-80-74 06:03:00* Test Item Value Reference Range Interpretation Comments Potassium Level (test code = 2823-3) 4.0 3.5-5.1 [facility] CenterChloride Fivct8036-36-34 06:03:00* Test Item Value Reference Range Interpretation Comments Chloride Level (test code = 2075-0) 106 98-107 [facility] CenterCarbon Dioxide Ktgaf6460-58-18 06:03:00* Test Item Value Reference Range Interpretation Comments Carbon Dioxide Level (test code = 2028-9) 19 22-29 L [facility] CenterAnion Nen2366-41-87 06:03:00* Test Item Value Reference Range Interpretation Comments Anion Gap (test code = 67489-2) 11.0 8-16 [facility] CenterBlood Urea Ocxfoxze6568-02-97 06:03:00* Test Item Value Reference Range Interpretation Comments Blood Urea Nitrogen (test code = 3094-0) 15 7-26 [facility] CenterCreatinine2019-10-23 06:03:00* Test Item Value Reference Range Interpretation Comments Creatinine (test code = 2160-0) 0.61 0.57-1.11 [facility] CenterBUN/Creatinine Boqfc6486-34-13 06:03:00* Test Item Value Reference Range Interpretation Comments BUN/Creatinine Ratio (test code = 3097-3) 25 6-25 [facility] CenterEstimat Glomerular Filtration Rate 2018-12-12 06:03:00* Test Item Value Reference Range Interpretation Comments Estimat Glomerular Filtration Rate (test code = 621109042) > 60 >60 Ranges were taken from the National Kidney Disease Education Program and the [facility] Kidney Foundation literature.Reference ranges:60 or greater: Hcxhjq50-24 ( for 3 consecutive months): Chronic kidney disease 15 or less: Kidney failureMethodist Mansfield Medical CenterGlucose Qrnro8444-81-25 06:03:00* Test Item Value Reference Range Interpretation Comments Glucose Level (test code = KYE8196) 113 74-118 [facility] CenterCalcium Eazjl2847-33-83 06:03:00* Test Item Value Reference Range Interpretation Comments Calcium Level (test code = 16104-6) 8.5 8.4-10.2 [facility] CenterTotal Cwldugpsb1755-79-74 06:03:00* Test Item Value Reference Range Interpretation Comments Total Bilirubin (test code = 1975-2) 0.3 0.2-1.2 [facility] CenterAspartate Amino Transf (AST/SGOT) 2018-12-12 06:03:00* Test Item Value Reference Range Interpretation Comments Aspartate Amino Transf (AST/SGOT) (test code = Aspartate Amino Transf (AST/SGOT)) 14 5-34 [facility] CenterAlanine Aminotransferase (ALT/SGPT) 2018-12-12 06:03:00* Test Item Value Reference Range Interpretation Comments Alanine Aminotransferase (ALT/SGPT) (test code = 1742-6) 13 0-55 [facility] CenterTotal Tpigaiw8296-95-77 06:03:00* Test Item Value Reference Range Interpretation Comments Total Protein (test code = 2885-2) 4.8 6.5-8.1 L [facility] CenterAlbumin2019-10-23 06:03:00* Test Item Value Reference Range Interpretation Comments Albumin (test code = 1751-7) 2.5 3.5-5.0 L [facility] CenterGlobulin2019-10-23 06:03:00* Test Item Value Reference Range Interpretation Comments Globulin (test code = 44549-8) 2.3 2.3-3.5 [facility] CenterAlbumin/Globulin Gacyi6555-76-62 06:03:00 * Test Item Value Reference Range Interpretation Comments Albumin/Globulin Ratio (test code = 1759-0) 1.1 0.8-2.0 [facility] CenterAlkaline Grivxzoypjv2978-45-68 06:03:00* Test Item Value Reference Range Interpretation Comments Alkaline Phosphatase (test code = 6768-6) 74 40-150 [facility] CenterLipase2019-10-[facility] 06:03:00* Test Item Value Reference Range Interpretation Comments Lipase (test code = 3040-3) [facility] CenterLipase2019-10-[facility] 06:03:00* Test Item Value Reference Range Interpretation Comments Lipase (test code = 3040-3) [facility] CenterMagnesium Pgxpw0098-07-79 05:42:00* Test Item Value Reference Range Interpretation Comments Magnesium Level (test code = 73856-3) 2.5 1.3-2.[address] [facility] [place], [place] Kbnpc5134-02-95 05:42:00* Test Item Value Reference Range Interpretation Comments Magnesium Level (test code = 48257-0) 2.5 1.3-2.[address] [facility] [place] Vuzpo7912-58-71 05:42:00* Test Item Value Reference Range Interpretation Comments Magnesium Level (test code = 63919-6) 2.5 1.3-2.1 [facility] Ehfxp7445-31-10 05:42:00* Test Item Value Reference Range Interpretation Comments Magnesium Level (test code = 95726-3) 2.5 1.3-2.1 H [facility] CenterWhite Blood Atotv5450-44-88 05:26:00* Test Item Value Reference Range Interpretation Comments White Blood Count (test code = 6690-2) 5.59 4.8-10.8 [facility] CenterRed Blood Xkvyd1880-17-18 05:26:00* Test Item Value Reference Range Interpretation Comments Red Blood Count (test code = 789-8) 3.53 3.6-5.1 L [facility] CenterHemoglobin2019-10-23 05:26:00* Test Item Value Reference Range Interpretation Comments Hemoglobin (test code = 82947-2) 10.2 12.0-16.0 L [facility] CenterHematocrit2019-10-23 05:26:00* Test Item Value Reference Range Interpretation Comments Hematocrit (test code = 4544-3) 33.7 34.2-44.1 L [facility] CenterMean Corpuscular Mvgoeb2653-83-60 05:26:00* Test Item Value Reference Range Interpretation Comments Mean Corpuscular Volume (test code = 787-2) 95.5 81-99 [facility] CenterMean Corpuscular Fnpjjomsfd2263-20-96 05:26:00* Test Item Value Reference Range Interpretation Comments Mean Corpuscular Hemoglobin (test code = 785-6) 28.9 28-32 [facility] CenterMean Corpuscular Hemoglobin Concent 2018-12-12 05:26:00* Test Item Value Reference Range Interpretation Comments Mean Corpuscular Hemoglobin Concent (test code = 786-4) 30.3 31-35 L [facility] CenterRed Cell Distribution Xvbpf1493-69-90 05:26:00* Test Item Value Reference Range Interpretation Comments Red Cell Distribution Width (test code = 55356-6) 14.6 11.7 -14.4 H [facility] CenterPlatelet Ftlyt8976-10-08 05:26:00* Test Item Value Reference Range Interpretation Comments Platelet Count (test code = 777-3) 170 140-360 [facility] CenterNeutrophils (%) (Auto)2018-12-12 05:26:00 * Test Item Value Reference Range Interpretation Comments Neutrophils (%) (Auto) (test code = 92441-9) 79.8 38.7-80.0 [facility] CenterLymphocytes (%) (Auto)2018-12-12 05:26:00 * Test Item Value Reference Range Interpretation Comments Lymphocytes (%) (Auto) (test code = 736-9) 11.1 18.0-39.1 L [facility] CenterMonocytes (%) (Auto)2018-12-12 05:26:00* Test Item Value Reference Range Interpretation Comments Monocytes (%) (Auto) (test code = 5905-5) 6.8 4.4-11.3 [facility] CenterEosinophils (%) (Auto)2018-12-12 05:26:00 * Test Item Value Reference Range Interpretation Comments Eosinophils (%) (Auto) (test code = 713-8) 1.4 0.0-6.0 [facility] CenterBasophils (%) (Auto)2018-12-12 05:26:00* Test Item Value Reference Range Interpretation Comments Basophils (%) (Auto) (test code = 706-2) 0.2 0.0-1.0 [facility] CenterIM GRANULOCYTES %2018-12-12 05:26:00* Test Item Value Reference Range Interpretation Comments IM GRANULOCYTES % (test code = IM GRANULOCYTES %) 0.7 0.0- 1.0 [facility] CenterNeutrophils # (Auto)2018-12-12 05:26:00* Test Item Value Reference Range Interpretation Comments Neutrophils # (Auto) (test code = 751-8) 4.5 2.1-6.9 [facility] CenterLymphocytes # (Auto)2018-12-12 05:26:00* Test Item Value Reference Range Interpretation Comments Lymphocytes # (Auto) (test code = 40850-5) 0.6 1.0-3.2 L [facility] CenterMonocytes # (Auto)2018-12-12 05:26:00* Test Item Value Reference Range Interpretation Comments Monocytes # (Auto) (test code = 742-7) 0.4 0.2-0.8 [facility] CenterEosinophils # (Auto)2018-12-12 05:26:00* Test Item Value Reference Range Interpretation Comments Eosinophils # (Auto) (test code = 711-2) 0.1 0.0-0.4 [facility] CenterBasophils # (Auto)2018-12-12 05:26:00* Test Item Value Reference Range Interpretation Comments Basophils # (Auto) (test code = 704-7) 0.0 0.0-0.1 [facility] CenterAbsolute Immature Granulocyte (auto 2018-12-12 05:26:00* Test Item Value Reference Range Interpretation Comments Absolute Immature Granulocyte (auto (john t code = Absolute Immature Granulocyte (auto) 0.04 0-0.1 [facility] CenterWhite Blood Pibkp6391-01-81 05:26:00* Test Item Value Reference Range Interpretation Comments White Blood Count (test code = 6690-2) 5.59 4.8-10.8 [facility] CenterRed Blood Woyie1333-03-07 05:26:00* Test Item Value Reference Range Interpretation Comments Red Blood Count (test code = 789-8) 3.53 3.6-5.1 L [facility] CenterHemoglobin2019-10-23 05:26:00* Test Item Value Reference Range Interpretation Comments Hemoglobin (test code = 91329-2) 10.2 12.0-16.0 L [facility] CenterHematocrit2019-10-23 05:26:00* Test Item Value Reference Range Interpretation Comments Hematocrit (test code = 4544-3) 33.7 34.2-44.1 L [facility] CenterMean Corpuscular Yjlzxp8594-35-53 05:26:00* Test Item Value Reference Range Interpretation Comments Mean Corpuscular Volume (test code = 787-2) 95.5 81-99 [facility] CenterMean Corpuscular Vikfaafuwr4394-28-65 05:26:00* Test Item Value Reference Range Interpretation Comments Mean Corpuscular Hemoglobin (test code = 785-6) 28.9 28-32 [facility] CenterMean Corpuscular Hemoglobin Concent 2018-12-12 05:26:00* Test Item Value Reference Range Interpretation Comments Mean Corpuscular Hemoglobin Concent (test code = 786-4) 30.3 31-35 L [facility] CenterRed Cell Distribution Uwdmc7559-42-56 05:26:00* Test Item Value Reference Range Interpretation Comments Red Cell Distribution Width (test code = 22015-0) 14.6 11.7 -14.4 H [facility] CenterPlatelet Cxtzg6617-41-32 05:26:00* Test Item Value Reference Range Interpretation Comments Platelet Count (test code = 777-3) 170 140-360 [facility] CenterNeutrophils (%) (Auto)2018-12-12 05:26:00 * Test Item Value Reference Range Interpretation Comments Neutrophils (%) (Auto) (test code = 61021-2) 79.8 38.7-80.0 [facility] CenterLymphocytes (%) (Auto)2018-12-12 05:26:00 * Test Item Value Reference Range Interpretation Comments Lymphocytes (%) (Auto) (test code = 736-9) 11.1 18.0-39.1 L [facility] CenterMonocytes (%) (Auto)2018-12-12 05:26:00* Test Item Value Reference Range Interpretation Comments Monocytes (%) (Auto) (test code = 5905-5) 6.8 4.4-11.3 [facility] CenterEosinophils (%) (Auto)2018-12-12 05:26:00 * Test Item Value Reference Range Interpretation Comments Eosinophils (%) (Auto) (test code = 713-8) 1.4 0.0-6.0 [facility] CenterBasophils (%) (Auto)2018-12-12 05:26:00* Test Item Value Reference Range Interpretation Comments Basophils (%) (Auto) (test code = 706-2) 0.2 0.0-1.0 [facility] CenterIM GRANULOCYTES %2018-12-12 05:26:00* Test Item Value Reference Range Interpretation Comments IM GRANULOCYTES % (test code = IM GRANULOCYTES %) 0.7 0.0- 1.0 [facility] CenterNeutrophils # (Auto)2018-12-12 05:26:00* Test Item Value Reference Range Interpretation Comments Neutrophils # (Auto) (test code = 751-8) 4.5 2.1-6.9 [facility] CenterLymphocytes # (Auto)2018-12-12 05:26:00* Test Item Value Reference Range Interpretation Comments Lymphocytes # (Auto) (test code = 22446-3) 0.6 1.0-3.2 L [facility] CenterMonocytes # (Auto)2018-12-12 05:26:00* Test Item Value Reference Range Interpretation Comments Monocytes # (Auto) (test code = 742-7) 0.4 0.2-0.8 [facility] CenterEosinophils # (Auto)2018-12-12 05:26:00* Test Item Value Reference Range Interpretation Comments Eosinophils # (Auto) (test code = 711-2) 0.1 0.0-0.4 [facility] CenterBasophils # (Auto)2018-12-12 05:26:00* Test Item Value Reference Range Interpretation Comments Basophils # (Auto) (test code = 704-7) 0.0 0.0-0.1 [facility] CenterAbsolute Immature Granulocyte (auto 2018-12-12 05:26:00* Test Item Value Reference Range Interpretation Comments Absolute Immature Granulocyte (auto (john t code = Absolute Immature Granulocyte (auto) 0.04 0-0.1 [facility] CenterWhite Blood Yaaxs2005-76-12 05:26:00* Test Item Value Reference Range Interpretation Comments White Blood Count (test code = 6690-2) 5.59 4.8-10.8 [facility] CenterRed Blood Jdaol8918-20-01 05:26:00* Test Item Value Reference Range Interpretation Comments Red Blood Count (test code = 789-8) 3.53 3.6-5.1 L [facility] CenterHemoglobin2019-10-23 05:26:00* Test Item Value Reference Range Interpretation Comments Hemoglobin (test code = 47235-8) 10.2 12.0-16.0 L [facility] CenterHematocrit2019-10-23 05:26:00* Test Item Value Reference Range Interpretation Comments Hematocrit (test code = 4544-3) 33.7 34.2-44.1 L [facility] CenterMean Corpuscular Yxltwj0529-29-59 05:26:00* Test Item Value Reference Range Interpretation Comments Mean Corpuscular Volume (test code = 787-2) 95.5 81-99 [facility] CenterMean Corpuscular Wxpszqylzw8840-80-34 05:26:00* Test Item Value Reference Range Interpretation Comments Mean Corpuscular Hemoglobin (test code = 785-6) 28.9 28-32 [facility] CenterMean Corpuscular Hemoglobin Concent 2018-12-12 05:26:00* Test Item Value Reference Range Interpretation Comments Mean Corpuscular Hemoglobin Concent (test code = 786-4) 30.3 31-35 L [facility] CenterRed Cell Distribution Reqjv9468-64-24 05:26:00* Test Item Value Reference Range Interpretation Comments Red Cell Distribution Width (test code = 34755-6) 14.6 11.7 -14.4 H [facility] CenterPlatelet Diylk6205-95-21 05:26:00* Test Item Value Reference Range Interpretation Comments Platelet Count (test code = 777-3) 170 140-360 [facility] CenterNeutrophils (%) (Auto)2018-12-12 05:26:00 * Test Item Value Reference Range Interpretation Comments Neutrophils (%) (Auto) (test code = 51629-1) 79.8 38.7-80.0 [facility] CenterLymphocytes (%) (Auto)2018-12-12 05:26:00 * Test Item Value Reference Range Interpretation Comments Lymphocytes (%) (Auto) (test code = 736-9) 11.1 18.0-39.1 L [facility] CenterMonocytes (%) (Auto)2018-12-12 05:26:00* Test Item Value Reference Range Interpretation Comments Monocytes (%) (Auto) (test code = 5905-5) 6.8 4.4-11.3 [facility] CenterEosinophils (%) (Auto)2018-12-12 05:26:00 * Test Item Value Reference Range Interpretation Comments Eosinophils (%) (Auto) (test code = 713-8) 1.4 0.0-6.0 [facility] CenterBasophils (%) (Auto)2018-12-12 05:26:00* Test Item Value Reference Range Interpretation Comments Basophils (%) (Auto) (test code = 706-2) 0.2 0.0-1.0 [facility] CenterIM GRANULOCYTES %2018-12-12 05:26:00* Test Item Value Reference Range Interpretation Comments IM GRANULOCYTES % (test code = IM GRANULOCYTES %) 0.7 0.0- 1.0 [facility] CenterNeutrophils # (Auto)2018-12-12 05:26:00* Test Item Value Reference Range Interpretation Comments Neutrophils # (Auto) (test code = 751-8) 4.5 2.1-6.9 [facility] CenterLymphocytes # (Auto)2018-12-12 05:26:00* Test Item Value Reference Range Interpretation Comments Lymphocytes # (Auto) (test code = 80592-1) 0.6 1.0-3.2 L [facility] CenterMonocytes # (Auto)2018-12-12 05:26:00* Test Item Value Reference Range Interpretation Comments Monocytes # (Auto) (test code = 742-7) 0.4 0.2-0.8 [facility] CenterEosinophils # (Auto)2018-12-12 05:26:00* Test Item Value Reference Range Interpretation Comments Eosinophils # (Auto) (test code = 711-2) 0.1 0.0-0.4 [facility] CenterBasophils # (Auto)2018-12-12 05:26:00* Test Item Value Reference Range Interpretation Comments Basophils # (Auto) (test code = 704-7) 0.0 0.0-0.1 [facility] CenterAbsolute Immature Granulocyte (auto 2018-12-12 05:26:00* Test Item Value Reference Range Interpretation Comments Absolute Immature Granulocyte (auto (john t code = Absolute Immature Granulocyte (auto) 0.04 0-0.1 [facility] CenterWhite Blood Jcmtm0860-36-97 05:26:00* Test Item Value Reference Range Interpretation Comments White Blood Count (test code = 6690-2) 5.59 4.8-10.8 [facility] CenterRed Blood Yoppa6094-06-10 05:26:00* Test Item Value Reference Range Interpretation Comments Red Blood Count (test code = 789-8) 3.53 3.6-5.1 L [facility] CenterHemoglobin2019-10-23 05:26:00* Test Item Value Reference Range Interpretation Comments Hemoglobin (test code = 52745-0) 10.2 12.0-16.0 L [facility] CenterHematocrit2019-10-23 05:26:00* Test Item Value Reference Range Interpretation Comments Hematocrit (test code = 4544-3) 33.7 34.2-44.1 L [facility] CenterMean Corpuscular Rblcgp0497-90-51 05:26:00* Test Item Value Reference Range Interpretation Comments Mean Corpuscular Volume (test code = 787-2) 95.5 81-99 [facility] CenterMean Corpuscular Hkmocwedow0713-65-14 05:26:00* Test Item Value Reference Range Interpretation Comments Mean Corpuscular Hemoglobin (test code = 785-6) 28.9 28-32 [facility] CenterMean Corpuscular Hemoglobin Concent 2018-12-12 05:26:00* Test Item Value Reference Range Interpretation Comments Mean Corpuscular Hemoglobin Concent (test code = 786-4) 30.3 31-35 L [facility] CenterRed Cell Distribution Hyakh8473-10-97 05:26:00* Test Item Value Reference Range Interpretation Comments Red Cell Distribution Width (test code = 69156-4) 14.6 11.7 -14.4 H [facility] CenterPlatelet Wvcqg2090-89-23 05:26:00* Test Item Value Reference Range Interpretation Comments Platelet Count (test code = 777-3) 170 140-360 [facility] CenterNeutrophils (%) (Auto)2018-12-12 05:26:00 * Test Item Value Reference Range Interpretation Comments Neutrophils (%) (Auto) (test code = 62967-1) 79.8 38.7-80.0 [facility] CenterLymphocytes (%) (Auto)2018-12-12 05:26:00 * Test Item Value Reference Range Interpretation Comments Lymphocytes (%) (Auto) (test code = 736-9) 11.1 18.0-39.1 L [facility] CenterMonocytes (%) (Auto)2018-12-12 05:26:00* Test Item Value Reference Range Interpretation Comments Monocytes (%) (Auto) (test code = 5905-5) 6.8 4.4-11.3 [facility] CenterEosinophils (%) (Auto)2018-12-12 05:26:00 * Test Item Value Reference Range Interpretation Comments Eosinophils (%) (Auto) (test code = 713-8) 1.4 0.0-6.0 [facility] CenterBasophils (%) (Auto)2018-12-12 05:26:00* Test Item Value Reference Range Interpretation Comments Basophils (%) (Auto) (test code = 706-2) 0.2 0.0-1.0 [facility] CenterIM GRANULOCYTES %2018-12-12 05:26:00* Test Item Value Reference Range Interpretation Comments IM GRANULOCYTES % (test code = IM GRANULOCYTES %) 0.7 0.0- 1.0 [facility] CenterNeutrophils # (Auto)2018-12-12 05:26:00* Test Item Value Reference Range Interpretation Comments Neutrophils # (Auto) (test code = 751-8) 4.5 2.1-6.9 [facility] CenterLymphocytes # (Auto)2018-12-12 05:26:00* Test Item Value Reference Range Interpretation Comments Lymphocytes # (Auto) (test code = 37921-7) 0.6 1.0-3.2 L [facility] CenterMonocytes # (Auto)2018-12-12 05:26:00* Test Item Value Reference Range Interpretation Comments Monocytes # (Auto) (test code = 742-7) 0.4 0.2-0.8 [facility] CenterEosinophils # (Auto)2018-12-12 05:26:00* Test Item Value Reference Range Interpretation Comments Eosinophils # (Auto) (test code = 711-2) 0.1 0.0-0.4 [facility] CenterBasophils # (Auto)2018-12-12 05:26:00* Test Item Value Reference Range Interpretation Comments Basophils # (Auto) (test code = 704-7) 0.0 0.0-0.1 [facility] CenterAbsolute Immature Granulocyte (auto 2018-12-12 05:26:00* Test Item Value Reference Range Interpretation Comments Absolute Immature Granulocyte (auto (john t code = Absolute Immature Granulocyte (auto) 0.04 0-0.1 [facility] CenterBlood platelets count by estimate (number/volume)2018-12-12 04:57:00* Test Item Value Reference Range Interpretation Comments Platelet Estimate (test code = 50081-4) MODERATELY DECREASED [facility] CenterPlatelet kotwotqqhg7378-63-48 04:57:00* Test Item Value Reference Range Interpretation Comments Platelet Morphology Comment (test code = 48405-1) FEW LARGE [facility] CenterBlminneapolis va [facility] system hypochromia detection by light wewmilqhbc8771-99-73 04:57:00* Test Item Value Reference Range Interpretation Comments Hypochromasia (test code = 728-6) SLIGHT [facility] CenterRB dgkypjlhyp6003-86-48 04:57:00* Test Item Value Reference Range Interpretation Comments Red Cell Morphology Comment (test code = 6742-1) ABNORMAL [facility] CenterLactic Acid Cddvf6758-49-74 15:54:00* Test Item Value Reference Range Interpretation Comments Lactic Acid Level (test code = Lactic Acid Level) 1.6 0.5- 2.0 [facility] CenterLactic Acid Nidmv3172-98-23 15:54:00* Test Item Value Reference Range Interpretation Comments Lactic Acid Level (test code = Lactic Acid Level) 1.6 0.5- 2.0 [facility] CenterLactic Acid Rslbu8132-66-37 15:54:00* Test Item Value Reference Range Interpretation Comments Lactic Acid Level (test code = Lactic Acid Level) 1.6 0.5- 2.0 [facility] CenterLactic Acid Hmuep1032-04-88 15:54:00* Test Item Value Reference Range Interpretation Comments Lactic Acid Level (test code = Lactic Acid Level) 1.6 0.5- 2.0 [facility] CenterLactic Acid Ptxju2310-18-36 15:54:00* Test Item Value Reference Range Interpretation Comments Lactic Acid Level (test code = Lactic Acid Level) 1.6 0.5- 2.0 [facility] CenterLamsic Acid Jvgsb1420-52-13 15:54:00* Test Item Value Reference Range Interpretation Comments Lactic Acid Level (test code = Lactic Acid Level) 1.6 0.5- 2.0 [facility] CenterCT ABDOMEN/PELVIS [id number] 09:30:00 [facility] [address] [place] [address] Patient Name: SHELBY PEÑA MR #: [id number] : 1935 Age/Sex: 83/F Req #: [id number] Adm Physician: Ordered by: LEIGHA TAPIA MD Report #: [id number] Location: ER Room/Bed: Procedure: [id number] CT/CT ABDOMEN/PELVIS W Exam Date: 12/11/18 Exam Time : 0840 REPORT STATUS: Signed EXA M: CT Abdomen and Pelvis WITH intravenous contrast INDICATION: Nausea, vo miting, diarrhea COMPARISON: None. TECHNIQUE: Abdomen and pelvis were scanned utilizing a multidetector helical scanner from the lung base to the pu bic symphysis after administration of IV contrast. Coronal and sagittal reform ations were obtained. Routine protocol was performed. Scan was performed durin g portal venous phase. IV CONTRAST: 100mL of Isovue 370 ORAL CONTRAS T: Water RADIATION DOSE: Total DLP: 196.2 mGy*cm Dose modulation, i terative reconstruction, and/or weight based adjustment of the mA/kV was utili zed to reduce the radiation dose to as low as reasonably achievable. FIN DINGS: LOWER THORAX: Mild subsegmental atelectasis. Coronary artery atheroscle rotic calcifications. HEPATOBILIARY: Diffuse hepatic steatosis. No focal liver lesion. No biliary ductal dilation. Status post cholecystectomy. SP ANA: No splenomegaly. PANCREAS: No focal masses or ductal dilatation. ADRENALS: No adrenal nodules. KIDNEYS/URETERS: No renal calculi or hydronephr osis. Bilateral subcentimeter renal cysts. PELVIC ORGANS/BLADDER: Status pos t hysterectomy. PERITONEUM / RETROPERITONEUM: No free air or fluid. LYMPH NODES: No lymphadenopathy. VESSELS: Status post infrarenal abdominal aortic e ndograft repair. Diffuse atherosclerotic calcifications of the visualized aort a and major branches. GI TRACT: Diverticulosis without CT evidence of diver ticulitis. No abnormal bowel wall thickening. No bowel obstruction. BONES AND SOFT TISSUES: No acute osseous injury. Multilevel degenerative changes of the visualized spine. No suspicious lytic or blastic lesions. IMPRESSION: Diverticulosis with no CT evidence of diverticulitis. Diffuse hepatic st eatosis. Status post infrarenal abdominal aortic endograft repair. Scattere d atherosclerotic calcification including of the coronary arteries. Ama d by: Tawana Matos MD on 12/11/2018 9:38 AM Dictated By: TAWANA MATOS MD El ectronically Signed By: TAWANA MATOS MD on 12/11/18937 Transcribed By: BILL on 12/11/18937 COPY TO: LEIGHA TAPIA MD Urine WBC 2018-12-11 07:43:00* Test Item Value Reference Range Interpretation Comments Urine WBC (test code = 5821-4) 0-5 0-5 [facility] CenterUrine [id number] 07:43:00* Test Item Value Reference Range Interpretation Comments Urine RBC (test code = 26205-5) 0-5 0-5 [facility] CenterUrine Tcnjokxo4667-49-76 07:43:00* Test Item Value Reference Range Interpretation Comments Urine Bacteria (test code = 87959-0) RARE NONE [facility] CenterUrine Epithelial Jnqoz4061-74-67 07:43:00 * Test Item Value Reference Range Interpretation Comments Urine Epithelial Cells (test code = 37050-8) FEW NONE [facility] CenterUrine DCH9863-03-16 07:43:00* Test Item Value Reference Range Interpretation Comments Urine WBC (test code = 5821-4) 0-5 0-5 [facility] CenterUrine [id number] 07:43:00* Test Item Value Reference Range Interpretation Comments Urine RBC (test code = 22651-6) 0-5 0-5 [facility] CenterUrine Zbjpymmb0108-02-64 07:43:00* Test Item Value Reference Range Interpretation Comments Urine Bacteria (test code = 43951-0) RARE NONE [facility] CenterUrine Epithelial Rzxfm6643-35-03 07:43:00 * Test Item Value Reference Range Interpretation Comments Urine Epithelial Cells (test code = 40470-4) FEW NONE [facility] CenterUrine FDS4720-39-21 07:43:00* Test Item Value Reference Range Interpretation Comments Urine WBC (test code = 5821-4) 0-5 0-5 [facility] CenterU[facility] [id number] 07:43:00* Test Item Value Reference Range Interpretation Comments Urine RBC (test code = 58024-6) 0-5 0-5 [facility] CenterU[facility] Cqzamels9041-32-23 07:43:00* Test Item Value Reference Range Interpretation Comments Urine Bacteria (test code = 88669-9) RARE NONE [facility] CenterUrine Epithelial Rlqqr3628-76-88 07:43:00 * Test Item Value Reference Range Interpretation Comments Urine Epithelial Cells (test code = 29016-2) FEW NONE [facility] CenterUrine NBY7861-51-04 07:43:00* Test Item Value Reference Range Interpretation Comments Urine WBC (test code = 5821-4) 0-5 0-5 [facility] CenterU[facility] DRI6002-44-98 07:43:00* Test Item Value Reference Range Interpretation Comments Urine RBC (test code = 27856-4) 0-5 0-5 [facility] CenterUrine Snoqrhuo7183-05-64 07:43:00* Test Item Value Reference Range Interpretation Comments Urine Bacteria (test code = 42989-6) RARE NONE [facility] CenterUrine Epithelial Svcpa7347-25-06 07:43:00 * Test Item Value Reference Range Interpretation Comments Urine Epithelial Cells (test code = 51930-0) FEW NONE [facility] Zsylv8275-93-97 07:42:00* Test Item Value Reference Range Interpretation Comments Urine Color (test code = 5778-6) YELLOW YELLOW [facility] Hkpgrem4182-82-37 07:42:00* Test Item Value Reference Range Interpretation Comments Urine Clarity (test code = 36737-7) CLEAR CLEAR [facility] Specific Ykjfmva6275-69-04 07:42:00 * Test Item Value Reference Range Interpretation Comments Urine Specific [place] (test code = 5811-5) >=1.030 1.010-1.02 5 [facility] eW5474-77-05 07:42:00* Test Item Value Reference Range Interpretation Comments Urine pH (test code = 48438-1) 6 5-7 [facility] Leukocyte Uzfvribf0502-74-02 07:42:00* Test Item Value Reference Range Interpretation Comments Urine Leukocyte Esterase (test code = 95297-6) NEGATIVE NEGATIV E [facility] Nyreoew4272-79-35 07:42:00* Test Item Value Reference Range Interpretation Comments Urine Nitrite (test code = 28620-4) NEGATIVE NEGATIVE [facility] Iodqgpp1587-74-34 07:42:00* Test Item Value Reference Range Interpretation Comments Urine Protein (test code = 90844-3) NEGATIVE NEGATIVE [facility] Glucose (UA)2018-12-11 07:42:00* Test Item Value Reference Range Interpretation Comments Urine Glucose (UA) (test code = 53745-6) NEGATIVE NEGATIVE [facility] Pdqgqnz6027-68-02 07:42:00* Test Item Value Reference Range Interpretation Comments Urine Ketones (test code = 94477-4) NEGATIVE NEGATIVE [facility] Tfravmhtmtfn5572-83-68 07:42:00* Test Item Value Reference Range Interpretation Comments Urine Urobilinogen (test code = 87068-8) 0.2 0.2-1 [facility] Tpxvswnht3708-16-16 07:42:00* Test Item Value Reference Range Interpretation Comments Urine Bilirubin (test code = 1977-8) NEGATIVE NEGATIVE [facility] Tuzdw8973-29-38 07:42:00* Test Item Value Reference Range Interpretation Comments Urine Blood (test code = 52945-5) NEGATIVE NEGATIVE [facility] Yiqhn9680-51-87 07:42:00* Test Item Value Reference Range Interpretation Comments Urine Color (test code = 5778-6) YELLOW YELLOW [facility] Ffhsavf6340-16-11 07:42:00* Test Item Value Reference Range Interpretation Comments Urine Clarity (test code = 22017-5) CLEAR CLEAR [facility] Specific Ptfplfl8011-67-83 07:42:00 * Test Item Value Reference Range Interpretation Comments Urine Specific [place] (test code = 5811-5) >=1.030 1.010-1.02 5 [facility] kC6283-72-46 07:42:00* Test Item Value Reference Range Interpretation Comments Urine pH (test code = 81361-9) 6 5-7 [facility] Leukocyte Ftnjxfis9801-30-38 07:42:00* Test Item Value Reference Range Interpretation Comments Urine Leukocyte Esterase (test code = 32528-4) NEGATIVE NEGATIV E [facility] Kfvrglg7351-64-94 07:42:00* Test Item Value Reference Range Interpretation Comments Urine Nitrite (test code = 72249-7) NEGATIVE NEGATIVE [facility] Lokfqib3781-66-44 07:42:00* Test Item Value Reference Range Interpretation Comments Urine Protein (test code = 25771-3) NEGATIVE NEGATIVE [facility] Glucose (UA)2018-12-11 07:42:00* Test Item Value Reference Range Interpretation Comments Urine Glucose (UA) (test code = 48695-1) NEGATIVE NEGATIVE [facility] Nmofmfj2588-78-47 07:42:00* Test Item Value Reference Range Interpretation Comments Urine Ketones (test code = 93915-6) NEGATIVE NEGATIVE [facility] Qyduxzfhkqkw4088-53-63 07:42:00* Test Item Value Reference Range Interpretation Comments Urine Urobilinogen (test code = 24313-8) 0.2 0.2-1 [facility] Rcfbweawr5727-30-20 07:42:00* Test Item Value Reference Range Interpretation Comments Urine Bilirubin (test code = 1977-8) NEGATIVE NEGATIVE [facility] Gmcwi3277-33-25 07:42:00* Test Item Value Reference Range Interpretation Comments Urine Blood (test code = 96746-0) NEGATIVE NEGATIVE [facility] Yfqwn5224-51-69 07:42:00* Test Item Value Reference Range Interpretation Comments Urine Color (test code = 5778-6) YELLOW YELLOW [facility] Hbxptul1291-45-67 07:42:00* Test Item Value Reference Range Interpretation Comments Urine Clarity (test code = 45716-7) CLEAR CLEAR [facility] Specific Axhbdvq6291-86-76 07:42:00 * Test Item Value Reference Range Interpretation Comments Urine Specific [place] (test code = 5811-5) >=1.030 1.010-1.02 5 [facility] wG1468-30-93 07:42:00* Test Item Value Reference Range Interpretation Comments Urine pH (test code = 22260-4) 6 5-7 [facility] Leukocyte Yycwmkxc1163-16-61 07:42:00* Test Item Value Reference Range Interpretation Comments Urine Leukocyte Esterase (test code = 76201-3) NEGATIVE NEGATIV E [facility] Glpqkhc0127-91-98 07:42:00* Test Item Value Reference Range Interpretation Comments Urine Nitrite (test code = 00353-1) NEGATIVE NEGATIVE [facility] Fhwmpis5483-95-16 07:42:00* Test Item Value Reference Range Interpretation Comments Urine Protein (test code = 60448-1) NEGATIVE NEGATIVE [facility] Glucose (UA)2018-12-11 07:42:00* Test Item Value Reference Range Interpretation Comments Urine Glucose (UA) (test code = 60351-4) NEGATIVE NEGATIVE [facility] Jpuajim4577-96-35 07:42:00* Test Item Value Reference Range Interpretation Comments Urine Ketones (test code = 53904-6) NEGATIVE NEGATIVE [facility] Uxtbgaoifrfv0832-15-88 07:42:00* Test Item Value Reference Range Interpretation Comments Urine Urobilinogen (test code = 92157-8) 0.2 0.2-1 [facility] Syglemsyx9580-91-68 07:42:00* Test Item Value Reference Range Interpretation Comments Urine Bilirubin (test code = 1977-8) NEGATIVE NEGATIVE [facility] Gzhnx8317-89-89 07:42:00* Test Item Value Reference Range Interpretation Comments Urine Blood (test code = 89389-5) NEGATIVE NEGATIVE [facility] Klxyu8067-01-86 07:42:00* Test Item Value Reference Range Interpretation Comments Urine Color (test code = 5778-6) YELLOW YELLOW [facility] Gdwncvd7830-44-60 07:42:00* Test Item Value Reference Range Interpretation Comments Urine Clarity (test code = 30508-2) CLEAR CLEAR [facility] Specific Dfqtbwt9886-48-81 07:42:00 * Test Item Value Reference Range Interpretation Comments Urine Specific [place] (test code = 5811-5) >=1.030 1.010-1.02 5 [facility] lA1130-34-18 07:42:00* Test Item Value Reference Range Interpretation Comments Urine pH (test code = 81522-8) 6 5-7 [facility] Leukocyte Zjqgpxwk1358-16-82 07:42:00* Test Item Value Reference Range Interpretation Comments Urine Leukocyte Esterase (test code = 77208-9) NEGATIVE NEGATIV E [facility] Sedrxlt1530-07-33 07:42:00* Test Item Value Reference Range Interpretation Comments Urine Nitrite (test code = 83922-8) NEGATIVE NEGATIVE [facility] Fqhoaxm1725-02-02 07:42:00* Test Item Value Reference Range Interpretation Comments Urine Protein (test code = 23775-8) NEGATIVE NEGATIVE [facility] Glucose (UA)2018-12-11 07:42:00* Test Item Value Reference Range Interpretation Comments Urine Glucose (UA) (test code = 32088-6) NEGATIVE NEGATIVE [facility] Objttcl7425-99-71 07:42:00* Test Item Value Reference Range Interpretation Comments Urine Ketones (test code = 23448-0) NEGATIVE NEGATIVE [facility] Zresfjgzehdp7734-52-07 07:42:00* Test Item Value Reference Range Interpretation Comments Urine Urobilinogen (test code = 25970-1) 0.2 0.2-1 [facility] Xxzawqqvp7405-80-16 07:42:00* Test Item Value Reference Range Interpretation Comments Urine Bilirubin (test code = 1977-8) NEGATIVE NEGATIVE [facility] Gvtsl1774-96-89 07:42:00* Test Item Value Reference Range Interpretation Comments Urine Blood (test code = 12067-1) NEGATIVE NEGATIVE [facility] CenterCreatine Mfbwll3173-86-88 07:39:00* Test Item Value Reference Range Interpretation Comments Creatine Kinase (test code = 2157-6) 25 29-168 L [facility] CenterCreatine Kinase SA8151-45-57 07:39:00* Test Item Value Reference Range Interpretation Comments Creatine Kinase MB (test code = 77050-5) 2.80 0-5.0 [facility] CenterTroponin X6521-21-33 07:39:00* Test Item Value Reference Range Interpretation Comments Troponin I (test code = ELV6608) 0.004 0-0.300 [facility] CenterAmylase Asxpj9445-74-95 07:39:00* Test Item Value Reference Range Interpretation Comments Amylase Level (test code = 1798-8) 48 25-125 [facility] CenterCreatine Mdjgqs1947-99-63 07:39:00* Test Item Value Reference Range Interpretation Comments Creatine Kinase (test code = 2157-6) 25 29-168 L [facility] CenterCreatine Kinase QD0136-45-86 07:39:00* Test Item Value Reference Range Interpretation Comments Creatine Kinase MB (test code = 36536-0) 2.80 0-5.0 [place] 91984019-10-22 07:39:00* Test Item Value Reference Range Interpretation Comments Troponin I (test code = CPI2963) 0.004 0-0.300 [facility] CenterAmylase Jdauj0458-05-83 07:39:00* Test Item Value Reference Range Interpretation Comments Amylase Level (test code = 1798-8) 48 25-125 [facility] CenterCreatine Vdeitg0082-62-33 07:39:00* Test Item Value Reference Range Interpretation Comments Creatine Kinase (test code = 2157-6) 25 29-168 L [facility] CenterCreat[facility] Kinase WJ8929-81-93 07:39:00* Test Item Value Reference Range Interpretation Comments Creatine Kinase MB (test code = 37967-2) 2.80 0-5.0 [place] 91984019-10-22 07:39:00* Test Item Value Reference Range Interpretation Comments Troponin I (test code = WLY3521) 0.004 0-0.300 [facility] CenterAmylase Snjrn2386-48-94 07:39:00* Test Item Value Reference Range Interpretation Comments Amylase Level (test code = 1798-8) 48 25-125 [facility] CenterCreatine Zbdvtc1355-11-04 07:39:00* Test Item Value Reference Range Interpretation Comments Creatine Kinase (test code = 2157-6) 25 29-168 L [facility] CenterCreatine Kinase KI7398-45-91 07:39:00* Test Item Value Reference Range Interpretation Comments Creatine Kinase MB (test code = 89816-6) 2.80 0-5.0 [facility] N5680-58-86 07:39:00* Test Item Value Reference Range Interpretation Comments Troponin I (test code = LSA0755) 0.004 0-0.300 [facility] CenterAmylase Xlehe1460-22-82 07:39:00* Test Item Value Reference Range Interpretation Comments Amylase Level (test code = 1798-8) 48 25-125 [facility] Cwowt5062-80-73 07:39:00* Test Item Value Reference Range Interpretation Comments Amylase Level (test code = 1798-8) 48 25-125 [facility] CenterWRIST COMPLETE UVLD9633-43-85 00:57:00 [facility] [address] [address] Patient Name: SHELBY PEÑA MR #: [id number] : 1935 Age/Sex: 82/F Req #: [id number] Adm Physician: Ordered by: SARAH ESPINOZA MD Report #: [id number] Location: ER Room/Bed: Procedure: [id number] DX/WR IST COMPLETE LEFT Exam Date: 05/07/18 Exam Time: 003 0 REPORT STATUS: Signed WRIST CO MPLETE LEFT - 3 views HISTORY: Pain. Fall. COMPARISON: None available. FINDINGS: Bones: No acute displaced fracture. Tiny well corticated ossicles projected adjacent to the ulnar and radial styloid. Generalized osteo penia Mild deformity of the distal radial epiphysis on the lateral view may b e related to prior traumatic injury. Joints: The joint spaces are well- maintained. Soft tissues: The soft tissues appear unremarkable. I MPRESSION: No acute displaced fracture. Signed by: DrMauro aj M.D. on 05/07/2018 12:59 AM Dictated By: RODOLFO YOUNGER MD, MD Electr onically Signed By: RODOLFO YOUNGER MD, MD on 05/07/1858 Transcribed By: JEMIMA WARNER on 05/07/1858 COPY TO: SARAH ESPINOZA MD Blood Culture 2018-04-12 01:24:00* Test Item Value Reference Range Interpretation Comments Blood Culture (test code = 60731657) NO GROWTH AFTER 5 DAYS, FINAL REPORT [facility] Jzurldu2444-51-69 01:24:00* Test Item Value Reference Range Interpretation Comments Blood Culture (test code = 09817740) NO GROWTH AFTER 5 DAYS, FINAL REPORT [facility] Solxabn8995-77-32 01:24:00* Test Item Value Reference Range Interpretation Comments Blood Culture (test code = 04089354) NO GROWTH AFTER 5 DAYS, FINAL REPORT [facility] Yidngjm0940-62-60 01:24:00* Test Item Value Reference Range Interpretation Comments Blood Culture (test code = 68853741) NO GROWTH AFTER 5 DAYS, [facility] G[facility]ydd5784[facility]73-07 08:11:00* Test Item Value Reference Range Interpretation Comments Sodium Level (test code = 2951-2) 134 136-145 L [facility] CenterPotassium Gsufa5084-44-74 08:11:00* Test Item Value Reference Range Interpretation Comments Potassium Level (test code = 2823-3) 4.1 3.5-5.1 [facility] CenterChloride Jzxdl4396-11-32 08:11:00* Test Item Value Reference Range Interpretation Comments Chloride Level (test code = 2075-0) 102 98-107 [facility] CenterCarbon Dioxide Arplc4712-70-81 08:11:00* Test Item Value Reference Range Interpretation Comments Carbon Dioxide Level (test code = 2028-9) 24 22-29 [facility] CenterAnion Gld6084-58-43 08:11:00* Test Item Value Reference Range Interpretation Comments Anion Gap (test code = 66475-5) 12.1 8-16 [facility] CenterBlood Urea Khuqtsuj3652-30-71 08:11:00* Test Item Value Reference Range Interpretation Comments Blood Urea Nitrogen (test code = 3094-0) 21 7-26 [facility] CenterCreatinine2019-02-20 08:11:00* Test Item Value Reference Range Interpretation Comments Creatinine (test code = 2160-0) 0.60 0.57-1.11 [facility] CenterBUN/Creatinine Hgwev9183-91-88 08:11:00* Test Item Value Reference Range Interpretation Comments BUN/Creatinine Ratio (test code = 3097-3) 35 6-25 H [facility] CenterEstimat Glomerular Filtration Rate 2018-04-11 08:11:00* Test Item Value Reference Range Interpretation Comments Estimat Glomerular Filtration Rate (test code = 868195355) > 60 >60 Ranges were taken from the National Kidney Disease Education Program and the [facility] literature.Reference ranges:60 or greater: Zrfxrl72-75 ( for 3 consecutive months): Chronic kidney disease 15 or less: Kidney failureMethodist Mansfield Medical CenterGlucose Rfjky0311-91-33 08:11:00* Test Item Value Reference Range Interpretation Comments Glucose Level (test code = ZMJ6866) 106 74-118 [facility] CenterCalcium Swwik0815-16-57 08:11:00* Test Item Value Reference Range Interpretation Comments Calcium Level (test code = 21125-5) 8.3 8.4-10.2 L [facility] Pysyu3838-64-11 08:11:00* Test Item Value Reference Range Interpretation Comments Sodium Level (test code = 2951-2) 134 136-145 L [facility] CenterPotassium Ipmnk4845-21-07 08:11:00* Test Item Value Reference Range Interpretation Comments Potassium Level (test code = 2823-3) 4.1 3.5-5.1 [facility] CenterChloride Mgcyy1203-21-80 08:11:00* Test Item Value Reference Range Interpretation Comments Chloride Level (test code = 2075-0) 102 98-107 [facility] CenterCarbon Dioxide Lwesv1423-01-78 08:11:00* Test Item Value Reference Range Interpretation Comments Carbon Dioxide Level (test code = 2028-9) 24 22-29 [facility] CenterAnion Ttj6735-23-30 08:11:00* Test Item Value Reference Range Interpretation Comments Anion Gap (test code = 58429-1) 12.1 8-16 [facility] CenterBlood Urea Qfwzbqjq8050-35-17 08:11:00* Test Item Value Reference Range Interpretation Comments Blood Urea Nitrogen (test code = 3094-0) 21 7-26 [facility] CenterCreatinine2019-02-20 08:11:00* Test Item Value Reference Range Interpretation Comments Creatinine (test code = 2160-0) 0.60 0.57-1.11 [facility] CenterBUN/Creatinine Tpwzc6531-15-40 08:11:00* Test Item Value Reference Range Interpretation Comments BUN/Creatinine Ratio (test code = 3097-3) 35 6-25 H [facility] CenterEstimat Glomerular Filtration Rate 2018-04-11 08:11:00* Test Item Value Reference Range Interpretation Comments Estimat Glomerular Filtration Rate (test code = 519625988) > 60 >60 Ranges were taken from the National Kidney Disease Education Program and the [facility] Kid[facility] Foundation literature.Reference ranges:60 or greater: Umqjsn44-26 ( for 3 consecutive months): Chronic kidney disease 15 or less: Kidney failureMethodist Mansfield Medical CenterGlucose Mznum5559-55-56 08:11:00* Test Item Value Reference Range Interpretation Comments Glucose Level (test code = YSU0764) 106 74-118 [facility] CenterCalcium Emspl9631-41-65 08:11:00* Test Item Value Reference Range Interpretation Comments Calcium Level (test code = 83720-9) 8.3 8.4-10.2 L [facility] CenterWhite Blood Xiliw7669-54-61 07:58:00* Test Item Value Reference Range Interpretation Comments White Blood Count (test code = 6690-2) 9.16 4.8-10.8 [facility] CenterRed Blood Qumuq3393-12-43 07:58:00* Test Item Value Reference Range Interpretation Comments Red Blood Count (test code = 789-8) 3.97 3.6-5.1 [facility] CenterHemoglobin2019-02-20 07:58:00* Test Item Value Reference Range Interpretation Comments Hemoglobin (test code = 33319-2) 10.3 12.0-16.0 L [facility] CenterHematocrit2019-02-20 07:58:00* Test Item Value Reference Range Interpretation Comments Hematocrit (test code = 4544-3) 34.0 34.2-44.1 L [facility] CenterMean Corpuscular Pdjcpm1450-49-96 07:58:00* Test Item Value Reference Range Interpretation Comments Mean Corpuscular Volume (test code = 787-2) 85.6 81-99 [facility] CenterMean Corpuscular Jrdtijugle5411-93-99 07:58:00* Test Item Value Reference Range Interpretation Comments Mean Corpuscular Hemoglobin (test code = 785-6) 25.9 28-32 L [facility] CenterMean Corpuscular Hemoglobin Concent 2018-04-11 07:58:00* Test Item Value Reference Range Interpretation Comments Mean Corpuscular Hemoglobin Concent (test code = 786-4) 30.3 31-35 L [facility] CenterRed Cell Distribution Dbydp3053-12-13 07:58:00* Test Item Value Reference Range Interpretation Comments Red Cell Distribution Width (test code = 61705-7) 23.8 11.7 -14.4 H [facility] CenterPlatelet Zpahl2328-71-68 07:58:00* Test Item Value Reference Range Interpretation Comments Platelet Count (test code = 777-3) 237 140-360 [facility] CenterNeutrophils (%) (Auto)2018-04-11 07:58:00 * Test Item Value Reference Range Interpretation Comments Neutrophils (%) (Auto) (test code = 66310-0) 80.1 38.7-80.0 H [facility] CenterLymphocytes (%) (Auto)2018-04-11 07:58:00 * Test Item Value Reference Range Interpretation Comments Lymphocytes (%) (Auto) (test code = 736-9) 10.5 18.0-39.1 L [facility] CenterMonocytes (%) (Auto)2018-04-11 07:58:00* Test Item Value Reference Range Interpretation Comments Monocytes (%) (Auto) (test code = 5905-5) 7.6 4.4-11.3 [facility] CenterEosinophils (%) (Auto)2018-04-11 07:58:00 * Test Item Value Reference Range Interpretation Comments Eosinophils (%) (Auto) (test code = 713-8) 0.2 0.0-6.0 [facility] CenterBasophils (%) (Auto)2018-04-11 07:58:00* Test Item Value Reference Range Interpretation Comments Basophils (%) (Auto) (test code = 706-2) 0.2 0.0-1.0 [facility] CenterIM GRANULOCYTES %2018-04-11 07:58:00* Test Item Value Reference Range Interpretation Comments IM GRANULOCYTES % (test code = IM GRANULOCYTES %) 1.4 0.0- 1.0 H [facility] CenterNeutrophils # (Auto)2018-04-11 07:58:00* Test Item Value Reference Range Interpretation Comments Neutrophils # (Auto) (test code = 751-8) 7.3 2.1-6.9 H [facility] CenterLymphocytes # (Auto)2018-04-11 07:58:00* Test Item Value Reference Range Interpretation Comments Lymphocytes # (Auto) (test code = 96001-7) 1.0 1.0-3.2 [facility] CenterMonocytes # (Auto)2018-04-11 07:58:00* Test Item Value Reference Range Interpretation Comments Monocytes # (Auto) (test code = 742-7) 0.7 0.2-0.8 [facility] CenterEosinophils # (Auto)2018-04-11 07:58:00* Test Item Value Reference Range Interpretation Comments Eosinophils # (Auto) (test code = 711-2) 0.0 0.0-0.4 [facility] CenterBasophils # (Auto)2018-04-11 07:58:00* Test Item Value Reference Range Interpretation Comments Basophils # (Auto) (test code = 704-7) 0.0 0.0-0.1 [facility] CenterAbsolute Immature Granulocyte (auto 2018-04-11 07:58:00* Test Item Value Reference Range Interpretation Comments Absolute Immature Granulocyte (auto (john t code = Absolute Immature Granulocyte (auto) 0.13 0-0.1 H [facility] CenterWhite Blood Poknp5504-10-32 07:58:00* Test Item Value Reference Range Interpretation Comments White Blood Count (test code = 6690-2) 9.16 4.8-10.8 [facility] CenterRed Blood Ouztk5395-19-72 07:58:00* Test Item Value Reference Range Interpretation Comments Red Blood Count (test code = 789-8) 3.97 3.6-5.1 [facility] CenterHemoglobin2019-02-20 07:58:00* Test Item Value Reference Range Interpretation Comments Hemoglobin (test code = 20955-2) 10.3 12.0-16.0 L [facility] CenterHematocrit2019-02-20 07:58:00* Test Item Value Reference Range Interpretation Comments Hematocrit (test code = 4544-3) 34.0 34.2-44.1 L [facility] CenterMean Corpuscular Inxsoa2679-89-64 07:58:00* Test Item Value Reference Range Interpretation Comments Mean Corpuscular Volume (test code = 787-2) 85.6 81-99 [facility] CenterMean Corpuscular Gllalzchse0013-86-72 07:58:00* Test Item Value Reference Range Interpretation Comments Mean Corpuscular Hemoglobin (test code = 785-6) 25.9 28-32 L [facility] CenterMean Corpuscular Hemoglobin Concent 2018-04-11 07:58:00* Test Item Value Reference Range Interpretation Comments Mean Corpuscular Hemoglobin Concent (test code = 786-4) 30.3 31-35 L [facility] CenterRed Cell Distribution Mzaug2088-38-64 07:58:00* Test Item Value Reference Range Interpretation Comments Red Cell Distribution Width (test code = 14058-3) 23.8 11.7 -14.4 H [facility] CenterPlatelet Nguib7232-59-13 07:58:00* Test Item Value Reference Range Interpretation Comments Platelet Count (test code = 777-3) 237 140-360 [facility] CenterNeutrophils (%) (Auto)2018-04-11 07:58:00 * Test Item Value Reference Range Interpretation Comments Neutrophils (%) (Auto) (test code = 26113-1) 80.1 38.7-80.0 H [facility] CenterLymphocytes (%) (Auto)2018-04-11 07:58:00 * Test Item Value Reference Range Interpretation Comments Lymphocytes (%) (Auto) (test code = 736-9) 10.5 18.0-39.1 L [facility] CenterMonocytes (%) (Auto)2018-04-11 07:58:00* Test Item Value Reference Range Interpretation Comments Monocytes (%) (Auto) (test code = 5905-5) 7.6 4.4-11.3 [facility] CenterEosinophils (%) (Auto)2018-04-11 07:58:00 * Test Item Value Reference Range Interpretation Comments Eosinophils (%) (Auto) (test code = 713-8) 0.2 0.0-6.0 [facility] CenterBasophils (%) (Auto)2018-04-11 07:58:00* Test Item Value Reference Range Interpretation Comments Basophils (%) (Auto) (test code = 706-2) 0.2 0.0-1.0 [facility] CenterIM GRANULOCYTES %2018-04-11 07:58:00* Test Item Value Reference Range Interpretation Comments IM GRANULOCYTES % (test code = IM GRANULOCYTES %) 1.4 0.0- 1.0 H [facility] CenterNeutrophils # (Auto)2018-04-11 07:58:00* Test Item Value Reference Range Interpretation Comments Neutrophils # (Auto) (test code = 751-8) 7.3 2.1-6.9 H [facility] CenterLymphocytes # (Auto)2018-04-11 07:58:00* Test Item Value Reference Range Interpretation Comments Lymphocytes # (Auto) (test code = 08625-3) 1.0 1.0-3.2 [facility] CenterMonocytes # (Auto)2018-04-11 07:58:00* Test Item Value Reference Range Interpretation Comments Monocytes # (Auto) (test code = 742-7) 0.7 0.2-0.8 [facility] CenterEosinophils # (Auto)2018-04-11 07:58:00* Test Item Value Reference Range Interpretation Comments Eosinophils # (Auto) (test code = 711-2) 0.0 0.0-0.4 [facility] CenterBasophils # (Auto)2018-04-11 07:58:00* Test Item Value Reference Range Interpretation Comments Basophils # (Auto) (test code = 704-7) 0.0 0.0-0.1 [facility] CenterAbsolute Immature Granulocyte (auto 2018-04-11 07:58:00* Test Item Value Reference Range Interpretation Comments Absolute Immature Granulocyte (auto (john t code = Absolute Immature Granulocyte (auto) 0.13 0-0.1 H [facility] CenterBlood Nxcxnyo1884-78-81 01:24:00* Test Item Value Reference Range Interpretation Comments Blood Culture (test code = 21931072) NO GROWTH AFTER 72 HOURS [facility] CenterUS CHEST (INCL MEDIASTINUM)2018-04-09 07:43:00 [place] [address] Patient Name: SHELBY PEÑA MR #: [id number] : 1935 Age/Sex: 82/F Req #: [id number] Adm Physician: MICHELLE MACKENZIE MD Ordered by: MCKAYLA OLSON MD Report #: [id number] Location: MED/SURG3 Room/Bed: 296-1 Procedure: [id number] US/US C HEST (INCL MEDIASTINUM) Exam Date: Exam Time: REPORT STATUS: Signed Examination: L imited thoracic ultrasound. Clinical indication: Right pleural effusion. Comparison examination: Chest radiograph 04/06/2018 Findings: Small bilat eral pleural effusions. Impression: Small bilateral pleural effusions. Signed by: Dr. Mckayla Elena M.D. on 04/09/2018 7:44 AM Dictated By: MCKAYLA ELENA MD Transcribed By: BILL on 04/09/1844 COPY TO: MCKAYLA OLSON MD Vancomycin Level Ufsvil0937-96-16 05:19:00* Test Item Value Reference Range Interpretation Comments Vancomycin Level Trough (test code = 4092-3) 10.4 5.0-10.0 HH Results repeated and called to DONNA CASTRO RN at 0518 on 04/09/18 by Davidson Pruitt. Faisal langston back and verified.[facility] CenterVancomycin Level Zpoegc6854-96-24 05:19:00* Test Item Value Reference Range Interpretation Comments Vancomycin Level Trough (test code = 4092-3) 10.4 5.0-10.0 HH Results repeated and called to DONNA CASTRO RN at 0518 on 04/09/18 by Davidson Pruitt. Faisal langston back and verified.[facility] CenterVancomycin Level Skdhyn6522-82-40 05:19:00* Test Item Value Reference Range Interpretation Comments Vancomycin Level Trough (test code = 4092-3) 10.4 5.0-10.0 HH Results repeated and called to DONNA CASTRO RN at 0518 on 04/09/18 by Davidson Pruitt. R ead back and verified.[facility] CenterVancomycin Level Zwxggg2328-98-38 05:19:00* Test Item Value Reference Range Interpretation Comments Vancomycin Level Trough (test code = 4092-3) 10.4 5.0-10.0 HH Results repeated and called to DONNA CASTRO RN at 0518 on 04/09/18 by Davidson Pruitt. R ead back and verified.[facility] CenterVancomycin Level Wodhdh5344-03-75 05:19:00* Test Item Value Reference Range Interpretation Comments Vancomycin Level Trough (test code = 4092-3) 10.4 5.0-10.0 HH Results repeated and called to DONNA CASTRO RN at 0518 on 04/09/18 by Davidson Pruitt. R ead back and verified.[facility] CenterDifferential Total Cells Opbnlfp2436-72-34 08:09:00* Test Item Value Reference Range Interpretation Comments Differential Total Cells Counted (test code = Maryann tial Total Cells Counted) 100 [facility] CenterNeutrophils % (Manual)2018-04-08 08:09:00 * Test Item Value Reference Range Interpretation Comments Neutrophils % (Manual) (test code = 43674-3) 88 40-74 H [facility] CenterBand Neutrophils %2018-04-08 08:09:00* Test Item Value Reference Range Interpretation Comments Band Neutrophils % (test code = 764-1) 1 [facility] CenterLymphocytes % (Manual)2018-04-08 08:09:00 * Test Item Value Reference Range Interpretation Comments Lymphocytes % (Manual) (test code = 737-7) 8 19-48 L [facility] CenterMonocytes % (Manual)2018-04-08 08:09:00* Test Item Value Reference Range Interpretation Comments Monocytes % (Manual) (test code = 744-3) 3 3.4-9.0 L [facility] CenterPlatelet Kcxbddjq7053-83-24 08:09:00* Test Item Value Reference Range Interpretation Comments Platelet Estimate (test code = 74533-5) ADEQUATE [facility] CenterPlatelet Morphology Tcsiisi2321-92-96 08:09:00* Test Item Value Reference Range Interpretation Comments Platelet Morphology Comment (test code = 39387-0) NORMAL [facility] CenterRed Cell Morphology Ahzalng3711-23-49 08:09:00* Test Item Value Reference Range Interpretation Comments Red Cell Morphology Comment (test code = 6742-1) NORMAL [facility] CenterDifferential Total Cells Counted 2018-04-08 08:09:00* Test Item Value Reference Range Interpretation Comments Differential Total Cells Counted (test code = Differsofi tial Total Cells Counted) 100 [facility] CenterNeutrophils % (Manual)2018-04-08 08:09:00 * Test Item Value Reference Range Interpretation Comments Neutrophils % (Manual) (test code = 34230-5) 88 40-74 H [facility] CenterBand Neutrophils %2018-04-08 08:09:00* Test Item Value Reference Range Interpretation Comments Band Neutrophils % (test code = 764-1) 1 [facility] CenterLymphocytes % (Manual)2018-04-08 08:09:00 * Test Item Value Reference Range Interpretation Comments Lymphocytes % (Manual) (test code = 737-7) 8 19-48 L [facility] CenterMonocytes % (Manual)2018-04-08 08:09:00* Test Item Value Reference Range Interpretation Comments Monocytes % (Manual) (test code = 744-3) 3 3.4-9.0 L [facility] CenterPlatelet Wbhrqozx0715-04-41 08:09:00* Test Item Value Reference Range Interpretation Comments Platelet Estimate (test code = 57465-5) ADEQUATE [facility] CenterPlatelet Morphology Sqdixij2414-82-75 08:09:00* Test Item Value Reference Range Interpretation Comments Platelet Morphology Comment (test code = 48304-9) NORMAL [facility] CenterRed Cell Morphology Nwgvxmk7459-76-70 08:09:00* Test Item Value Reference Range Interpretation Comments Red Cell Morphology Comment (test code = 6742-1) NORMAL [facility] CenterDifferential Total Cells Counted 2018-04-08 08:09:00* Test Item Value Reference Range Interpretation Comments Differential Total Cells Counted (test code = Differen tial Total Cells Counted) 100 [facility] CenterNeutrophils % (Manual)2018-04-08 08:09:00 * Test Item Value Reference Range Interpretation Comments Neutrophils % (Manual) (test code = 75204-7) 88 40-74 H [facility] CenterBand Neutrophils %2018-04-08 08:09:00* Test Item Value Reference Range Interpretation Comments Band Neutrophils % (test code = 764-1) 1 [facility] CenterLymphocytes % (Manual)2018-04-08 08:09:00 * Test Item Value Reference Range Interpretation Comments Lymphocytes % (Manual) (test code = 737-7) 8 19-48 L [facility] CenterMonocytes % (Manual)2018-04-08 08:09:00* Test Item Value Reference Range Interpretation Comments Monocytes % (Manual) (test code = 744-3) 3 3.4-9.0 L [facility] CenterDifferential Total Cells Counted 2018-04-08 08:09:00* Test Item Value Reference Range Interpretation Comments Differential Total Cells Counted (test code = Differen tial Total Cells Counted) 100 [facility] CenterNeutrophils % (Manual)2018-04-08 08:09:00 * Test Item Value Reference Range Interpretation Comments Neutrophils % (Manual) (test code = 50300-1) 88 40-74 H [facility] CenterBand Neutrophils %2018-04-08 08:09:00* Test Item Value Reference Range Interpretation Comments Band Neutrophils % (test code = 764-1) 1 [facility] CenterLymphocytes % (Manual)2018-04-08 08:09:00 * Test Item Value Reference Range Interpretation Comments Lymphocytes % (Manual) (test code = 737-7) 8 19-48 L [facility] CenterMonocytes % (Manual)2018-04-08 08:09:00* Test Item Value Reference Range Interpretation Comments Monocytes % (Manual) (test code = 744-3) 3 3.4-9.0 L [facility] CenterDifferential Total Cells Counted 2018-04-08 08:09:00* Test Item Value Reference Range Interpretation Comments Differential Total Cells Counted (test code = Maryann chaidez Total Cells Counted) 100 [facility] CenterNeutrophils % (Manual)2018-04-08 08:09:00 * Test Item Value Reference Range Interpretation Comments Neutrophils % (Manual) (test code = 71510-4) 88 40-74 H [facility] CenterBand Neutrophils %2018-04-08 08:09:00* Test Item Value Reference Range Interpretation Comments Band Neutrophils % (test code = 764-1) 1 [facility] CenterLymphocytes % (Manual)2018-04-08 08:09:00 * Test Item Value Reference Range Interpretation Comments Lymphocytes % (Manual) (test code = 737-7) 8 19-48 L [facility] CenterMonocytes % (Manual)2018-04-08 08:09:00* Test Item Value Reference Range Interpretation Comments Monocytes % (Manual) (test code = 744-3) 3 3.4-9.0 L [facility] CenterMagnesium Ojsym4937-56-00 06:35:00* Test Item Value Reference Range Interpretation Comments Magnesium Level (test code = 54853-1) 1.2 1.3-2.1 L [facility] CenterTotal Xtiacfqkl7286-61-89 06:35:00* Test Item Value Reference Range Interpretation Comments Total Bilirubin (test code = 1975-2) 0.2 0.2-1.2 [facility] CenterAspartate Amino Transf (AST/SGOT) 2018-04-08 06:35:00* Test Item Value Reference Range Interpretation Comments Aspartate Amino Transf (AST/SGOT) (test code = Aspartate Amino Transf (AST/SGOT)) 10 5-34 [facility] CenterAlanine Aminotransferase (ALT/SGPT) 2018-04-08 06:35:00* Test Item Value Reference Range Interpretation Comments Alanine Aminotransferase (ALT/SGPT) (test code = 1742-6) 14 0-55 [facility] CenterTotal Sstxtqx4175-28-01 06:35:00* Test Item Value Reference Range Interpretation Comments Total Protein (test code = 2885-2) 4.7 6.5-8.1 L [facility] CenterAlbumin2019-02-17 06:35:00* Test Item Value Reference Range Interpretation Comments Albumin (test code = 1751-7) 2.3 3.5-5.0 L [facility] CenterGlobulin2019-02-17 06:35:00* Test Item Value Reference Range Interpretation Comments Globulin (test code = 37210-2) 2.4 2.3-3.5 [facility] CenterAlbumin/Globulin Uuayg3216-88-48 06:35:00 * Test Item Value Reference Range Interpretation Comments Albumin/Globulin Ratio (test code = 1759-0) 1.0 0.8-2.0 [facility] CenterAlkaline Timgoybmedd3270-59-03 06:35:00* Test Item Value Reference Range Interpretation Comments Alkaline Phosphatase (test code = 6768-6) 61 40-150 [facility] CenterMagnesium Lllrp0945-08-99 06:35:00* Test Item Value Reference Range Interpretation Comments Magnesium Level (test code = 01537-5) 1.2 1.3-2.1 L [facility] CenterTotal Jvknbxwnc9654-41-11 06:35:00* Test Item Value Reference Range Interpretation Comments Total Bilirubin (test code = 1975-2) 0.2 0.2-1.2 [facility] CenterAspartate Amino Transf (AST/SGOT) 2018-04-08 06:35:00* Test Item Value Reference Range Interpretation Comments Aspartate Amino Transf (AST/SGOT) (test code = Aspartate Amino Transf (AST/SGOT)) 10 5-34 [facility] CenterAlanine Aminotransferase (ALT/SGPT) 2018-04-08 06:35:00* Test Item Value Reference Range Interpretation Comments Alanine Aminotransferase (ALT/SGPT) (test code = 1742-6) 14 0-55 [facility] CenterTotal Ibxkwzv0995-45-45 06:35:00* Test Item Value Reference Range Interpretation Comments Total Protein (test code = 2885-2) 4.7 6.5-8.1 L [facility] CenterAlbumin2019-02-17 06:35:00* Test Item Value Reference Range Interpretation Comments Albumin (test code = 1751-7) 2.3 3.5-5.0 L [facility] CenterGlobulin2019-02-17 06:35:00* Test Item Value Reference Range Interpretation Comments Globulin (test code = 43578-0) 2.4 2.3-3.5 [facility] CenterAlbumin/Globulin Mmeri6752-25-83 06:35:00 * Test Item Value Reference Range Interpretation Comments Albumin/Globulin Ratio (test code = 1759-0) 1.0 0.8-2.0 [facility] CenterAlkaline Zixadsabwpg1586-75-50 06:35:00* Test Item Value Reference Range Interpretation Comments Alkaline Phosphatase (test code = 6768-6) 61 40-150 [facility] CenterCreatine Kinase GK9785-75-92 17:07:00* Test Item Value Reference Range Interpretation Comments Creatine Kinase MB (test code = 27214-0) 2.00 0-5.0 [facility] CenterTroponin M1378-68-27 17:07:00* Test Item Value Reference Range Interpretation Comments Troponin I (test code = XXJ7631) 0.034 0-0.300 [facility] CenterCreatine Kinase DZ5070-70-11 17:07:00* Test Item Value Reference Range Interpretation Comments Creatine Kinase MB (test code = 39593-0) 2.00 0-5.0 [facility] CenterTroponin P4370-08-64 17:07:00* Test Item Value Reference Range Interpretation Comments Troponin I (test code = QWW6196) 0.034 0-0.300 [facility] CenterCreatine Csgsxh7595-13-41 17:02:00* Test Item Value Reference Range Interpretation Comments Creatine Kinase (test code = 2157-6) 21 29-168 L [facility] CenterCreatine Txrxbp7593-80-03 17:02:00* Test Item Value Reference Range Interpretation Comments Creatine Kinase (test code = 2157-6) 21 29-168 L [facility] CenterAnisocytosis2019-02-16 02:55:00* Test Item Value Reference Range Interpretation Comments Anisocytosis (test code = 702-1) MODERATE [facility] Bejth1035-37-03 02:55:00* Test Item Value Reference Range Interpretation Comments Cerulean Cells (test code = 7790-9) SLIGHT [facility] CenterElliptocytes2019-02-16 02:55:00* Test Item Value Reference Range Interpretation Comments Elliptocytes (test code = 97999-1) [facility]IGHT [facility] 02:55:00* Test Item Value Reference Range Interpretation Comments Anisocytosis (test code = 702-1) MODERATE [facility] Acyae4766-63-49 02:55:00* Test Item Value Reference Range Interpretation Comments Cerulean Cells (test code = 7790-9) SLIGHT [facility] CenterElliptocytes2019-02-16 02:55:00* Test Item Value Reference Range Interpretation Comments Elliptocytes (test code = 57528-1) SLIGHT [facility] Hospitalcytosis2019-02-16 02:55:00* Test Item Value Reference Range Interpretation Comments Anisocytosis (test code = 702-1) MODERATE [facility] Nuyyc2264-11-78 02:55:00* Test Item Value Reference Range Interpretation Comments Cerulean Cells (test code = 7790-9) SLIGHT [facility] CenterElliptocytes2019-02-16 02:55:00* Test Item Value Reference Range Interpretation Comments Elliptocytes (test code = 89656-6) SLIGHT [facility]2019-02-16 02:55:00* Test Item Value Reference Range Interpretation Comments Anisocytosis (test code = 702-1) MODERATE [facility] Amegr9045-10-41 02:55:00* Test Item Value Reference Range Interpretation Comments Douglas Cells (test code = 7790-9) SLIGHT [facility] CenterElliptocytes2019-02-16 02:55:00* Test Item Value Reference Range Interpretation Comments Elliptocytes (test code = 71278-5) SLIGHT [facility] CenterAnisocytosis2019-02-16 02:55:00* Test Item Value Reference Range Interpretation Comments Anisocytosis (test code = 702-1) MODERATE [facility] CenterBurr Yzvaj8272-72-03 02:55:00* Test Item Value Reference Range Interpretation Comments Douglas Cells (test code = 7790-9) SLIGHT [facility] CenterElliptocytes2019-02-16 02:55:00* Test Item Value Reference Range Interpretation Comments Elliptocytes (test code = 21881-7) SLIGHT [facility] CenterCHES SINGLE (PORTABLE)2018-04-06 23:22:00 [facility] [address] [place] [address] Patient Name: SHELBY PEÑA MR #: [id number] : 1935 Age/Sex: 82/F Req #: [id number] Adm Physician: Ordered by: SARAH ESPINOZA MD Report #: [id number] Location: ER Room/Bed: Procedure: [id number] DX/CH EST SINGLE (PORTABLE) Exam Date: 04/06/18 Exam Time: 2304 REPORT STATUS: Signed EXAM INATION: CHEST SINGLE (PORTABLE) INDICATION: COPD, cough COMPAR VILMA: Chest CT and x-ray 04/02/2018 FINDINGS: AP view TUBES a nd LINES: None. LUNGS: Emphysema. Increased confluence appearance of the b ibasilar opacities representing pneumonia. Rounded opacities in the right uppe r lung corresponding to nodules on CT. Left upper lobe calcified granuloma. PLEURA: Small bilateral pleural effusions. No pleural effusion or pneumothora x. HEART AND MEDIASTINUM: The cardiomediastinal silhouette is unremarkable . BONES AND SOFT TISSUES: No acute osseous lesion. Soft tissues are unremarkable. UPPER ABDOMEN: No free air under the diaphragm. IMP RESSION: Interval worsening of bilateral lower lobe pneumonia. Signed by : DR. Elmer Avina MD on 04/06/2018 11:25 PM Dictated By: ELMER AVINA MD 24 Transcribed By: BILL on 04/06/182324 COPY TO: SARAH ESPINOZA MD Blood Hxbvcnj7817-01-71 11:45:00* Test Item Value Reference Range Interpretation Comments Blood Culture (test code = 61077797) NO GROWTH AFTER 72 HOURS [facility]2019-02-12 09:47:00* Test Item Value Reference Range Interpretation Comments Iron Level (test code = 2498-4) 9 50-170 L [facility] CenterTotal Iron Binding Forowrik5078-66-23 09:47:00* Test Item Value Reference Range Interpretation Comments Total Iron Binding Capacity (test code = 2500-7) 179 261-4 78 L [facility] CenterPercent Iron Lgvjsuguvl7812-56-65 09:47:00* Test Item Value Reference Range Interpretation Comments Percent Iron Saturation (test code = 2502-3) 5 15-50 L [facility] CenterTransferrin2019-02-12 09:47:00* Test Item Value Reference Range Interpretation Comments Transferrin (test code = 3034-6) 128 180-382 L [facility] CenterIron Ryfsi3452-35-83 09:47:00* Test Item Value Reference Range Interpretation Comments Iron Level (test code = 2498-4) 9 50-170 L [facility] CenterTotal Iron Binding Jtmdkxlx2597-55-70 09:47:00* Test Item Value Reference Range Interpretation Comments Total Iron Binding Capacity (test code = 2500-7) 179 261-4 78 L [facility] CenterPercent Iron Rlkngmxqxc9349-16-38 09:47:00* Test Item Value Reference Range Interpretation Comments Percent Iron Saturation (test code = 2502-3) 5 15-50 L [facility] CenterTransferrin2019-02-12 09:47:00* Test Item Value Reference Range Interpretation Comments Transferrin (test code = 3034-6) 128 180-382 L [facility]2019-02-12 09:47:00* Test Item Value Reference Range Interpretation Comments Iron Level (test code = 2498-4) 9 50-170 L [facility] Iron Binding Quldtxqa6827-93-42 09:47:00* Test Item Value Reference Range Interpretation Comments Total Iron Binding Capacity (test code = 2500-7) 179 261-4 78 L [facility] Iron Obbbpceqjx9850-58-51 09:47:00* Test Item Value Reference Range Interpretation Comments Percent Iron Saturation (test code = 2502-3) 5 15-50 L [facility] CenterTransferrin2019-02-12 09:47:00* Test Item Value Reference Range Interpretation Comments Transferrin (test code = 3034-6) 128 180-382 L [facility]2019-02-12 09:47:00* Test Item Value Reference Range Interpretation Comments Iron Level (test code = 2498-4) 9 50-170 L [facility] Iron Binding Mwzuhcnq3432-67-30 09:47:00* Test Item Value Reference Range Interpretation Comments Total Iron Binding Capacity (test code = 2500-7) 179 261-4 78 L [facility] Iron Jahsuhrdpt1155-04-65 09:47:00* Test Item Value Reference Range Interpretation Comments Percent Iron Saturation (test code = 2502-3) 5 15-50 L [facility] CenterTransferrin2019-02-12 09:47:00* Test Item Value Reference Range Interpretation Comments Transferrin (test code = 3034-6) 128 180-382 L [facility] CenterDifferential Total Cells Counted 2018-04-03 07:51:00* Test Item Value Reference Range Interpretation Comments Differential Total Cells Counted (test code = Maryann chaidez Total Cells Counted) 100 [facility] CenterNeutrophils % (Manual)2018-04-03 07:51:00 * Test Item Value Reference Range Interpretation Comments Neutrophils % (Manual) (test code = 62974-8) 96 40-74 H [facility] CenterLymphocytes % (Manual)2018-04-03 07:51:00 * Test Item Value Reference Range Interpretation Comments Lymphocytes % (Manual) (test code = 737-7) 3 19-48 L [facility] CenterMonocytes % (Manual)2018-04-03 07:51:00* Test Item Value Reference Range Interpretation Comments Monocytes % (Manual) (test code = 744-3) 1 3.4-9.0 [facility] Lwwtm3621-79-71 07:51:00* Test Item Value Reference Range Interpretation Comments Smudge Cells (test code = 7798-2) FEW [facility] CenterPlatelet Xwzsoyed0807-09-98 07:51:00* Test Item Value Reference Range Interpretation Comments Platelet Estimate (test code = 18374-7) ADEQUATE [facility] CenterPlatelet Morphology Egcqspk5579-94-10 07:51:00* Test Item Value Reference Range Interpretation Comments Platelet Morphology Comment (test code = 30562-3) NORMAL [facility] CenterHypochromasia2019-02-12 07:51:00* Test Item Value Reference Range Interpretation Comments Hypochromasia (test code = 728-6) SLIGHT [facility] CenterAnisocytosis2019-02-12 07:51:00* Test Item Value Reference Range Interpretation Comments Anisocytosis (test code = 702-1) MODERATE [facility] CenterBurr Kmiol9904-83-11 07:51:00* Test Item Value Reference Range Interpretation Comments Cerulean Cells (test code = 7790-9) SLIGHT [facility] CenterRed Cell Morphology Kdlgfcn9627-22-23 07:51:00* Test Item Value Reference Range Interpretation Comments Red Cell Morphology Comment (test code = 6742-1) [facility] 07:51:00* Test Item Value Reference Range Interpretation Comments Smudge Cells (test code = 7798-2) FEW [facility]2019-02-12 07:51:00* Test Item Value Reference Range Interpretation Comments Hypochromasia (test code = 728-6) SLIGHT [facility]2019-02-12 07:51:00* Test Item Value Reference Range Interpretation Comments Smudge Cells (test code = 7798-2) FEW [facility] Centerpochromasia2019-02-12 07:51:00* Test Item Value Reference Range Interpretation Comments Hypochromasia (test code = 728-6) SLIGHT [facility] [facility]2019-[facility] 07:51:00* Test Item Value Reference Range Interpretation Comments Smudge Cells (test code = 7798-2) [facility] Xnbzhv7663-62-12 07:02:00* Test Item Value Reference Range Interpretation Comments Creatine Kinase (test code = 2157-6) 23 29-168 L [facility] CenterCreatine Kinase RS1081-83-67 07:02:00* Test Item Value Reference Range Interpretation Comments Creatine Kinase MB (test code = 94956-9) 1.40 0-5.0 [facility] CenterTroponin [id number] 07:02:00* Test Item Value Reference Range Interpretation Comments Troponin I (test code = DMI6271) 0.001 0-0.300 [facility] Pohwf7119-00-34 06:29:00* Test Item Value Reference Range Interpretation Comments Sodium Level (test code = 2951-2) 133 136-145 L [facility] CenterPotassium Natae6450-61-16 06:29:00* Test Item Value Reference Range Interpretation Comments Potassium Level (test code = 2823-3) 3.6 3.5-5.1 [facility] CenterChloride Yydvn7594-50-28 06:29:00* Test Item Value Reference Range Interpretation Comments Chloride Level (test code = 2075-0) 103 98-107 [facility] CenterCarbon Dioxide Vvzes2961-49-93 06:29:00* Test Item Value Reference Range Interpretation Comments Carbon Dioxide Level (test code = 2028-9) 21 22-29 L [facility] CenterAnion Gwm2468-09-54 06:29:00* Test Item Value Reference Range Interpretation Comments Anion Gap (test code = 55550-6) 12.6 8-16 [facility] CenterBlood Urea Joqcomvv0596-56-86 06:29:00* Test Item Value Reference Range Interpretation Comments Blood Urea Nitrogen (test code = 3094-0) 31 7-26 H [facility] CenterCreatinine2019-02-12 06:29:00* Test Item Value Reference Range Interpretation Comments Creatinine (test code = 2160-0) 0.82 0.57-1.11 [facility] CenterBUN/Creatinine Pujeg2906-34-49 06:29:00* Test Item Value Reference Range Interpretation Comments BUN/Creatinine Ratio (test code = 3097-3) 38 6-25 H [facility] CenterEstimat Glomerular Filtration Rate 2018-04-03 06:29:00* Test Item Value Reference Range Interpretation Comments Estimat Glomerular Filtration Rate (test code = 735946359) > 60 >60 Ranges were taken from the National Kidney Disease Education Program and the [facility] [employer] literature.Reference ranges:60 or greater: Prieep23-69 ( for 3 consecutive months): Chronic kidney disease 15 or less: Kidney failureMethodist Mansfield Medical CenterGlucose Mtfif1565-06-72 06:29:00* Test Item Value Reference Range Interpretation Comments Glucose Level (test code = SEK1351) 192 74-118 H [facility] CenterCalcium Chvbp9997-78-90 06:29:00* Test Item Value Reference Range Interpretation Comments Calcium Level (test code = 57876-2) 8.7 8.4-10.2 [facility] CenterWhite Blood Fzwfg8241-76-35 06:02:00* Test Item Value Reference Range Interpretation Comments White Blood Count (test code = 6690-2) 7.11 4.8-10.8 [facility] CenterRed Blood Buopy7878-62-96 06:02:00* Test Item Value Reference Range Interpretation Comments Red Blood Count (test code = 789-8) 4.12 3.6-5.1 [facility] CenterHemoglobin2019-02-12 06:02:00* Test Item Value Reference Range Interpretation Comments Hemoglobin (test code = 84380-9) 10.7 12.0-16.0 L [facility] CenterHematocrit2019-02-12 06:02:00* Test Item Value Reference Range Interpretation Comments Hematocrit (test code = 4544-3) 34.8 34.2-44.1 [facility] CenterMean Corpuscular Xuhsba3920-74-21 06:02:00* Test Item Value Reference Range Interpretation Comments Mean Corpuscular Volume (test code = 787-2) 84.5 81-99 [facility] CenterMean Corpuscular Lqewdkjcuf7216-33-29 06:02:00* Test Item Value Reference Range Interpretation Comments Mean Corpuscular Hemoglobin (test code = 785-6) 26.0 28-32 L [facility] CenterMean Corpuscular Hemoglobin Concent 2018-04-03 06:02:00* Test Item Value Reference Range Interpretation Comments Mean Corpuscular Hemoglobin Concent (test code = 786-4) 30.7 31-35 L [facility] CenterRed Cell Distribution Gbhqm2040-41-84 06:02:00* Test Item Value Reference Range Interpretation Comments Red Cell Distribution Width (test code = 52031-3) 23.9 11.7 -14.4 H [facility] CenterPlatelet Gowdg6303-49-12 06:02:00* Test Item Value Reference Range Interpretation Comments Platelet Count (test code = 777-3) 265 140-360 [facility] CenterNeutrophils (%) (Auto)2018-04-03 06:02:00 * Test Item Value Reference Range Interpretation Comments Neutrophils (%) (Auto) (test code = 78145-1) 93.3 38.7-80.0 H [facility] CenterLymphocytes (%) (Auto)2018-04-03 06:02:00 * Test Item Value Reference Range Interpretation Comments Lymphocytes (%) (Auto) (test code = 736-9) 4.4 18.0-39.1 L [facility] CenterMonocytes (%) (Auto)2018-04-03 06:02:00* Test Item Value Reference Range Interpretation Comments Monocytes (%) (Auto) (test code = 5905-5) 1.8 4.4-11.3 L [facility] CenterEosinophils (%) (Auto)2018-04-03 06:02:00 * Test Item Value Reference Range Interpretation Comments Eosinophils (%) (Auto) (test code = 713-8) 0.0 0.0-6.0 [facility] CenterBasophils (%) (Auto)2018-04-03 06:02:00* Test Item Value Reference Range Interpretation Comments Basophils (%) (Auto) (test code = 706-2) 0.1 0.0-1.0 [facility] CenterIM GRANULOCYTES %2018-04-03 06:02:00* Test Item Value Reference Range Interpretation Comments IM GRANULOCYTES % (test code = IM GRANULOCYTES %) 0.4 0.0- 1.0 [facility] CenterNeutrophils # (Auto)2018-04-03 06:02:00* Test Item Value Reference Range Interpretation Comments Neutrophils # (Auto) (test code = 751-8) 6.6 2.1-6.9 [facility] CenterLymphocytes # (Auto)2018-04-03 06:02:00* Test Item Value Reference Range Interpretation Comments Lymphocytes # (Auto) (test code = 60351-7) 0.3 1.0-3.2 L [facility] CenterMonocytes # (Auto)2018-04-03 06:02:00* Test Item Value Reference Range Interpretation Comments Monocytes # (Auto) (test code = 742-7) 0.1 0.2-0.8 L [facility] CenterEosinophils # (Auto)2018-04-03 06:02:00* Test Item Value Reference Range Interpretation Comments Eosinophils # (Auto) (test code = 711-2) 0.0 0.0-0.4 [facility] CenterBasophils # (Auto)2018-04-03 06:02:00* Test Item Value Reference Range Interpretation Comments Basophils # (Auto) (test code = 704-7) 0.0 0.0-0.1 [facility] CenterAbsolute Immature Granulocyte (auto 2018-04-03 06:02:00* Test Item Value Reference Range Interpretation Comments Absolute Immature Granulocyte (auto (john t code = Absolute Immature Granulocyte (auto) 0.03 0-0.1 [facility] CenterCT CHEST P1061-52-97 15:42:00 [place] [address] Patient Name: SHELBY PEÑA MR #: [id number] : 1935 Age/Sex: 82/F Req #: [id number] Adm Physician: YOU CUELLO MD Ordered by: JOLENE MIDDLETON MD Report #: [id number] Location: [facility] Room/Bed: [place] [address] Procedure: [id number] CT/CT CHEST W Exam Date: 04/02/18 Exam Time: 1535 REPORT STATUS: Signed EXAM: CT Chest WITH contrast INDICATION: Cough, smoker, pneumonia x1 week. Possible lung mass on chest radiograph. COMPARISON: Chest radiograph 04/02/2018. RAFAL HNIQUE: Chest was scanned utilizing a multidetector helical scanner from the l tomas apex through the level of the adrenal glands without administration of IV contrast. Coronal and sagittal reformations were obtained. Routine protocol wa s performed. Dose modulation, iterative reconstruction, and/or weight based adjustment of the mA/kV was utilized to reduce the radiation dose to as low as reasonably achievable. IV CONTRAST: 100 mL of Isovue 370. RADIATION DOSE: Total DLP: 306.5 mGy*cm COMPLICATIONS: None FINDINGS: LINES/ TUBES: None. LUNGS AND AIRWAYS: There is mu coid impaction in the right greater than left lower lobe bronchi as well as mi ddle lobe bronchi. There is diffuse bronchial wall thickening. There are sever e centrilobular emphysematous changes of the lungs. There are multifocal conso lidative and tree in bud opacities, most confluent in the right lower lobe, bu t also present within the left lower lobe, middle lobe, lingula, and right upp er lobe. There are multiple bilateral calcified lung nodules, for example in t he right upper lobe on image 13 and left upper lobe on image 15. There is biap ical pleural-parenchymal opacity. There is an 8 mm solid pulmonary nodule in t he right upper lobe on series 3, image 20 and an 8 mm right upper lobe pulmona ry nodule on image 26. There is a 4 mm solid-appearing nodule in the left uppe r lobe on image 22. PLEURA: The pleural spaces are clear. HEART AND M EDIASTINUM: Multiple bilateral thyroid nodules. A 1 cm right peritracheal lymp h node is nonspecific, but could be reactive. Mild left atrial enlargement. Th ere is no pericardial effusion. The main pulmonary artery is enlarged, measur ing up to 3.4 cm. No evidence of central pulmonary embolism. Extensive mitral annular calcifications. Scattered coronary atherosclerosis. Extensive atherosc lerotic changes of the thoracic aorta and branch vessels. There is noncalcifie d mural thrombus within the descending thoracic aorta. No evidence of mass cor responding to the opacity noted in the right lower mediastinum on same day leana st radiograph, which likely represented central pulmonary vascular structures. UPPER ABDOMEN: Limited views of the upper abdomen. No definite abnormality within the partially visualized liver, spleen, or left adrenal gland. Subce ntimeter hypodensity within the right upper pole kidney likely represents a cy st. Mild thickening of the right adrenal gland without discrete nodule. B ONES/SOFT TISSUES: Mild age indeterminant loss of vertebral body height at the T10-T12 levels. No suspicious lytic or blastic lesions. IMPRESSION: Sev ere emphysematous changes of the lungs with multifocal pneumonia, most conflue nt within the right lower lobe. Follow-up chest CT is recommended in 3 months to assess for resolution of pneumonia. Bilateral solid pulmonary nodules, m easuring up to 8 mm. Differential includes noncalcified granulomas as well as malignancy. Follow-up chest CT in 3 months is recommended. No mass corre sponding to the opacity noted in the right [...] on 04/02/181558 COPY TO: JOLENE MIDDLETON MD Influenza Virus Types A,B Jdkrboc5627-56-13 13:58:00* Test Item Value Reference Range Interpretation Comments Influenza Virus Types A,B Antigen (test code = 36484-1) NEGATIVE NEGATIVE [facility] CenterInfluenza Virus Types A,B Antigen 2018-04-02 13:58:00* Test Item Value Reference Range Interpretation Comments Influenza Virus Types A,B Antigen (test code = 13621-1) NEGATIVE NEGATIVE [facility] CenterInfluenza Virus Types A,B Antigen 2018-04-02 13:58:00* Test Item Value Reference Range Interpretation Comments Influenza Virus Types A,B Antigen (test code = 15091-5) NEGATIVE NEGATIVE [facility] CenterInfluenza Virus Types A,B Antigen 2018-04-02 13:58:00* Test Item Value Reference Range Interpretation Comments Influenza Virus Types A,B Antigen (test code = 94022-5) NEGATIVE NEGATIVE [facility] CenterB-Type Natriuretic Elnvvoa7292-21-34 12:41:00* Test Item Value Reference Range Interpretation Comments B-Type Natriuretic Peptide (test code = 55808-9) 148.5 0-100 H [facility] CenterB-Type Natriuretic Vpuicij6350-31-45 12:41:00* Test Item Value Reference Range Interpretation Comments B-Type Natriuretic Peptide (test code = 14686-1) 148.5 0-100 [facility] Troribn2346-75-51 12:41:00* Test Item Value Reference Range Interpretation Comments B-Type Natriuretic Peptide (test code = 95556-6) 148.5 0-100 [facility]Type Nat[facility]tic Rtdbwur3927-46-96 12:41:00* Test Item Value Reference Range Interpretation Comments B-Type Natriuretic Peptide (test code = 27216-8) 148.5 0-100 H [facility] SINGLE (PORTABLE)2018-04-02 12:38:00 [facility] [address] [place] [address] Patient Name: SHELBY PEÑA MR #: [id number] : 1935 Age/Sex: 82/F Req #: [id number] Adm Physician: Ordered by: JOLENE MIDDLETON MD Report #: [id number] Location: ER Room/Bed: Procedure: [id number] DX/CH EST SINGLE (PORTABLE) Exam Date: 04/02/18 Exam Time: 1219 REPORT STATUS: Signed EXAM INATION: CHEST SINGLE (PORTABLE) INDICATION: Shortness of breath. COMPARISON: None FINDINGS: TUBES and LINES: None. LUNGS: Mi ld patchy opacities at the right lung base. Central vascular congestion withou t evidence of pulmonary edema. There is nodular opacity projecting over the ri ght upper lung. Calcified left sided lung nodules. PLEURA: No pleural eff usion or pneumothorax. HEART AND MEDIASTINUM: Ovoid opacity projects over the right lower mediastinum. Atherosclerotic calcifications of the aortic arch . No evidence of cardiomegaly. BONES AND SOFT TISSUES: No acute radiographi c abnormality. UPPER ABDOMEN: No free air under the diaphragm. IMP RESSION: Ovoid opacity projecting over the right lower [...] 04/02/18 1241 COPY TO: JOLENE MIDDLETON MD Total Sywnzogua4718-57-15 12:18:00* Test Item Value Reference Range Interpretation Comments Total Bilirubin (test code = 1975-2) 0.3 0.2-1.2 [facility] CenterAspartate Amino Transf (AST/SGOT) 2018-04-02 12:18:00* Test Item Value Reference Range Interpretation Comments Aspartate Amino Transf (AST/SGOT) (test code = Aspartate Amino Transf (AST/SGOT)) 13 5-34 [facility] CenterAlanine Aminotransferase (ALT/SGPT) 2018-04-02 12:18:00* Test Item Value Reference Range Interpretation Comments Alanine Aminotransferase (ALT/SGPT) (test code = 1742-6) 13 0-55 [facility] CenterTotal Emalgjn2443-70-97 12:18:00* Test Item Value Reference Range Interpretation Comments Total Protein (test code = 2885-2) 6.3 6.5-8.1 L [facility] CenterAlbumin2019-02-11 12:18:00* Test Item Value Reference Range Interpretation Comments Albumin (test code = 1751-7) 2.7 3.5-5.0 L [facility] CenterGlobulin2019-02-11 12:18:00* Test Item Value Reference Range Interpretation Comments Globulin (test code = 07645-7) 3.6 2.3-3.5 H [facility] CenterAlbumin/Globulin Rckkm4090-75-82 12:18:00 * Test Item Value Reference Range Interpretation Comments Albumin/Globulin Ratio (test code = 1759-0) 0.8 0.8-2.0 [facility] CenterAlkaline Hxzfkinxwzx5611-65-88 12:18:00* Test Item Value Reference Range Interpretation Comments Alkaline Phosphatase (test code = 6768-6) 93 40-150 [facility] CenterProthrombin Pawi6615-05-27 12:00:00* Test Item Value Reference Range Interpretation Comments Prothrombin Time (test code = 5902-2) 13.0 11.9-14.5 [facility] CenterProthromb Time International Ratio 2018-04-02 12:00:00* Test Item Value Reference Range Interpretation Comments Prothromb Time International Ratio (test code = 6301-6) 0.90 Oral Anticoagulant Therapy INR Values:1. Low Intensity Therapy 1.5 - 2.02 . Moderate Intensity Therapy 2.0 - 3.03. High Intensity Therapy(1) 2.5 - 3. 54. High Intensity Therapy(2) 3.0 - 4.05. Panic Value INR > 5.0 [facility] CenterActivated Partial Thromboplast Time 2018-04-02 12:00:00* Test Item Value Reference Range Interpretation Comments Activated Partial Thromboplast Time (test code = 04067-6) 31.0 23.8-35.5 [facility] CenterProthrombin Yqdn5683-49-60 12:00:00* Test Item Value Reference Range Interpretation Comments Prothrombin Time (test code = 5902-2) 13.0 11.9-14.5 [facility] CenterProthromb Time International Ratio 2018-04-02 12:00:00* Test Item Value Reference Range Interpretation Comments Prothromb Time International Ratio (test code = 6301-6) 0.90 Oral Anticoagulant Therapy INR Values:1. Low Intensity Therapy 1.5 - 2.02 . Moderate Intensity Therapy 2.0 - 3.03. High Intensity Therapy(1) 2.5 - 3. 54. High Intensity Therapy(2) 3.0 - 4.05. Panic Value INR > 5.0 [facility] CenterActivated Partial Thromboplast Time 2018-04-02 12:00:00* Test Item Value Reference Range Interpretation Comments Activated Partial Thromboplast Time (test code = 35427-1) 31.0 23.8-35.5 [facility] CenterProthrombin Gnhz2047-19-91 12:00:00* Test Item Value Reference Range Interpretation Comments Prothrombin Time (test code = 5902-2) 13.0 11.9-14.5 [facility] CenterProthromb Time International Ratio 2018-04-02 12:00:00* Test Item Value Reference Range Interpretation Comments Prothromb Time International Ratio (test code = 6301-6) 0.90 Oral Anticoagulant Therapy INR Values:1. Low Intensity Therapy 1.5 - 2.02 . Moderate Intensity Therapy 2.0 - 3.03. High Intensity Therapy(1) 2.5 - 3. 54. High Intensity Therapy(2) 3.0 - 4.05. Panic Value INR > 5.0 [facility] CenterActivated Partial Thromboplast Time 2018-04-02 12:00:00* Test Item Value Reference Range Interpretation Comments Activated Partial Thromboplast Time (test code = 27882-4) 31.0 23.8-35.5 [facility] CenterActivated Partial Thromboplast Time 2018-04-02 12:00:00* Test Item Value Reference Range Interpretation Comments Activated Partial Thromboplast Time (test code = 97532-6) 31.0 23.8-35.5 [facility] CenterUrine [id number] 11:27:00* Test Item Value Reference Range Interpretation Comments Urine WBC (test code = 5821-4) 0-5 0-5 [facility] CenterUrine HNR8467-44-20 11:27:00* Test Item Value Reference Range Interpretation Comments Urine RBC (test code = 30802-9) NONE 0-5 [facility] CenterUrine Jzimwftw5990-23-16 11:27:00* Test Item Value Reference Range Interpretation Comments Urine Bacteria (test code = 45416-3) FEW NONE [facility] CenterUrine Epithelial Micxi5841-58-73 11:27:00 * Test Item Value Reference Range Interpretation Comments Urine Epithelial Cells (test code = 27063-6) MODERATE NONE [facility] ZES5584-93-68 11:27:00* Test Item Value Reference Range Interpretation Comments Urine WBC (test code = 5821-4) 0-5 0-5 [facility] VLC2734-81-17 11:27:00* Test Item Value Reference Range Interpretation Comments Urine RBC (test code = 01411-5) NONE 0-5 [facility] Ciempuxb6547-91-26 11:27:00* Test Item Value Reference Range Interpretation Comments Urine Bacteria (test code = 24595-1) FEW NONE [facility] Epithelial Abgeb8523-39-19 11:27:00 * Test Item Value Reference Range Interpretation Comments Urine Epithelial Cells (test code = 44997-5) MODERATE NONE [facility] [id number] 11:27:00* Test Item Value Reference Range Interpretation Comments Urine WBC (test code = 5821-4) 0-5 0-5 [facility] [id number] 11:27:00* Test Item Value Reference Range Interpretation Comments Urine RBC (test code = 85034-6) NONE 0-5 [facility] Fqoeihhn9467-04-87 11:27:00* Test Item Value Reference Range Interpretation Comments Urine Bacteria (test code = 53699-1) FEW NONE [facility] CenterUrine Epithelial Elenj9339-28-51 11:27:00 * Test Item Value Reference Range Interpretation Comments Urine Epithelial Cells (test code = 84444-6) MODERATE NONE [facility] JDB0641-47-68 11:27:00* Test Item Value Reference Range Interpretation Comments Urine WBC (test code = 5821-4) 0-5 0-5 [facility] QHT2785-74-87 11:27:00* Test Item Value Reference Range Interpretation Comments Urine RBC (test code = 10104-1) NONE 0-5 [facility] Pulgbsiy0239-54-88 11:27:00* Test Item Value Reference Range Interpretation Comments Urine Bacteria (test code = 92832-9) FEW NONE [facility] CenterUrine Epithelial Cgbne6058-82-89 11:27:00 * Test Item Value Reference Range Interpretation Comments Urine Epithelial Cells (test code = 02128-8) MODERATE NONE [facility] CenterTroponin [id number] 11:20:00* Test Item Value Reference Range Interpretation Comments Troponin I (test code = JQH2534) 0.017 0-0.300 [facility] CenterThyroid Stimulating Hormone (TSH) 2018-02-23 11:20:00* Test Item Value Reference Range Interpretation Comments Thyroid Stimulating Hormone (TSH) (test code = 37500-1) 0.993 0.350-4.940 [facility] CenterThyroid Stimulating Hormone (TSH) 2018-02-23 11:20:00* Test Item Value Reference Range Interpretation Comments Thyroid Stimulating Hormone (TSH) (test code = 70816-6) 0.993 0.350-4.940 [facility] CenterThyroid Stimulating Hormone (TSH) 2018-02-23 11:20:00* Test Item Value Reference Range Interpretation Comments Thyroid Stimulating Hormone (TSH) (test code = 14709-5) 0.993 0.350-4.940 [facility] CenterThyroid Stimulating Hormone (TSH) 2018-02-23 11:20:00* Test Item Value Reference Range Interpretation Comments Thyroid Stimulating Hormone (TSH) (test code = 69156-8) 0.993 0.350-4.940 [facility] CenterThyroid Stimulating Hormone (TSH) 2018-02-23 11:20:00* Test Item Value Reference Range Interpretation Comments Thyroid Stimulating Hormone (TSH) (test code = 19532-2) 0.993 0.350-4.940 [facility] CenterUrine Gyyrg0293-49-85 11:16:00* Test Item Value Reference Range Interpretation Comments Urine Color (test code = 5778-6) YELLOW YELLOW [facility] CenterUrine Vcazwjl1813-44-64 11:16:00* Test Item Value Reference Range Interpretation Comments Urine Clarity (test code = 02028-4) CLEAR CLEAR [facility] CenterUrine Specific Gpadyrh7375-58-20 11:16:00 * Test Item Value Reference Range Interpretation Comments Urine Specific [place] (test code = 5811-5) 1.010 1.010-1.02 5 [facility] CenterUrine [id number] 11:16:00* Test Item Value Reference Range Interpretation Comments Urine pH (test code = 60355-8) 6 5-7 [facility] Leukocyte Nzfzrtyo3380-57-38 11:16:00* Test Item Value Reference Range Interpretation Comments Urine Leukocyte Esterase (test code = 5799-2) TRACE NEGATIVE H [facility] Ekmbjal7562-22-32 11:16:00* Test Item Value Reference Range Interpretation Comments Urine Nitrite (test code = 88198-5) NEGATIVE NEGATIVE [facility] Zyhysxd8079-57-02 11:16:00* Test Item Value Reference Range Interpretation Comments Urine Protein (test code = 5804-0) NEGATIVE NEGATIVE [facility] Glucose (UA)2018-02-23 11:16:00* Test Item Value Reference Range Interpretation Comments Urine Glucose (UA) (test code = 2349-9) NEGATIVE NEGATIVE [facility] Ctzfhvz4251-13-61 11:16:00* Test Item Value Reference Range Interpretation Comments Urine Ketones (test code = 90781-1) NEGATIVE NEGATIVE [facility] Hcivvlfxuuhq8112-86-14 11:16:00* Test Item Value Reference Range Interpretation Comments Urine Urobilinogen (test code = 70771-9) 0.2 0.2-1 [facility] Whvcxihqm8974-36-46 11:16:00* Test Item Value Reference Range Interpretation Comments Urine Bilirubin (test code = 1978-6) NEGATIVE NEGATIVE [facility] Tnfod9737-53-67 11:16:00* Test Item Value Reference Range Interpretation Comments Urine Blood (test code = 94574-5) NEGATIVE NEGATIVE [facility] CenterUrine Zrecl8240-06-72 11:16:00* Test Item Value Reference Range Interpretation Comments Urine Color (test code = 5778-6) YELLOW YELLOW [facility] CenterUrine Xjvafin4141-28-31 11:16:00* Test Item Value Reference Range Interpretation Comments Urine Clarity (test code = 98528-0) CLEAR CLEAR [facility] Specific Jjulbdl1373-67-04 11:16:00 * Test Item Value Reference Range Interpretation Comments Urine Specific [place] (test code = 5811-5) 1.010 1.010-1.02 5 [facility] CenterUrine [id number] 11:16:00* Test Item Value Reference Range Interpretation Comments Urine pH (test code = 15080-8) 6 5-7 [facility] CenterUrine Leukocyte Kqfezqod8614-04-97 11:16:00* Test Item Value Reference Range Interpretation Comments Urine Leukocyte Esterase (test code = 5799-2) TRACE NEGATIVE H [facility] Zucsdtc9566-06-17 11:16:00* Test Item Value Reference Range Interpretation Comments Urine Nitrite (test code = 26618-3) NEGATIVE NEGATIVE [facility] Ikxspfh4979-26-82 11:16:00* Test Item Value Reference Range Interpretation Comments Urine Protein (test code = 5804-0) NEGATIVE NEGATIVE [facility] Glucose (UA)2018-02-23 11:16:00* Test Item Value Reference Range Interpretation Comments Urine Glucose (UA) (test code = 2349-9) NEGATIVE NEGATIVE [facility] Gkfvaiu1531-97-94 11:16:00* Test Item Value Reference Range Interpretation Comments Urine Ketones (test code = 06641-9) NEGATIVE NEGATIVE [facility] CenterU[facility] Ylrtzjnnksvv1537-68-38 11:16:00* Test Item Value Reference Range Interpretation Comments Urine Urobilinogen (test code = 36309-6) 0.2 0.2-1 [facility] CenterU[facility] Igggvkybj7008-18-17 11:16:00* Test Item Value Reference Range Interpretation Comments Urine Bilirubin (test code = 1978-6) NEGATIVE NEGATIVE [facility] Vzptx7048-79-49 11:16:00* Test Item Value Reference Range Interpretation Comments Urine Blood (test code = 60633-7) NEGATIVE NEGATIVE [facility] CenterU[facility] Tqtvd2670-82-83 11:16:00* Test Item Value Reference Range Interpretation Comments Urine Color (test code = 5778-6) YELLOW YELLOW [facility] CenterU[facility] Atotwto3018-36-37 11:16:00* Test Item Value Reference Range Interpretation Comments Urine Clarity (test code = 75492-9) CLEAR CLEAR [facility] CenterU[facility] Specific Nhlykce2406-75-27 11:16:00 * Test Item Value Reference Range Interpretation Comments Urine Specific [place] (test code = 5811-5) 1.010 1.010-1.02 5 [facility] CenterU[facility] oB2360-45-38 11:16:00* Test Item Value Reference Range Interpretation Comments Urine pH (test code = 58805-5) 6 5-7 [facility] CenterU[facility] Leukocyte Hqczjfzh3408-47-74 11:16:00* Test Item Value Reference Range Interpretation Comments Urine Leukocyte Esterase (test code = 5799-2) TRACE NEGATIVE H [facility] CenterU[facility] Iargoek4831-71-73 11:16:00* Test Item Value Reference Range Interpretation Comments Urine Nitrite (test code = 65124-3) NEGATIVE NEGATIVE [facility] CenterU[facility] Dcwrdta5938-24-23 11:16:00* Test Item Value Reference Range Interpretation Comments Urine Protein (test code = 5804-0) NEGATIVE NEGATIVE [facility] CenterU[facility] Glucose (UA)2018-02-23 11:16:00* Test Item Value Reference Range Interpretation Comments Urine Glucose (UA) (test code = 2349-9) NEGATIVE NEGATIVE [facility] Szxeyad4190-70-40 11:16:00* Test Item Value Reference Range Interpretation Comments Urine Ketones (test code = 57248-6) NEGATIVE NEGATIVE [facility] CenterU[facility] Qfluhclesjbc6392-93-04 11:16:00* Test Item Value Reference Range Interpretation Comments Urine Urobilinogen (test code = 79005-7) 0.2 0.2-1 [facility] CenterU[facility] Frrvnccqg3609-13-60 11:16:00* Test Item Value Reference Range Interpretation Comments Urine Bilirubin (test code = 1978-6) NEGATIVE NEGATIVE [facility] Pykhh8876-29-10 11:16:00* Test Item Value Reference Range Interpretation Comments Urine Blood (test code = 97283-3) NEGATIVE NEGATIVE [facility] CenterU[facility] Qduck5541-43-93 11:16:00* Test Item Value Reference Range Interpretation Comments Urine Color (test code = 5778-6) YELLOW YELLOW [facility] CenterU[facility] Vzuqwzo8681-71-93 11:16:00* Test Item Value Reference Range Interpretation Comments Urine Clarity (test code = 71256-4) CLEAR CLEAR [facility] Specific Hsjjxat3700-29-90 11:16:00 * Test Item Value Reference Range Interpretation Comments Urine Specific [place] (test code = 5811-5) 1.010 1.010-1.02 5 [facility] CenterU[facility] wN7617-44-76 11:16:00* Test Item Value Reference Range Interpretation Comments Urine pH (test code = 54046-9) 6 5-7 [facility] CenterU[facility] Leukocyte Xznkoeao6725-63-92 11:16:00* Test Item Value Reference Range Interpretation Comments Urine Leukocyte Esterase (test code = 5799-2) TRACE NEGATIVE H [facility] CenterU[facility] Unrfqlc3852-12-98 11:16:00* Test Item Value Reference Range Interpretation Comments Urine Nitrite (test code = 94506-5) NEGATIVE NEGATIVE [facility] CenterU[facility] Rtafwnw0831-81-21 11:16:00* Test Item Value Reference Range Interpretation Comments Urine Protein (test code = 5804-0) NEGATIVE NEGATIVE [facility] CenterUrine Glucose (UA)2018-02-23 11:16:00* Test Item Value Reference Range Interpretation Comments Urine Glucose (UA) (test code = 2349-9) NEGATIVE NEGATIVE [facility] CenterU[facility] Thawtox5960-47-28 11:16:00* Test Item Value Reference Range Interpretation Comments Urine Ketones (test code = 67683-9) NEGATIVE NEGATIVE [facility] CenterU[facility] Zouzbkuszqgs1661-08-91 11:16:00* Test Item Value Reference Range Interpretation Comments Urine Urobilinogen (test code = 03014-7) 0.2 0.2-1 [facility] CenterU[facility] Makolbgrj3402-66-22 11:16:00* Test Item Value Reference Range Interpretation Comments Urine Bilirubin (test code = 1978-6) NEGATIVE NEGATIVE [facility] CenterU[facility] Aeyts2081-39-22 11:16:00* Test Item Value Reference Range Interpretation Comments Urine Blood (test code = 30708-0) NEGATIVE NEGATIVE [facility] CenterDifferential Total Cells Counted 2018-02-23 11:11:00* Test Item Value Reference Range Interpretation Comments Differential Total Cells Counted (test code = Differen tial Total Cells Counted) 100 [facility] CenterNeutrophils % (Manual)2018-02-23 11:11:00 * Test Item Value Reference Range Interpretation Comments Neutrophils % (Manual) (test code = 82533-6) 78 40-74 H [facility] CenterLymphocytes % (Manual)2018-02-23 11:11:00 * Test Item Value Reference Range Interpretation Comments Lymphocytes % (Manual) (test code = 737-7) 14 19-48 L [facility] CenterMonocytes % (Manual)2018-02-23 11:11:00* Test Item Value Reference Range Interpretation Comments Monocytes % (Manual) (test code = 744-3) 4 3.4-9.0 [facility] CenterEosinophils % (Manual)2018-02-23 11:11:00 * Test Item Value Reference Range Interpretation Comments Eosinophils % (Manual) (test code = 714-6) 1 0-7 [facility] CenterMetamyelocytes %2018-02-23 11:11:00* Test Item Value Reference Range Interpretation Comments Metamyelocytes % (test code = 740-1) 1 0-0 H [facility] CenterMyelocytes %2018-02-23 11:11:00* Test Item Value Reference Range Interpretation Comments Myelocytes % (test code = 749-2) 1 0-0 H [facility] CenterReactive Wxghtoqvwhu0488-40-47 11:11:00* Test Item Value Reference Range Interpretation Comments Reactive Lymphocytes (test code = 67214-7) 1 [facility] CenterPlatelet Jpixxoyg2797-25-92 11:11:00* Test Item Value Reference Range Interpretation Comments Platelet Estimate (test code = 82086-1) ADEQUATE [facility] CenterPlatelet Morphology Mkgtsyd9988-92-82 11:11:00* Test Item Value Reference Range Interpretation Comments Platelet Morphology Comment (test code = 31584-5) NORMAL [facility] CenterHypochromasia2019-01-04 11:11:00* Test Item Value Reference Range Interpretation Comments Hypochromasia (test code = 728-6) MODERATE [facility] Xkpzd1364-60-53 11:11:00* Test Item Value Reference Range Interpretation Comments Target Cells (test code = 61147-4) FEW [facility] CenterElliptocytes2019-01-04 11:11:00* Test Item Value Reference Range Interpretation Comments Elliptocytes (test code = 58809-9) SLIGHT [facility] CenterRed Cell Morphology Vdrfiot1193-85-74 11:11:00* Test Item Value Reference Range Interpretation Comments Red Cell Morphology Comment (test code = 6742-1) ABNORMAL [facility] CenterEosinophils % (Manual)2018-02-23 11:11:00 * Test Item Value Reference Range Interpretation Comments Eosinophils % (Manual) (test code = 714-6) 1 0-7 [facility] CenterMetamyelocytes %2018-02-23 11:11:00* Test Item Value Reference Range Interpretation Comments Metamyelocytes % (test code = 740-1) 1 0-0 H [facility] CenterMyelocytes %2018-02-23 11:11:00* Test Item Value Reference Range Interpretation Comments Myelocytes % (test code = 749-2) 1 0-0 H [facility] CenterReactive Xgrtuytxdkx6634-00-14 11:11:00* Test Item Value Reference Range Interpretation Comments Reactive Lymphocytes (test code = 78114-7) 1 [facility] CenterT[facility] Tanio0862-60-21 11:11:00* Test Item Value Reference Range Interpretation Comments Target Cells (test code = 44215-1) FEW [facility] CenterElliptocytes2019-01-04 11:11:00* Test Item Value Reference Range Interpretation Comments Elliptocytes (test code = 11829-6) SLIGHT [facility] CenterEosinophils % (Manual)2018-02-23 11:11:00 * Test Item Value Reference Range Interpretation Comments Eosinophils % (Manual) (test code = 714-6) 1 0-7 [facility] CenterMetamyelocytes %2018-02-23 11:11:00* Test Item Value Reference Range Interpretation Comments Metamyelocytes % (test code = 740-1) 1 0-0 H [facility] CenterMyelocytes %2018-02-23 11:11:00* Test Item Value Reference Range Interpretation Comments Myelocytes % (test code = 749-2) 1 0-0 H [facility] CenterReactive Qicvrnhirhc0224-32-08 11:11:00* Test Item Value Reference Range Interpretation Comments Reactive Lymphocytes (test code = 43610-9) 1 [facility] CenterTarget Theto8321-92-66 11:11:00* Test Item Value Reference Range Interpretation Comments Target Cells (test code = 18253-1) FEW [facility] CenterEosinophils % (Manual)2018-02-23 11:11:00 * Test Item Value Reference Range Interpretation Comments Eosinophils % (Manual) (test code = 714-6) 1 0-7 [facility] CenterMetamyelocytes %2018-02-23 11:11:00* Test Item Value Reference Range Interpretation Comments Metamyelocytes % (test code = 740-1) 1 0-0 H [facility] CenterMyelocytes %2018-02-23 11:11:00* Test Item Value Reference Range Interpretation Comments Myelocytes % (test code = 749-2) 1 0-0 H [facility] CenterReactive Vcklyyypnuu8102-84-10 11:11:00* Test Item Value Reference Range Interpretation Comments Reactive Lymphocytes (test code = 01825-0) 1 [facility] CenterT[facility] Jnzcr9518-66-43 11:11:00* Test Item Value Reference Range Interpretation Comments Target Cells (test code = 48860-1) FEW [facility] CenterEosinophils % (Manual)2018-02-23 11:11:00 * Test Item Value Reference Range Interpretation Comments Eosinophils % (Manual) (test code = 714-6) 1 0-7 [facility] CenterMetamyelocytes %2018-02-23 11:11:00* Test Item Value Reference Range Interpretation Comments Metamyelocytes % (test code = 740-1) 1 0-0 H [facility] CenterMyelocytes %2018-02-23 11:11:00* Test Item Value Reference Range Interpretation Comments Myelocytes % (test code = 749-2) 1 0-0 H [facility] CenterReactive Swvqizsxiaz1226-17-07 11:11:00* Test Item Value Reference Range Interpretation Comments Reactive Lymphocytes (test code = 97998-5) 1 [facility] CenterT[facility] Auifx7183-16-19 11:11:00* Test Item Value Reference Range Interpretation Comments Target Cells (test code = 86322-5) FEW [facility] CenterB-Type Natriuretic Smmewxi6028-19-70 11:01:00* Test Item Value Reference Range Interpretation Comments B-Type Natriuretic Peptide (test code = 06447-6) 120.7 0-100 [facility] Rdvgz9549-30-71 10:58:00* Test Item Value Reference Range Interpretation Comments Sodium Level (test code = 2951-2) 133 136-145 L [facility] CenterPotassium Cwoyt4426-77-49 10:58:00* Test Item Value Reference Range Interpretation Comments Potassium Level (test code = 2823-3) 4.1 3.5-5.1 [facility] CenterChloride Yrmxf4510-56-52 10:58:00* Test Item Value Reference Range Interpretation Comments Chloride Level (test code = 2075-0) 100 98-107 [facility] CenterCarbon Dioxide Bytqg3596-75-75 10:58:00* Test Item Value Reference Range Interpretation Comments Carbon Dioxide Level (test code = 2028-9) 25 22-29 [facility] CenterAnion Uaz3701-54-16 10:58:00* Test Item Value Reference Range Interpretation Comments Anion Gap (test code = 72709-4) 12.1 8-16 [facility] CenterBlood Urea Mrracmkd2571-28-07 10:58:00* Test Item Value Reference Range Interpretation Comments Blood Urea Nitrogen (test code = 3094-0) 16 7-26 [facility] CenterCreatinine2019-01-04 10:58:00* Test Item Value Reference Range Interpretation Comments Creatinine (test code = 2160-0) 0.72 0.57-1.11 [facility] CenterBUN/Creatinine Xrrwh3792-05-54 10:58:00* Test Item Value Reference Range Interpretation Comments BUN/Creatinine Ratio (test code = 3097-3) 22 6- [facility] CenterEstimat Glomerular Filtration Rate 2018-02-23 10:58:00* Test Item Value Reference Range Interpretation Comments Estimat Glomerular Filtration Rate (test code = 487742108) > 60 >60 Ranges were taken from the National Kidney Disease Education Program and the [facility] [employer] literature.Reference ranges:60 or greater: Dyghwc21-52 ( for 3 consecutive months): Chronic kidney disease 15 or less: Kidney failureMethodist [facility]field Medical CenterGlucose Tjikb8768-09-00 10:58:00* Test Item Value Reference Range Interpretation Comments Glucose Level (test code = LTS0437) 93 74-118 [facility] CenterCalcium Qmbxb7133-65-38 10:58:00* Test Item Value Reference Range Interpretation Comments Calcium Level (test code = 55287-4) 9.3 8.4-10.2 [facility] CenterPhosphorus Rzzvb0319-90-90 10:58:00* Test Item Value Reference Range Interpretation Comments Phosphorus Level (test code = VFY4379) 3.3 2.3-4.7 [facility] CenterMagnesium Glwul2799-41-82 10:58:00* Test Item Value Reference Range Interpretation Comments Magnesium Level (test code = 79755-7) 2.2 1.3-2.1 H [facility] CenterTotal Xzkoxxrvr8562-90-64 10:58:00* Test Item Value Reference Range Interpretation Comments Total Bilirubin (test code = 1975-2) 0.4 0.2-1.2 [facility] CenterAspartate Amino Transf (AST/SGOT) 2018-02-23 10:58:00* Test Item Value Reference Range Interpretation Comments Aspartate Amino Transf (AST/SGOT) (test code = Aspartate Amino Transf (AST/SGOT)) 10 5-34 [facility] CenterAlanine Aminotransferase (ALT/SGPT) 2018-02-23 10:58:00* Test Item Value Reference Range Interpretation Comments Alanine Aminotransferase (ALT/SGPT) (test code = 1742-6) 10 0-55 [facility] CenterTotal Avgskwb4852-07-37 10:58:00* Test Item Value Reference Range Interpretation Comments Total Protein (test code = 2885-2) 6.5 6.5-8.1 [facility] CenterAlbumin2019-01-04 10:58:00* Test Item Value Reference Range Interpretation Comments Albumin (test code = 1751-7) 3.5 3.5-5.0 [facility] CenterGlobulin2019-01-04 10:58:00* Test Item Value Reference Range Interpretation Comments Globulin (test code = 72085-0) 3.0 2.3-3.5 [facility] CenterAlbumin/Globulin Gnvpg5824-19-59 10:58:00 * Test Item Value Reference Range Interpretation Comments Albumin/Globulin Ratio (test code = 1759-0) 1.2 0.8-2.0 [facility] CenterAlkaline Pdsbtjkmlzz9664-36-00 10:58:00* Test Item Value Reference Range Interpretation Comments Alkaline Phosphatase (test code = 6768-6) 75 40-150 [facility] CenterPhosphorus Scjij9756-99-56 10:58:00* Test Item Value Reference Range Interpretation Comments Phosphorus Level (test code = ECW6798) 3.3 2.3-4.7 [facility] CenterMagnesium Iterp9880-71-78 10:58:00* Test Item Value Reference Range Interpretation Comments Magnesium Level (test code = 35409-8) 2.2 1.3-2.1 H [facility] CenterPhosphorus Ggtel1580-19-97 10:58:00* Test Item Value Reference Range Interpretation Comments Phosphorus Level (test code = JYF4448) 3.3 2.3-4.7 [facility] CenterPhosphorus Wrraj9772-33-37 10:58:00* Test Item Value Reference Range Interpretation Comments Phosphorus Level (test code = SCQ0072) 3.3 2.3-4.7 [facility] CenterPhosphorCarnegie [facility] – [place], [place]Qrcqm7525-79-07 10:58:00* Test Item Value Reference Range Interpretation Comments Phosphorus Level (test code = ASD6464) 3.3 2.3-4.7 [facility] CenterWhite Blood Ezhah3456-04-25 10:34:00* Test Item Value Reference Range Interpretation Comments White Blood Count (test code = 6690-2) 6.41 4.8-10.8 [facility] CenterRed Blood Ckxyn1291-05-19 10:34:00* Test Item Value Reference Range Interpretation Comments Red Blood Count (test code = 789-8) 4.41 3.6-5.1 [facility] CenterHemoglobin2019-01-04 10:34:00* Test Item Value Reference Range Interpretation Comments Hemoglobin (test code = 08049-0) 10.0 12.0-16.0 L [facility] CenterHematocrit2019-01-04 10:34:00* Test Item Value Reference Range Interpretation Comments Hematocrit (test code = 4544-3) 33.0 34.2-44.1 L [facility] CenterMean Corpuscular Aetenx9662-24-47 10:34:00* Test Item Value Reference Range Interpretation Comments Mean Corpuscular Volume (test code = 787-2) 74.8 81-99 L [facility] CenterMean Corpuscular Jdhxtrmblv3582-93-27 10:34:00* Test Item Value Reference Range Interpretation Comments Mean Corpuscular Hemoglobin (test code = 785-6) 22.7 28-32 L [facility] CenterMean Corpuscular Hemoglobin Concent 2018-02-23 10:34:00* Test Item Value Reference Range Interpretation Comments Mean Corpuscular Hemoglobin Concent (test code = 786-4) 30.3 31-35 L [facility] CenterPlatelet Yhanu3329-09-47 10:34:00* Test Item Value Reference Range Interpretation Comments Platelet Count (test code = 777-3) 319 140-360 [facility]
--- NOTE | 2019-07-20 01:51 | NUR ---
Received report from ER nurse.
--- NOTE | 2019-07-20 02:56 | Diagnostic Imaging Report ---
EXAM: CT Chest WITHOUT contrast INDICATION: Chest pain COMPARISON: Chest x-ray 07/19/2019, Chest CT 06/30/2019 TECHNIQUE: Chest was scanned utilizing a multidetector helical scanner from the lung apex through the level of the adrenal glands without administration of IV contrast. Absence of intravenous contrast decreases sensitivity for detection of lymphadenopathy and vascular pathology. Coronal and sagittal reformations were obtained. Routine protocol was performed. IV CONTRAST: None COMPLICATIONS: None RADIATION DOSE: Total DLP: 290 mGy*cm Estimated effective dose: (DLP x 0.014 x size factor) mSv CTDIvol has been reviewed. It is below the limits set by the Radiation Protocol Committee (RPC). Dose modulation, iterative reconstruction, and/or weight based adjustment of the mA/kV was utilized to reduce the radiation dose to as low as reasonably achievable. FINDINGS: LINES and TUBES: Partially visualized aortic stent.. LUNGS/AIRWAYS/PLEURA:: Pulmonary emphysema. A 1.2 cm spiculated nodule in the left upper lobe, slightly more prominent compared to 05/05/2019 . Improvement in bibasilar opacities. Small bilateral pleural effusions. No pneumothorax. CARDIOMEDIASTINUM: Triple vessel coronary artery calcific atherosclerosis. Mild cardiomegaly, predominant right-sided. Mitral annulus and aortic valve calcifications. Mild main pulmonary artery dilation, measures 3.4 cm in diameter. The ascending thoracic aorta measures 3.1 cm in diameter. Subtle tree-in-bud nodularity and reticulation in the basal lateral right lower lobe No focal hepatic lesions. There is intra- and extra- hepatic biliary dilation likely post cholecystectomy reservoir effect. Cholecystectomy clips. Small sliding gastric hiatal hernia. BONES: Mild compression deformities of T10, 11, and L1. Hypoplastic cement and a moderate T6 vertebral body compression fracture. Healed left upper rib fractures. Healing nondisplaced right pubic body fracture. Sclerosis within the bilateral sacral ala. SOFT TISSUES: Unremarkable. IMPRESSION: 1. No acute intrathoracic CT abnormality. 2. Advanced triple vessel coronary artery and aortic calcific atherosclerosis, calcific aortic valve and mitral annular disease. Mild cardiomegaly and pulmonary hypertension. Small pericardial effusions. 3. Pulmonary emphysema. 4. Stable compression deformities of T6, T10, 11, and L1. Osteoporosis. 5. A stable 1.2 cm spiculated nodule in the left upper lobe. A follow-up chest CT in December 2019 is recommended. Signed by: Jose A Wong DO on 07/20/2019 2:52 AM
[2019-07-20 04:06] LABS: BLOOD UREA NITROGEN 35 mg/dL (7-26); BUN/CREATININE RATIO 25 (6-25); CALCIUM 8.7 mg/dL (8.4-10.2); CARBON DIOXIDE 21 mmol/L (22-29); CHLORIDE 101 mmol/L (98-107); CREATINE KINASE 47 IU/L (29-168); CREATININE, SERUM 1.42 mg/dL (0.57-1.11); EST GLOMERULAR FILTRATION RATE 35 ML/MIN (60-); GLUCOSE 76 mg/dL (74-118); SODIUM 136 mmol/L (136-145)
[2019-07-20] MEDS ORDERED: TRAMADOL HCL 50 MG TAB PO PRN (05:30)
[2019-07-20] MEDS ORDERED: ALBUTEROL/IPRATROPIUM 3 ML NEB NEB PRN (05:30)
[2019-07-20] MEDS ORDERED: METOPROLOL SUCC25 MG PO (06:31)
[2019-07-20] MEDS ORDERED: DICYCLOMINE HCL20 MG PO (06:36)
[2019-07-20] MEDS ORDERED: MECLIZINE HCL12.5 MG PO (06:36)
--- NOTE | 2019-07-20 08:00 | NUR ---
Received patient lying in bed with eyes open, respiration even and unlabored without SOB. Denies pain. Call light in reach.
--- NOTE | 2019-07-20 08:29 | History and Physical ---
REASON FOR ADMISSION: Dehydration, weakness, and failure to thrive. HISTORY OF PRESENT ILLNESS: The patient is an 83-year-old lady with multiple medical problems, who presented with just inability to eat, anorexia, failure to thrive, dehydration, so she has been admitted for further evaluation. PAST MEDICAL HISTORY: Significant for hypertension, COPD, colon artery disease, lung mass that she refuses workup for, peripheral arterial disease, and osteoarthritis. MEDICATIONS: See MAR. ALLERGIES: SULFA AND PENICILLIN. SOCIAL HISTORY: Smoking, no alcohol, lives at home with her son. FAMILY HISTORY: Hypertension. PHYSICAL EXAMINATION: VITAL SIGNS: Temperature is 98.4, pulse 76, blood pressure 107/48, and sats 98%. GENERAL: She is no apparent distress, lying in bed, but very thin appearing. LUNGS: Decreased breath sounds bilaterally. NECK: Supple. No lymphadenopathy. CARDIOVASCULAR: Regular rate and rhythm. ABDOMEN: Good bowel sounds. Soft, nontender. EXTREMITIES: No clubbing, cyanosis. NEUROLOGIC: Nonfocal. ASSESSMENT/PLAN: 1. Dehydration. Continue with IV fluids. 2. Anorexia. We will start encouraged the patient to increase her p.o. intake. 3. Leukocytosis. Continue to monitor. 4. Acute kidney injury. We will continue to monitor and hopefully improves with IV fluids. 5. Hypertension. Continue to monitor. 6. Lung mass. The patient once again refuses any type of further workup, but it has been stable on her CT scan. Please see hospital chart for full details. MD FUAD Martinez/NIKI /[id number]
[2019-07-20] MEDS: PANTOPRAZOLE 40 MG 10ML VIAL IV SCH ×2 (08:58→16:43)
[2019-07-20] MEDS: CLOPIDOGREL BISULFATE 75 MG TAB PO SCH (08:58)
[2019-07-20] MEDS: LISINOPRIL 20 MG TAB PO SCH (08:59)
[2019-07-20] MEDS ORDERED: PANTOPRAZOLE SOD 40 MG TABEC PO SCH (09:00)
[2019-07-20] MEDS: LIDOCAINE 4% PATCH TP SCH (15:15)
[2019-07-20] MEDS: SODIUM CHLORIDE 0.9% 1000ML 1,000 ML IV SCH (15:15)
--- NOTE | 2019-07-20 15:27 | NUR ---
Nutrition Intervention Note RD Recommendation(s) for Physician: -Recommend Ensure Enlive BID for added nutrition -Consider liberalizing diet to regular diet The patient meets criteria for unspecified SEVERE protein-calorie malnutrition. Plan of Care: RD following, monitoring for tolerance and adequacy Nutrition reason for involvement: Nutrition Risk Trigger MST 4 RD Assessment (07/20/19) Pt is an 83 year old female admitted with dehydration and weakness. Pt reports eating <50% of her meals for the past 3 weeks. Pt also mentioned she had weighed 111 lbs a month ago. Pt currently has a weight of 105 lbs in chart. This would be a 5% weight loss in 1 month which is considered to be significant weight loss. Pt also stated she had weighed 160 lbs 2 years ago. Pt reports some nausea. Recommend Ensure Enlive BID for added nutrition. Will continue to monitor. Principal Problems/Diagnoses: dehydration and weakness PMH: hypertension, COPD, colon artery disease, lung mass, peripheral arterial disease, and osteoarthritis. GI: flat abdomen Skin: no pressure ulcers Labs: (07/19) Na 136, BUN 35, Cr 1.42, Glu 76 Meds: protonix, morphine, lisinopril Ht: 66 inches Wt: 105 lbs BMI: 16.9 kg/m2 IBW: 130 lbs Malnutrition Evaluation (07/20/19). The patient meets criteria for unspecified SEVERE protein-calorie malnutrition. Energy intake: <50% of estimated energy requirements for >5 days Weight loss: 5% in 1 month (Acute) Fat loss: moderate tricep region Muscle loss: moderate/severe - acromion process and lower extremities, mild- temporal region Supporting Evidence: Fluid accumulation: unable to evaluate Functional Status: unable to evaluate Nutrition Prescription (Diet Order): cardiac Estimated Nutritional Needs: 9328-3009 calories/day (30-35 kcal/kg CBW) 70- 95 g protein/day (1.5-2 g pro/kg CBW) Diet Adequacy: Not meeting calorie needs, Not meeting protein needs Tolerance: Tolerating PO Diet Education Needs Assessment: Diet education not indicated Nutrition Care Level: moderate Nutrition Diagnosis: Severe malnutrition related to medical status as evidenced by pt meeting <50% of estimated energy needs for > 5 days, 5% weight loss in 1 month, and muscle and fat depletion. Goal: Patient will meet 75-100% of estimated needs by follow up Progress: N/A Interventions: -General healthful diet, Commercial beverage Monitoring/Evaluation: -Total energy intake, Total protein intake,, Modified diet, Liquid supplement, Weight change Signed: Melvi Francis RD, DINO Addendum: 07/20/19 at 1533 by Melvi Francis DIET Correction: pt is high nutrition care level
--- NOTE | 2019-07-20 16:05 | NUR ---
GASTROENTEROLOGY CONSULTATION REASON FOR CONSULT: abdominal pain HISTORY OF PRESENT ILLNESS: Patient is a 83-year-old lady with PMH of COPD, PAD, OA, HTN who presented with weakness, abdominal pain and decreased PO intake. Patient reports difficulty w/swallowing and states she feels as if something is stuck in her esophagus. She states the dysphagia is mostly in solids and merely started this year. She denies any hematemesis, melena or hematochezia. PAST MEDICAL HISTORY: Significant for hypertension, COPD, colon artery disease, lung mass that she refuses workup for, peripheral arterial disease, and osteoarthritis. MEDICATIONS: See APR. ALLERGIES: SULFA AND PENICILLIN. SOCIAL HISTORY: Smoker in past and quit in September. no alcohol, lives at home with her son. SURGERY: states had back surgery last week at [facility] FAMILY HISTORY: Hypertension. PHYSICAL EXAMINATION: VITAL SIGNS: Temperature is 98.4, pulse 76, blood pressure 107/48, and sats 98%. GENERAL: Thin appearing, alert and awake, oriented x3 LUNGS: decreased lung sounds NECK: Supple. No lymphadenopathy. CARDIOVASCULAR: Regular rate and rhythm. ABDOMEN: Normal BS. Soft, nontender. EXTREMITIES: No clubbing, cyanosis. NEUROLOGIC: Nonfocal. PSYCH: flat affect ASSESSMENT/PLAN: 1. Abdominal discomfort, nausea/vomiting and dysphagia (mostly w/solids) 2. Anorexia 3. Unintentional weight loss 4. Acute kidney injury. Plan: - Plan for EGD on Monday w/Dr. Wall to r/o any esophageal strictures. NPO after midnight Monday. Consent ordered and d/w patient. Hold Plavix - continue IV fluids - continue PPI BID - Check MBS - to be done monday - Mechanical soft diet for now. - ABD CT to r/o any other pathologies ABOVE PLAN discussed w/Dr. Wall
--- NOTE | 2019-07-20 16:50 | Consultation ---
DATE OF CONSULTATION: Cardiology Consultation HISTORY OF PRESENT ILLNESS: This is an 83-year-old woman, who presented to the emergency department with multiple nonspecific symptoms consisting of nausea, inability to eat, fatigue, lethargy. She denies any chest pain. She denies any cardiac medical problems in the past. REVIEW OF SYSTEMS: A 12-point review of system was conducted, is negative except as stated above. HPI. PAST MEDICAL HISTORY: As stated above in the HPI. PAST SURGICAL HISTORY: None recent. PAST FAMILY HISTORY: Noncontributory to current illness. ALLERGIES: SULFA AND PENICILLIN. MEDICATIONS: See medications reconciliation form. SOCIAL HISTORY: No illicit drug or tobacco use. PHYSICAL EXAMINATION: VITAL SIGNS: Temperature is 98.3, heart rate is 94, respirations are 18, blood pressure is 113/51, and ox saturation 94% on room air. GENERAL: She is an elderly woman, in no apparent distress. Alert and oriented x3. HEAD: Normocephalic and atraumatic. Eyes, the extraocular muscles are intact. Conjunctivae are clear. NECK: No JVD. No bruits. CARDIOVASCULAR: Regular rate and rhythm with a mild murmur over the right sternal border. LUNGS: Clear to auscultation. ABDOMEN: Soft, nontender, nondistended. EXTREMITIES: No clubbing, cyanosis, or edema. VASCULAR: 2+ pulses. SKIN: Warm, dry, and intact. NEUROLOGIC: No focal deficits noted. LABORATORY DATA: Reviewed. A 12-lead electrocardiogram showed normal sinus rhythm with repolarization abnormalities. IMPRESSION: 1. Failure to thrive. 2. Debility. 3. Chronic obstructive pulmonary disease, emphysema. 4. Coronary artery disease, based on CT scan. 5. Abnormal electrocardiogram. 6. Lrrcp-pn-qfiocyy kidney disease. RECOMMENDATIONS: We will obtain a 2D echocardiogram. The patient does have coronary artery disease based on CT scan. I do not believe that there already signs or symptoms concerning for acute coronary syndrome. Her electrocardiogram is abnormal, however, the ST and T-wave abnormalities are likely due to repolarization rather than an acute coronary event. She remains asymptomatic and her troponins are within normal limits. We will continue to follow along with you. Kt Farmer DO BM/MODL /[id number]
[2019-07-20] MEDS: DICYCLOMINE HCL 20 MG TAB PO SCH (20:14)
[2019-07-21] VITALS (8 sets, daily range): BP systolic 90–141; BP diastolic 50–95
[2019-07-21] MEDS: SODIUM CHLORIDE 0.9% 1000ML 1,000 ML IV SCH ×4 (00:30→23:30)
[2019-07-21 05:56] LABS: BASOPHILS % 0.4 % (0.0-1.0); EOSINOPHILS # (AUTO) 0.2 (0.0-0.4); EOSINOPHILS % 2.2 % (0.0-6.0); HEMATOCRIT 34.9 % (34.2-44.1); HEMOGLOBIN 10.8 g/dL (12.0-16.0); LYMPHOCYTES # (AUTO) 0.9 (1.0-3.2); LYMPHOCYTES % 11.4 % (18.0-39.1); MEAN CORPUSCULAR HEMOGLOBIN 27.3 pg (28-32); MEAN CORPUSCULAR HGB CONC 30.9 g/dL (31-35); MEAN CORPUSCULAR VOLUME 88.4 fL (81-99); MONOCYTES # (AUTO) 0.5 (0.2-0.8); MONOCYTES % 6.7 % (4.4-11.3); NEUTROPHILS # (AUTO) 6.1 (2.1-6.9); NEUTROPHILS % 78.7 % (38.7-80.0); PLATELET COUNT 193 x10e3/uL (140-360); RED BLOOD COUNT 3.95 x10e6/uL (3.6-5.1); RED CELL DISTRIBUTION WIDTH 15.7 % (11.7-14.4)
[2019-07-21 06:30] LABS: ALANINE AMINOTRANSFERASE 12 IU/L (0-55); ALBUMIN 2.5 g/dL (3.5-5.0); ALBUMIN/GLOBULIN RATIO 1.1 (0.8-2.0); ALKALINE PHOSPHATASE 105 IU/L (40-150); ANION GAP 12.5 mmol/L (8-16); BLOOD UREA NITROGEN 25 mg/dL (7-26); BUN/CREATININE RATIO 37 (6-25); CALCIUM 8.2 mg/dL (8.4-10.2); CARBON DIOXIDE 21 mmol/L (22-29); CHLORIDE 107 mmol/L (98-107); CREATININE, SERUM 0.68 mg/dL (0.57-1.11); EST GLOMERULAR FILTRATION RATE > 60 ML/MIN (60-); GLUCOSE 75 mg/dL (74-118); MAGNESIUM 1.7 MG/DL (1.3-2.1); POTASSIUM 3.5 mmol/L (3.5-5.1); SODIUM 137 mmol/L (136-145)
--- NOTE | 2019-07-21 06:55 | NUR ---
Received patient lying in bed with eyes open, respiration even and unlabored without SOB. Denies pain. Call light in reach.
[2019-07-21] MEDS: LISINOPRIL 20 MG TAB PO SCH (08:50)
[2019-07-21] MEDS: DICYCLOMINE HCL 20 MG TAB PO SCH ×3 (08:50→20:45)
[2019-07-21] MEDS: PANTOPRAZOLE 40 MG 10ML VIAL IV SCH ×2 (08:50→15:37)
[2019-07-21] MEDS: LIDOCAINE 4% PATCH TP SCH (08:51)
--- NOTE | 2019-07-21 13:54 | Progress Note ---
DATE: Cardiology Progress Note SUBJECTIVE: Patient is feeling better. Denies any chest pain or shortness of breath. OBJECTIVE: VITAL SIGNS: Temperature is 97.8, heart rate 75, respirations 16, blood pressure is 95/65, oxygen saturation 97% on room air. GENERAL: Well-appearing elderly woman, seated in bed, eating lunch. No complaints. No events. CARDIOVASCULAR: Regular rate and rhythm. LUNGS: Clear to auscultation. ABDOMEN: Soft, nontender, nondistended. NEUROLOGIC: No focal deficits noted. CARDIOVASCULAR MEDICATIONS: Reviewed include lisinopril. LABORATORY DATA: Reviewed. TELEMETRY: Monitoring revealed normal sinus rhythm. ASSESSMENT: 1. Failure to thrive. 2. Chronic debility. 3. Chronic obstructive pulmonary disease and emphysema. 4. Coronary artery disease based on CT scan. 5. Abnormal electrocardiogram with repolarization abnormalities. 6. Acute on chronic kidney disease. PLAN: 1. Recent 2D echocardiogram showed preserved left ventricular systolic function with impaired LV relaxation. No significant valvular disease was found. She does have an abnormal electrocardiogram; however, I do not believe at this time she has any evidence of acute coronary syndrome and her ST changes are related to repolarization abnormalities. She does have coronary disease based on CT scan, however, remains asymptomatic and her troponin levels are within normal limits. We may consider doing a stress test however this can be done as an outpatient. DO S[place]/MODL /[id number]
--- NOTE | 2019-07-21 16:05 | NUR ---
Spoke with the patient's son Carlos Alberto and notified him about the EGD to be done tomorrow. Provided the PUBLIC TRANSPORTATION INSPECTOR Jessica's cellphone number as advised if any questions about the procedure.
--- NOTE | 2019-07-21 18:55 | NUR ---
Report given to wildlife management professor. Respiration even and unlabored without SOB. Call light in reach.
--- NOTE | 2019-07-21 19:50 | NUR ---
SEEN BY DR. BAPTISTE NO NEW ORDERS. IS AWARE OF PENDING CORONAVIRUS RESULT.
--- NOTE | 2019-07-21 20:00 | NUR ---
EGD ORDER GIVEN TO INSURANCE CLAIM AUDITOR FOR SCHEDULING.
--- NOTE | 2019-07-21 23:25 | Progress Note ---
DATE: 07/21/2019 GI Progress Report SUBJECTIVE: The patient reports no abdominal pain. She continues to have a trouble swallowing especially solid food, it often gets stuck in the upper esophagus. Never had any esophageal food impaction. Currently, she has been kept n.p.o. for EGD tomorrow. REVIEW OF SYSTEMS: GENERAL: Weakness. Otherwise, no fever or chills. CVS: No chest pain or palpitation. RESPIRATORY: No cough or expectoration. MEDICATIONS: Reviewed as per MAR. She is getting pantoprazole 40 mg twice daily along with other medications. PHYSICAL EXAMINATION: VITAL SIGNS: Temperature 97.3, pulse 93, respirations 18, blood pressure 141/74, oxygen saturation 99% on room air. GENERAL: Not in any apparent distress, elderly frail female with some kyphosis. HEENT: Oral mucosa is moist. Anicteric sclerae. ABDOMEN: Soft, nondistended, and nontender. No mass or hernia. Positive bowel sounds. LABORATORY DATA: COVID-9 test result is pending. WBC 7.72, hemoglobin 10.8 down from 13.9, hematocrit 34.9, platelet count 193. Sodium 131, potassium 3.5, chloride 107, bicarb 21, BUN 25 and creatinine 0.68. IMAGING DATA: 1. CT of the chest done yesterday showed pulmonary emphysema, stable compression deformities of T6, T10, T11, and L1. No acute intrathoracic CT abnormality. 2. Advanced triple-vessel coronary artery disease. IMPRESSION: Esophageal dysphagia mainly to solid food, sometimes to liquids as well. PLAN: I suspect this is likely due to esophageal dysmotility. However, obstructive lesion needs to be excluded. Therefore, she is going to get upper endoscopy done tomorrow. In the interim, the procedure will be done until COVID test result is available. Kevon Wall MD SA/NIKI /[id number]
[2019-07-22] VITALS (8 sets, daily range): BP systolic 101–158; BP diastolic 70–93
--- NOTE | 2019-07-22 | NUR ---
PATIENT ON NPO.
--- NOTE | 2019-07-22 07:00 | NUR ---
BEDSIDE SHIFT REPORT RECEIVED FROM PENCIL INSPECTOR RN. PT AWAKE, ALERT, IN STABLE CONDITION.
[2019-07-22] MEDS: DICYCLOMINE HCL 20 MG TAB PO SCH ×3 (09:00→20:03)
[2019-07-22] MEDS: LISINOPRIL 20 MG TAB PO SCH (09:00)
[2019-07-22] MEDS: LIDOCAINE 4% PATCH TP SCH (09:16)
[2019-07-22] MEDS: PANTOPRAZOLE 40 MG 10ML VIAL IV SCH ×2 (09:16→15:49)
[2019-07-22] MEDS ORDERED: KETOROLAC TROMETHAMINE 30 MG/ML VIAL IV ONE (09:20)
--- NOTE | 2019-07-22 11:31 | NUR ---
PT AWAKE, ALERT, ORIENTED X3; REQUESTING TO GET OUT OF BED. WALKED WITH PT USING WALKER AROUND THE ROOM, PT AMBULATED EASILY, NO SIGNS OF WEAKNESS OR DIZZINESS. ASSISTED PT TO GET INTO CHAIR; PT SITTING UP, NO SIGNS OF DISTRESS. WILL CONTINUE TO MONITOR.
--- NOTE | 2019-07-22 11:59 | NUR ---
ST NOTE: Order acknowledged for MBS, to be completed after EGD as pt is NPO for 1400 procedure. Will check pt status for readiness later today. Handoff to MELISSA Jack
[2019-07-22] MEDS: SODIUM CHLORIDE 0.9% 1000ML 1,000 ML IV SCH (12:51)
--- NOTE | 2019-07-22 13:28 | NUR ---
Pt out of room and no family at bedside. Will follow up as able. RODOLFO IBRAHIM Transfer Station Operator Spiritual Care Department O: [phone]
--- NOTE | 2019-07-22 15:06 | NUR ---
GOT REPORT FROM PACU; PT HAD EGD WHICH SHOWED EVIDENCE OF REFLUX, ESOPHAGITIS, SMALL HIATAL HERNIA. PER MD, WILL START CARAFATE. PT RECEIVED A TOTAL 700 LR; ON HER WAY BACK TO ROOM.
[2019-07-22] MEDS: SUCRALFATE 1 GM TAB PO SCH ×2 (15:48→20:03)
--- NOTE | 2019-07-22 16:50 | Progress Note ---
DATE: 07/22/2019 Cardiology Progress Note SUBJECTIVE: The patient denies chest pain or shortness of breath. She is upset at being n.p.o. OBJECTIVE: VITAL SIGNS: Temperature 97.7 degrees, pulse 79, respiratory rate 18, blood pressure 150/83, oxygen saturation 99%. GENERAL: Elderly woman, in no acute distress. Awake and alert. LUNGS: Clear to auscultation bilaterally. No wheezes or crackles. CARDIOVASCULAR: Normal rate. Regular rhythm. No murmur. Normal S1 and S2. ABDOMEN: Soft and nontender. EXTREMITIES: No edema. CARDIAC MEDICATIONS: Lisinopril 20 mg p.o. daily. LABORATORY DATA: None today. TELEMETRY: Telemetry was personally reviewed and interpreted, revealing normal sinus rhythm. IMPRESSION: 1. Failure to thrive. 2. Chronic debility. 3. Chronic obstructive pulmonary disease and emphysema. 4. Coronary artery disease based on CT scan. 5. Abnormal EKG with repolarization abnormalities. 6. Acute on chronic kidney disease, improved. RECOMMENDATIONS: Recent echocardiogram showed preserved LV systolic function with impaired LV relaxation. No significant valvular disease was found. No evidence of acute coronary syndrome at this time. However, she does have coronary disease based on her CT scan. We would recommend ischemic evaluation as an outpatient. Resume Plavix once agreeable from a procedural standpoint. Continue current cardiac medications otherwise. If the patient remains hypertensive, would resume her outpatient metoprolol succinate. Thank you for this consult. We will continue to follow. Lidia Lozada MD ABS/MODL /[id number]
[2019-07-22] MEDS ORDERED: PROPOFOL IV EMULSION 10 MG/ML 20 ML VIAL ONE (17:16)
[2019-07-22] MEDS ORDERED: LIDOCAINE HCL 2% LOCAL INJ 5 ML SDV VIAL INJ ONE (17:16)
--- NOTE | 2019-07-22 19:23 | NUR ---
Resumed care of patient. Assisted patient from restroom back to bed. Patient currently awake and resting in bed, no s/s of distress, denies needs at this time. All safety measures in place. Will continue to monitor.
--- NOTE | 2019-07-22 23:06 | NUR ---
Patient states peripheral IV to right forearm came out. Refusing a new IV at this time, screaming whenever nurse attempts to apply tourniquet to left arm. States, "Don't try again, I don't give a damn if I can't get any meds."
[2019-07-23] VITALS: BP 138/96
--- NOTE | 2019-07-23 00:19 | NUR ---
New 22 g peripheral IV started to right upper arm by Sunni TORRES.
[2019-07-23] MEDS ORDERED: MORPHINE SULFATE INJ 4 MG/ML INJ 1ML IV PRN (01:15)
[2019-07-23 04:00] VITALS: BP 177/98
--- NOTE | 2019-07-23 05:18 | NUR ---
Dr. Dunn here to see patient. Says to tell day shift to notify him if patient tolerates breakfast and lunch, for possible DC today.
[2019-07-23] MEDS: SODIUM CHLORIDE 0.9% 1000ML 1,000 ML IV SCH ×2 (05:47→12:30)
[2019-07-23 05:50] VITALS: BP 147/86
--- NOTE | 2019-07-23 07:00 | NUR ---
BEDSIDE SHIFT REPORT RECEIVED FROM PM NURSE. PT SLEEPING COMFORTABLY, NO SIGNS OF DISTRESS, RESPIRATIONS EVEN AND NONLABORED. WILL CONTINUE TO MONITOR.
--- NOTE | 2019-07-23 07:02 | NUR ---
Bedside report given to oncoming nurse. Patient resting in bed, respirations even and unlabored, no s/s of distress at this time. All safety measures in place.
[2019-07-23 07:51] VITALS: BP 136/91
[2019-07-23 08:04] VITALS: BP 136/91
[2019-07-23] MEDS: DICYCLOMINE HCL 20 MG TAB PO SCH (08:42)
[2019-07-23] MEDS: LISINOPRIL 20 MG TAB PO SCH (08:42)
[2019-07-23] MEDS: SUCRALFATE 1 GM TAB PO SCH ×2 (08:43→11:30)
[2019-07-23] MEDS: PANTOPRAZOLE 40 MG 10ML VIAL IV SCH (08:46)
[2019-07-23] MEDS: LIDOCAINE 4% PATCH TP SCH (08:52)
[2019-07-23] MEDS: CLOPIDOGREL BISULFATE 75 MG TAB PO SCH (09:00)
[2019-07-23 11:53] VITALS: BP 152/83
--- NOTE | 2019-07-23 16:00 | Progress Note ---
DATE: 07/23/2019 Cardiology progress note SUBJECTIVE: Today, the patient denies chest pain or shortness of breath. OBJECTIVE: VITAL SIGNS: Temperature 97.4 degrees, pulse 89, respiratory rate 20, blood pressure 152/83, and oxygen saturation 98% on 2 L nasal cannula. GENERAL: An elderly woman, awake and alert, in no acute distress. LUNGS: Clear to auscultation bilaterally. No wheezes or crackles. CARDIOVASCULAR: Normal rate. Regular rhythm. No murmur. Normal S1, S2. ABDOMEN: Soft, nontender. EXTREMITIES: No edema. CHRONIC MEDICATIONS: Lisinopril 20 mg p.o. daily and Plavix 75 mg p.o. daily. LABORATORY DATA: None today. TELEMETRY: Personally reviewed and interpreted revealing normal sinus rhythm. IMPRESSION: 1. Failure to thrive. 2. Chronic debility. 3. Chronic obstructive pulmonary disease and emphysema. 4. Coronary artery disease, based on CT scan. 5. Abnormal EKG with repolarization abnormalities. 6. Acute on chronic kidney disease, improved. RECOMMENDATIONS: Recent echocardiogram showed preserved LV systolic function with impaired LV relaxation. No significant valvular disease was found. There was no evidence of acute coronary syndrome at this time. However, she does have coronary disease based on her CT scan. We would recommend ischemic evaluation as an outpatient. Resume Plavix is agreeable from a procedural standpoint. Continue current cardiac medications. Recommend resuming the patient's outpatient metoprolol as blood pressure is above goal for age. Thank you for this consult. We will continue to follow. Lidia Lozada MD ABS/MODL /[id number]
[2019-07-23] MEDS ORDERED: PANTOPRAZOLE SOD 40 MG TABEC PO SCH (21:00)
--- NOTE | 2019-07-24 10:03 | Diagnostic Imaging Report ---
PROCEDURE: X-RAY MODIFIED BARIUM SWALLOW COMPARISON: None. INDICATION: Aspiration Radiation Details: Fluoroscopy time: 1.9 minutes Cumulative dose: 2.5 mGy DISCUSSION: Fluoroscopic examination was performed in conjunction with speech pathology during swallowing a variety of thin and thick liquid consistencies. Provided images demonstrate trace laryngeal penetration but no aspiration. CONCLUSION: Modified barium swallow demonstrating trace laryngeal penetration but no aspiration. Please refer to the speech pathology report for further details. Signed by: Trye Hdz MD on 07/24/2019 10:00 AM
--- NOTE | 2019-08-18 09:23 | Discharge Summary ---
DISCHARGE DIAGNOSES: 1. Abdominal pain. 2. Gastritis. 3. Dehydration. 4. Hypertension. HISTORY OF PRESENT ILLNESS AND HOSPITAL COURSE: See hospital chart for details. The patient is an elderly lady, frail, who presented with significant abdominal pain and dehydration due to decreased p.o. intake. She was brought in, placed on IV fluids and seen by GI, who did an EGD that showed severe gastritis and ulcerations. She was given proton pump inhibitor therapy and had significant improvement of her pain where she was able to actually eat much better, so she was discharged home. She refused retirement facility, so she was discharged home per the family and patient's wishes and she will follow up in 1 to 2 weeks with me. She is to return back to the emergency room as she is doing worse. Please see hospital chart for full details. MD FUAD Martinez/NIKI /[id number]
== END 2019-07-23 14:55 | disposition home health service (06) | DRG 682 ==
LOC: ER 20:08 → ERHOLD 07-20 00:26 → MED/SURG 07-20 02:38 → OBSVTOIN 07-22 15:05
PROVIDERS: ADMIT Internal Medicine; ATTEND Internal Medicine
PROC: 0DB78ZX Excision of Stomach, Pylorus, Via Natural or Artificial Opening Endoscopic, Diagnostic (ICD-10-PCS; 2019-07-22)
PROC: 0DB38ZX Excision of Lower Esophagus, Via Natural or Artificial Opening Endoscopic, Diagnostic (ICD-10-PCS; principal; 2019-07-22 11:30)
DX: N17.9 Acute kidney failure, unspecified (principal); E43 Unspecified severe protein-calorie malnutrition; I13.0 Hypertensive heart and chronic kidney disease with heart failure and stage 1 through stage 4 chronic kidney disease, or unspecified chronic kidney disease; I50.30 Unspecified diastolic (congestive) heart failure; Z68.1 Body mass index [BMI] 19.9 or less, adult; E86.0 Dehydration; R63.0 Anorexia; N18.9 Chronic kidney disease, unspecified; R62.7 Adult failure to thrive; J44.9 Chronic obstructive pulmonary disease, unspecified; R91.8 Other nonspecific abnormal finding of lung field; R53.81 Other malaise; I25.10 Atherosclerotic heart disease of native coronary artery without angina pectoris; K21.0 Gastro-esophageal reflux disease with esophagitis; K29.70 Gastritis, unspecified, without bleeding; K44.9 Diaphragmatic hernia without obstruction or gangrene; R13.14 Dysphagia, pharyngoesophageal phase; I73.9 Peripheral vascular disease, unspecified; Z88.0 Allergy status to penicillin; Z88.2 Allergy status to sulfonamides; Z87.891 Personal history of nicotine dependence; R94.31 Abnormal electrocardiogram [ECG] [EKG]
CPT/HCPCS: 36415; 43239; 71045; 71250; 74230; 80048; 80053; 82550; 82553; 83735; 84484; 85025; 88305; 88312; 93005; 94640; 99284; G0378; J1885; J2001; J2270; J2405; J7030; U0002